=== PATIENT | male | born 1960 | race Hispanic/Latino ===

== ENCOUNTER 2016-08-09 05:51 | Inpatient (IN) | payer MEDICARE, OTHER ==
[2016-08-09 05:54] VITALS: BMI 38.5
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
[2016-08-09] MEDS ORDERED: Nitroglycerin 2% Ointment Foilpak UD TOP STA (06:36)
[2016-08-09 06:47] LABS: ALKALINE PHOSPHATASE 102 U/L (38-133); ALT/SGPT 30 U/L (7-56); AST/SGOT 20 U/L (15-59); BILIRUBIN,TOTAL 1.2 mg/dL (0.2-1.3); BLOOD UREA NITROGEN 35 mg/dL (7-21); CALCIUM 8.6 mg/dL (8.4-10.5); CARBON DIOXIDE 32 mmol/L (21-33); CHLORIDE 98 mmol/L (98-107); GFR AFRICAN-AMERICAN > 60; GLUCOSE,RANDOM 193 mg/dL (70-110); POTASSIUM 3.4 mmol/L (3.6-5.0); SODIUM 138 mmol/L (132-148); TOTAL PROTEIN 6.3 g/dL (5.8-8.3)
[2016-08-09] MEDS ORDERED: Potassium Chloride 20 mEq ER Tab PO STA (06:55)
[2016-08-09 06:58] LABS: TROPONIN I 0.05 ng/mL
[2016-08-09 07:14] LABS: INR 1.13 (0.93-1.08); PARTIAL THROMBOPLASTIN TIME 27.8 Seconds (23.7-30.8)
[2016-08-09 07:17] LABS: HEMATOCRIT 38.4 % (42.0-52.0); MEAN CELL VOLUME 79.5 fL (80.0-105.0); MEAN CORPUSCULAR HEMOGLOBIN 25.1 pg (25.0-35.0); MEAN CORPUSCULAR HGB CONC 31.5 g/dl (31.0-37.0); MEAN PLATELET VOLUME 9.7 fl (7.0-11.0); RED CELL DISTRIBUTION WIDTH 19.1 % (11.5-14.5); WHITE BLOOD COUNT 5.2 10^3/ul (4.5-11.0)
--- NOTE | 2016-08-09 08:00 | ED PDOC ---
Physical Exam Vital Signs Temp Pulse Resp BP Pulse Ox 08/09/16 10:31 79 18 148/86 98 08/09/16 09:23 83 18 146/83 98 08/09/16 07:34 89 20 160/109 H 97 08/09/16 07:26 85 18 155/114 H 98 08/09/16 07:21 155/114 H 08/09/16 06:33 92 H 20 165/109 H 98 08/09/16 06:28 20 100 08/09/16 06:15 98.0 F 96 H 20 174/124 H 100 Medical Decision Making ED Course and Treatment: 08/09/16 07:40 EXAM: CT Abdomen and Pelvis Without Intravenous Contrast IMPRESSION: 1. Bilateral moderate pleural effusions and dense basilar atelectasis. In combination with ascites, and diffuse subcutaneous edema, this may reflect anasarca. 2. Hepatic cirrhosis and hepatic cirrhosis manifest as large volume abdominal ascites and varices. Dictated and Authenticated by: Alexandru Reyes MD 08/09/2016 7:09 AM Eastern Time ([place] & [place]) US Lower extremity vein bilat: Creator : Alexandru Castro MD FINDINGS: The visualized deep venous systems of both lower extremities are sonographically normal and compressible. Normal wave forms and augmentation are seen. There is no sonographic evidence for deep venous thrombosis in the visualized segments of both lower extremities. IMPRESSION: No sonographic evidence for deep venous thrombosis in the visualized segments of both lower extremities. 08/09 7am: Patient signed out to me. CT and US pending. Readings documented above. I spoke to the admitting physician about all finding and admitted the patient in stable condition. - Lab Interpretations Lab Results: 08/09/16 06:00 08/09/16 06:00 Lab Results 08/09/16 06:00: WBC 5.2, RBC 4.83, Hgb 12.1 L, Hct 38.4 L, MCV 79.5 L, MCH 25.1 , MCHC 31.5, RDW 19.1 H, Plt Count 229, MPV 9.7 08/09/16 06:00: Sodium 138, Potassium 3.4 L, Chloride 98, Carbon Dioxide 32, Anion Gap 11, BUN 35 H, Creatinine 1.2, Est GFR ( Amer) > 60, Est GFR ( Non-Af Amer) > 60, Random Glucose 193 H, Calcium 8.6, Total Bilirubin 1.2, AST 20, ALT 30, Alkaline Phosphatase 102, Lactate Dehydrogenase 364, Total Creatine Kinase 69, Troponin I 0.05, NT-Pro-B Natriuret Pep 06676 H, Total Protein 6.3, Albumin 3.1, Globulin 3.2, Albumin/Globulin Ratio 1.0 L 08/09/16 06:00: PT 12.2 H, INR 1.13 H, APTT 27.8 - RAD Interpretation Radiology Orders: 08/09/16 06:16 CHEST PORTABLE [RAD] Stat DUPLEX LOWER EXTRM VEIN BILAT [US] Stat 08/09/16 06:39 ABD & PELVIS W/O PO OR IV CONT [CT] Stat - Medication Orders Current Medication Orders: Discontinued Medications Furosemide (Lasix) 40 mg IVP ONCE ONE Stop: 08/09/16 06:37 Last Admin: 08/09/16 07:21 Dose: 40 mg Nitroglycerin (Nitro-Bid 2% Oint) 1 ea TOP ONCE STA Stop: 08/09/16 06:37 Last Admin: 08/09/16 07:22 Dose: 1 ea Potassium Chloride (K-Dur 20 Meq Er Tab) 40 meq PO STAT STA Stop: 08/09/16 06:56 Last Admin: 08/09/16 07:44 Dose: 40 meq Disposition/Present on Arrival - Present on Arrival Any Indicators Present on Arrival: No History of DVT/PE: No History of Uncontrolled Diabetes: No Urinary Catheter: No History of Decub. Ulcer: No History Surgical Site Infection Following: None - Disposition Have Diagnosis and Disposition been Completed?: Yes Diagnosis: Dyspnea due to congestive heart failure Disposition: HOSPITALIZED Disposition Time: 09:30 Patient Problems: Current Active Problems Problem Status Onset Dyspnea due to congestive heart failure Acute Condition: STABLE
--- NOTE | 2016-08-09 08:07 | RAD ---
HISTORY: sob COMPARISON: No prior. FINDINGS: LUNGS: No significant interval change. Pulmonary vascular congestion is noted. PLEURA: No significant pleural effusion identified, no pneumothorax apparent. CARDIOVASCULAR: Is seen OSSEOUS STRUCTURES: No significant abnormalities. VISUALIZED UPPER ABDOMEN: Normal. OTHER FINDINGS: None. IMPRESSION: Cardiomegaly and pulmonary vascular congestion. No significant interval change.
--- NOTE | 2016-08-09 09:34 | CT ---
PROCEDURE: CT Abdomen and Pelvis without intravenous contrast HISTORY: distension COMPARISON: Comparison is made to the previous study dated 12/19/2014 TECHNIQUE: Axial and reformatted coronal and sagittal CT images of the abdomen and pelvis were obtained without IV or oral contrast administration.. Contrast Dose: 0. Radiation dose: Total exam DLP = 1233.74 mGy-cm. This CT exam was performed using one or more of the following dose reduction techniques: Automated exposure control, adjustment of the mA and/or kV according to patient size, and/or use of iterative reconstruction technique. FINDINGS: LOWER THORAX: There are bilateral pleural effusions seen. The heart is mildly enlarged. LIVER: Suspicious for cirrhotic changes. The liver demonstrate coarse heterogeneous attenuation. GALLBLADDER AND BILE DUCTS: No evidence of cholecystitis. PANCREAS: Unremarkable. No gross lesion or ductal dilatation. SPLEEN: Mild splenomegaly is again noted. ADRENALS: Unremarkable. No mass. KIDNEYS AND URETERS: Unremarkable. No hydronephrosis. No solid mass. VASCULATURE: Unremarkable. No aortic aneurysm. BOWEL: Unremarkable. No obstruction. No gross mural thickening. Mild diffuse bowel wall thickening likely due to soft tissue edema. APPENDIX: No evidence of appendicitis. PERITONEUM: Small amount of ascites seen in the abdomen and pelvis. LYMPH NODES: Unremarkable. No enlarged lymph nodes. BLADDER: Mild urinary bladder wall thickening. REPRODUCTIVE: Unremarkable. BONES: Internal fixation seen at the lower spine. With defined cortex defect seen at the right iliac bone OTHER FINDINGS: None. IMPRESSION: Interval appearance of bilateral pleural effusions since the previous exam. Interval appearance of small ascites and moderate diffuse soft tissue edema since the previous study. Cirrhosis and findings suggestive of portal hypertension. Preliminary report was submitted by [facility].
--- NOTE | 2016-08-09 09:38 | CARD ---
APPROVED REPORT EKG Measurement Heart [id number] <Conclusion> Sinus rhythm with 1st degree AVB and PVCs and APCs PRWP ASMI, possibly old IVCD Q in 3 STTW changes c/w ischemia PVCs are new.
--- NOTE | 2016-08-09 10:22 | US ---
HISTORY: Leg pain and swelling. Evaluate for DVT PHYSICIAN(S): Alexandru Richardson MD. TECHNIQUE: Duplex sonography and color-flow Doppler with graded compression were used to evaluate the deep venous systems of both lower extremities. The exam is somewhat limited by edema FINDINGS: The visualized deep venous systems of both lower extremities are sonographically normal and compressible. Normal wave forms and augmentation are seen. There is no sonographic evidence for deep venous thrombosis in the visualized segments of both lower extremities. IMPRESSION: No sonographic evidence for deep venous thrombosis in the visualized segments of both lower extremities.
[2016-08-09] MEDS: Arformoterol 15 mcg/2 ml Inh Sol IH SCH (20:04)
[2016-08-09] MEDS: Budesonide 0.5 mg/2 ml Inhal Susp UD IH SCH (20:04)
--- NOTE | 2016-08-09 20:31 | CON ---
DATE: 08/09/2016 REFERRING PHYSICIAN: Dr. Oliver. REASON FOR CONSULT: Cardiomyopathy, heart failure, history of sleep apnea syndrome. HISTORY OF PRESENT ILLNESS: This is a 56-year-old gentleman with a known history of obstructive slee p apnea syndrome diagnosed many years ago, noncompliant, never used the CPAP, history of hypertension and hyperlipidemia, who comes in to the Emergency Room with a cough, shortness of breath, leg swelli ng and ascites. Denies any hemoptysis, no hematemesis, no hematuria, no diarrhea reported. PAST MEDICAL HISTORY: Is significant for diabetes, hypertension, obesity, obstructive sleep apnea sy ndrome, hyperlipidemia. ALLERGIES: None known. SOCIAL HISTORY: Stopped smoking. Denied any alcohol use. FAMILY HISTORY: No significant cardiopulmonary disease reported. HOME MEDICATIONS: He has been on metformin, Cozaar and aspirin. In the ER, received Lasix and potas sium. REVIEW OF SYSTEMS: No headache, no rhinitis. Admits to have loud snoring, daytime sleepy and tired, cough and shortness of breath. No sputum production, no nausea, no vomiting, no diarrhea. Does hav e increased abdominal girth, has leg swelling, no dysuria. PHYSICAL EXAMINATION: GENERAL: Lying in the bed in [id number] distress. VITAL SIGNS: Temp is 98, heart rate is 93, respiratory rate is 20, blood pressure 153/103, pulse ox 96% on room air. HEENT: Moist mucous membranes. Crowded airway. Mallampati score is 4. NECK: Supple. No JVD. LUNGS: Has bilateral crackles with expiratory rhonchi and a few wheezing. HEART: S1 and S2. ABDOMEN: Soft, nontender. No organomegaly. Has ascites. EXTREMITIES: Has edema of both lower extremities. NEUROLOGIC: Awake, alert, follows simple commands. LABORATORY DATA: Shows hemoglobin 12.1, hematocrit 38.4, WBC 5.2, platelet is 229. INR 1.13, PTT is 28. Sodium 138, potassium 3.4, chloride 98, bicarbonate 32, BUN 35, creatinine 1.2, glucose 193, ca lcium 8.6, total bilirubin 1.2, AST 20, ALT 30, alkaline phosphatase is 102. Troponin 0.05. ProBNP 11,500. Albumin 3.1. Chest x-ray done in the ER shows cardiomegaly with pulmonary vascular congestion. Venous ultrasound of lower extremity shows no evidence of DVT. Had a CAT scan of the abdomen and pelvis done, which sh ows the interval appearance of bilateral pleural effusions since the previous examination, interval a ppearance of small ascites and moderate diffuse soft tissue edema since the previous study, cirrhosis cyanosis suggestive of portal hypertension. IMPRESSION AND PLAN: Cardiomyopathy, heart failure, morbid obesity, history of sleep apnea syndrome, noncompliant with CPAP and BiPAP, diabetes, hypertension, seems like cirrhotic liver with portal hyp ertension. I agree with the present management. 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 Will get an echocardiogram tomorrow. Sleep apnea precaution. Keep head elevated at 45 degre e. IV and inhaled bronchodilator, antibiotics. Gastric and deep venous thrombosis prophylaxis. Fol low up labs in the morning. Will suggest getting PFT and attended sleep study as an outpatient. I s poke about sleep apnea. The patient does not like nasal or full face mask, but is willing to try a n mickey pillow mask as an outpatient. Thank you and will follow with you. Farhan Chavira MD cc: [phone] TT: 08/09/2016 20:31:00 Confirmation # [id number] Dictation # [id number] dn
[2016-08-09] MEDS: MethylPREDNISolone 40 mg Vial IVP SCH (22:47)
[2016-08-10] MEDS: MethylPREDNISolone 40 mg Vial IVP SCH ×3 (06:16→21:41)
[2016-08-10 07:02] LABS: ALB/GLOB RATIO 1.1 (1.1-1.8); ALKALINE PHOSPHATASE 109 U/L (38-133); ALT/SGPT 33 U/L (7-56); AST/SGOT 20 U/L (15-59); BILIRUBIN,TOTAL 1.4 mg/dL (0.2-1.3); BLOOD UREA NITROGEN 30 mg/dL (7-21); CARBON DIOXIDE 30 mmol/L (21-33); CHLORIDE 99 mmol/L (98-107); GFR AFRICAN-AMERICAN > 60; GLUCOSE,RANDOM 149 mg/dL (70-110); POTASSIUM 3.8 mmol/L (3.6-5.0); SODIUM 138 mmol/L (132-148); TOTAL PROTEIN 6.7 g/dL (5.8-8.3)
[2016-08-10 07:10] LABS: HEMATOCRIT 40.4 % (42.0-52.0); MEAN CELL VOLUME 79.1 fL (80.0-105.0); MEAN CORPUSCULAR HEMOGLOBIN 25.2 pg (25.0-35.0); MEAN CORPUSCULAR HGB CONC 31.9 g/dl (31.0-37.0); MEAN PLATELET VOLUME 9.3 fl (7.0-11.0); RED CELL DISTRIBUTION WIDTH 18.4 % (11.5-14.5)
--- NOTE | 2016-08-10 07:38 | PQF CHF ---
This form is a permanent part of the medical record Dr. Chavira, Please document specificity of CHF type and severity when determined. Clarification of your documentation is requested to better reflect the severity of illness and intensity of treatment of your patient. Indicators present [x] Diagnosis of CHF and/or history of CHF x] BNP > 200 [x] Imaging Finding of Pulmonary Edema /Pleural Effusions [x] Fluid/Volume Overload [x] Pitting edema [] Ejection Fraction < 40% (Indicative of Systolic Heart Failure) [] Ejection Fraction > 40% (Indicative of Diastolic Heart Failure) [x] Dyspnea / Orthopenea / Paroxysmal Nocturnal Dyspnea [] Other: Location in the medical record that reflects the above clinical findings: [] Treatment Provided: [] PHYSICIAN'S RESPONSE Based on your medical judgment of the clinical indicators outlined above, are you treating this patient for a known or suspected: [] Acute CHF [] Systolic [] Diastolic [] Combined [] Chronic CHF [] Systolic [] Diastolic [] Combined [] Acute on Chronic CHF []Systolic [] Diastolic [] Combined [] CHF due hypertension [] Acute systolic []Chronic systolic [] Acute/ chronic systolic [] Other, please indicate: [] [] If Unable to Determine, please check the box, sign and date. Present On Admission (POA) Indicator: [] Present at the time of admission [] Not present at the time of admission [] Clinically Undetermined In responding to this query, please exercise your independent professional judgment. The fact that a question is asked does not imply that any particular answer is desired or expected. Thank you for your clarification on this documentation. If you have any questions please call:[ ] * Thank you, [ ]Michelle Arora [facility] #[id number] process mold technician DYLON
[2016-08-10] MEDS: Potassium Chloride 20 mEq ER Tab PO SCH (09:28)
[2016-08-10] MEDS: Budesonide 0.5 mg/2 ml Inhal Susp UD IH SCH ×2 (09:30→19:55)
[2016-08-10] MEDS: Enoxaparin 40 mg Syringe SC SCH (09:30)
[2016-08-10] MEDS: Arformoterol 15 mcg/2 ml Inh Sol IH SCH ×2 (09:30→19:55)
--- NOTE | 2016-08-10 11:01 | CON ---
DATE: 08/10/2016 HISTORY OF PRESENT ILLNESS: The patient is a 56-year-old male who presents with several days of peda l edema, increasing abdominal girth as well as dyspnea. PAST MEDICAL HISTORY: Includes hypertension, diabetes mellitus, hypercholesterolemia as well as COPD . The patient's past medical history also includes a documented dilated cardiomyopathy with an ejection fraction of 25%. There was noncritical CAD noted on a previous catheterization. SOCIAL HISTORY: The patient is an active smoker. His diet is noncompliant and filled with high salt intake. REVIEW OF SYSTEMS: A 14-point review of systems was reviewed. No angina noted. Other than his dysp ricardo and pedal edema and increase of abdominal girth, no other cardiac symptomatology is noted. PHYSICAL EXAMINATION: VITAL SIGNS: Blood pressure is 139/99, heart rate is in the 90s. NECK: Negative JVD. LUNGS: Decreased breath sounds bilaterally. HEART: Reveals S1, S2. EXTREMITIES: 2+ to 3+ edema. ABDOMEN: Increased abdominal girth. EKG shows normal sinus rhythm with frequent APCs and PVCs, poor R-wave progression noted, nonspecific ST-T changes. LABORATORY DATA: His proBNP is greater than 11,000. Troponin is 0.05. BUN and creatinine are unrem arkable. Hemoglobin is 12.9. IMPRESSION: 1. Acute systolic congestive heart failure. 2. Dilated cardiomyopathy with an ejection fraction of 25%. 3. Coronary artery disease. 4. Increasing severe chronic obstructive pulmonary disease. 5. Noncompliant with diet and cardiac risk reduction program. 6. Ascites. 7. Pedal edema. PLAN: Given these findings, we will increase his Lasix to 40 b.i.d. We will start him on IV dobutam ine at 5 mcg per kilogram per minute. Alexandru Carrillo MD cc: [id number] TT: 08/10/2016 11:00:23 Confirmation # [id number] Dictation # [id number] tn
[2016-08-10] MEDS: DOBUTamine 500mg/250ml D5W 500 MG/250 ML BAG IV PRN (12:46)
[2016-08-10] MEDS: Insulin Lispro (humaLOG) MEDIUM Coverage SC SCH ×2 (16:52→22:30)
--- NOTE | 2016-08-10 18:03 | CARD ---
APPROVED REPORT EXAM: Two-dimensional and M-mode echocardiogram with Doppler and color Doppler. INDICATION Congestive Heart Failure 2D DIMENSIONS Left Atrium (2D)5.8 (1.6-4.0cm)IVSd1.6 (0.7-1.1cm) LVDd6.1 (3.9-5.9cm)PWd1.5 (0.7-1.1cm) LVDs5.4 (2.5-4.0cm)FS (%) 12.1 % LVEF (%)25.7 (>50%) M-Mode DIMENSIONS Aortic Root3.70 (2.2-3.7cm)Aortic Cusp Exc.1.90 (1.5-2.0cm) Aortic Valve AoV Peak Lgwmdgbj392.0cm/sAoV VTI31.3cmAO Peak GR.10mmHg LVOT Peak Cvawtuso364.0cm/sLVOT VTI21.00cmAO Mean GR.7mmHg Mitral Valve MV NLH83dnL/A ratio0.0MVA (PHT)3.38cm2 TDI E/Lateral E'0.0E/Medial E'0.0 Pulmonary Valve PV Peak Toetyyaw17.5cm/sPV Peak Grad.3mmHg Tricuspid Valve TR Peak Krnfmsnm962px/sRAP [id number] Peak Gr.40mmHg [id number] LEFT VENTRICLE The Left Ventricle is mildly dilated. There is mild concentric left ventricular hypertrophy. The systolic function is severely impaired. There is global hypokinesis of the left ventricle. RIGHT VENTRICLE The right ventricle is mildly dilated. ATRIA The left atrium is moderately dilated. The right atrium is moderately dilated. The interatrial septum is intact with no evidence for an atrial septal defect. AORTIC VALVE The aortic valve is normal in structure. No aortic regurgitation is present. There is no aortic valvular stenosis. MITRAL VALVE The mitral valve is mildly thickened. Mitral regurgitation is moderate. TRICUSPID VALVE The tricuspid valve is normal in structure. There is moderate tricuspid regurgitation. PULMONIC VALVE The pulmonary valve is normal in structure. GREAT VESSELS The aortic root is normal in size. The IVC is dilated. PERICARDIAL EFFUSION There is moderate left pleural effusion. There is no pericardial effusion. <Conclusion> Four chamber enlargement. Severe LV systolic function with global hypokinesis. Moderate MR. Moderate TR. Left pleural effusion noted.
--- NOTE | 2016-08-11 02:24 | PN ---
DATE: 08/10/2016 REFERRING PHYSICIAN: Kiki Oliver MD SUBJECTIVE: He is lying in the bed, head at 45 degrees, feels better, decreased cough, decreased miller rtness of breath. No chest pain, no nausea, no vomiting, no diarrhea, still has leg swelling. OBJECTIVE: GENERAL: In no acute distress. VITAL SIGNS: Temp is 98, heart rate is 90, respiratory rate is 20, blood pressure 144/78, pulse ox 9 5% on room air. HEENT: Moist mucous membranes, crowded airway, Mallampati score is 4. NECK: Supple, no JVD. LUNGS: He has a few crackles, scattered rhonchi, has a prolonged expiratory phase. HEART: S1, S2. ABDOMEN: Soft, nontender. No organomegaly. EXTREMITIES: There is bilateral edema. NEUROLOGIC: Awake, alert, follows simple commands. MEDICATIONS: He is on Brovana 15 mcg inhaled twice a day, Cozaar 50 mg daily, dobutamine IV is added , doxycycline 100 mg twice a day, Ecotrin 81 mg daily, metformin 500 mg twice a day, insulin coverage , potassium 20 mEq daily, K-Dur 20 mEq daily, Lasix 40 mg twice a day, Lovenox 40 mg daily, Nicoderm patch daily, Pepcid 40 mg daily, Pulmicort inhaled twice a day, Solu-Medrol 20 mg q. 8 hours. LABORATORY DATA: Shows hemoglobin 12.9, hematocrit 40.4, WBC 6.0, platelet is 262. INR of 1.13. So dium 138, potassium 3.8, chloride 99, bicarbonate 30, BUN 30, creatinine 1.2, glucose 149, calcium 9. 0, total bilirubin 1.4, AST 20, ALT 33, alkaline phosphatase is 109, albumin is 3.5. He had an echoc ardiogram done today, which shows right ventricular systolic pressure is 50, shows 4-chamber enlargem ent, with severely-decreased LV function, moderate MR, moderate TR, and left pleural effusion noted. IMPRESSION AND PLAN: Severe cardiomyopathy, heart failure, morbid obesity, history of sleep apnea sy ndrome, hypertension, diabetes, cirrhotic liver, portal hypertension. The patient was started on utamine by Dr. Carrillo and I agree with this. 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 For chronic obstructive pulmonary disease, continue IV and inh aled bronchodilator with antibiotics. Outpatient, he needs attended sleep study, also needs PFT. Fo llow up electrolytes in the morning. We will follow with you. Farhan Chavira MD cc: [id number] TT: 08/11/2016 02:23:51 Confirmation # [id number] Dictation # [id number] vn
[2016-08-11] MEDS: DOBUTamine 500mg/250ml D5W 500 MG/250 ML BAG IV PRN (06:15)
[2016-08-11] MEDS: MethylPREDNISolone 40 mg Vial IVP SCH (06:16)
[2016-08-11 06:27] VITALS: O2SAT 92
[2016-08-11 07:22] LABS: BLOOD UREA NITROGEN 27 mg/dL (7-21); CALCIUM 8.8 mg/dL (8.4-10.5); CARBON DIOXIDE 31 mmol/L (21-33); CHLORIDE 98 mmol/L (98-107); CHOLESTEROL 120 mg/dL (130-200); GFR AFRICAN-AMERICAN > 60; GLUCOSE,RANDOM 156 mg/dL (70-110); POTASSIUM 3.6 mmol/L (3.6-5.0); SODIUM 138 mmol/L (132-148)
[2016-08-11 07:26] LABS: HEMATOCRIT 37.3 % (42.0-52.0); MEAN CELL VOLUME 79.2 fL (80.0-105.0); MEAN CORPUSCULAR HEMOGLOBIN 25.1 pg (25.0-35.0); MEAN CORPUSCULAR HGB CONC 31.6 g/dl (31.0-37.0); MEAN PLATELET VOLUME 9.3 fl (7.0-11.0); RED CELL DISTRIBUTION WIDTH 18.2 % (11.5-14.5); WHITE BLOOD COUNT 7.3 10^3/ul (4.5-11.0)
[2016-08-11 07:44] LABS: IRON 17 ug/dL (45-180)
--- NOTE | 2016-08-11 08:08 | HP ---
CHIEF COMPLAINT: Swelling of the leg. HISTORY OF PRESENT ILLNESS: The patient is a 56-year-old male with history of obstructive sleep apnea syndrome, congestive heart failure, sleep apnea syndrome , noncompliant, never uses CPAP, history of hypertension and hypercholesterolemia, came in the Emergency Room with shortness of breath, leg swelling and ascites. Denies hemoptysis. No hematuria or hematochezia. No headache, no dizziness, no fever, no chills. PAST MEDICAL HISTORY: Diabetes mellitus, hypertension, obesity, obstructive sleep apnea syndrome, hypercholesterolemia. ALLERGIES: The patient is not allergic to any medication. SOCIAL HISTORY: History of smoking, quit. No alcohol, no drugs. FAMILY HISTORY: No significant cardiomyopathy disease. No COPD, no asthma, not contributory. HOME MEDICATIONS: Metformin, Cozaar, aspirin. REVIEW OF SYSTEMS: The patient was seen and examined on the bedside, looks comfortable. No nausea, vomiting, or diarrhea. No headache. No fever, no chills. No hematuria or hematochezia. Has increased abdominal girth, swelling of the legs. Admitted to having loud snoring. Coughing and shortness of breath. PHYSICAL EXAMINATION: VITAL SIGNS: Temperature 98, heart rate 93, respiratory rate 20, blood pressure 150/103, pulse oximeter done on room air. HEENT: Head normocephalic, atraumatic. Eyes: PERRLA. Extraocular muscles intact. Conjunctivae are clear. Nose patent. Mucous membranes moist. NECK: Supple. No carotid bruit, JVD or thyromegaly. LUNGS: Clear to auscultation. HEART: S1, S2 positive. ABDOMEN: Soft, nontender. No organomegaly. Has ascites, fluid thrill is positive. EXTREMITIES: Lower extremity edema. NEUROLOGIC: Awake, alert, and follows simple commands. LABORATORY DATA: Hemoglobin 12.1, hematocrit 38.4, white blood cell 5.7, platelets 229. Sodium 138, potassium 3.4, BUN 35, creatinine 1.2, AST 20, ALT 30. ASSESSMENT AND PLAN: The patient with cardiomyopathy, congestive heart failure , morbid obesity, history of sleep apnea syndrome, noncompliant with CPAP and BiPAP, diabetes mellitus, hypertension, cirrhosis of the liver with portal hypertension, ascites. We will give diuretics, afterload reduction and beta blockers, antibiotics. Gastric and deep venous thrombosis prophylaxis. I reviewed Dr. Chavira's notes. I reviewed Dr. Alexandru Carrillo's notes also. Acute systolic congestive heart failure, dilated cardiomyopathy with ejection fraction 25%, coronary artery disease, pedal edema. Dr. Alexandru Carrillo increased the Lasix to b.i.d. and started him on IV dobutamine at per kilogram per minute. CAT scan of abdomen and pelvis done. Interval appearance of the bilateral pleural effusion with previous exam. Interval appearance of small ascites and moderate effusion findings suggestive of portal hypertension. We will continue Brovana, losartan for hypertension. Dr. Alexandru Carrillo started dobutamine and doxycycline, aspirin and Glucophage. The patient is getting insulin sliding scale. Potassium is replaced. Getting Lovenox for GI prophylaxis. History of smoking, gave nicotine patch. Pepcid for GI prophylaxis. Started on Solu-Medrol. Repeat labs. We will follow up. Kiki Oliver MD cc: [id number] TT: 08/10/2016 20:10:16 moi OSBORNE
[2016-08-11] MEDS ORDERED: Potassium Chloride 20 mEq/15 ml LIQ UD PO STA (08:13)
[2016-08-11] MEDS: Potassium Chloride 20 mEq ER Tab PO SCH (08:31)
[2016-08-11] MEDS: Budesonide 0.5 mg/2 ml Inhal Susp UD IH SCH ×2 (08:35→21:08)
[2016-08-11] MEDS: Arformoterol 15 mcg/2 ml Inh Sol IH SCH ×2 (08:35→21:08)
--- NOTE | 2016-08-11 08:53 | PN ---
DATE: 08/11/2016 CARDIOLOGY FOLLOWUP The patient's edema is much improved on diuretics and IV dobutamine. The patient is feeling better o n IV dobutamine. His edema is much improved. PHYSICAL EXAMINATION: VITAL SIGNS: Blood pressure is 135/72. The heart rate is in the 80s. NECK: Negative JVD. LUNGS: Without rales. HEART: S1, S2. EXTREMITIES: Decreasing edema. LABORATORIES: Hemoglobin is 11.8. Chemistries: The potassium is 3.6. Echocardiogram reveals an ejection fraction of 25%. IMPRESSION: 1. Acute systolic congestive heart failure improved on IV dobutamine. 2. End-stage dilated cardiomyopathy. 3. Diabetes mellitus. 4. Hypertension. 5. Pedal edema, which is improving. PLAN: Given these findings, we will check a magnesium level today. We will replace his potassium. We will continue therapy for another 24 hours. Alexandru Carrillo MD cc: [id number] TT: 08/11/2016 08:38:58 Confirmation # [id number] Dictation # [id number] jn
[2016-08-11] MEDS: Insulin Lispro (humaLOG) MEDIUM Coverage SC SCH ×4 (09:00→21:55)
[2016-08-11] MEDS: Enoxaparin 40 mg Syringe SC SCH (09:36)
[2016-08-11 13:14] LABS: FOLATE 7.3 ng/mL
--- NOTE | 2016-08-11 14:26 | PN ---
DATE: 08/11/2016 REFERRING PHYSICIAN: Dr. Oliver. SUBJECTIVE: He is sitting side of the bed, feels better on dobutamine. No headache, no rhinitis, no chest pain. Still has significant leg swelling. OBJECTIVE: GENERAL: No acute distress. VITAL SIGNS: Temperature is 98, heart rate is 80, respiratory rate is 20, blood pressure 151/97, pul se ox 92% on room air. HEENT: Moist mucous membranes. Crowded airway. NECK: Supple, no JVD. LUNGS: He has a few crackles at the bases. HEART: S1 and S2. ABDOMEN: Soft, nontender, nondistended. EXTREMITIES: Has edema of both lower extremities. NEUROLOGIC: Awake, alert, follows simple commands. MEDICATIONS: He is on Brovana 15 mcg inhaled twice a day, Cozaar 50 mg daily, IV dobutamine, doxycyc line 100 mg twice a day, Ecotrin 81 mg daily, metformin 500 mg twice a day, insulin coverage, potassi um 20 mEq daily, Lasix 40 mg twice a day, Lovenox 40 mg daily, NicoDerm patch daily, Pepcid 40 mg kyra ly, Pulmicort inhaled twice a day, Solu-Medrol 20 mg q. 12 hours. LABORATORY DATA: Shows hemoglobin 11.8, hematocrit is 37.3, WBC 7.3, platelet is 244. Sodium 138, p otassium 3.6, chloride , bicarbonate 31, BUN 27, creatinine 1.3, glucose is 156, hemoglobin A1c 6.6, magnesium 1.7. Iron is 17. AST 20, ALT 33, alkaline phosphatase is 109. Cholesterol is 120. T SH 1.20. IMPRESSION AND PLAN: Severe cardiomyopathy with heart failure, morbid obesity, sleep apnea syndrome, hypertension, diabetes, cirrhotic liver, portal hypertension, chronic obstructive lung disease. Cli nically, he is improved on dobutamine and diuretics. We will add KOFFI inhibitor and beta blockers. 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 Discontinue Solu-Medrol. Place on prednisone tapered dose, inhaled bronchodilator. Follow up labs in the morning. We will follow with you. Mohammad Cait MD cc: [id number] TT: 08/11/2016 14:25:48 Confirmation # [id number] Dictation # [id number] rn
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
[2016-08-12] MEDS: Insulin Lispro (humaLOG) MEDIUM Coverage SC SCH ×3 (07:30→18:02)
[2016-08-12] MEDS: Budesonide 0.5 mg/2 ml Inhal Susp UD IH SCH ×2 (08:20→21:13)
[2016-08-12] MEDS: Arformoterol 15 mcg/2 ml Inh Sol IH SCH ×2 (08:20→21:13)
[2016-08-12] MEDS: Potassium Chloride 20 mEq ER Tab PO SCH (09:25)
[2016-08-12] MEDS: Enoxaparin 40 mg Syringe SC SCH (09:26)
[2016-08-12] MEDS ORDERED: Alum-Mag Hydrox-Simethicone Susp (30 mL) PO ONE (11:40)
[2016-08-12] MEDS ORDERED: Magnesium Oxide 400 mg Tab UD PO SCH (11:45)
--- NOTE | 2016-08-12 11:59 | PN ---
DATE: 08/12/2016 The patient's response to dobutamine has been good. He denies shortness of breath. PHYSICAL EXAMINATION: VITAL SIGNS: Blood pressure is 130/80, the heart rate is in the 80s. NECK: Negative JVD. LUNGS: Decreased breath sounds. HEART: Revealed S1, S2. EXTREMITIES: Decreasing edema, but still persistent. The hemoglobin is 11.8. BUN and creatinine are unremarkable. Potassium is 3.6 with a magnesium of 1 .7. IMPRESSION: 1. Dilated cardiomyopathy. 2. Recurrent congestive heart failure. 3. Diabetes mellitus. 4. Chronic obstructive pulmonary disease. 5. Pedal edema. Given these findings, we will change his diuretic therapy to Lasix as well as spironolactone. We will discontinue his IV dobutamine. Will increase his Nicotine patch to 21 mg. Alexandru Carrillo MD cc: [id number] TT: 08/12/2016 11:58:44 Confirmation # [id number] Dictation # [id number]
[2016-08-12 12:19] LABS: BLOOD UREA NITROGEN 35 mg/dL (7-21); CARBON DIOXIDE 34 mmol/L (21-33); CHLORIDE 93 mmol/L (98-107); GFR AFRICAN-AMERICAN > 60; GLUCOSE,RANDOM 111 mg/dL (70-110); POTASSIUM 3.7 mmol/L (3.6-5.0); SODIUM 136 mmol/L (132-148)
[2016-08-12] MEDS: POLYETHYLENE GLYCOL 3350 17 GM/Dose PACKET PO SCH ×2 (12:36→18:00)
--- NOTE | 2016-08-12 17:58 | PN ---
DATE: 08/12/2016 REFERRING PHYSICIAN: Dr. Oliver. SUBJECTIVE: The patient is sitting side of the bed, friend at the bedside. Night was unremarkable. Off dobutamine. Discharge planning in progress. Breathing is better. No chest pain, no nausea, no vomiting, no diarrhea. Decreased leg swelling. OBJECTIVE: GENERAL: No acute distress. VITAL SIGNS: Temperature is 98, heart rate is 81, respiratory rate is 20, blood pressure 144/97, pul se ox 92% on room air. HEENT: Moist mucous membrane. Crowded airway. NECK: Supple. No JVD. LUNGS: Has a fair airflow with few rhonchi. HEART: S1, S2. ABDOMEN: Soft, nontender. No organomegaly. EXTREMITIES: Decreased edema. NEUROLOGIC: Awake, alert, follows simple commands. MEDICATIONS: He is on Aldactone 25 mg twice a day, hydralazine 25 mg q.i.d. Brovana 15 mcg q. 12 ren rs, Colace 100 mg twice a day, Cozaar 50 mg daily, doxycycline 100 mg twice a day, Ecotrin 81 mg brant y, metformin 500 mg twice a day, potassium 20 mEq daily, Lasix 40 mg daily, metoprolol tartrate 25 mg twice a day, Lovenox 40 mg daily, magnesium oxide 400 mg daily, MiraLax 17 grams daily, Nicoderm pat ch daily, Pepcid 40 mg daily, prednisone 20 mg daily, Pulmicort inhaler twice a day. LABORATORY DATA: Shows hemoglobin 11.8 that was yesterday. Chemistry shows sodium 136, potassium 3. 7, chloride 93, bicarbonate 34, BUN 35, creatinine 1.0, glucose 111, calcium is 9.0, magnesium 1.6. IMPRESSION AND PLAN: Severe cardiomyopathy with heart failure, morbid obesity, sleep apnea syndrome, hypertension, diabetes, liver cirrhosis, portal hypertension, chronic obstructive lung disease. I s poke to nurse practitioner. Discharge planning is in progress. 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 Outpatient needs atten ded sleep study to rule out sleep apnea causes of cardiomyopathy. The patient was asked to stop smok ing. Continue Nicoderm patch. Thank you and will follow with you. Farhan Chavira MD cc: [id number] TT: 08/12/2016 17:57:46 Confirmation # [id number] Dictation # [id number] jn
[2016-08-12 18:06] VITALS: BP 153/94; PULSE 96
[2016-08-12 18:20] VITALS: RESP 20; TEMP 98.3
--- NOTE | 2016-08-31 08:32 | DS ---
CHIEF COMPLAINT: Swelling of the legs. HISTORY OF PRESENT ILLNESS: The patient is a 56-year-old male with history of obstructive sleep apnea syndrome, congestive heart failure; sleep apnea syndrome , noncompliant, never used the CPAP; history of hypertension, hypercholesterolemia, came to the Emergency Room with shortness of breath, leg swelling and ascites. Denies hemoptysis. No nausea, vomiting, or diarrhea. We admitted the patient. Did CAT scan of abdomen and pelvis. Seen by Dr. Chavira and Dr. Alexandru Carrillo. Did ultrasound of the extremities, reviewed by me. Got better. Discharged home. PAST MEDICAL HISTORY: Diabetes mellitus, hypertension, obesity, obstructive sleep apnea syndrome. ALLERGIES: The patient is not allergic with any medications. SOCIAL HISTORY: History of smoking, quit. No drugs. FAMILY HISTORY: No significant cardiomyopathy, no COPD, no asthma; not contributory. HOME MEDICATIONS: Metformin, Cozaar, aspirin. REVIEW OF SYSTEMS: The patient was seen and examined on the bedside. Looks comfortable. No nausea, vomiting, or diarrhea. No hematuria or hematochezia. No swelling of the legs. No chest pain, no palpitation, no headache, no dizziness. PHYSICAL EXAMINATION: VITAL SIGNS: Temperature 98, heart rate 81, respiratory rate 20, blood pressure 140/96, pulse oximetry 92% on room air. HEENT: Head normocephalic, atraumatic. Eyes: PERRLA. Extraocular muscles intact. Conjunctivae are clear. Nose patent. Mucous membranes moist. NECK: Supple. No carotid bruit, JVD or thyromegaly. CHEST: Bilaterally symmetrical. HEART: S1, S2 positive. LUNGS: Clear to auscultation. ABDOMEN: Soft, nontender. No organomegaly. EXTREMITIES: Decreased edema. NEUROLOGIC: Awake, alert, follows simple commands. MEDICATIONS: Aldactone, hydralazine, Colace, Cozaar, doxycycline, Ecotrin, metformin, potassium, metoprolol, Lovenox, prednisone, magnesium oxide, Nicoderm patch, Pepcid, prednisone. LABORATORY DATA: Hemoglobin 11.8. Sodium 136, potassium 3.7, BUN 35, creatinine 1.0. Glucose 111. ASSESSMENT AND PLAN: This patient is a 56-year-old male with severe cardiomyopathy with heart failure, comorbid obesity, sleep apnea syndrome, hypertension, diabetes mellitus, liver cirrhosis, portal hypertension, chronic obstructive lung disease. Discharge to home. Continue nicotine patch. Urged to quit smoking. Morbid obesity. Had knee surgery. The patient improved on dobutamine drip and diuretics. Dr. Chavira added KOFFI inhibitor and beta blockers , also added hydralazine for afterload reduction and to get him off the dobutamine. Solu-Medrol was given. GI and DVT prophylaxis. Got tapering dose of prednisone. Will follow up. Kiki Oliver MD cc: [id number] TT: 08/30/2016 08:31:39 mn DYLON
== END 2016-08-12 18:30 | disposition home or self-care (01) | DRG 292 ==
LOC: ED 05:51 → ERH 09:29 → 2RNO 12:04
PROVIDERS: ADMIT Internal Medicine Pulmonary Disease; ATTEND Internal Medicine
DX: I11.0 Hypertensive heart disease with heart failure (principal); R18.8 Other ascites; Z68.41 Body mass index [BMI] 40.0-44.9, adult; I42.0 Dilated cardiomyopathy; K76.6 Portal hypertension; E66.01 Morbid (severe) obesity due to excess calories; J98.11 Atelectasis; I50.21 Acute systolic (congestive) heart failure; J44.9 Chronic obstructive pulmonary disease, unspecified; E78.00 Pure hypercholesterolemia, unspecified; Z91.14 Patient's other noncompliance with medication regimen; Z91.19 Patient's noncompliance with other medical treatment and regimen; Z79.82 Long term (current) use of aspirin; Z79.899 Other long term (current) drug therapy; K74.60 Unspecified cirrhosis of liver; J45.909 Unspecified asthma, uncomplicated; I25.10 Atherosclerotic heart disease of native coronary artery without angina pectoris; E11.9 Type 2 diabetes mellitus without complications; E78.5 Hyperlipidemia, unspecified; F17.200 Nicotine dependence, unspecified, uncomplicated; G47.33 Obstructive sleep apnea (adult) (pediatric); R40.2412 Glasgow coma scale score 13-15, at arrival to emergency department; Z91.11 Patient's noncompliance with dietary regimen

== ENCOUNTER 2017-01-25 04:43 | Inpatient (IN) | payer MEDICARE, OTHER ==
[2017-01-25] MEDS: Nitroglycerin 2% Ointment Foilpak UD TOP ONE ×2 (05:30→10:20)
[2017-01-25] MEDS: Potassium Chloride 20 mEq ER Tab PO STA ×2 (07:07→10:19)
[2017-01-25 07:10] LABS: ALB/GLOB RATIO 1.3 (1.1-1.8); ALKALINE PHOSPHATASE 114 U/L (38-126); ALT/SGPT 26 U/L (7-56); AST/SGOT 21 U/L (17-59); BILIRUBIN,TOTAL 1.5 mg/dL (0.2-1.3); BLOOD UREA NITROGEN 18 mg/dL (7-21); CALCIUM 8.9 mg/dL (8.4-10.5); CARBON DIOXIDE 29 mmol/L (21-33); CHLORIDE 99 mmol/L (98-107); GFR AFRICAN-AMERICAN > 60; GLUCOSE,RANDOM 123 mg/dL (70-110); POTASSIUM 3.5 mmol/L (3.6-5.0); SODIUM 138 mmol/L (132-148); TOTAL PROTEIN 6.3 g/dL (5.8-8.3); TROPONIN I 0.03 ng/mL
[2017-01-25 07:11] LABS: HEMATOCRIT 38.7 % (42.0-52.0); MEAN CELL VOLUME 77.7 fl (80.0-105.0); MEAN CORPUSCULAR HEMOGLOBIN 24.7 pg (25.0-35.0); MEAN CORPUSCULAR HGB CONC 31.8 g/dl (31.0-37.0); MEAN PLATELET VOLUME 9.1 fl (7.0-11.0); WHITE BLOOD COUNT 5.4 10^3/ul (4.5-11.0)
[2017-01-25 07:49] LABS: INR 1.22 (0.93-1.08); PARTIAL THROMBOPLASTIN TIME 28.7 Seconds (25.1-36.5)
--- NOTE | 2017-01-25 10:23 | CARD ---
APPROVED REPORT EKG Measurement Heart [id number] <Conclusion> Sinus rhythm with sinus arrhythmia with 1st degree AV block with frequent premature ventricular complexes, 1 APC Left axis deviation PRWP ASMI, old Q in 3 T wave abnormality, consider lateral ischemia Prolonged QT No change
[2017-01-25 11:23] VITALS: BMI 40.8
[2017-01-25 11:57] LABS: TROPONIN I 0.03 ng/mL
--- NOTE | 2017-01-25 12:19 | RAD ---
HISTORY: Evaluation COMPARISON: 08/09/2016 FINDINGS: LUNGS: No active pulmonary disease. PLEURA: No significant pleural effusion identified, no pneumothorax apparent. CARDIOVASCULAR: Moderate cardiomegaly. Mild vascular congestion OSSEOUS STRUCTURES: No significant abnormalities. VISUALIZED UPPER ABDOMEN: Normal. OTHER FINDINGS: None. IMPRESSION: Moderate cardiomegaly. Mild vascular congestion
[2017-01-25] MEDS: Potassium Chloride 20 mEq ER Tab PO SCH (12:21)
[2017-01-25] MEDS: Insulin Reg-LOW-Coverage SC SCH ×3 (13:19→21:49)
[2017-01-25] MEDS ORDERED: DOBUTamine 500mg/250ml D5W 500 MG/250 ML BAG IV PRN (22:12)
--- NOTE | 2017-01-26 07:31 | HP ---
CHIEF COMPLAINT: Shortness of breath and chest pain. HISTORY OF PRESENT ILLNESS: Mr. 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 Alexandru Carrillo, hypertension and hypercholesterolemia, came in with shortness of breath, swelling of the legs, chest pain, abdomen is big. No hemoptysis, no hematuria. No hematochezia. No fever, no chills. 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 Alexandru Carrillo. The patient is seen by Dr. Alexandru Carrillo, admitted in the telemetry, started on Lasix and spironolactone. PAST MEDICAL HISTORY: Diabetes mellitus, hypertension, obesity, obstructive sleep apnea syndrome. ALLERGIES: PATIENT IS NOT ALLERGIC WITH ANY MEDICATIONS. SOCIAL HISTORY: Patient is still smoking. No drug, no ethanol. FAMILY HISTORY: Not significant. HOME MEDICATIONS: Metformin, Cozaar, aspirin. REVIEW OF SYSTEMS: Patient is seen and examined on the bedside, looking comfortable in the telemetry . The patient's shortness of breath and chest pain is getting better, but still legs are swollen. Abdomen is big, feeling bloating. No fever, no chills. PHYSICAL EXAMINATION: VITAL SIGNS: Temperature 97.4, pulse 128, blood pressure 156/92, respiratory rate 19. HEENT: Head normocephalic and atraumatic. Eyes, PERRLA. Extraocular muscles intact. Conjunctivae clear. Nose patent. Mucous membranes moist. NECK: Supple. No carotid bruits or thyromegaly. CHEST: Bilaterally symmetrical. HEART: S1 and S2 positive. LUNGS: Clear to auscultation. ABDOMEN: Soft. Bowel sounds present. No organomegaly. EXTREMITIES: No edema. No cyanosis. NEUROLOGIC: The patient is awake and alert. Moving all four extremities. No focal deficits. LABORATORY DATA: White blood cells 5.4, hemoglobin 12.3, hematocrit 38.7, platelets 253. Sodium 138, potassium 3.5, BUN 18, creatinine 1.4, glucose 159. Hemoglobin A1c 6.7. ASSESSMENT AND PLAN: Mr. Paul Corrales is a 56 years old male with hypokalemia; uncontrolled diabetes mellitus; hemoglobin A1c 6.7; abnormal liver function test; BNP is very high, congestive heart failure; history of anemia; history of congestive heart failure; cardiomyopathy; history of heavy smoking; hypertension; obesity with sleep apnea syndrome; admitted with exacerbation of congestive heart failure; obesity; liver cirrhosis, portal hypertension; chronic fatigue. Nicotine patch offered. Cardiology and Pulmonary consults called. Home medication restarted, and Lasix and Aldactone given. GI and DVT prophylaxis. Repeat labs. We will follow. Kiki Oliver MD MTDD
[2017-01-26] MEDS: Insulin Reg-LOW-Coverage SC SCH ×4 (07:56→21:52)
[2017-01-26] MEDS: Potassium Chloride 20 mEq ER Tab PO SCH (08:02)
[2017-01-26] MEDS: Arformoterol 15 mcg/2 ml Inh Sol IH SCH ×2 (08:22→20:06)
[2017-01-26] MEDS: Budesonide 0.5 mg/2 ml Inhal Susp UD IH SCH ×2 (08:23→20:06)
[2017-01-26] MEDS: MethylPREDNISolone 40 mg Vial IVP SCH ×2 (09:36→22:04)
[2017-01-26 10:15] LABS: ALB/GLOB RATIO 1.2 (1.1-1.8); BILIRUBIN,TOTAL 1.2 mg/dL (0.2-1.3); CALCIUM 8.8 mg/dL (8.4-10.5); MAGNESIUM 1.9 mg/dL (1.7-2.2); POTASSIUM 3.5 mmol/L (3.6-5.0); TOTAL PROTEIN 6.6 g/dL (5.8-8.3)
[2017-01-26] MEDS ORDERED: Potassium Chloride 20 mEq ER Tab PO STA (10:48)
--- NOTE | 2017-01-26 12:29 | CON ---
DATE: 01/25/2017 HISTORY OF PRESENT ILLNESS: The patient is a 56-year-old male who presents with increasing shortness of breath, abdominal girth, as well as pedal edema. PAST MEDICAL HISTORY: Includes hypertension, diabetes mellitus, hypercholesterolemia, COPD, and obesity. He has a documented ejection fraction of 25% with mitral regurgitation and tricuspid regurgitation. There are no critical coronary lesions documented on previous catheterization. He denies smoking, but I suspect he continues and his diet is not of the ideal situation. REVIEW OF SYSTEMS: His dyspnea is now better as well as his chest pain which is better since his dyspnea is improved with diuretics. His edema is better. PHYSICAL EXAMINATION: VITAL SIGNS: Blood pressure 154/92, heart rate is in the 90s. NECK: Negative JVD. LUNGS: Decreased breath sounds bilaterally. HEART: Reveals S1 and S2. EXTREMITIES: 1+ edema. LABORATORY DATA: ProBNP is greater than 11,000. Troponin is 0.03, BUN and creatinine normal with a potassium of 3.5. Hemoglobin is 12.3. IMPRESSION: 1. Acute systolic congestive heart failure. 2. Dilated cardiomyopathy with an ejection fraction of 25%. 4. Mitral regurgitation. 5. Tricuspid regurgitation. 6. Diabetes mellitus. 7. Hypercholesterolemia. 8. Hypertension. 9. Obesity. 10. Chronic obstructive pulmonary disease. PLAN: Given these findings, we will continue his present regimen of IV Lasix. We will change to b.i.d. We will replace his potassium. I have discussed with him about the need to decrease his salt intake again. Alexandru Carrillo MD
--- NOTE | 2017-01-26 12:30 | CON ---
DATE: 01/25/2017 PULMONARY CONSULTATION REFERRING PHYSICIAN: Dr. Oliver. HISTORY OF PRESENT ILLNESS: This is a 56-year-old gentleman with past medical history of cardiomyopathy, chronic obstructive lung disease, obesity, may have hypoventilation syndrome, hypertension, hyperlipidemia, noncompliant with followup, supposed to have a sleep study as outpatient, never showed up to clinic and sleep center, comes in with cough, shortness of breath, and leg pain. Denies any chest pain. No nausea. No vomiting. No diarrhea. PAST MEDICAL HISTORY: Diabetes, hypertension, obesity, chronic obstructive lung disease, hyperlipidemia, and cardiomyopathy. ALLERGIES: NONE KNOWN. FAMILY HISTORY: No significant cardiopulmonary disease reported. SOCIAL HISTORY: Stopped smoking many years ago. Denies any alcohol use. MEDICATIONS: He is on Aldactone 25 mg twice a day, hydralazine 25 mg q.i.d., Colace 100 mg twice a day, Cozaar 50 mg daily, Ecotrin 81 mg daily, insulin coverage, potassium 20 mEq daily, Lasix 40 mg twice a day, and Pepcid 40 mg bedtime. REVIEW OF SYSTEMS: No headache. No rhinitis. Admits to have snoring, daytime sleeping, tired, cough and shortness of breath. No sputum production. No hemoptysis, no hematemesis, no hematuria. Does have leg swelling. PHYSICAL EXAMINATION: GENERAL: Lying on the bed, mild distress secondary to cough and shortness of breath. VITAL SIGNS: Temperature is 98, heart rate is 120, respiratory rate is 20, blood pressure 133/80, and pulse ox 96% on 2 L nasal cannula. HEENT: Moist mucous membrane. Crowded airway. Mallampati score is 4. NECK: Short thick neck. LUNGS: Few crackles at the bases, expiratory wheezing, and rhonchi. HEART: S1 and S2. ABDOMEN: Soft, nontender, and nondistended. EXTREMITIES: Does have edema. NEUROLOGIC: Awake and alert. Follows simple command. LABORATORY DATA: Shows hemoglobin 12.3, hematocrit 38.7, WBC 5.4, and platelet count is 253. INR 1.22, PTT is 29. Sodium 138, potassium 3.5, chloride 98, bicarbonate 29, BUN 18, creatinine 1.4, glucose 123. Hemoglobin A1c is 6.7, calcium 8.9, total bilirubin 1.5, AST 21, ALT 26, LDH 317, proBNP 11,500. Albumin is 3.6, cholesterol is 115. Chest x-ray shows cardiomegaly and congestion. An echocardiogram done in 08/2016, showed severe LV systolic dysfunction, also has a mild concentric left ventricular hypertrophy, right ventricular systolic pressure is 50. IMPRESSION AND PLAN: Severe cardiomyopathy, heart failure, chronic lung disease, morbid obesity, may have sleep apnea syndrome, hypertension, diabetes, cirrhotic liver, portal hypertension, chronic obstructive lung disease. The patient does not want to use BiPAP tonight, also claiming to not give him inhaled bronchodilator tonight, let him sleep. We will continue add small dose of dobutamine. Sleep apnea precaution,gastric prophylaxis, DVT prophylaxis. Followup labs in the morning. Thank you, and we will follow with you. Farhan Chavira MD
--- NOTE | 2017-01-26 16:06 | PN ---
DATE: 01/26/2017 CARDIOLOGY FOLLOWUP SUBJECTIVE: The patient's breathing is much improved. PHYSICAL EXAMINATION: VITAL SIGNS: Blood pressure 155/84 and heart rate is in the 80s. NECK: Negative JVD. LUNGS: Clear to auscultation. HEART: Reveal S1 and S2. EXTREMITIES: Decreased edema. LABORATORY DATA: Potassium is 3.5 and glucose is 121 with a hemoglobin of 12.3. IMPRESSION: 1. Dilated cardiomyopathy. 2. Acute systolic congestive heart failure. 3. Nonobstructive coronary artery disease. 4. Chronic obstructive pulmonary disease. PLAN: Given these findings, we will begin nicotine patch. We will discontinue IV dobutamine. Alexandru Carrillo MD
[2017-01-26] MEDS ORDERED: Magnesium Sulfate 1 gm in D5W 1 GM/100 ML BAG IVPB ONE (16:20)
--- NOTE | 2017-01-26 18:45 | PN ---
DATE: 01/26/2017 PULMONARY PROGRESS NOTE SUBJECTIVE: He is up in the chair, feels much better. Refused to use CPAP/BIPAP. No nausea. No vomiting. No diarrhea. Still have increased leg swelling. OBJECTIVE: GENERAL: In no acute distress. VITAL SIGNS: Temperature is 98, heart rate is 87, and respiratory rate is 20, blood pressure 155/84, pulse ox 97% on 2 L nasal cannula. HEENT: Moist mucous membrane. Crowded airway. Mallampati score is IV. NECK: Supple. No JVD. LUNGS: Prolonged respiratory wheeze. Scattered rhonchi. HEART: S1 and S2. ABDOMEN: Soft and nontender. No organomegaly. EXTREMITIES: Has trace edema. NEUROLOGIC: Awake and oriented. Follows simple command. MEDICATIONS: He is on Aldactone 25 mg twice a day, hydralazine 25 mg q.i.d., Brovana inhaled twice a day, Colace 100 mg twice a day, Cozaar 50 mg daily, doxycycline 100 mg twice a day, Ecotrin 81 mg daily, insulin coverage, potassium 20 mEq daily, Lasix 40 mg twice a day, Nicoderm patch daily, Pepcid 40 mg at bedtime, Pulmicort inhaled twice a day, mg q.12 hours. Medications reviewed and noted. LABORATORY DATA: Hemoglobin 12.3, hematocrit 38.7, WBC 5.4, platelet count is 253. Sodium 140, potassium 3.5, chloride is 100, bicarbonate 29, BUN 20, and creatinine 1.5. Glucose is 88, calcium 8.8, magnesium 1.9, AST 18, ALT 23, alkaline phosphatase is 111, albumin is 3.6, TSH is 4.2. IMPRESSION AND PLAN: Severe cardiomyopathy, heart failure, chronic lung disease, morbid obesity, may have sleep apnea syndrome, hypertension, diabetes, cirrhotic liver, portal hypertension, and chronic obstructive lung disease. Pulmonary point of view, doing okay. We will continue to encourage BiPAP use, keep head 45 degrees, sleep apnea precaution, avoid sedation, continue dobutamine, diuretics, IV inhaled bronchodilator, antibiotics, DVT prophylaxis. Followup labs in the morning. Thank you and we will follow with you. Farhan Chavira MD
--- NOTE | 2017-01-27 02:12 | CP.PCM.PN ---
Subjective - Date & Time of Evaluation Date of Evaluation: 01/27/17 Time of Evaluation: 02:12 - Subjective Subjective: Patient was seen at bed side. He complained of right hip pain. States that he had ORIF of right hip 10 years ago, gets pain in right hip on and off. Has no other complaints. Is able to ambulate. Medical record was reviewed. This 56 year old white male was admitted with sob,chest pain, hypokalemia, uncontrolled DM. Has PMH of BRIAN, obesity, DM II, HTN,CHF,HLD,CMP, anemia, cirrhosis, portal hypertension ,chronic fatigue, smoker. Objective - Vital Signs/Intake and Output Vital Signs (last 24 hours): Temp Pulse Resp BP Pulse Ox 97.5 F L 85 20 145/86 98 01/26/17 18:00 01/26/17 18:00 01/26/17 18:00 01/26/17 22:04 01/26/17 06:00 - Medications Medications: Current Medications Arformoterol Tartrate (Brovana) 15 mcg IH [id number] [facility] Last Admin: 01/26/17 20:06 Dose: 15 mcg Aspirin (Ecotrin) 81 mg PO DAILY [facility] Last Admin: 01/26/17 09:35 Dose: 81 mg Budesonide (Pulmicort Respules) 0.5 mg IH [id number] [facility] Last Admin: 01/26/17 20:06 Dose: 0.5 mg Docusate Sodium (Colace) 100 mg PO BID [facility] Last Admin: 01/26/17 17:08 Dose: 100 mg Doxycycline Hyclate (Doryx) 100 mg PO Q12 [facility] PRN Reason: Protocol Last Admin: 01/26/17 22:04 Dose: 100 mg Famotidine (Pepcid) 40 mg PO HS [facility] Last Admin: 01/26/17 22:04 Dose: 40 mg Furosemide (Lasix) 40 mg IVP BID [facility] Last Admin: 01/26/17 17:07 Dose: 40 mg Hydralazine HCl (Apresoline) 25 mg PO QID [facility] Last Admin: 01/26/17 22:04 Dose: 25 mg Insulin Human Regular (Humulin R Low) 0 units SC ACHS [facility] PRN Reason: Protocol Last Admin: 01/26/17 21:52 Dose: Not Given Losartan Potassium (Cozaar) 50 mg PO DAILY [facility] Last Admin: 01/26/17 09:35 Dose: 50 mg Methylprednisolone (Solu-Medrol) 20 mg IVP Q12 [facility] Last Admin: 01/26/17 22:04 Dose: 20 mg Nicotine (Nicoderm Cq) 1 patch TD DAILY [facility] Last Admin: 01/26/17 14:22 Dose: 1 patch Potassium Chloride (K-Dur 20 Meq Er Tab) 20 meq PO BRK [facility] Last Admin: 01/26/17 08:02 Dose: 20 meq Spironolactone (Aldactone) 25 mg PO BID [facility] Last Admin: 01/26/17 17:08 Dose: 25 mg - Labs Labs: 01/26/17 08:00 PT 13.4 SECONDS (9.4-12.5) H 01/25/17 05:20 INR 1.22 (0.93-1.08) H 01/25/17 05:20 APTT 28.7 Seconds (25.1-36.5) 01/25/17 05:20 Most Recent Lab Values WBC 5.4 10^3/ul (4.5-11.0) D 01/25/17 05:20 RBC 4.98 10^6/uL (3.5-6.1) 01/25/17 05:20 Hgb 12.3 g/dL (14.0-18.0) L 01/25/17 05:20 Hct 38.7 % (42.0-52.0) L 01/25/17 05:20 MCV 77.7 fl (80.0-105.0) L 01/25/17 05:20 MCH 24.7 pg (25.0-35.0) L 01/25/17 05:20 MCHC 31.8 g/dl (31.0-37.0) 01/25/17 05:20 RDW 18.0 % (11.5-14.5) H 01/25/17 05:20 Plt Count 253 10^3/uL (120.0-450.0) 01/25/17 05:20 MPV 9.1 fl (7.0-11.0) 01/25/17 05:20 PT 13.4 SECONDS (9.4-12.5) H 01/25/17 05:20 INR 1.22 (0.93-1.08) H 01/25/17 05:20 APTT 28.7 Seconds (25.1-36.5) 01/25/17 05:20 Sodium 140 mmol/L (132-148) 01/26/17 08:00 Potassium 3.5 mmol/L (3.6-5.0) L 01/26/17 08:00 Chloride 100 mmol/L (98-107) 01/26/17 08:00 Carbon Dioxide 29 mmol/L (21-33) 01/26/17 08:00 Anion Gap 15 (10-20) 01/26/17 08:00 BUN 20 mg/dL (7-21) 01/26/17 08:00 Creatinine 1.5 mg/dL (0.8-1.5) 01/26/17 08:00 Est GFR ( Amer) 58 01/26/17 08:00 Est GFR (Non-Af Amer) 48 01/26/17 08:00 POC Glucose (mg/dL) 156 mg/dL (65-110) H 01/26/17 21:43 Random Glucose 88 mg/dL (70-110) 01/26/17 08:00 Hemoglobin A1c 6.7 % (4.2-6.5) H 01/25/17 05:30 Calcium 8.8 mg/dL (8.4-10.5) 01/26/17 08:00 Magnesium 1.9 mg/dL (1.7-2.2) 01/26/17 08:00 Total Bilirubin 1.2 mg/dL (0.2-1.3) 01/26/17 08:00 AST 18 U/L (17-59) 01/26/17 08:00 ALT 23 U/L (7-56) 01/26/17 08:00 Alkaline Phosphatase 111 U/L (38-126) 01/26/17 08:00 Lactate Dehydrogenase 317 U/L (333-699) L 01/25/17 11:20 Total Creatine Kinase 82 U/L (35-230) 01/25/17 11:20 Troponin I 0.03 ng/mL 01/25/17 11:20 NT-Pro-B Natriuret Pep 83323 pg/mL (0-450) H 01/25/17 05:20 Total Protein 6.6 g/dL (5.8-8.3) 01/26/17 08:00 Albumin 3.6 g/dL (3.0-4.8) 01/26/17 08:00 Globulin 2.9 gm/dL 01/26/17 08:00 Albumin/Globulin Ratio 1.2 (1.1-1.8) 01/26/17 08:00 Triglycerides 48 mg/dL (35-160) 01/25/17 11:20 Cholesterol 115 mg/dL (130-200) L 01/25/17 11:20 LDL Cholesterol Direct 73 mg/dL (0-129) 01/25/17 11:20 HDL Cholesterol 34 mg/dL (29-60) 01/25/17 11:20 TSH 3rd Generation 4.21 mIU/mL (0.46-4.68) 01/26/17 06:00 - Constitutional Appears: Well, No Acute Distress - Head Exam Head Exam: ATRAUMATIC, NORMAL INSPECTION, NORMOCEPHALIC - Eye Exam Eye Exam: Normal appearance - ENT Exam ENT Exam: Normal External Ear Exam - Neck Exam Neck Exam: Normal Inspection - Respiratory Exam Respiratory Exam: NORMAL BREATHING PATTERN - Cardiovascular Exam Cardiovascular Exam: absent: JVD - GI/Abdominal Exam GI & Abdominal Exam: absent: Distended - Rectal Exam Rectal Exam: Deferred - Exam Additional comments: Deferred. - Extremities Exam Extremities Exam: Normal Inspection Additional comments: Is able to move right hip without pain. - Back Exam Back Exam: NORMAL INSPECTION - Neurological Exam Neurological Exam: Alert, Oriented x3 - Psychiatric Exam Psychiatric exam: Normal Affect, Normal Mood - Skin Skin Exam: Normal Color Assessment and Plan - Assessment and Plan (Free Text) Assessment: Right hip pain. S/P right hip ORIF. HTN. CHF. CMP. HLD. BRIAN. Obesity. Anemia. Cirrhosis. Portal HTN. Smoker. Plan: Tylenol 975 mg PO stat. Continue present management .
[2017-01-27 03:14] VITALS: RESP 19
[2017-01-27 06:48] VITALS: TEMP 97.9; O2SAT 97
[2017-01-27 07:03] LABS: ALB/GLOB RATIO 1.3 (1.1-1.8); ALKALINE PHOSPHATASE 109 U/L (38-126); ALT/SGPT 24 U/L (7-56); AST/SGOT 20 U/L (17-59); BILIRUBIN,TOTAL 1.1 mg/dL (0.2-1.3); BLOOD UREA NITROGEN 21 mg/dL (7-21); CALCIUM 8.8 mg/dL (8.4-10.5); CARBON DIOXIDE 33 mmol/L (21-33); CHLORIDE 100 mmol/L (98-107); GFR AFRICAN-AMERICAN > 60; GLUCOSE,RANDOM 149 mg/dL (70-110); SODIUM 139 mmol/L (132-148); TOTAL PROTEIN 6.1 g/dL (5.8-8.3)
[2017-01-27] MEDS: Arformoterol 15 mcg/2 ml Inh Sol IH SCH ×2 (07:47→19:31)
[2017-01-27] MEDS: Budesonide 0.5 mg/2 ml Inhal Susp UD IH SCH ×2 (07:47→19:31)
[2017-01-27] MEDS: Insulin Reg-LOW-Coverage SC SCH ×4 (08:23→17:23)
--- NOTE | 2017-01-27 08:58 | PN ---
DATE: 01/26/2017 SUBJECTIVE: The patient is 56-year-old male. The patient was sitting on the bedside on the chair, feeling much better and refusing BiPAP/CPAP, getting drip, asking about nicotine patch. According to him, he want 21 plus nicotine patch. I offered him 70, he said it will not work on him. Then I talked to the patient's nurse, Vanessa and I told her to call correctional treatment specialist to make decision. No nausea or vomiting. No headache or dizziness. No chest pain or palpitation. PHYSICAL EXAMINATION: VITAL SIGNS: Temperature 98, heart rate 87, respiratory rate 20, blood pressure 155/84, pulse oximetry 97% on 2 L nasal cannula. HEENT: Head, normocephalic and atraumatic. Eyes, PERRLA. Extraocular muscles are intact. Conjunctivae are clear. Nose is patent. Mucous membrane moist. NECK: Supple. No carotid bruits. No JVD or thyromegaly. CHEST: Bilaterally symmetrical. HEART: S1 and S2 positive. LUNGS: Prolonged expiratory phase. Scattered rhonchi. ABDOMEN: Soft, nontender. No organomegaly. EXTREMITIES: Trace edema. NEUROLOGIC: The patient is awake, alert, and oriented x3. Follows simple commands. Moving all 4 extremities. MEDICATIONS: Aldactone, hydralazine, Brovana, Colace, Cozaar, doxycycline, Ecotrin, insulin coverage, potassium, Lasix, Nicoderm patch, Pepcid, Pulmicort. LABORATORY DATA: Hemoglobin 12.3, hematocrit 38.7, white blood cells , platelets 253. Sodium 140, potassium 3.5, BUN 20, creatinine 1.5, glucose 88, AST 18, ALT 23, TSH 4.2. ASSESSMENT AND PLAN: Mr. Paul Schwab is a 56-year-old male, came with exacerbation of congestive heart failure, severe cardiomyopathy, chronic lung disease, morbid obesity, history of actively smoking, sleep apnea syndrome, hypertension, diabetes mellitus, cirrhotic liver disease, portal hypertension. We will continue encourage BiPAP as per Dr. Chavira. Started off on nicotine patch. Continue diuretics and bronchodilators. Deep venous thrombosis and gastrointestinal prophylaxis. Seen by Dr. Chavira dealer card room and Dr. Alexandru Carrillo, correctional treatment specialist. The patient with nonobstructive coronary artery disease as per Dr. Alexandru Carrillo. The patient started on dobutamine drip, but Dr. Alexandru Carrillo discontinued the dobutamine drip. Out of bed with physical therapy. We will follow up. Kiki Oliver MD [place]
[2017-01-27] MEDS: Potassium Chloride 20 mEq ER Tab PO SCH (09:29)
[2017-01-27] MEDS: MethylPREDNISolone 40 mg Vial IVP SCH (09:31)
--- NOTE | 2017-01-27 11:29 | PN ---
DATE: 01/27/2017 CARDIOLOGY FOLLOWUP NOTE SUBJECTIVE: The patient's breathing is much improved. PHYSICAL EXAMINATION: VITAL SIGNS: Blood pressure is 145/93 and the heart rates in the 80s. NECK: Negative JVD. LUNGS: Decreased breath sounds without rales. HEART: Reveals S1 and S2. EXTREMITIES: Decreasing edema. LABORATORY DATA: BUN and creatinine are within normal limits. Potassium is 4.0. The magnesium which was replaced yesterday is pending. IMPRESSION 1. Status post congestive heart failure. 2. Nonsustained ventricular arrhythmias. 3. Dilated cardiomyopathy. 4. Chronic obstructive pulmonary disease. 5. Nonobstructive coronary artery disease. PLAN: 1. Given these findings, the patient's dyspnea is markedly improved. We will change to p.o. Lasix. 2. We will check the magnesium today. We will DC telemetry. Alexandru Carrillo MD
--- NOTE | 2017-01-27 14:15 | CON ---
This note was created by mistake of transcribing service. i have not seen or examined this patient MTDD
[2017-01-27] MEDS ORDERED: Pneumococcal 23-Valent Vaccine IM ONE (17:21)
[2017-01-27] MEDS ORDERED: Influenza Vaccine 60 mcg/0.5 mL SYR (4YR UP) IM ONE (17:21)
[2017-01-27 18:01] VITALS: BP 152/99; PULSE 90
--- NOTE | 2017-01-28 02:46 | PN ---
PULMONARY PROGRESS NOTE DATE: 01/27/2017 REFERRING PHYSICIAN: Kiki Oliver MD SUBJECTIVE: He is out of bed to chair, cleared by Cardiology to go home. According to nursing staff, he wants to go home. Not very complain of CPAP and BiPAP. Breathing is better. No nausea, no vomiting. No diarrhea. Still has leg swelling. OBJECTIVE: GENERAL: No acute distress. VITAL SIGNS: Temperature is 98, heart rate is 90, respiratory rate is 20, blood pressure is 152/99 and pulse ox is 97% on room air. HEENT: Moist mucous membranes. Crowed airway. Mallampati score is 4. NECK: Supple. No JVD. LUNGS: Has a fair airflow with rhonchi. HEART: S1 and S2. ABDOMEN: Soft, nontender. No organomegaly. EXTREMITIES: Does have edema. NEUROLOGIC: Awake, alert. Follows simple commands. MEDICATIONS: Medications reviewed and noted. No new change in medications reports. LABORATORY DATA: Since yesterday, laboratory reviewed and noted. Sodium 139, potassium 4.0, chloride 100, bicarbonate 33, BUN 21, creatinine 1.4, glucose 149, calcium is 8.8 and magnesium is 2.0. AST is 20, ALT is 24, alkaline phosphatase is 109 and albumin is 3.4. IMPRESSION AND PLAN: Severe cardiomyopathy with heart failure, chronic lung disease, morbid obesity, may have sleep apnea syndrome, hypertension, diabetes, cirrhotic liver disease, portal hypertension. The patient wants to go home, feels okay. I had a long discussion with the patient about sleep apnea and its consequence and relation to cardiomyopathy. Finally willing to do sleep study as long as nasal pillow is used for the mask. If clear from Cardiology, will let him go home with afterload rn case mgr, beta-harshal and outpatient PFT and sleep study. Farhan Chavira MD
--- NOTE | 2017-01-28 09:25 | DS ---
CHIEF COMPLAINT: Shortness of breath, chest pain, swelling of the leg. HISTORY OF PRESENT ILLNESS: Mr. Paul Schwab is a 56-year-old male with multiple medical problems, who came to [facility] with shortness of breath, chest pain, history of obstructive sleep apnea syndrome, history of congestive heart failure, noncompliant, especially smoking heavy, not using CPAP, and his Cardiology Dr. Alexandru Carrillo. We admitted to the patient. Dr. Alexandru Carrillo saw the patient. Dr. Chavira saw the patient. The patient was given medications, improved, feeling better. No nausea, vomiting, diarrhea. No hematuria or hematochezia. Swelling of the leg is better. Shortness of breath and coughing is better. No fever. No chills. History of ORIF of right hip 10 years ago. PAST MEDICAL HISTORY: History of diabetes mellitus, hypertension, obesity, obstructive sleep apnea syndrome. ALLERGIES: PATIENT IS NOT ALLERGIC WITH ANY MEDICATIONS. SOCIAL HISTORY: The patient is still smoking. No drug. No ethanol. FAMILY HISTORY: Father and mother noncontributory. REVIEW OF SYSTEMS: The patient was seen and examined at the bedside, looking comfortable, swelling of the leg got better. Shortness of breath got better. No chest pain. No fever. No chills. PHYSICAL EXAMINATION: VITAL SIGNS: Temperature 98.6, pulse 90, blood pressure 150/99, respiratory rate 18. HEENT: Head; normocephalic and atraumatic. Eyes; PERRLA. Extraocular muscles intact. Conjunctivae clear. Nose patent. Mucous membrane moist. NECK: Supple. No carotid bruits. No JVD. No thyromegaly. CHEST: Bilateral symmetrical. HEART: S1 and S2 positive. LUNGS: Clear to auscultation. ABDOMEN: Soft. Bowel sounds positive. No organomegaly. EXTREMITIES: No edema. No cyanosis. NEUROLOGIC: The patient is awake and alert. Moving all 4 extremities. No focal deficits. LABORATORY DATA: White blood cell 5.4, hemoglobin 12.3, hematocrit 38.7, platelets of 253. Sodium 139, potassium 4.0, BUN 21, creatinine 1.2, glucose of 114 and 149. ASSESSMENT AND PLAN: Mr. Paul Schwab is a 56-year-old male with status post congestive heart failure, came this time with exacerbation of congestive heart failure, got better; nonsustained ventricular arrhythmias; dilated cardiomyopathy; chronic obstructive lung disease; nonobstructive coronary artery disease. The patient came with dyspnea, improved markedly. Dr. Alexandru Carrillo changed Lasix to p.o. and Dr. Alexandru Carrillo cleared the patient for discharge. Seen by Dr. Cantrell for hip pain. History of asthma, obesity, noncompliant with medications and still heavily smoking, chronic obstructive pulmonary disease, obstructive sleep apnea syndrome, hypertension, cirrhosis of the liver, portal hypertension. Should use bilevel positive airway pressure. Gastrointestinal and deep venous thrombosis prophylaxis. The patient got treatment, better, discharge to home today with follow up with the primary care physician cleared by the [employer]. Continue home medications. Kiki Oliver MD
== END 2017-01-27 19:31 | disposition home or self-care (01) | DRG 292 ==
LOC: ED 04:43 → ERH 06:45 → 2RSO 09:29
PROVIDERS: ADMIT Internal Medicine; ATTEND Internal Medicine
DX: I11.0 Hypertensive heart disease with heart failure (principal); I50.21 Acute systolic (congestive) heart failure; K76.6 Portal hypertension; K74.60 Unspecified cirrhosis of liver; I47.0 Re-entry ventricular arrhythmia; I42.0 Dilated cardiomyopathy; E11.65 Type 2 diabetes mellitus with hyperglycemia; E66.01 Morbid (severe) obesity due to excess calories; I08.1 Rheumatic disorders of both mitral and tricuspid valves; G47.33 Obstructive sleep apnea (adult) (pediatric); E87.6 Hypokalemia; F17.200 Nicotine dependence, unspecified, uncomplicated; J44.9 Chronic obstructive pulmonary disease, unspecified; E78.00 Pure hypercholesterolemia, unspecified; I25.10 Atherosclerotic heart disease of native coronary artery without angina pectoris; D64.9 Anemia, unspecified; R53.82 Chronic fatigue, unspecified; Z91.19 Patient's noncompliance with other medical treatment and regimen; Z68.39 Body mass index [BMI] 39.0-39.9, adult

== ENCOUNTER 2017-09-26 14:14 | Inpatient (IN) | payer MEDICARE, OTHER ==
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
--- NOTE | 2017-09-26 16:17 | RAD ---
HISTORY: Chest pain COMPARISON: 01/25/2017. FINDINGS: LUNGS: The lungs are well inflated. There is right lower lobe airspace disease. PLEURA: Suspect small pleural effusions, no pneumothorax apparent. CARDIOVASCULAR: There is severe cardiomegaly. OSSEOUS STRUCTURES: No significant abnormalities. VISUALIZED UPPER ABDOMEN: Normal. OTHER FINDINGS: None. IMPRESSION: Right lower lobe airspace disease may represent atelectasis or pneumonia. Severe cardiomegaly and suspect small pleural effusions.
[2017-09-26 16:38] LABS: BASO # 0.03 K/mm3 (0.0-2.0); BASO % 0.5 % (0.0-3.0); EOS # 0.1 (0.0-0.7); EOS % 1.4 % (1.5-5.0); GRAN # 4.31 (1.4-6.5); GRAN % 68.2 % (50.0-68.0); HEMOGLOBIN 10.4 g/dL (14.0-18.0); MEAN CELL VOLUME 65.8 fl (80.0-105.0); MEAN CORPUSCULAR HEMOGLOBIN 19.8 pg (25.0-35.0); MEAN CORPUSCULAR HGB CONC 30.1 g/dl (31.0-37.0); MEAN PLATELET VOLUME 9.2 fl (7.0-11.0); MONO # 0.9 (0.1-0.6); MONO % 13.9 % (1.0-6.0); RBC 5.26 10^6/uL (3.5-6.1); RED CELL DISTRIBUTION WIDTH 20.7 % (11.5-14.5); WHITE BLOOD COUNT 6.3 10^3/ul (4.5-11.0)
[2017-09-26 16:42] LABS: ALB/GLOB RATIO 1.1 (1.1-1.8); ALBUMIN 3.4 g/dL (3.0-4.8); CALCIUM 8.9 mg/dL (8.4-10.5)
[2017-09-26 16:53] LABS: TROPONIN I 0.04 ng/mL
[2017-09-26] MEDS ORDERED: diltiaZEM IVPB 100mg in NS 100 ML IV PRN (18:14)
[2017-09-26] MEDS ORDERED: Heparin25000 units/250ml 1/2NS 25,000 UNITS/250 ML BAG IV PRN (21:12)
--- NOTE | 2017-09-26 22:34 | CARD ---
APPROVED REPORT EKG Measurement Heart [id number] <Conclusion> Atrial fibrillation with rapid ventricular response Left axis deviation Low voltage QRS Cannot rule out Anteroseptal infarct, age undetermined Abnormal ECG
[2017-09-27] MEDS ORDERED: Levalbuterol 1.25 MG/3 ML Inhal Soln UD IH PRN (00:30)
[2017-09-27 03:27] VITALS: BMI 38.9
[2017-09-27 03:35] LABS: HEMOGLOBIN 10.5 g/dL (14.0-18.0); MEAN CELL VOLUME 66.3 fl (80.0-105.0); MEAN CORPUSCULAR HEMOGLOBIN 19.7 pg (25.0-35.0); MEAN CORPUSCULAR HGB CONC 29.7 g/dl (31.0-37.0); MEAN PLATELET VOLUME 8.7 fl (7.0-11.0); RBC 5.34 10^6/uL (3.5-6.1); RED CELL DISTRIBUTION WIDTH 20.7 % (11.5-14.5)
[2017-09-27 03:43] LABS: CALCIUM 8.8 mg/dL (8.4-10.5)
[2017-09-27] MEDS ORDERED: Heparin25000 units/250ml 1/2NS 25,000 UNITS/250 ML BAG IV PRN ×2 (06:17→19:45)
[2017-09-27] MEDS: Potassium Chloride 20 mEq ER Tab PO SCH (09:37)
[2017-09-27] MEDS: POLYETHYLENE GLYCOL 3350 17 GM/Dose PACKET PO SCH ×2 (09:37→17:35)
[2017-09-27] MEDS: Magnesium Oxide 400 mg Tab UD PO SCH (09:39)
[2017-09-27 10:43] LABS: IRON 16 ug/dL (45-180)
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
[2017-09-27 10:52] LABS: % IRON SATURATION 4 % (20-55); TOTAL IRON BINDING CAPACITY 392 ug/dL (261-462)
[2017-09-27] MEDS: metOLazone 5 MG TAB PO SCH ×2 (11:00→17:36)
[2017-09-27] MEDS: Insulin Reg-LOW-Coverage SC SCH ×3 (13:04→21:44)
[2017-09-27] MEDS: guaiFENesin DM 100 mg-10 mg/5 ml UD PO PRN ×2 (14:05→22:19)
[2017-09-27] MEDS: Lidocaine 5% Patch TD SCH (14:05)
[2017-09-27 17:24] LABS: FERRITIN 14.7 ng/mL
--- NOTE | 2017-09-27 17:43 | US ---
PROCEDURE: Ultrasound of the Kidneys HISTORY: LYDIA COMPARISON: None available. TECHNIQUE: Sonogram of the kidneys. FINDINGS: RIGHT KIDNEY: Measures: 5.8 x 6.1 x 12 cm. Normal in size, contour and echogenicity. No stone, solid mass lesion or hydronephrosis visualized. LEFT KIDNEY: Measures: 5.5 x 6.8 x 12.9 cm. Normal in size, contour and echogenicity. No stone, solid mass lesion or hydronephrosis visualized. OTHER FINDINGS: Large volume intra-abdominal ascites IMPRESSION: Unremarkable renal sonogram. Large volume intra-abdominal ascites.
--- NOTE | 2017-09-27 17:44 | US ---
PROCEDURE: Bladder ultrasound HISTORY: LYDIA. please check for PVR as well COMPARISON: September 27, 2017. Renal ultrasound TECHNIQUE: Standard protocol for this study/examination. FINDINGS: Urinary bladder assessment: Prevoid volume: 155.5 ml Postvoid residual: The patient did not have an urge to void. Intrinsic, mural, perivesical abnormalities: None Ureteral jets: Not visualized Large volume pelvic ascites. IMPRESSION: Small capacitance urinary bladder. No focal findings.
[2017-09-27 17:55] LABS: FOLATE 8.4 ng/mL
[2017-09-27] MEDS: Morphine 4 mg/ml ISec IVP PRN (18:10)
[2017-09-27 18:54] LABS: URINE BILIRUBIN NEGATIVE (NEGATIVE); URINE BLOOD NEGATIVE (NEGATIVE); URINE GLUCOSE (UA) NEGATIVE (NEGATIVE); URINE LEUKOCYTE ESTERASE NEGATIVE Leu/uL (NEGATIVE); URINE PROTEIN NEGATIVE mg/dL (<30 mg/dL); URINE UROBILINOGEN 0.2 E.U./dL (<1 E.U./dL)
[2017-09-27 18:59] LABS: URINE APPEARANCE CLEAR (CLEAR); URINE COLOR YELLOW (YELLOW)
[2017-09-27 19:10] LABS: CREATININE,RANDOM URINE 21 mg/dL
[2017-09-27] MEDS: Heparin25000 units/250ml 1/2NS 25,000 UNITS/250 ML BAG IV PRN ×2 (20:14→22:20)
[2017-09-28] MEDS: Levothyroxine 25 MCG TAB PO SCH (05:26)
[2017-09-28 06:54] LABS: BASO # 0.06 K/mm3 (0.0-2.0); BASO % 1.1 % (0.0-3.0); EOS # 0.1 (0.0-0.7); EOS % 2.6 % (1.5-5.0); GRAN # 3.56 (1.4-6.5); HEMOGLOBIN 9.7 g/dL (14.0-18.0); LYMPH # 1.1 (1.2-3.4); LYMPH % 19.7 % (22.0-35.0); MEAN CELL VOLUME 66.5 fl (80.0-105.0); MEAN CORPUSCULAR HEMOGLOBIN 19.2 pg (25.0-35.0); MEAN CORPUSCULAR HGB CONC 28.9 g/dl (31.0-37.0); MEAN PLATELET VOLUME 8.9 fl (7.0-11.0); MONO # 0.6 (0.1-0.6); MONO % 10.6 % (1.0-6.0); RBC 5.05 10^6/uL (3.5-6.1); RED CELL DISTRIBUTION WIDTH 20.7 % (11.5-14.5); WHITE BLOOD COUNT 5.4 10^3/ul (4.5-11.0)
[2017-09-28 07:13] LABS: INR 1.33 (0.93-1.08); PROTHROMBIN TIME 15.4 SECONDS (9.4-12.5)
[2017-09-28 07:18] LABS: ALBUMIN 3.3 g/dL (3.0-4.8); BLOOD UREA NITROGEN 43 mg/dL (7-21); CALCIUM 8.7 mg/dL (8.4-10.5); GFR AFRICAN-AMERICAN 47; GFR NON-AFRICAN AMERICAN 39
[2017-09-28 07:19] LABS: ALB/GLOB RATIO 1.1 (1.1-1.8); ALT/SGPT 28 U/L (7-56); AST/SGOT 25 U/L (17-59)
[2017-09-28] MEDS: Insulin Reg-LOW-Coverage SC SCH ×4 (07:38→22:37)
[2017-09-28] MEDS: Potassium Chloride 20 mEq ER Tab PO SCH (09:03)
[2017-09-28] MEDS: DOBUTamine 500mg/250ml D5W 500 MG/250 ML BAG IV PRN ×2 (09:03→21:07)
[2017-09-28] MEDS: Morphine 4 mg/ml ISec IVP PRN (09:46)
[2017-09-28] MEDS: Magnesium Oxide 400 mg Tab UD PO SCH (09:47)
[2017-09-28] MEDS: metOLazone 5 MG TAB PO SCH ×2 (09:48→17:43)
[2017-09-28] MEDS: POLYETHYLENE GLYCOL 3350 17 GM/Dose PACKET PO SCH ×2 (09:49→17:42)
[2017-09-28] MEDS: Lidocaine 5% Patch TD SCH (09:50)
--- NOTE | 2017-09-28 09:54 | CP.PCM.PN ---
Subjective - Date & Time of Evaluation Date of Evaluation: 09/28/17 Time of Evaluation: 09:46 - Subjective Subjective: Nephrology Consultation Note: Assessment: stable CHF exacerbation with cirrhosis and fluid overload back pain Anemia Acute Kidney Injury (N17.9) versus progression of CKD, likely cardiorenal syndrome ? Abdomen compartment syndrome Chronic Kidney Disease Stage 3 (N18.3) with ? proteinuria with baseline cr 1.2- 1.5 mg/dL type 2 diabetes Mellitus ( x 1 year), HTN, morbid obesity, BRIAN on CPAP, chronic severe systolic CHF LVEF 25%, cirrhosis/splenomegaly with portal HTN changes on CT scan, active smoker Hypothyroidism ascites Plan No acute need for renal replacement therapy at this time. Cr mildly improved today so far tolerating diuretic - on lasix/tito/metolazone. d/c cozaar if any inc in cr renal us reviewed has lots of ascites - would suggest consult to IR for large volume paracentesis - recc limit to 4 L paracentesis and give 50 mg of IV albumin abdirahman procedure to help reduce risk of hepatorenal development. consider cardiology consult will start oral iron f/u Vit D, PTH and phos levels,b12/folate level/SPEP/ADRIAN and serum FLC assay S: seen and examiend feels like swelling has improved Physical Examination: General Appearance: Comfortable, in no acute respiratory distress, co- operative. obese Vitals reviewed and noted as below Head; Atraumatic, normocephalic ENT: no ulcers no thrush. Tongue is midline. Oropharynx: no rash or ulcers. EYES: Pupils are equal, round and reactive to light accommodation. Eye muscles and extraocular movement intact. Sclera is anicteric. Neck; supple no lymphadenopathy, no thyromegaly or bruit Lungs: Normal respiratory rate/effort. Breath sounds decreased at bases with crackles Heart: Normal rate. s1s2 normal. No rub or gallop. Extremities: 3+ edema. No varicose veins Neurological: Patient is alert, awake and oriented x 3 no focal deficit Skin: dry and warm. Normal turgor. No rash. Palpitation: Normal elasticity for age Abdomen: Abdomen is grossly distended with abdomen wall edema and venous distension. Psych: normal insight. normal affect/mood MSK: no specific joint tenderness or swelling. Digits and nails normal, no deformity : kidney or bladder not palpable. Objective - Vital Signs/Intake and Output Vital Signs (last 24 hours): Temp Pulse Resp BP Pulse Ox 98.1 F 78 20 119/80 94 L 09/28/17 06:00 09/28/17 09:03 09/28/17 06:00 09/28/17 09:03 09/28/17 06:00 Intake and Output: 09/28/17 09/28/17 06:59 18:59 Intake Total 605 Output Total 1400 Balance -795 - Medications Medications: Current Medications Acetaminophen (Tylenol 325mg Tab) 650 mg PO Q4H PRN PRN Reason: Headache Last Admin: 09/27/17 17:37 Dose: 650 mg Aspirin (Ecotrin) 81 mg PO DAILY [facility] Last Admin: 09/27/17 09:40 Dose: 81 mg Cyclobenzaprine HCl (Flexeril) 5 mg PO TID PRN PRN Reason: Pain, moderate (4-7) Diltiazem HCl (Cardizem) 60 mg PO TID [facility] Last Admin: 09/27/17 17:36 Dose: 60 mg Docusate Sodium (Colace) 100 mg PO BID [facility] Last Admin: 09/27/17 17:36 Dose: 100 mg Famotidine (Pepcid) 20 mg PO HS [facility] Last Admin: 09/27/17 21:44 Dose: Not Given Furosemide (Lasix) 40 mg IVP BID [facility] Last Admin: 09/27/17 17:35 Dose: 40 mg Guaifenesin/Dextromethorphan (Robitussin Dm) 5 ml PO Q4H PRN PRN Reason: Cough Last Admin: 09/27/17 22:19 Dose: 5 ml Heparin Sodium/Sodium Chloride (Heparin 01683 Units/250ml 1/2 Normal Saline) 25 ,000 units in 250 mls @ 20.355 mls/hr IV .[id number] PRN; Protocol; 13 UNITS/KG/HR PRN Reason: ADJUST RATE PER PROTOCOL Last Titration: 09/28/17 02:51 Dose: 10 units/kg/hr, 15.658 mls/hr Dobutamine HCl/Dextrose (Dobutamine/Dextrose 5% 500mg/250ml) 500 mg in 250 mls @ 23.487 mls/hr IV .[id number] PRN; 5 MCG/KG/MIN PRN Reason: Cough and congestion Last Admin: 09/28/17 09:03 Dose: 23.487 mls/hr Insulin Human Regular (Humulin R Low) 0 units SC ACHS MORGAN PRN Reason: Protocol Last Admin: 09/28/17 07:38 Dose: Not Given Levalbuterol HCl (Xopenex) 1.25 mg IH [id number] PRN PRN Reason: Shortness of Breath Levothyroxine Sodium (Synthroid) 25 mcg PO 0600 [facility] Last Admin: 09/28/17 05:26 Dose: 25 mcg Lidocaine (Lidoderm) 1 ea TD DAILY [facility] Last Admin: 09/27/17 14:05 Dose: 1 ea Losartan Potassium (Cozaar) 50 mg PO DAILY [facility] Last Admin: 09/27/17 09:39 Dose: 50 mg Magnesium Oxide (Mag-Ox) 400 mg PO DAILY [facility] Last Admin: 09/27/17 09:39 Dose: 400 mg Metolazone (Zaroxolyn) 5 mg PO BID [facility] Stop: 10/01/17 10:46 Last Admin: 09/27/17 17:36 Dose: 5 mg Morphine Sulfate (Morphine) 4 mg IVP Q4H PRN PRN Reason: pain 8-10 Last Admin: 09/27/17 18:10 Dose: 4 mg Nicotine (Nicoderm Cq) 1 patch TD DAILY [facility] Last Admin: 09/27/17 09:37 Dose: 1 patch Polyethylene Glycol (Miralax) 17 gm PO BID [facility] Last Admin: 09/27/17 17:35 Dose: 17 gm Potassium Chloride (K-Dur 20 Meq Er Tab) 20 meq PO BRK [facility] Last Admin: 09/28/17 09:03 Dose: 20 meq Spironolactone (Aldactone) 25 mg PO BID [facility] Last Admin: 09/27/17 17:36 Dose: 25 mg Warfarin Sodium (Coumadin) 5 mg PO 1800 MORGAN PRN Reason: Protocol Last Admin: 09/27/17 17:36 Dose: 5 mg - Labs Labs: 09/28/17 06:30 09/28/17 06:30 PT 15.4 SECONDS (9.4-12.5) H 09/28/17 06:30 INR 1.33 (0.93-1.08) H 09/28/17 06:30 APTT 107.3 Seconds (25.1-36.5) H* 09/28/17 01:10
[2017-09-28 12:35] LABS: ALBUMIN (PEP) 3.2 g/dL (3.8-4.8); ALPHA-1-GLOBULIN (PEP) 0.4 g/dL (0.2-0.3)
[2017-09-28 13:34] LABS: HEPATITIS B CORE AB NEGATIVE (NEGATIVE)
[2017-09-28 13:47] LABS: HEPATITIS C ANTIBODY NEGATIVE (NEGATIVE)
--- NOTE | 2017-09-28 13:47 | CP.PCM.CON ---
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 Albumin/Globulin Ratio Qqtvq-9-Fkrdtryxy Xvycn-7-Bczxiwrnb Aark-1-Zwpxtxpl Dpeq-4-Sptzkybl Gamma Globulins Abnorm Protein Band 1 Abnorm Protein Band 2 Abnorm Protein Band 3 25-OH Vitamin D Total PTH Intact Whole Molec Ur Random Creatinine U Random Total Protein Urine Total Volume Microalb/Creat Ratio Stool Occult Blood ADRIAN & SPEP Interp Serum Immunofixation Hep Bs Antigen Hep Bs Antibody Hep B Core IgM Ab Hepatitis C Antibody HIV 1&2 Antibody Screen 09/28/17 09/28/17 09/28/17 11:24 16:11 18:40 WBC RBC Hgb Hct MCV MCH MCHC RDW Plt Count MPV Gran % Lymph % (Auto) Camp % (Auto) Eos % (Auto) Baso % (Auto) Gran # Lymph # (Auto) Camp # (Auto) Eos # (Auto) Baso # (Auto) PT INR APTT 68.4 H Sodium Potassium Chloride Carbon Dioxide Anion Gap BUN Creatinine Est GFR ( Amer) Est GFR (Non-Af Amer) POC Glucose (mg/dL) 137 H 198 H Random Glucose Calcium Total Bilirubin AST ALT Alkaline Phosphatase Total Protein Total Protein (PEP) Albumin Albumin (PEP) Globulin Albumin/Globulin Ratio Tjkmt-4-Oojchjrum Zftkh-7-Yqwnyzwix Jpgo-5-Teeogkmg Rfze-4-Jkzncqoz Gamma Globulins Abnorm Protein Band 1 Abnorm Protein Band 2 Abnorm Protein Band 3 25-OH Vitamin D Total PTH Intact Whole Molec Ur Random Creatinine U Random Total Protein Urine Total Volume Microalb/Creat Ratio Stool Occult Blood ADRIAN & SPEP Interp Serum Immunofixation Hep Bs Antigen Hep Bs Antibody Hep B Core IgM Ab Hepatitis C Antibody HIV 1&2 Antibody Screen 09/28/17 21:18 WBC RBC Hgb Hct MCV MCH MCHC RDW Plt Count MPV Gran % Lymph % (Auto) Camp % (Auto) Eos % (Auto) Baso % (Auto) Gran # Lymph # (Auto) Camp # (Auto) Eos # (Auto) Baso # (Auto) PT INR APTT Sodium Potassium Chloride Carbon Dioxide Anion Gap BUN Creatinine Est GFR ( Amer) Est GFR (Non-Af Amer) POC Glucose (mg/dL) 130 H Random Glucose Calcium Total Bilirubin AST ALT Alkaline Phosphatase Total Protein Total Protein (PEP) Albumin Albumin (PEP) Globulin Albumin/Globulin Ratio Xywcu-1-Jwvkksjtl Sxsss-9-Qmtfwckpz Onkw-0-Kdokaylq Fdwk-0-Vzjdelmm Gamma Globulins Abnorm Protein Band 1 Abnorm Protein Band 2 Abnorm Protein Band 3 25-OH Vitamin D Total PTH Intact Whole Molec Ur Random Creatinine U Random Total Protein Urine Total Volume Microalb/Creat Ratio Stool Occult Blood ADRIAN & SPEP Interp Serum Immunofixation Hep Bs Antigen Hep Bs Antibody Hep B Core IgM Ab Hepatitis C Antibody HIV 1&2 Antibody Screen Attending/Attestation - Attestation I have personally seen and examined this patient.: Yes I have fully participated in the care of the patient.: Yes I have reviewed all pertinent clinical information: Yes Notes (Text): This is an addendum to GI consult report dictated by the Burrer Marker Axle.The patient was seen and examined earlier. Medical records, lab studies, imagings were reviewed. Last 24 hours events reviewed. Agreed with the above treatment plan as outlined in Burrer Marker Axle 's notes the with the addition of the following 09/28/17 23:03
[2017-09-28] MEDS: guaiFENesin DM 100 mg-10 mg/5 ml UD PO PRN (14:28)
[2017-09-28] MEDS: Heparin25000 units/250ml 1/2NS 25,000 UNITS/250 ML BAG IV PRN (15:25)
--- NOTE | 2017-09-28 17:20 | PN ---
DATE: 09/27/2017 SUBJECTIVE: The patient going for ultrasound of the abdomen. He seems lying in the bed comfortably. No distress. He seems better. More cooperative. More talking. He has no chest pain. He just complained of pain in his back and his hips. Otherwise, no new complaints. PHYSICAL EXAMINATION: VITAL SIGNS: On 09/27/2017, his vital signs are as follow; temperature 98, heart rate 92, blood pressure 150/99, respirations 20. HEAD AND NECK: Normal. No JVD. No thyromegaly. CHEST: A few rales, crackles. ABDOMEN: Morbid obese. Bowel sounds intact. EXTREMITIES: Bilateral leg edema. NEUROLOGICAL: Normal. MUSCULOSKELETAL: The patient has tenderness in his back and his right hip area. LABORATORY DATA: Shows sodium 139, potassium 4.3, chloride 98, bicarb 30, BUN 48, creatinine 2, blood sugar 104, calcium 8.8. His TSH came back 7.06, consistent with hypothyroidism. CBC came in; white count 7, hemoglobin 10.5, hematocrit 35.4, platelets 294. The patient also had urinalysis when he came in which was negative, noted for random urine protein 170 and also microalbumin 32. IMPRESSION AND PLAN: 1. Acute congestive heart failure, acute systolic on top of chronic systolic. Continue IV diuretics, oxygen, bronchodilators. The patient is currently on Aldactone, Lasix, Cozaar, and aspirin 81 mg. 2. Chronic atrial fibrillation, possibly paroxysmal. The patient will need anticoagulants for prevention for cardioembolic phenomena. Continue current treatment, Coumadin, IV heparin. We will monitor PT/INR on a daily basis. 3. Chronic back pain, hip arthritis. The patient refused first any narcotics; however, the patient has no other option except Tylenol, which did not help and we will give him morphine p.r.n. He does have kidney disease, probably chronic kidney disease, chronic. He cannot get any nonsteroidal antiinflammatory. It will be harmful for him, so we will continue current treatment with morphine p.r.n. 4. Chronic heavy smoker, tobacco and nicotine addictions. Continue NicoDerm CQ and we will monitor his conditions. Probably, the patient will need to follow up for detox of nicotine as outpatient including medications like Chantix, Wellbutrin, NicoDerm patch combination. 5. Chronic constipation. Continue MiraLax. The patient also has anemia, probably iron-deficiency anemia. The patient will need a colonoscopy and upper endoscopy. Discussed with the patient in detail. All labs has been discussed with him. 6. Hypothyroidism, on Synthroid. Continue that at 75 mcg daily and the patient will need to be followed as outpatient. Review of his medications as outpatient, he does not take any thyroid medications, so this need to be followed with ultrasound of his thyroid when TSH has normalized range and follow up accordingly. 7. Morbid obesity, chronic obstructive pulmonary disease, obstructive sleep apnea. Definitely, the patient needs to lose weight and BiPAP machine is essential for prevention of pulmonary hypertension, systemic hypertension, and improving comorbid illnesses. Continue current therapy. Follow up with other consultants; Nephrology, Cardiology, Pulmonology. Continue IV doxycycline and monitor his condition clinically. Continue inhaled bronchodilators. Sav Hernandez MD
--- NOTE | 2017-09-28 18:16 | CON ---
DATE: 09/28/2017 CARDIOLOGY CONSULTATION HISTORY OF PRESENT ILLNESS: The patient is a 57-year-old male with documented dilated cardiomyopathy with an EF of 20% to 25%. He presents with dyspnea and pedal edema. PAST MEDICAL HISTORY: The patient's past medical history also includes chronic atrial fibrillation treated with an anticoagulant. The patient has been off all his medications over the past several days because of noncompliance. He suffers from history of COPD and he is an active smoker. In addition, he is on afterload reducers as well as beta blockers. SOCIAL HISTORY: He admits he is on a nicotine patch at home. REVIEW OF SYSTEMS: A 14-point review of systems was reviewed in detail. Progressive dyspnea, pedal edema. Lower back pain. No angina. PHYSICAL EXAMINATION VITAL SIGNS: Blood pressure is 124/71, the heart rate is atrial fibrillation in the 80s. NECK: Negative JVD. LUNGS: Decreased breath sounds bilaterally. HEART: Revealed S1 and S2. EXTREMITIES: A 1 to 2+ edema. EKG is atrial fibrillation with nonspecific ST-T changes. BUN and creatinine is 43 and 1.8, glucose is 122, hemoglobin is 9.7. IMPRESSION: 1. Acute systolic congestive heart failure. 2. Severe dilated cardiomyopathy. 3. Chronic atrial fibrillation. 4. Obesity. 5. Diabetes mellitus. 6. Dyspnea. Given these findings, much of the patient's symptoms now are due to the patient's noncompliance with medications. He states he ran out of medications for the past several days. PLAN: We will re-institute IV Lasix, IV heparin to protect from thromboembolic phenomenon with atrial fibrillation. We will give him 24 hours of IV dobutamine. Alexandru Carrillo MD
--- NOTE | 2017-09-29 00:18 | HP ---
DATE OF EXAM: 09/26/2017 REASON FOR ADMISSION: Acute short of breath or dyspnea. HISTORY OF PRESENT ILLNESS: This 57-year-old male obese, COPD, hypertension, history of congestive heart failure, cardiomyopathy, morbid obesity, came into the hospital with acute worsening of his breathing problem. The patient also noted his leg is swollen, getting more weight, getting more dyspnea with exertions to the extend that he has dyspnea with minimal exertion. Denied any fever, any chills, any nausea, any vomiting, no diarrhea. No chest pain. PAST MEDICAL HISTORY: As I mentioned, he does have a history of cardiomyopathy, noted also on admission atrial fibrillation, unclear timing, chronic or versus just being diagnosed, hypertension, morbid obesity, anemia, diabetes, chronic osteoarthritis, orthopedic surgery, unclear which one, hypothyroidism, COPD, obstructive sleep apnea, and chronic congestive heart failure. ALLERGIES: NO KNOWN ALLERGIES. SOCIAL HISTORY: He lives alone, he is morbid obese, he smokes some day on and off, but he has been smoking one pack of cigarette for 48 years. Alcohol, does not drink. Drugs, he is not using. He did have pneumococcal vaccine and he did have Tdap vaccine. Pneumococcal vaccine in 2017 in January. Tdap vaccine in 12/2014. REVIEW OF SYSTEMS: As in the present illness, he does have dyspnea with exertion, edema lower extremities, morbid obesity with chronic back pain, knee arthritis and he has abdominal obesity. PHYSICAL EXAMINATION: VITAL SIGNS: On 09/26/2017, the patient has temperature 98.3, heart rate 115, blood pressure 161/88, respirations 20, saturation 95% on room air. HEAD AND NECK: Normal. No JVD. CHEST: Bilateral crackles and mild wheeze. CARDIAC: First sound and second sound normal, irregular. ABDOMEN: Morbid obese with tattoos on the belly. EXTREMITIES: Bilateral leg edema up to the knee. NEUROLOGICAL: Exam is normal. The patient refuse CPAP machine while he is in the emergency room. The patient is in room in bed 21, lying down. He did have one time episode of coughing with some phlegm. LABORATORY STUDIES:: White count 6.3, hemoglobin 10.4, hematocrit 34.6, platelets 316. Chemistry, shows sodium 137, potassium 4.5, chloride 101, bicarb 26, BUN 49, creatinine is 2, blood sugar 118, calcium 8.9. Liver function test is normal. ProBNP 11,200. He also had liver function test was normal range. of congestive heart failure. EKG shows atrial fibrillation with rapid ventricular response. IMPRESSION AND PLAN: 1. Acute congestive heart failure, on top of chronic probably systolic heart failure. Previous echo shows decreased left ventricular functions. So the plan is to continue current treatment with IV Lasix, oxygen, inhaled bronchodilators and Cardiology consult with Dr. Alexandru Carrillo who saw him in the past. 2. Chronic atrial fibrillation, heart rate is coming down now. We will give the patient anticoagulants, IV heparin. We will monitor his PTT according to the heparin protocol. The patient probably will need to be on some sort of anticoagulant probably Coumadin due to his kidney function problems. 3. Morbid obesity, chronic obstructive pulmonary disease, obstructive sleep apnea, diabetes, hypertension, hypercholesterolemia, probably ascites, obstructive sleep apnea. The patient will need a Pulmonary consult. We will give the patient IV antibiotics if necessary. We will discuss with the pneumatic jacketer and we will repeat labs in the morning including TSH and will followup clinically. The patient will be admitted to telemetry. We will discuss with the Pulmonology, Cardiology and also Renal consult . . Continue current therapy. Please be advised this is a note for 09/26/2017. Sav Hernandez MD
--- NOTE | 2017-09-29 01:08 | CON ---
DATE: 09/28/2017 PULMONARY CONSULTATION REFERRING PHYSICIAN: Sav Hernandez MD REASON FOR CONSULTATION: Chronic lung disease, may have sleep apnea syndrome, short of breath, history of . HISTORY OF PRESENT ILLNESS: This is a 57-year-old gentleman known to me from previous admission, noncompliant with the followup, who is an active smoker, has hypertension and, diabetes, comes into ER with shortness of breath, leg swelling, noncompliant with medication. Apparently, he did not take his diuretics for a week or so. In the past, refused attended sleep study, refused CPAP use. No hemoptysis or hematemesis. No hematuria. No diarrhea reported. PAST MEDICAL HISTORY: Hypertension, diabetes, chronic obstructive lung disease, obesity, suspected sleep apnea syndrome, history of pneumonia, diabetes, anemia, history of perforated viscera after accident in the remote past. FAMILY HISTORY: No significant cardiopulmonary disease reported. SOCIAL HISTORY: Active smoker. Denies any alcohol use. ALLERGIES: NONE KNOWN. MEDICATIONS: He is on Aldactone 25 mg twice a day, Cardizem 60 mg three times a day, Colace 100 mg twice a day, Coumadin 5 mg, Cozaar 50 mg daily, started on dobutamine, doxycycline 100 mg twice a day, Ecotrin 81 mg daily, ferrous sulfate 324 mg twice a day, Flexeril 5 mg three times a day p.r.n. Also getting IV heparin, potassium supplement, Lasix 40 mg twice a day, Lidoderm patch daily, mag oxide 400 mg daily, MiraLax 17 g daily, morphine 4 mg every 4 hour p.r.n., Nicoderm patch daily, Pepcid 20 mg at nighttime, Robitussin 5 mL every 4 hour p.r.n., Synthroid 25 mcg daily, Tylenol p.r.n., Xopenex inhaled every 6 hour p.r.n., Zaroxolyn 5 mg twice a day. REVIEW OF SYSTEMS: No headache, no rhinitis. Admit to have snoring, daytime sleepy and tired, cough, shortness of breath. No chest pain. Has increased abdominal girth. No dysuria. Has leg swelling. PHYSICAL EXAMINATION: GENERAL: Lying in the bed. VITAL SIGNS: Temperature is 98, heart rate 83, respiratory is 20, blood pressure 145/86, pulse ox 94% on room air. HEENT: Moist mucous membrane. Crowded airway. Mallampati score is 4. NECK: Supple. No JVD, prolonged expiratory phase with few crackles. HEART: S1 and S2. ABDOMEN: Soft, distended. EXTREMITIES: Has edema of the both lower extremities. NEUROLOGIC: Awake, alert, and follows simple commands. LABORATORY DATA: Shows hemoglobin 9.7, hematocrit 33.6, WBC 5.4, platelet count is 270. PTT is 47. INR 1.3. Sodium 137, potassium 4.7, chloride 96, bicarbonate 30, BUN 43, creatinine is 1.8, glucose 137, calcium 8.7. Total bili 1.3, AST 25, ALT 28, alk phos is 98, total protein 6.5. Albumin 3.3. Vitamin D is 18. LABORATORY DATA: Has chest x-ray done in the ER, shows right lower lobe infiltrate, atelectasis versus pneumonia, severe cardiomegaly, and suspected small pleural effusion. IMPRESSION AND PLAN: Severe cardiomyopathy with heart failure, chronic lung disease, morbid obesity, suspected sleep apnea syndrome, hypertension, diabetes, cirrhotic liver, portal hypertension. Patient is known to be noncompliant with the medication as well as followup and also noncompliant with active smoking. Presently, refusing to use CPAP. We will keep head elevated at 45 degrees. Avoid sedation. Continue inhaled bronchodilator, Nicoderm patch. 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 Follow up labs in the morning. Thank you and we will follow with you. Farhan Chavira MD
[2017-09-29] MEDS: Levothyroxine 25 MCG TAB PO SCH (05:07)
[2017-09-29] MEDS: Heparin25000 units/250ml 1/2NS 25,000 UNITS/250 ML BAG IV PRN ×2 (05:08→20:39)
[2017-09-29 06:33] LABS: HEMOGLOBIN 9.8 g/dL (14.0-18.0); MEAN CELL VOLUME 65.3 fl (80.0-105.0); MEAN CORPUSCULAR HEMOGLOBIN 19.3 pg (25.0-35.0); MEAN CORPUSCULAR HGB CONC 29.6 g/dl (31.0-37.0); MEAN PLATELET VOLUME 9.1 fl (7.0-11.0); RBC 5.07 10^6/uL (3.5-6.1); RED CELL DISTRIBUTION WIDTH 20.4 % (11.5-14.5); WHITE BLOOD COUNT 4.5 10^3/ul (4.5-11.0)
[2017-09-29 06:58] LABS: INR 1.26 (0.93-1.08); PROTHROMBIN TIME 14.6 SECONDS (9.4-12.5)
[2017-09-29 06:59] LABS: PARTIAL THROMBOPLASTIN TIME 62.2 Seconds (25.1-36.5)
[2017-09-29] MEDS ORDERED: Barium Sulfate Susp 2.1% w/v, 2.0% w/w 450 mL Bottle PO ONE (07:02)
[2017-09-29 07:09] LABS: ALB/GLOB RATIO 1.1 (1.1-1.8); ALBUMIN 3.6 g/dL (3.0-4.8); CALCIUM 9.2 mg/dL (8.4-10.5)
[2017-09-29] MEDS: DOBUTamine 500mg/250ml D5W 500 MG/250 ML BAG IV PRN (07:30)
[2017-09-29] MEDS: Insulin Reg-LOW-Coverage SC SCH ×4 (07:48→21:58)
[2017-09-29] MEDS: Morphine 4 mg/ml ISec IVP PRN (09:25)
[2017-09-29] MEDS ORDERED: Pantoprazole 40 mg EC Tab PO SCH (10:30)
[2017-09-29] MEDS: Lidocaine 5% Patch TD SCH (10:47)
[2017-09-29] MEDS: POLYETHYLENE GLYCOL 3350 17 GM/Dose PACKET PO SCH ×2 (10:48→17:20)
[2017-09-29] MEDS: Potassium Chloride 20 mEq ER Tab PO SCH (10:48)
[2017-09-29] MEDS: Magnesium Oxide 400 mg Tab UD PO SCH (10:49)
[2017-09-29] MEDS: metOLazone 5 MG TAB PO SCH ×2 (10:49→17:21)
[2017-09-29] MEDS: guaiFENesin DM 100 mg-10 mg/5 ml UD PO PRN (11:01)
--- NOTE | 2017-09-29 11:29 | CT ---
PROCEDURE: CT Abdomen and Pelvis without intravenous contrast HISTORY: ascites, r/o mass COMPARISON: 08/09/2016 TECHNIQUE: Technique. Contrast dose: Radiation dose: Total exam DLP = mGy-cm. This CT exam was performed using one or more of the following dose reduction techniques: Automated exposure control, adjustment of the mA and/or kV according to patient size, and/or use of iterative reconstruction technique. FINDINGS: LOWER THORAX: Moderate-size right pleural effusion with compressive atelectasis at the right base. LIVER: Cirrhotic liver without evidence of mass. GALLBLADDER AND BILE DUCTS: Unremarkable. PANCREAS: Unremarkable. No gross lesion or ductal dilatation. SPLEEN: Unremarkable. ADRENALS: Unremarkable. No mass. KIDNEYS AND URETERS: Unremarkable. No hydronephrosis. No solid mass. VASCULATURE: Unremarkable. No aortic aneurysm. BOWEL: Unremarkable. No obstruction. No gross mural thickening. APPENDIX: Unremarkable. Normal appendix. PERITONEUM: Extensive abdominal ascites as well as anasarca. LYMPH NODES: Unremarkable. No enlarged lymph nodes. BLADDER: Unremarkable. REPRODUCTIVE: Unremarkable. BONES: No acute fracture. OTHER FINDINGS: None. IMPRESSION: Evidence of cirrhosis with extensive ascites and anasarca. No evidence of mass. Right pleural effusion.
--- NOTE | 2017-09-29 11:50 | CP.PCM.PN ---
<Delaney Aleman - Last Filed: 09/29/17 11:48> Subjective - Date & Time of Evaluation Date of Evaluation: 09/29/17 Time of Evaluation: 10:02 - Subjective Subjective: S&E at bedside chart reviewed, waiting to for ct scan abdomen and pelvis, no c/ o N/V or abdominal pain. Remains on Heparin per protocol, no reports of acute overnight events or overt GI bleeding. Objective - Vital Signs/Intake and Output Vital Signs (last 24 hours): Temp Pulse Resp BP Pulse Ox 97.8 F 96 H 18 134/75 96 09/29/17 06:00 09/29/17 07:30 09/29/17 06:00 09/29/17 07:30 09/29/17 06:00 Intake and Output: 09/29/17 09/29/17 06:59 18:59 Intake Total 1412 Output Total 6200 Balance -4788 - Medications Medications: Current Medications Acetaminophen (Tylenol 325mg Tab) 650 mg PO Q4H PRN PRN Reason: Headache Last Admin: 09/27/17 17:37 Dose: 650 mg Aspirin (Ecotrin) 81 mg PO DAILY [facility] Last Admin: 09/28/17 10:09 Dose: 81 mg Cyclobenzaprine HCl (Flexeril) 5 mg PO TID PRN PRN Reason: Pain, moderate (4-7) Diltiazem HCl (Cardizem) 60 mg PO TID [facility] Last Admin: 09/28/17 17:43 Dose: 60 mg Docusate Sodium (Colace) 100 mg PO BID [facility] Last Admin: 09/28/17 17:43 Dose: 100 mg Famotidine (Pepcid) 20 mg PO HS [facility] Last Admin: 09/28/17 21:03 Dose: 20 mg Ferrous Sulfate (Feosol) 324 mg PO BID [facility] Last Admin: 09/28/17 17:43 Dose: 324 mg Furosemide (Lasix) 40 mg IVP BID [facility] Last Admin: 09/28/17 17:43 Dose: 40 mg Guaifenesin/Dextromethorphan (Robitussin Dm) 5 ml PO Q4H PRN PRN Reason: Cough Last Admin: 09/28/17 14:28 Dose: 5 ml Heparin Sodium/Sodium Chloride (Heparin 26547 Units/250ml 1/2 Normal Saline) 25 ,000 units in 250 mls @ 20.355 mls/hr IV .[id number] PRN; Protocol; 13 UNITS/KG/HR PRN Reason: ADJUST RATE PER PROTOCOL Last Admin: 09/29/17 05:08 Dose: 12 units/kg/hr, 18.79 mls/hr Dobutamine HCl/Dextrose (Dobutamine/Dextrose 5% 500mg/250ml) 500 mg in 250 mls @ 23.487 mls/hr IV .[id number] PRN; 5 MCG/KG/MIN PRN Reason: Cough and congestion Last Admin: 09/29/17 07:30 Dose: 23.487 mls/hr Doxycycline Hyclate 100 mg/ (Sodium Chloride) 100 mls @ 100 mls/hr IVPB Q12 [facility] PRN Reason: Protocol Last Admin: 09/28/17 21:03 Dose: 100 mls/hr Insulin Human Regular (Humulin R Low) 0 units SC ACHS [facility] PRN Reason: Protocol Last Admin: 09/29/17 07:48 Dose: Not Given Levalbuterol HCl (Xopenex) 1.25 mg IH [id number] PRN PRN Reason: Shortness of Breath Levothyroxine Sodium (Synthroid) 25 mcg PO 0600 [facility] Last Admin: 09/29/17 05:07 Dose: 25 mcg Lidocaine (Lidoderm) 1 ea TD DAILY [facility] Last Admin: 09/28/17 09:50 Dose: 1 ea Losartan Potassium (Cozaar) 50 mg PO DAILY [facility] Last Admin: 09/28/17 09:48 Dose: 50 mg Magnesium Oxide (Mag-Ox) 400 mg PO DAILY [facility] Last Admin: 09/28/17 09:47 Dose: 400 mg Metolazone (Zaroxolyn) 5 mg PO BID [facility] Stop: 10/01/17 10:46 Last Admin: 09/28/17 17:43 Dose: 5 mg Morphine Sulfate (Morphine) 4 mg IVP Q4H PRN PRN Reason: pain 8-10 Last Admin: 09/29/17 09:25 Dose: 4 mg Nicotine (Nicoderm Cq) 1 patch TD DAILY [facility] Last Admin: 09/28/17 09:48 Dose: 1 patch Polyethylene Glycol (Miralax) 17 gm PO BID [facility] Last Admin: 09/28/17 17:42 Dose: 17 gm Potassium Chloride (K-Dur 20 Meq Er Tab) 20 meq PO BRK [facility] Last Admin: 09/28/17 09:03 Dose: 20 meq Spironolactone (Aldactone) 25 mg PO BID [facility] Last Admin: 09/28/17 17:43 Dose: 25 mg Warfarin Sodium (Coumadin) 5 mg PO 1800 [facility] PRN Reason: Protocol Last Admin: 09/28/17 17:42 Dose: 5 mg - Labs Labs: 09/29/17 05:30 09/29/17 05:30 PT 14.6 SECONDS (9.4-12.5) H 09/29/17 05:30 INR 1.26 (0.93-1.08) H 09/29/17 05:30 APTT 62.2 Seconds (25.1-36.5) H 09/29/17 05:30 - Constitutional Appears: No Acute Distress - Head Exam Head Exam: NORMOCEPHALIC - Eye Exam Eye Exam: Normal appearance. absent: Scleral icterus - ENT Exam ENT Exam: Mucous Membranes Moist - Neck Exam Neck Exam: Normal Inspection - Respiratory Exam Respiratory Exam: NORMAL BREATHING PATTERN. absent: Respiratory Distress - Cardiovascular Exam Cardiovascular Exam: +S1, +S2 - GI/Abdominal Exam GI & Abdominal Exam: Distended, Soft, Normal Bowel Sounds. absent: Guarding, Tenderness, Rebound - Extremities Exam Extremities Exam: Pedal Edema. absent: Calf Tenderness - Neurological Exam Neurological Exam: Alert, Awake, Oriented x3 - Skin Skin Exam: Dry, Warm Assessment and Plan - Assessment and Plan (Free Text) Assessment: Assessment: Exacerbation CHF Severe dilated cardiomyopathy - Patient was non-compliant with lasix LYDIA on CKD Ascites with possible cirrhosis, can be secondary to CHF v. CKD v. fatty liver , etiology unclear ? KISER A.fib, non-compliant w/anticoagulation NIDDM BRIAN COPD Morbid obesity HTN Plan: FU CT A/P with PO contrast only. Hep panel negative On heparin drip with bridge to Coumadin as well as Dobutamine as per Cardiology and nephrology Consider paracentesis after evaluation from CT. scan FU AFP Continue Miralax for constipation Recommend elective EGD r/o varices and at one point a colonoscopy, Seen and discussed with Dr. Razo. <Dominic Razo V - Last Filed: 09/29/17 23:00> Objective - Vital Signs/Intake and Output Vital Signs (last 24 hours): Temp Pulse Resp BP Pulse Ox 97.6 F 83 18 115/76 99 09/29/17 16:49 09/29/17 22:00 09/29/17 16:49 09/29/17 17:21 09/29/17 16:49 Intake and Output: 09/29/17 09/30/17 18:59 06:59 Intake Total 795 Output Total 3000 Balance -2205 - Medications Medications: Current Medications Acetaminophen (Tylenol 325mg Tab) 650 mg PO Q4H PRN PRN Reason: Headache Last Admin: 09/27/17 17:37 Dose: 650 mg Aspirin (Ecotrin) 81 mg PO DAILY [facility] Last Admin: 09/29/17 10:49 Dose: 81 mg Cyclobenzaprine HCl (Flexeril) 5 mg PO TID PRN PRN Reason: Pain, moderate (4-7) Diltiazem HCl (Cardizem Cd) 180 mg PO DAILY [facility] Last Admin: 09/29/17 12:01 Dose: 180 mg Docusate Sodium (Colace) 100 mg PO BID [facility] Last Admin: 09/29/17 17:20 Dose: 100 mg Doxycycline Hyclate (Doryx) 100 mg PO Q12 [facility] Last Admin: 09/29/17 21:58 Dose: 100 mg Famotidine (Pepcid) 20 mg PO HS [facility] Last Admin: 09/29/17 21:58 Dose: 20 mg Furosemide (Lasix) 40 mg PO BID [facility] Last Admin: 09/29/17 17:21 Dose: 40 mg Guaifenesin/Dextromethorphan (Robitussin Dm) 5 ml PO Q4H PRN PRN Reason: Cough Last Admin: 09/29/17 11:01 Dose: 5 ml Heparin Sodium/Sodium Chloride (Heparin 27837 Units/250ml 1/2 Normal Saline) 25 ,000 units in 250 mls @ 20.355 mls/hr IV .[id number] PRN; Protocol; 13 UNITS/KG/HR PRN Reason: ADJUST RATE PER PROTOCOL Last Admin: 09/29/17 20:39 Dose: 12 units/kg/hr, 18.79 mls/hr Insulin Human Regular (Humulin R Low) 0 units SC ACHS [facility] PRN Reason: Protocol Last Admin: 09/29/17 21:58 Dose: Not Given Levalbuterol HCl (Xopenex) 1.25 mg IH [id number] PRN PRN Reason: Shortness of Breath Levothyroxine Sodium (Synthroid) 25 mcg PO 0600 [facility] Last Admin: 09/29/17 05:07 Dose: 25 mcg Lidocaine (Lidoderm) 1 ea TD DAILY [facility] Last Admin: 09/29/17 10:47 Dose: 1 ea Losartan Potassium (Cozaar) 50 mg PO DAILY [facility] Last Admin: 09/29/17 10:49 Dose: 50 mg Magnesium Oxide (Mag-Ox) 400 mg PO DAILY [facility] Last Admin: 09/29/17 10:49 Dose: 400 mg Metolazone (Zaroxolyn) 5 mg PO BID [facility] Stop: 10/01/17 10:46 Last Admin: 09/29/17 17:21 Dose: 5 mg Morphine Sulfate (Morphine) 4 mg IVP Q4H PRN PRN Reason: pain 8-10 Last Admin: 09/29/17 09:25 Dose: 4 mg Nicotine (Nicoderm Cq) 1 patch TD DAILY [facility] Last Admin: 09/29/17 10:47 Dose: 1 patch Pantoprazole Sodium (Protonix Ec Tab) 20 mg PO ACB [facility] Polyethylene Glycol (Miralax) 17 gm PO BID [facility] Last Admin: 09/29/17 17:20 Dose: 17 gm Potassium Chloride (K-Dur 20 Meq Er Tab) 20 meq PO BRK [facility] Last Admin: 09/29/17 10:48 Dose: 20 meq Spironolactone (Aldactone) 25 mg PO BID [facility] Last Admin: 09/29/17 17:20 Dose: 25 mg Warfarin Sodium (Coumadin) 5 mg PO 1800 [facility] PRN Reason: Protocol Last Admin: 09/28/17 17:42 Dose: 5 mg - Labs Labs: 09/29/17 05:30 09/29/17 05:30 PT 14.6 SECONDS (9.4-12.5) H 09/29/17 05:30 INR 1.26 (0.93-1.08) H 09/29/17 05:30 APTT 62.2 Seconds (25.1-36.5) H 09/29/17 05:30 Attending/Attestation - Attestation I have personally seen and examined this patient.: Yes I have fully participated in the care of the patient.: Yes I have reviewed all pertinent clinical information, including history, physical exam and plan: Yes
[2017-09-29] MEDS: diltiaZEM 180 mg/24 Hours CD Cap PO SCH (12:01)
--- NOTE | 2017-09-29 12:26 | PN ---
DATE: 09/29/2017 CARDIOLOGY FOLLOWUP SUBJECTIVE: The patient's breathing is markedly improved. OBJECTIVE: VITAL SIGNS: Blood pressure is 152/80, heart rate is in the 70s. NECK: Negative JVD. LUNGS: Without rales. HEART: Reveals S1, S2. EXTREMITIES: Without edema. LABORATORY DATA: Potassium is 3.9, BUN and creatinine is 36 and 1.7. IMPRESSION: 1. Improvement of his congestive heart failure. 2. Dilated cardiomyopathy. 3. Atrial fibrillation. 4. Obesity. 5. Pedal edema. Given these findings, we will discontinue his IV dobutamine. We will change his IV Lasix to 40 p.o. We will change his Cardizem to long-acting Cardizem. The patient needs to be continued to be anticoagulated to protect him from thromboembolic phenomenon. Alexandru Carrillo MD
[2017-09-29] MEDS ORDERED: Pantoprazole 20 mg EC Tab PO SCH (13:09)
--- NOTE | 2017-09-29 13:15 | PN ---
DATE: 09/28/2017 SUBJECTIVE: The patient seems comfortable, less distress. Breathing robles, he is more comfortable. Diuresed well, seems doing well. He still has significant edema, significant ascites, and he still complains of back pain. PHYSICAL EXAMINATION: VITAL SIGNS: Temperature 97.6, heart rate 69, blood pressure 119/65, respirations 20, saturation 95% on room air. HEAD AND NECK: Normal. No JVD. No thyromegaly. CHEST: Clear bilaterally. CARDIAC: First sound and second sound normal. ABDOMEN: Morbid obese, nontender. EXTREMITIES: Bilateral leg edema up to the knee. NEUROLOGIC: Nonfocal. LABORATORY STUDY: White count 5.4, hemoglobin 9.7, hematocrit 33.6, and platelets 270. Chemistry: Sodium 137, potassium 4.7, chloride 96, bicarb 30. BUN 43, creatinine 1.8. Liver function test is normal. IMPRESSION: 1. Acute systolic heart failure on top of chronic, continue diuresis. The patient feeling better. The patient may need more diuresis. 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 2. Atrial fibrillation. The patient is on anticoagulant, heparin, and sometimes he is getting Coumadin. We will monitor his PT/INR. Continue Cardizem. 3. Ascites. Gastrointestinal consult, Dr. Razo. We will get a CT abdomen and pelvis. 4. Tobacco addiction. Continue NicoDerm CQ. 5. Hypothyroidism, mild. Continue Synthroid for now. We will monitor that clinically. The patient will be monitored as outpatient. Chronic back pain. PLAN: Continue pain medicine morphine p.r.n. for pain and follow up. For his underlying cardiomyopathy, we will continue dobutamine, continue diuresis, Cozaar, Aldactone, and Lasix. Continue GI and DVT prophylaxis. He is getting heparin and he is getting Protonix. Sav Hernandez MD
--- NOTE | 2017-09-29 13:45 | CP.PCM.PN ---
Subjective - Date & Time of Evaluation Date of Evaluation: 09/29/17 Time of Evaluation: 13:43 - Subjective Subjective: Nephrology Consultation Note: Assessment: stable CHF exacerbation with cirrhosis and fluid overload back pain Anemia Acute Kidney Injury (N17.9) versus progression of CKD, likely cardiorenal syndrome Chronic Kidney Disease Stage 3 (N18.3) with ? proteinuria with baseline cr 1.2- 1.5 mg/dL type 2 diabetes Mellitus ( x 1 year), HTN, morbid obesity, BRIAN on CPAP, chronic severe systolic CHF LVEF 25%, cirrhosis/splenomegaly with portal HTN changes on CT scan, active smoker Hypothyroidism ascites Plan No acute need for renal replacement therapy at this time. He is well known to us from prior admission 6 months ago at [facility] with similar presentation. has difficulty getting medication opt/? non compliance Cr slowly improving continue diuretics and dobutamine supprt consider paracentesis for ascites management and albumin pre procedure low iron stores: iv venofer 200 X5 S: seen and examiend Physical Examination: General Appearance: Comfortable, in no acute respiratory distress, co- operative. obese Vitals reviewed and noted as below Head; Atraumatic, normocephalic ENT: no ulcers no thrush. Tongue is midline. Oropharynx: no rash or ulcers. EYES: Eye muscles and extraocular movement intact. Sclera is anicteric. Neck; supple no lymphadenopathy, no thyromegaly or bruit Lungs: Normal respiratory rate/effort. Breath sounds decreased at bases with crackles Heart: Normal rate. s1s2 normal. No rub or gallop. Extremities: 3+ edema. No varicose veins Neurological: Patient is alert, awake and oriented x 3 no focal deficit Skin: dry and warm. Normal turgor. Abdomen: Abdomen is grossly distended with abdomen wall edema and venous distension. Psych: normal insight. normal affect/mood MSK: no specific joint tenderness or swelling. Objective - Vital Signs/Intake and Output Vital Signs (last 24 hours): Temp Pulse Resp BP Pulse Ox 97.4 F L 74 18 152/80 H 96 09/29/17 11:29 09/29/17 12:01 09/29/17 11:29 09/29/17 12:01 09/29/17 06:00 Intake and Output: 09/29/17 09/29/17 06:59 18:59 Intake Total 1412 Output Total 6200 Balance -4788 - Medications Medications: Current Medications Acetaminophen (Tylenol 325mg Tab) 650 mg PO Q4H PRN PRN Reason: Headache Last Admin: 09/27/17 17:37 Dose: 650 mg Aspirin (Ecotrin) 81 mg PO DAILY [facility] Last Admin: 09/29/17 10:49 Dose: 81 mg Cyclobenzaprine HCl (Flexeril) 5 mg PO TID PRN PRN Reason: Pain, moderate (4-7) Diltiazem HCl (Cardizem Cd) 180 mg PO DAILY [facility] Last Admin: 09/29/17 12:01 Dose: 180 mg Docusate Sodium (Colace) 100 mg PO BID [facility] Last Admin: 09/29/17 10:49 Dose: 100 mg Doxycycline Hyclate (Doryx) 100 mg PO Q12 [facility] Famotidine (Pepcid) 20 mg PO HS [facility] Last Admin: 09/28/17 21:03 Dose: 20 mg Ferrous Sulfate (Feosol) 324 mg PO BID [facility] Last Admin: 09/29/17 10:49 Dose: 324 mg Furosemide (Lasix) 40 mg PO BID [facility] Last Admin: 09/29/17 11:50 Dose: Not Given Guaifenesin/Dextromethorphan (Robitussin Dm) 5 ml PO Q4H PRN PRN Reason: Cough Last Admin: 09/29/17 11:01 Dose: 5 ml Heparin Sodium/Sodium Chloride (Heparin 62511 Units/250ml 1/2 Normal Saline) 25 ,000 units in 250 mls @ 20.355 mls/hr IV .[id number] PRN; Protocol; 13 UNITS/KG/HR PRN Reason: ADJUST RATE PER PROTOCOL Last Admin: 09/29/17 05:08 Dose: 12 units/kg/hr, 18.79 mls/hr Insulin Human Regular (Humulin R Low) 0 units SC ACHS [facility] PRN Reason: Protocol Last Admin: 09/29/17 11:34 Dose: Not Given Levalbuterol HCl (Xopenex) 1.25 mg IH [id number] PRN PRN Reason: Shortness of Breath Levothyroxine Sodium (Synthroid) 25 mcg PO 0600 [facility] Last Admin: 09/29/17 05:07 Dose: 25 mcg Lidocaine (Lidoderm) 1 ea TD DAILY [facility] Last Admin: 09/29/17 10:47 Dose: 1 ea Losartan Potassium (Cozaar) 50 mg PO DAILY [facility] Last Admin: 09/29/17 10:49 Dose: 50 mg Magnesium Oxide (Mag-Ox) 400 mg PO DAILY [facility] Last Admin: 09/29/17 10:49 Dose: 400 mg Metolazone (Zaroxolyn) 5 mg PO BID [facility] Stop: 10/01/17 10:46 Last Admin: 09/29/17 10:49 Dose: 5 mg Morphine Sulfate (Morphine) 4 mg IVP Q4H PRN PRN Reason: pain 8-10 Last Admin: 09/29/17 09:25 Dose: 4 mg Nicotine (Nicoderm Cq) 1 patch TD DAILY [facility] Last Admin: 09/29/17 10:47 Dose: 1 patch Pantoprazole Sodium (Protonix Ec Tab) 20 mg PO ACB [facility] Polyethylene Glycol (Miralax) 17 gm PO BID [facility] Last Admin: 09/29/17 10:48 Dose: 17 gm Potassium Chloride (K-Dur 20 Meq Er Tab) 20 meq PO BRK [facility] Last Admin: 09/29/17 10:48 Dose: 20 meq Spironolactone (Aldactone) 25 mg PO BID [facility] Last Admin: 09/29/17 10:49 Dose: 25 mg Warfarin Sodium (Coumadin) 5 mg PO 1800 [facility] PRN Reason: Protocol Last Admin: 09/28/17 17:42 Dose: 5 mg - Labs Labs: 09/29/17 05:30 09/29/17 05:30 PT 14.6 SECONDS (9.4-12.5) H 09/29/17 05:30 INR 1.26 (0.93-1.08) H 09/29/17 05:30 APTT 62.2 Seconds (25.1-36.5) H 09/29/17 05:30
--- NOTE | 2017-09-29 16:30 | RAD ---
PROCEDURE: Left Hip X-ray Radiographs. HISTORY: hip pain COMPARISON: None. FINDINGS: BONES: Examination limited due to patient body habitus. No evidence of fracture. No lytic or blastic osseous lesion. JOINTS: Normal. SOFT TISSUES: Normal. OTHER FINDINGS: None. IMPRESSION: Normal left hip radiographs.
--- NOTE | 2017-09-29 16:32 | RAD ---
PROCEDURE: Radiographs of the Lumbar Spine. HISTORY: lower back pain COMPARISON: No prior. FINDINGS: BONES: Examination limited due to patient body habitus. Status post posterior fixation L4 through S1. Pedicle screws and posterior rods noted. Orthopedic hardware appears intact. Normal vertebral alignment maintained. DISC SPACES: Unremarkable. OTHER FINDINGS: Spinal stimulator noted IMPRESSION: No acute fracture. Posterior fixation L4 through S1
--- NOTE | 2017-09-29 20:37 | PN ---
DATE: 09/29/2017 I reviewed Mr. Schwab's CT scan. He is a 57-year-old noncompliant patient with cardiomyopathy, COPD, and shortness of breath. At this time, I would recommend diuresis. His clinical response can be assessed and a paracentesis performed if necessary. Alexandru Richardson MD
--- NOTE | 2017-09-29 23:01 | PN ---
DATE: 09/29/2017 PULMONARY PROGRESS NOTE REFERRING PHYSICIAN: Sav Hernandez MD SUBJECTIVE: He is out of bed to chair. Night was unremarkable. Feels better. Decreased cough. Decreased shortness of breath. No chest pain. Has an increased abdominal girth. He does have a leg swelling which improved since yesterday. OBJECTIVE: GENERAL: In no acute distress. VITAL SIGNS: Temperature is 98, heart rate 85, respiratory rate is 20, blood pressure 115/76. HEENT: Moist mucous membrane. Crowded airway. NECK: Supple. No JVD. LUNGS: Fair airflow with rhonchi. Few crackles at bases. HEART: S1 and S2, irregular. ABDOMEN: Soft, nontender, nondistended. EXTREMITIES: He has a significant edema up to the hips. NEUROLOGIC: Awake, alert, and follows simple command. MEDICATIONS: He is on Aldactone 25 mg twice a day, Cardizem CD 180 mg daily, Colace 100 mg twice a day, Coumadin 5 mg will be given today, Cozaar 50 mg daily, doxycycline 100 mg twice a day, Ecotrin 81 mg daily, Flexeril 5 mg three times a day p.r.n., IV heparin, insulin coverage, potassium 20 mEq daily, Lasix 40 mg twice a day, lidocaine patch to affected area, mag oxide 400 mg daily, MiraLax 17 g twice a day, morphine 4 mg IV every 4 hours p.r.n., Nicoderm patch daily, Pepcid 20 mg at bedtime, Protonix 20 mg a.c.b., Robitussin DM every 4 hours p.r.n., Synthroid 25 mcg daily, Tylenol p.r.n., Xopenex inhaled every 6 hours p.r.n., Zaroxolyn 5 mg twice a day. LABORATORY DATA: Shows hemoglobin 9.8, hematocrit 33.1, WBC 4.5, platelets 254. PTT 62. Sodium 137, potassium 3.9, chloride 91, bicarbonate 32. BUN 36, creatinine 1.7. Glucose 115. Calcium 9.2, magnesium 1.6. AST 25, ALT 23, alk phos is 103. Albumin is 3.6, alpha protein 1.5. HIV 1 and 2 negative. Hepatitis C antibody is negative. He has a CT scan of the abdomen and pelvis done, which shows evidence of cirrhotic liver with extensive ascites and anasarca. No evidence of mass . There is also a right pleural effusion. IMPRESSION AND PLAN: Severe cardiomyopathy with heart failure, chronic obstructive lung disease, morbid obesity, suspected sleep apnea syndrome, hypertension, diabetes, cirrhotic liver, portal hypertension. Pulmonary point of view, doing okay. The patient needs CPAP, but refusing to use CPAP. Keep head at 45 degrees. Avoid sedation. The patient understands risk of sleep apnea. 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 On anticoagulation. On pressors. Thank you and we will follow with you. Farhan Chavira MD
[2017-09-30] MEDS: Levothyroxine 25 MCG TAB PO SCH (05:09)
[2017-09-30 05:58] VITALS: RESP 18; O2SAT 100
[2017-09-30] MEDS: Insulin Reg-LOW-Coverage SC SCH ×2 (07:53→13:18)
--- NOTE | 2017-09-30 08:25 | PN ---
DATE: 09/30/2017 CARDIOLOGY FOLLOWUP SUBJECTIVE: The patient's breathing is much improved. No shortness of breath noted. OBJECTIVE: VITAL SIGNS: On physical exam, blood pressure 106/78, heart rate is in the 70s. NECK: Negative JVD. LUNGS: Without rales. HEART: Reveal S1, S2. EXTREMITIES: Chronic edema. LABORATORY DATA: Glucose is 96 today. IMPRESSION: 1. Dilated cardiomyopathy. 2. Noncompliance with medications. 3. Acute congestive heart failure. 4. Chronic atrial fibrillation. 5. Obesity. 6. Pedal edema. Given these findings, we will continue his diuresis. The patient is much improved. I have discussed with the patient about the need to be compliant with his medications. The patient will need to be fully anticoagulated. We will discontinue Telemetry today. Alexandru Carrillo MD
--- NOTE | 2017-09-30 08:43 | CP.PCM.PN ---
<Delaney Aleman - Last Filed: 09/30/17 09:23> Subjective - Date & Time of Evaluation Date of Evaluation: 09/30/17 Time of Evaluation: 08:10 - Subjective Subjective: S&E at bedside, chart reviewed, ct scan report reviewed, reveal liver cirrhosis with extensive ascites and anasarca. No N/V or abdominal pain. HAd BM that is dark, pt syasy from Iron . He was on IV iron. No c/o SOB or chest pain. On Heparin drip. Objective - Vital Signs/Intake and Output Vital Signs (last 24 hours): Temp Pulse Resp BP Pulse Ox 97.4 F L 74 18 106/78 100 09/30/17 05:57 09/30/17 05:57 09/30/17 05:57 09/30/17 05:57 09/30/17 05:57 Intake and Output: 09/30/17 09/30/17 06:59 18:59 Intake Total 1848 Output Total 2000 Balance -152 - Medications Medications: Current Medications Acetaminophen (Tylenol 325mg Tab) 650 mg PO Q4H PRN PRN Reason: Headache Last Admin: 09/27/17 17:37 Dose: 650 mg Aspirin (Ecotrin) 81 mg PO DAILY [facility] Last Admin: 09/29/17 10:49 Dose: 81 mg Cyclobenzaprine HCl (Flexeril) 5 mg PO TID PRN PRN Reason: Pain, moderate (4-7) Diltiazem HCl (Cardizem Cd) 180 mg PO DAILY [facility] Last Admin: 09/29/17 12:01 Dose: 180 mg Docusate Sodium (Colace) 100 mg PO BID [facility] Last Admin: 09/29/17 17:20 Dose: 100 mg Doxycycline Hyclate (Doryx) 100 mg PO Q12 [facility] Last Admin: 09/29/17 21:58 Dose: 100 mg Famotidine (Pepcid) 20 mg PO HS [facility] Last Admin: 09/29/17 21:58 Dose: 20 mg Furosemide (Lasix) 40 mg PO BID [facility] Last Admin: 09/29/17 17:21 Dose: 40 mg Guaifenesin/Dextromethorphan (Robitussin Dm) 5 ml PO Q4H PRN PRN Reason: Cough Last Admin: 09/29/17 11:01 Dose: 5 ml Heparin Sodium/Sodium Chloride (Heparin 25613 Units/250ml 1/2 Normal Saline) 25 ,000 units in 250 mls @ 20.355 mls/hr IV .[id number] PRN; Protocol; 13 UNITS/KG/HR PRN Reason: ADJUST RATE PER PROTOCOL Last Admin: 09/29/17 20:39 Dose: 12 units/kg/hr, 18.79 mls/hr Insulin Human Regular (Humulin R Low) 0 units SC ACHS [facility] PRN Reason: Protocol Last Admin: 09/30/17 07:53 Dose: Not Given Levalbuterol HCl (Xopenex) 1.25 mg IH [id number] PRN PRN Reason: Shortness of Breath Levothyroxine Sodium (Synthroid) 25 mcg PO 0600 [facility] Last Admin: 09/30/17 05:09 Dose: 25 mcg Lidocaine (Lidoderm) 1 ea TD DAILY [facility] Last Admin: 09/29/17 10:47 Dose: 1 ea Losartan Potassium (Cozaar) 50 mg PO DAILY [facility] Last Admin: 09/29/17 10:49 Dose: 50 mg Magnesium Oxide (Mag-Ox) 400 mg PO DAILY [facility] Last Admin: 09/29/17 10:49 Dose: 400 mg Metolazone (Zaroxolyn) 5 mg PO BID [facility] Stop: 10/01/17 10:46 Last Admin: 09/29/17 17:21 Dose: 5 mg Morphine Sulfate (Morphine) 4 mg IVP Q4H PRN PRN Reason: pain 8-10 Last Admin: 09/29/17 09:25 Dose: 4 mg Nicotine (Nicoderm Cq) 1 patch TD DAILY [facility] Last Admin: 09/29/17 10:47 Dose: 1 patch Pantoprazole Sodium (Protonix Ec Tab) 20 mg PO ACB [facility] Polyethylene Glycol (Miralax) 17 gm PO BID [facility] Last Admin: 09/29/17 17:20 Dose: 17 gm Potassium Chloride (K-Dur 20 Meq Er Tab) 20 meq PO BRK [facility] Last Admin: 09/29/17 10:48 Dose: 20 meq Spironolactone (Aldactone) 25 mg PO BID [facility] Last Admin: 09/29/17 17:20 Dose: 25 mg Warfarin Sodium (Coumadin) 5 mg PO 1800 [facility] PRN Reason: Protocol Last Admin: 09/28/17 17:42 Dose: 5 mg - Labs Labs: 09/29/17 05:30 09/29/17 05:30 PT 14.6 SECONDS (9.4-12.5) H 09/29/17 05:30 INR 1.26 (0.93-1.08) H 09/29/17 05:30 APTT 93.0 Seconds (25.1-36.5) H 09/30/17 07:30 - Constitutional Appears: No Acute Distress - Eye Exam Eye Exam: Normal appearance. absent: Scleral icterus - ENT Exam ENT Exam: Mucous Membranes Moist - Neck Exam Neck Exam: Normal Inspection - Respiratory Exam Respiratory Exam: NORMAL BREATHING PATTERN. absent: Respiratory Distress - Cardiovascular Exam Cardiovascular Exam: +S1, +S2 - GI/Abdominal Exam GI & Abdominal Exam: Distended, Soft, Normal Bowel Sounds. absent: Guarding, Tenderness, Rebound - Extremities Exam Extremities Exam: Pedal Edema (bilateral LE edema, notice some improvment). absent: Calf Tenderness - Neurological Exam Neurological Exam: Alert, Awake, Oriented x3 - Skin Skin Exam: Dry, Warm Assessment and Plan - Assessment and Plan (Free Text) Assessment: Assessment: Exacerbation CHF Severe dilated cardiomyopathy - Patient was non-compliant with lasix LYDIA on CKD Ascites , ct scan reveal Cirrhosis, etiology unclear, can be secondary to CHF v. CKD v. fatty liver , ? KISER A.fib, non-compliant w/anticoagulation NIDDM BRIAN COPD Morbid obesity HTN Plan: Hep panel negative On heparin drip AFP 1.5 Continue Miralax and Colace continue Pepcid Recommend elective EGD r/o varices and at one point a colonoscopy as per cardiology, nephrology Patient evaluated by Dr. Richardson recommend duiresis and reassess response. Appreciate IR recommendations. Coumadin was held for possible paracentesis, spoke to nursing regarding resuming. Seen and discussed with Dr. Razo. <Dominic Razo V - Last Filed: 09/30/17 23:56> Objective - Vital Signs/Intake and Output Vital Signs (last 24 hours): Temp Pulse Resp BP Pulse Ox 98.6 F 77 18 113/58 L 100 09/30/17 12:00 09/30/17 14:50 09/30/17 14:50 09/30/17 14:50 09/30/17 05:57 Intake and Output: 06/29/18 06/30/18 18:59 06:59 Intake Total 697 Output Total 1400 Balance -703 - Labs Labs: 09/30/17 11:35 09/30/17 11:35 PT 14.5 SECONDS (9.4-12.5) H 09/30/17 11:35 INR 1.26 (0.93-1.08) H 09/30/17 11:35 APTT 93.0 Seconds (25.1-36.5) H 09/30/17 07:30 Attending/Attestation - Attestation I have personally seen and examined this patient.: Yes I have fully participated in the care of the patient.: Yes I have reviewed all pertinent clinical information, including history, physical exam and plan: Yes Notes (Text): This is an addendum to GI progress report dictated by Delaney Aleman APN.The patient was seen and examined earlier. Medical records, lab studies, imagings were reviewed. Last 24 hours events reviewed. Agreed with the above treatment plan as outlined in Delaney Aleman APN's notes with the addition of the following 09/30/17 23:55
[2017-09-30] MEDS: POLYETHYLENE GLYCOL 3350 17 GM/Dose PACKET PO SCH (09:43)
[2017-09-30] MEDS: diltiaZEM 180 mg/24 Hours CD Cap PO SCH (09:43)
--- NOTE | 2017-09-30 09:43 | CP.PCM.PN ---
Subjective - Date & Time of Evaluation Date of Evaluation: 09/30/17 Time of Evaluation: 09:41 - Subjective Subjective: Nephrology Consultation Note: Assessment: stable CHF exacerbation with cirrhosis and fluid overload back pain Anemia Acute Kidney Injury (N17.9) versus progression of CKD, likely cardiorenal syndrome Chronic Kidney Disease Stage 3 (N18.3) with ? proteinuria with baseline cr 1.2- 1.5 mg/dL type 2 diabetes Mellitus ( x 1 year), HTN, morbid obesity, BRIAN on CPAP, chronic severe systolic CHF LVEF 25%, cirrhosis/splenomegaly with portal HTN changes on CT scan, active smoker Hypothyroidism ascites Plan No acute need for renal replacement therapy at this time. Cr is improving w/ diuretic continue diuretics having good response thus far consider paracentesis for ascites management and albumin pre procedure - reviewed ct imaging, f/u w/ GI re: this iv iron for anemia on k replacement S: seen and examined Physical Examination: General Appearance: Comfortable, in no acute respiratory distress, co- operative. obese Vitals reviewed and noted as below Head; Atraumatic, normocephalic ENT: no ulcers no thrush. Tongue is midline. Oropharynx: no rash or ulcers. EYES: Eye muscles and extraocular movement intact. Sclera is anicteric. Neck; supple no lymphadenopathy, no thyromegaly or bruit Lungs: Normal respiratory rate/effort. Breath sounds decreased at bases with crackles Heart: Normal rate. s1s2 normal. No rub or gallop. Extremities: 3+ edema. No varicose veins Neurological: Patient is alert, awake and oriented x 3 no focal deficit Skin: dry and warm. Normal turgor. Abdomen: Abdomen is grossly distended with abdomen wall edema and venous distension. Psych: normal insight. normal affect/mood MSK: no specific joint tenderness or swelling. Objective - Vital Signs/Intake and Output Vital Signs (last 24 hours): Temp Pulse Resp BP Pulse Ox 97.4 F L 74 18 106/78 100 09/30/17 05:57 09/30/17 05:57 09/30/17 05:57 09/30/17 05:57 09/30/17 05:57 Intake and Output: 09/30/17 09/30/17 06:59 18:59 Intake Total 1848 Output Total 1999 Balance -152 - Medications Medications: Current Medications Acetaminophen (Tylenol 325mg Tab) 650 mg PO Q4H PRN PRN Reason: Headache Last Admin: 09/27/17 17:37 Dose: 650 mg Aspirin (Ecotrin) 81 mg PO DAILY [facility] Last Admin: 09/29/17 10:49 Dose: 81 mg Cyclobenzaprine HCl (Flexeril) 5 mg PO TID PRN PRN Reason: Pain, moderate (4-7) Diltiazem HCl (Cardizem Cd) 180 mg PO DAILY [facility] Last Admin: 09/29/17 12:01 Dose: 180 mg Docusate Sodium (Colace) 100 mg PO BID [facility] Last Admin: 09/29/17 17:20 Dose: 100 mg Doxycycline Hyclate (Doryx) 100 mg PO Q12 [facility] Last Admin: 09/29/17 21:58 Dose: 100 mg Famotidine (Pepcid) 20 mg PO HS [facility] Last Admin: 09/29/17 21:58 Dose: 20 mg Furosemide (Lasix) 40 mg PO BID [facility] Last Admin: 09/29/17 17:21 Dose: 40 mg Guaifenesin/Dextromethorphan (Robitussin Dm) 5 ml PO Q4H PRN PRN Reason: Cough Last Admin: 09/29/17 11:01 Dose: 5 ml Heparin Sodium/Sodium Chloride (Heparin 52484 Units/250ml 1/2 Normal Saline) 25 ,000 units in 250 mls @ 20.355 mls/hr IV .[id number] PRN; Protocol; 13 UNITS/KG/HR PRN Reason: ADJUST RATE PER PROTOCOL Last Admin: 09/29/17 20:39 Dose: 12 units/kg/hr, 18.79 mls/hr Insulin Human Regular (Humulin R Low) 0 units SC ACHS [facility] PRN Reason: Protocol Last Admin: 09/30/17 07:53 Dose: Not Given Levalbuterol HCl (Xopenex) 1.25 mg IH [id number] PRN PRN Reason: Shortness of Breath Levothyroxine Sodium (Synthroid) 25 mcg PO 0600 [facility] Last Admin: 09/30/17 05:09 Dose: 25 mcg Lidocaine (Lidoderm) 1 ea TD DAILY [facility] Last Admin: 09/29/17 10:47 Dose: 1 ea Losartan Potassium (Cozaar) 50 mg PO DAILY [facility] Last Admin: 09/29/17 10:49 Dose: 50 mg Magnesium Oxide (Mag-Ox) 400 mg PO DAILY [facility] Last Admin: 09/29/17 10:49 Dose: 400 mg Metolazone (Zaroxolyn) 5 mg PO BID [facility] Stop: 10/01/17 10:46 Last Admin: 09/29/17 17:21 Dose: 5 mg Morphine Sulfate (Morphine) 4 mg IVP Q4H PRN PRN Reason: pain 8-10 Last Admin: 09/29/17 09:25 Dose: 4 mg Nicotine (Nicoderm Cq) 1 patch TD DAILY [facility] Last Admin: 09/29/17 10:47 Dose: 1 patch Pantoprazole Sodium (Protonix Ec Tab) 20 mg PO ACB [facility] Polyethylene Glycol (Miralax) 17 gm PO BID [facility] Last Admin: 09/29/17 17:20 Dose: 17 gm Potassium Chloride (K-Dur 20 Meq Er Tab) 20 meq PO BRK [facility] Last Admin: 09/29/17 10:48 Dose: 20 meq Spironolactone (Aldactone) 25 mg PO BID [facility] Last Admin: 09/29/17 17:20 Dose: 25 mg Warfarin Sodium (Coumadin) 5 mg PO 1800 [facility] PRN Reason: Protocol Last Admin: 09/28/17 17:42 Dose: 5 mg - Labs Labs: 09/29/17 05:30 09/29/17 05:30 PT 14.6 SECONDS (9.4-12.5) H 09/29/17 05:30 INR 1.26 (0.93-1.08) H 09/29/17 05:30 APTT 93.0 Seconds (25.1-36.5) H 09/30/17 07:30
[2017-09-30] MEDS: Potassium Chloride 20 mEq ER Tab PO SCH (09:44)
[2017-09-30] MEDS: Lidocaine 5% Patch TD SCH (09:44)
[2017-09-30] MEDS: Magnesium Oxide 400 mg Tab UD PO SCH (09:44)
[2017-09-30] MEDS: metOLazone 5 MG TAB PO SCH (09:44)
[2017-09-30] MEDS ORDERED: Iron Sucrose 100 mg/5 ml Inj IVP SCH (10:00)
[2017-09-30] MEDS: Morphine 4 mg/ml ISec IVP PRN (10:51)
[2017-09-30] MEDS: guaiFENesin DM 100 mg-10 mg/5 ml UD PO PRN (10:53)
[2017-09-30 11:41] LABS: HEMOGLOBIN 10.4 g/dL (14.0-18.0); MEAN CELL VOLUME 65.6 fl (80.0-105.0); MEAN CORPUSCULAR HEMOGLOBIN 19.8 pg (25.0-35.0); MEAN CORPUSCULAR HGB CONC 30.1 g/dl (31.0-37.0); MEAN PLATELET VOLUME 8.6 fl (7.0-11.0); RBC 5.26 10^6/uL (3.5-6.1); RED CELL DISTRIBUTION WIDTH 20.5 % (11.5-14.5); WHITE BLOOD COUNT 4.5 10^3/ul (4.5-11.0)
[2017-09-30 11:49] LABS: INR 1.26 (0.93-1.08); PROTHROMBIN TIME 14.5 SECONDS (9.4-12.5)
[2017-09-30 11:52] LABS: CALCIUM 9.9 mg/dL (8.4-10.5)
[2017-09-30 12:14] VITALS: TEMP 98.6
--- NOTE | 2017-09-30 13:34 | IP.NPCORE ---
Heart Failure Core Measure - Heart Failure Ejection Fraction: Less Than 40 % KOFFI Inhibitor Prescribed: No Contraindication/Reason for not providing: arf Beta-Casimiro Prescribed: Metoprolol Succinate Angiotensin II Receptor Casimiro Prescribed: Yes AnticoagulationTherapy for Atrial Fibrillation/Atrialflutter: Yes Aldosterone Antagonist Prescribed: Yes Hydralazine Nitrate Prescribed: Yes Implantable Cardioverter Defibrillator Therapy: No Contraindication/Reason for not providing: to flu outpatient Cardiac Resynchronization Therapy Prescribed: No Contraindication/Reason for not providing: treated with meds - Follow up [facility] be [facility] Follow Up Date (must be within 7 days from discharge): 10/07/17 Follow Up Time: 09:00
--- NOTE | 2017-09-30 13:56 | PN ---
DATE: 09/29/2017 SUBJECTIVE: The patient, Zaheer doing well. His breathing is better. His leg edema slightly better. His short of breath significantly improved. Still feels weak, unsteady, otherwise stable. PHYSICAL EXAMINATION: VITAL SIGNS: Temperature is 97.6, heart rate 85, blood pressure 115/76, respirations 20, saturations 99%. HEAD AND NECK: Normal. No JVD. No thyromegaly. CHEST: Clear. Good air entry. CARDIAC: First sound and second sound normal. ABDOMEN: Obese, nontender. EXTREMITIES: Bilateral leg edema. LABORATORY DATA: Laboratory study shows white count 4.5, hemoglobin 9.8, hematocrit 33.1 and platelets are 254. Chemistry noted for sodium 137, potassium 3.9, chloride 91, bicarb 32, BUN 36, creatinine 1.7. Liver function test is normal. Magnesium 1.6. IMPRESSION: 1. Acute congestive heart failure, systolic. Acute systolic heart failure on top of chronic systolic heart failure. Continue Lasix IV and follow up with Cardiology. Current cardiac medications, he is getting Lasix 40 IV. We will switch it to p.o. tomorrow, we will switch to p.o. b.i.d. Continue magnesium 400 b.i.d. Also, continue aspirin. 2. The patient had chronic atrial fibrillations. Continue Coumadin, Cardizem and follow up clinically. Sav Hernandez MD
[2017-09-30] MEDS: Heparin25000 units/250ml 1/2NS 25,000 UNITS/250 ML BAG IV PRN (14:09)
[2017-09-30 14:53] VITALS: BP 113/58; PULSE 77
--- NOTE | 2017-09-30 19:14 | PN ---
DATE: 09/30/2017 PULMONARY PROGRESS NOTE REFERRING PHYSICIAN: Sav Hernandez MD. SUBJECTIVE: He is sitting at the side of the bed. Night was unremarkable. Feels better. No headache, no rhinitis. Decreased shortness of breath. No nausea, no vomiting. Still has an increased abdominal girth. Leg edema is better. OBJECTIVE: GENERAL: In no acute distress. VITAL SIGNS: Temperature is 98, heart rate is 75, respiratory rate is 18, blood pressure 154/89, pulse ox 100% on room air. HEENT: Moist mucous membrane. Crowded airway. NECK: Supple. No JVD. LUNGS: Have a few scattered rhonchi. HEART: S1 and S2. ABDOMEN: Distended and ascites. EXTREMITIES: Decreased edema. NEUROLOGIC: Awake, alert, follows simple command. MEDICATIONS: He is on Aldactone 25 mg twice a day; Cardizem CD 180 mg daily; Colace 100 mg twice a day; Coumadin 5 mg which is on hold, will be given tonight; Cozaar 50 mg daily; doxycycline 100 mg twice a day; Ecotrin 81 mg daily; Flexeril 5 mg three times a day p.r.n.; heparin IV; insulin coverage; potassium 20 mEq daily; Lasix 40 mg twice a day; lidocaine patch at affected area; metoprolol tartrate is 25 mg twice a day; magnesium oxide 400 mg daily; MiraLax 17 g twice a day; morphine 4 mg every 4 hour p.r.n.; Nicoderm patch daily; Pepcid is 20 mg daily; Protonix 20 mg daily; Synthroid 25 mcg daily; Tylenol p.r.n.; Xopenex p.r.n.; Zaroxolyn 5 mg twice a day. LABORATORY DATA: Shows hemoglobin 10.4, hematocrit 34.5, WBC 4.5, platelet count is 260. INR 1.26. PTT is 93. Sodium 138, potassium 4.8, chloride 91, bicarbonate 35, BUN 29, creatinine 1.6, glucose 106, calcium is 9.9. CT of the abdomen and pelvis is done yesterday which shows cirrhotic liver with extensive ascites and anasarca. Has some right pleural effusion. IMPRESSION AND PLAN: Severe cardiomyopathy with heart failure, chronic obstructive lung disease, morbid obesity, suspected sleep apnea syndrome, hypertension, diabetes, cirrhotic liver with portal hypertension. Pulmonary point of view, doing okay. Continue bronchodilator. Keep head at 45 degrees. 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 Follow up labs in the morning. Thank you and we will follow with you. Farhan Chavira MD
--- NOTE | 2017-10-03 12:58 | DS ---
HOSPITAL COURSE: The patient is admitted with congestive heart failure due to systolic heart failure, which is chronic. He does also have chronic cardiac cirrhosis or ascites, edema of lower extremity and recent gaining of weight like maybe 30 pounds. The patient was seen by oral health therapist, Dr. Alexandru Carrillo. He was seen by GI consult, Dr. Razo. He was seen by Dr. Chavira, Pulmonary and was being discharged to and seen by Dr. Alexandru Richardson for possible tapping his ascites; however, recommendation not to. Seen by Renal consult, . At this time, the patient is stable, doing well, breathing is much better, sitting up, walking with some assistance. He does complain of chronic back pain due to arthritis, old injury in his back. At this time, we will discharge the patient to rehab unit TCU, continuation of care. While he is in the hospital, he has been diuresed very well, TSH was elevated. He was started on Synthroid and he has lumbosacral hardware. CT abdomen shows cirrhosis with ascites, anasarca and also seen by multiple specialists. PHYSICAL EXAMINATION: GENERAL: The patient on discharge was stable hemodynamically, no distress. VITAL SIGNS: His temperature is 98.6, heart rate 75, blood pressure 154/89, respirations 18. HEAD AND NECK: Normal. No JVD, no thyromegaly. CHEST: Clear bilaterally. CARDIAC: First sound and second sound normal. ABDOMEN: Soft, nontender, but obese and positive for ascites. EXTREMITIES: Lower extremities, edema both legs. NEUROLOGIC: Moves all extremities. Alert, awake, oriented x3. LABORATORY DATA: White count 4.5, hemoglobin 10.4, hematocrit 34.5, platelets 260. Chemistry: His sodium 138, potassium 4.8, chloride 91, bicarb 35, BUN 29, creatinine 1.6, blood sugar 106, calcium 9.9. Kidney function improved from 2.2, it went down to 1.6. DISCHARGE DIAGNOSES: 1. Acute systolic heart failure on top of chronic systolic heart failure, etiology noncoronary. 2. Chronic renal insufficiency with acute worsening, acute renal injury, seems to be doing better with diuresis, probably prerenal etiology due to cardiac failure. Continue diuresis and monitor kidney functions. 3. Anemia, chronic. The patient needs workup on that. 4. Chronic back pain. He had neck and lumbosacral hardware and multiple surgeries. We will continue current pain medications. 5. Hypothyroidism. 6. The patient had atrial fibrillation, started on control rate medications Cardizem CD 180 and was started on Coumadin. We will monitor his PT/INR. CURRENT MEDICATIONS ON DISCHARGE: Aldactone 25 mg b.i.d., Cardizem 180, Colace, Coumadin 5 mg daily, Cozaar 50 p.o. daily, Ecotrin 81 mg daily, Protonix 40, levothyroxine 25 mcg, Tylenol p.r.n., Zaroxolyn 5 mg b.i.d., Xopenex 4 times a day, Robitussin DM, Nicoderm CQ, morphine p.r.n., MiraLax b.i.d., magnesium oxide b.i.d., Lidoderm patch, Lasix 40 p.o. b.i.d. PLAN: The patient also seems to be diabetic. We will give him insulin coverage, cyclobenzaprine, Flexeril 5 mg t.i.d. and we will follow up clinically. The patient will be discharged to [facility]. Sav Hernandez MD
== END 2017-09-30 15:26 | DRG 291 ==
LOC: ED 14:14 → ERH 18:29 → 2RSO 21:52
PROVIDERS: ADMIT Internal Medicine; ATTEND Internal Medicine
DX: I13.0 Hypertensive heart and chronic kidney disease with heart failure and stage 1 through stage 4 chronic kidney disease, or unspecified chronic kidney disease (principal); I50.23 Acute on chronic systolic (congestive) heart failure; K76.6 Portal hypertension; N17.9 Acute kidney failure, unspecified; R18.8 Other ascites; N18.3 Chronic kidney disease, stage 3 (moderate); K74.60 Unspecified cirrhosis of liver; I48.2 Chronic atrial fibrillation; J44.9 Chronic obstructive pulmonary disease, unspecified; G47.33 Obstructive sleep apnea (adult) (pediatric); E78.00 Pure hypercholesterolemia, unspecified; E66.01 Morbid (severe) obesity due to excess calories; F17.210 Nicotine dependence, cigarettes, uncomplicated; R16.1 Splenomegaly, not elsewhere classified; E03.9 Hypothyroidism, unspecified; I42.0 Dilated cardiomyopathy; E11.22 Type 2 diabetes mellitus with diabetic chronic kidney disease; K59.09 Other constipation; G89.29 Other chronic pain; M16.10 Unilateral primary osteoarthritis, unspecified hip; Z68.38 Body mass index [BMI] 38.0-38.9, adult; Z91.14 Patient's other noncompliance with medication regimen; Z91.19 Patient's noncompliance with other medical treatment and regimen; Z79.01 Long term (current) use of anticoagulants; Z79.82 Long term (current) use of aspirin; Z79.84 Long term (current) use of oral hypoglycemic drugs

== ENCOUNTER 2017-09-30 12:20 | Inpatient (IN) | payer OTHER ==
[2017-09-30] MEDS ORDERED: Levalbuterol 1.25 MG/3 ML Inhal Soln UD IH PRN (15:52)
[2017-09-30] MEDS: Insulin Reg-LOW-Coverage SC SCH ×2 (17:57→21:45)
[2017-09-30] MEDS: POLYETHYLENE GLYCOL 3350 17 GM/Dose PACKET PO SCH (17:58)
[2017-09-30] MEDS: metOLazone 5 MG TAB PO SCH (17:58)
[2017-09-30 18:08] VITALS: BMI 35.3
[2017-09-30] MEDS ORDERED: Pneumococcal 23-Valent Vaccine IM ONE (18:08)
[2017-10-01] MEDS: Pantoprazole 20 mg EC Tab PO SCH (05:29)
[2017-10-01] MEDS: guaiFENesin DM 100 mg-10 mg/5 ml UD PO PRN (05:29)
[2017-10-01] MEDS: Levothyroxine 25 MCG TAB PO SCH (05:29)
[2017-10-01] MEDS: Heparin25000 units/250ml 1/2NS 25,000 UNITS/250 ML BAG IV PRN (05:56)
[2017-10-01] MEDS: Potassium Chloride 20 mEq ER Tab PO SCH (08:05)
[2017-10-01] MEDS: Insulin Reg-LOW-Coverage SC SCH ×4 (08:05→21:40)
[2017-10-01] MEDS: diltiaZEM 180 mg/24 Hours CD Cap PO SCH (09:20)
[2017-10-01] MEDS: Lidocaine 5% Patch TD SCH (09:22)
[2017-10-01] MEDS: Magnesium Oxide 400 mg Tab UD PO SCH (09:22)
[2017-10-01] MEDS: POLYETHYLENE GLYCOL 3350 17 GM/Dose PACKET PO SCH ×2 (09:22→17:39)
[2017-10-01 09:55] LABS: INR 1.24 (0.93-1.08); PARTIAL THROMBOPLASTIN TIME 63.5 Seconds (25.1-36.5); PROTHROMBIN TIME 14.3 SECONDS (9.4-12.5)
[2017-10-01] MEDS: metOLazone 5 MG TAB PO SCH ×2 (10:00→17:40)
[2017-10-01] MEDS: Morphine 4 mg/ml ISec IVP PRN (21:40)
[2017-10-02] MEDS: Heparin25000 units/250ml 1/2NS 25,000 UNITS/250 ML BAG IV PRN ×2 (00:45→22:53)
--- NOTE | 2017-10-02 01:47 | CON ---
DATE: 10/01/2017 PULMONARY CONSULT REFERRING PHYSICIAN: Sav Hernandez MD REASON FOR CONSULTATION: Cardiomyopathy, heart failure, sleep apnea syndrome, chronic lung disease. HISTORY OF PRESENT ILLNESS: This is a 57 years old gentleman known to me from previous admission, noncompliant with medication and followup, active smoker, history of hypertension, diabetes, cardiomyopathy, morbid obesity. Apparently, claims he cannot afford medication, comes in with cough, shortness of breath, increased abdominal girth, leg swelling. He was in heart failure, treated with diuretics and afterload reducers, felt better. Presently admitted to TICU for continued care. Suspected sleep apnea syndrome, but refused sleep study and CPAP trial. PAST MEDICAL HISTORY: Hypertension, diabetes, chronic lung disease, obesity, suspected sleep apnea syndrome, history of pneumonia, diabetes, anemia, history of perforated viscera in the past. FAMILY HISTORY: No significant cardiopulmonary disease reported. SOCIAL HISTORY: Active smoker. Denies any alcohol use. ALLERGIES: NONE KNOW. MEDICATIONS: He is on Aldactone 25 mg twice a day, Cardizem CD 180 mg daily, Colace 100 mg twice a day, Coumadin 5 mg will be given today, Cozaar 50 mg daily, doxycycline 100 mg twice a day, Ecotrin 81 mg daily, Flexeril 5 mg three times a day p.r.n., heparin IV drip, also on insulin coverage, potassium 20 mEq daily, Lasix 40 mg twice a day, lidocaine patch at affected area, mag oxide 400 mg daily, MiraLax 17 g twice a day, morphine 4 mg IV every 4 hours p.r.n., Nicoderm patch daily, Pepcid 20 mg at bedtime, Protonix 20 mg daily, Synthroid 25 mcg daily, Tylenol p.r.n., Xopenex inhaled every 6 hours p.r.n., Zaroxolyn 5 mg twice a day. REVIEW OF SYSTEMS: No headache, no rhinitis. Gets short of breath on exertion. No chest pain. Has increased abdominal girth. Leg swelling is improved. PHYSICAL EXAMINATION: GENERAL: Sitting side of the bed, feels better. VITAL SIGNS: Temperature is 98, heart rate is 78, respiratory rate is 16, blood pressure 139/76. HEENT: Moist mucous membrane. Crowded a Mallampati score is 4. NECK: Supple. No JVD. LUNGS: Few crackles. Prolonged expiratory phase. HEART: S1 and S2. ABDOMEN: Soft, nontender, no organomegaly. EXTREMITIES: Decreased edema. NEUROLOGIC: Awake, alert, and follows simple commands. LABORATORY DATA: Shows hemoglobin 10.4, hematocrit 34.5, WBC 4.5, and platelet count is 260. PTT was 60. INR 1.24. Blood sugar 188. IMPRESSION AND PLAN: Severe cardiomyopathy with heart failure, chronic obstructive lung disease, morbid obesity, suspected sleep apnea syndrome, hypertension, diabetes, cirrhotic liver, portal hypertension. Pulmonary point of view, doing okay. Keep head at 45 degrees. 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 On anticoagulation. INR in the morning. Electrolytes in morning. Thank you and we will follow with you. Farhan Chavira MD
[2017-10-02] MEDS: Pantoprazole 20 mg EC Tab PO SCH (05:49)
[2017-10-02] MEDS: Levothyroxine 25 MCG TAB PO SCH (05:49)
[2017-10-02] MEDS: Insulin Reg-LOW-Coverage SC SCH ×4 (06:38→21:40)
[2017-10-02 07:08] LABS: INR 1.24 (0.93-1.08); PARTIAL THROMBOPLASTIN TIME 64.2 Seconds (25.1-36.5); PROTHROMBIN TIME 14.3 SECONDS (9.4-12.5)
[2017-10-02 07:11] LABS: ALB/GLOB RATIO 1.1 (1.1-1.8); ALBUMIN 4.3 g/dL (3.0-4.8); CALCIUM 10.4 mg/dL (8.4-10.5)
[2017-10-02] MEDS: Potassium Chloride 20 mEq ER Tab PO SCH (08:12)
[2017-10-02] MEDS: guaiFENesin DM 100 mg-10 mg/5 ml UD PO PRN (08:24)
[2017-10-02] MEDS: diltiaZEM 180 mg/24 Hours CD Cap PO SCH (09:53)
[2017-10-02] MEDS: Lidocaine 5% Patch TD SCH (09:54)
[2017-10-02] MEDS: POLYETHYLENE GLYCOL 3350 17 GM/Dose PACKET PO SCH ×2 (09:54→17:49)
[2017-10-02] MEDS: Magnesium Oxide 400 mg Tab UD PO SCH (09:54)
[2017-10-02] MEDS: metOLazone 5 MG TAB PO SCH ×2 (09:55→17:49)
[2017-10-02] MEDS ORDERED: Sod Polystyrene Sulf 15 gm/60 ml Susp PO ONE (10:28)
[2017-10-02] MEDS: Morphine 4 mg/ml ISec IVP PRN (19:35)
--- NOTE | 2017-10-03 03:34 | HP ---
The patient admitted to Transitional Care Unit. REASON FOR ADMISSION: Rehabilitation, gait strengthening and continuation of medical therapy. He is on IV heparin plus Coumadin. HISTORY OF PRESENT ILLNESS: He was admitted with congestive heart failure, on diuretics, he lost weight. He has cardiac cirrhosis in addition to his chronic systolic heart failure, being managed by multiple specialists, seems doing well. He has no chest pain, not short of breath. No nausea. No vomiting. No other complaints. PAST MEDICAL HISTORY: 1. As I mentioned, chronic back surgery. He has lumbosacral and cervical spine hardware placed due to injury, may be 15 years ago . 2. Atrial fibrillation, chronic. 3. Systolic heart failure. 4. Obesity. 5. Diabetes. ALLERGIES: NO KNOWN ALLERGY. SOCIAL HISTORY: No smoking, but he smoked. MEDICATIONS: Currently taking Aldactone 25 b.i.d., Cardizem CD 180, Colace 100 b.i.d., Coumadin 5 mg daily, Cozaar 50 once a day, aspirin 81 mg once a day, Flexeril 5 mg t.i.d., heparin IV, Humulin coverage, Lasix 40 b.i.d., Lidoderm patch, mag oxide 400 b.i.d., MiraLax b.i.d. p.r.n., morphine 4 mg every 4 hours p.r.n., NicoDerm CQ once a day, Protonix 20 p.o. daily, Robitussin DM, Synthroid 25 mcg, Tylenol p.r.n., Xopenex four times a day and Zaroxolyn 5 mg b.i.d. Continue current therapy. Follow up clinically. IMPRESSION AND PLAN: 1. Acute systolic heart failure. Continue diuretic. Oxygen p.r.n. 2. Chronic obstructive pulmonary disease. Nicotine addiction. Tobacco addiction. Continue NicoDerm CQ plus nebulizers p.r.n. 3. Liver cirrhosis, anasarca. Continue diuretics. 4. Chronic back pain. Continue morphine p.r.n. 5. Morbid obesity, possibly obstructive sleep apnea with CPAP. 6. Hypothyroidism. 7. Atrial fibrillation. Continue Coumadin. Monitor PT/INR on a regular basis. We will follow up clinically. Sav Hernandez MD [facility] # [id number]
[2017-10-03] MEDS: Pantoprazole 20 mg EC Tab PO SCH (06:02)
[2017-10-03] MEDS: Levothyroxine 25 MCG TAB PO SCH (06:03)
[2017-10-03] MEDS: Morphine 4 mg/ml ISec IVP PRN ×2 (06:07→13:14)
[2017-10-03] MEDS: Insulin Reg-LOW-Coverage SC SCH ×4 (07:15→22:48)
[2017-10-03 07:25] LABS: CALCIUM 10.5 mg/dL (8.4-10.5)
[2017-10-03 07:38] LABS: INR 1.22 (0.93-1.08); PROTHROMBIN TIME 14.1 SECONDS (9.4-12.5)
[2017-10-03] MEDS: guaiFENesin DM 100 mg-10 mg/5 ml UD PO PRN (08:11)
--- NOTE | 2017-10-03 09:08 | PN ---
DATE: 10/01/2017 SUBJECTIVE: This patient was seen and evaluated earlier. Patient has been diuresing. Now feeling like the abdominal distention is less. PHYSICAL EXAMINATION: VITAL SIGNS: Afebrile, blood pressure 136/69, respirations 20, O2 saturation 100%. HEENT: Atraumatic, anicteric. NECK: Supple. HEART: S1 and S2 heard. LUNGS: Bilateral air entry present. ABDOMEN: Softly distended. EXTREMITIES: Mild edema present. LABORATORY DATA: No labs done today. IMPRESSION AND PLAN: This is a 57-year-old patient with decompensated cirrhosis, ascites, congestive heart failure, chronic obstructive pulmonary disease, has obstructive sleep apnea. He has been on Coumadin. Patient is on diuretics, clinically improving. I did discuss with Dr. Hernandez earlier. The patient has iron deficiency anemia. Stool for occult blood done in the past was negative; but in view of the cirrhosis, it is reasonable to do an elective upper GI endoscopy and also colonoscopy. Patient was clearly told about the need for followup with the primary physician and also cardiology technician. Importance was explained to the patient. Patient fully understood. Meanwhile, patient will continue the present regimen of Aldactone and Lasix. We will titrate the dose based on the clinical progress. Dominic Razo MD
[2017-10-03] MEDS: diltiaZEM 180 mg/24 Hours CD Cap PO SCH (09:43)
[2017-10-03] MEDS: Lidocaine 5% Patch TD SCH (09:46)
[2017-10-03] MEDS: Magnesium Oxide 400 mg Tab UD PO SCH (09:47)
[2017-10-03] MEDS: metOLazone 5 MG TAB PO SCH ×2 (09:47→18:10)
[2017-10-03] MEDS: POLYETHYLENE GLYCOL 3350 17 GM/Dose PACKET PO SCH ×2 (09:47→18:10)
[2017-10-03 11:28] LABS: PARTIAL THROMBOPLASTIN TIME 52.5 Seconds (25.1-36.5)
[2017-10-03] MEDS ORDERED: Bisacodyl 5mg EC Tab PO PRN (11:59)
--- NOTE | 2017-10-03 12:34 | CP.PCM.PN ---
<David Son - Last Filed: 10/03/17 19:58> Subjective - Date & Time of Evaluation Date of Evaluation: 10/03/17 Time of Evaluation: 11:00 - Subjective Subjective: PGY-4 GI Fellow Note Pt sitting up at bedside eating meal. State his back pain continues to bother him. Reports improvement in abdominal distention. Denies emesis, melena, hematochezia, saddle anesthesia, incontinence. 12 point ROS negative other than stated above Objective - Vital Signs/Intake and Output Vital Signs (last 24 hours): Temp Pulse Resp BP Pulse Ox 97.3 F L 82 18 120/82 100 10/02/17 16:00 10/03/17 09:46 10/02/17 16:00 10/03/17 09:46 10/02/17 06:00 Intake and Output: 10/03/17 10/03/17 06:59 18:59 Intake Total 250 Balance 250 - Medications Medications: Current Medications Acetaminophen (Tylenol 325mg Tab) 650 mg PO Q6 PRN PRN Reason: Headache Last Admin: 10/02/17 15:33 Dose: 650 mg Aspirin (Ecotrin) 81 mg PO 0800 [facility] Last Admin: 10/03/17 08:05 Dose: 81 mg Bisacodyl (Dulcolax) 5 mg PO BID PRN PRN Reason: Constipation Cyclobenzaprine HCl (Flexeril) 5 mg PO TID PRN PRN Reason: Pain, moderate (4-7) Diltiazem HCl (Cardizem Cd) 180 mg PO DAILY [facility] Last Admin: 10/03/17 09:43 Dose: 180 mg Docusate Sodium (Colace) 100 mg PO BID [facility] Last Admin: 10/03/17 09:44 Dose: 100 mg Famotidine (Pepcid) 20 mg PO HS [facility] Last Admin: 10/02/17 21:41 Dose: 20 mg Furosemide (Lasix) 40 mg PO BID [facility] Last Admin: 10/03/17 09:45 Dose: 40 mg Guaifenesin/Dextromethorphan (Robitussin Dm) 5 ml PO Q4H PRN PRN Reason: Cough Last Admin: 10/03/17 08:11 Dose: 5 ml Heparin Sodium/Sodium Chloride (Heparin 06702 Units/250ml 1/2 Normal Saline) 25 ,000 units in 250 mls @ 14.288 mls/hr IV .[id number] PRN; Protocol; 10 UNITS/KG/HR PRN Reason: ADJUST RATE PER PROTOCOL Last Admin: 10/02/17 22:53 Dose: 9.58 units/kg/hr, 13.688 mls/hr Insulin Human Regular (Humulin R Low) 0 units SC ACHS [facility] PRN Reason: Protocol Last Admin: 10/03/17 07:15 Dose: Not Given Levalbuterol HCl (Xopenex) 1.25 mg IH [id number] PRN PRN Reason: Shortness of Breath Levothyroxine Sodium (Synthroid) 25 mcg PO 0600 [facility] Last Admin: 10/03/17 06:03 Dose: 25 mcg Lidocaine (Lidoderm) 1 ea TD DAILY [facility] Last Admin: 10/03/17 09:46 Dose: 1 ea Losartan Potassium (Cozaar) 50 mg PO DAILY [facility] Last Admin: 10/03/17 09:46 Dose: 50 mg Magnesium Oxide (Mag-Ox) 400 mg PO DAILY [facility] Last Admin: 10/03/17 09:47 Dose: 400 mg Metolazone (Zaroxolyn) 5 mg PO BID [facility] Last Admin: 10/03/17 09:47 Dose: 5 mg Morphine Sulfate (Morphine) 4 mg IVP Q4H PRN PRN Reason: pain 8-10 Last Admin: 10/03/17 06:07 Dose: 4 mg Nicotine (Nicoderm Cq) 1 patch TD DAILY [facility] Last Admin: 10/03/17 09:47 Dose: 1 patch Pantoprazole Sodium (Protonix Ec Tab) 20 mg PO 0630 [facility] Last Admin: 10/03/17 06:02 Dose: 20 mg Polyethylene Glycol (Miralax) 17 gm PO BID [facility] Last Admin: 10/03/17 09:47 Dose: 17 gm Pregabalin (Lyrica) 50 mg PO BID [facility] Spironolactone (Aldactone) 25 mg PO BID [facility] Last Admin: 10/03/17 09:43 Dose: 25 mg Warfarin Sodium (Coumadin) 5 mg PO 1800 [facility] PRN Reason: Protocol Last Admin: 10/02/17 17:48 Dose: 5 mg - Labs Labs: 10/03/17 06:25 PT 14.1 SECONDS (9.4-12.5) H 07/02/18 06:25 INR 1.22 (0.93-1.08) H 10/03/17 06:25 APTT 52.5 Seconds (25.1-36.5) H 10/03/17 06:25 - Constitutional Appears: Well, Non-toxic - Head Exam Head Exam: ATRAUMATIC, NORMAL INSPECTION - Eye Exam Eye Exam: EOMI. absent: Scleral icterus - Respiratory Exam Respiratory Exam: Clear to Ausculation Bilateral. absent: Accessory Muscle Use - Cardiovascular Exam Cardiovascular Exam: RRR. absent: Murmur - GI/Abdominal Exam GI & Abdominal Exam: Distended, Soft. absent: Guarding, Tenderness, Diminished Bowel Sounds, Pulsatile Mass - Rectal Exam Rectal Exam: Deferred - Extremities Exam Extremities Exam: Pedal Edema (+1 pitting edema in bilateral LE up to knees) Assessment and Plan - Assessment and Plan (Free Text) Assessment: Assessment: Decompensated Cirrhosis: MELD-Na 18. c/b Ascites. Due to CHF vs. CKD vs KISER. Hep panel negative. -Ascites: On furosemide 40 mg BID, spironolactone 25 mg BID, consider holding latter should HyperK recur; also on metolazone. Low Na diet. R pleural effusion (CHF vs Hepatic Hydrothorax vs other) -HCC Screen: AFP 1.5, Abd/Pelvis CT w/PO contract without obvious lesion, though not triple phase CT -Varices: Needs OP EGD -HE: None apparent at this time BRIAN on CPAP Chronic severe systolic CHF LVEF 25% Severe dilated cardiomyopathy: H/o non-compliance with furosemide LYDIA on CKD 3: Cr holding steady with diuresis. A.fib, non-compliant w/anticoagulation NIDDM BRIAN COPD Morbid obesity HTN Plan: Plan: Cont diuresis as responding well, monitor I&O, daily weight Needs outpatient EGD to r/o varices as well as colonoscopy Vaccine for Hep A and B as outpatient Outpatient paracentesis for new onset ascites Patient evaluated by Dr. Richardson recommend diuresis and reassess response. Appreciate IR recommendations. Bridging back to coumadin, on hep gtt Continue Miralax and Colace Pt seen and examined with Dr. Razo <Dominic Razo V - Last Filed: 10/04/17 00:45> Objective - Vital Signs/Intake and Output Vital Signs (last 24 hours): Temp Pulse Resp BP Pulse Ox 97.5 F L 53 L 20 99/60 L 94 L 10/03/17 16:00 10/03/17 10:00 10/03/17 16:00 10/03/17 18:03 10/03/17 16:00 Intake and Output: 10/03/17 10/04/17 18:59 06:59 Intake Total 250 360 Balance 250 360 - Medications Medications: Current Medications Acetaminophen (Tylenol 325mg Tab) 650 mg PO Q6 PRN PRN Reason: Headache Last Admin: 10/02/17 15:33 Dose: 650 mg Aspirin (Ecotrin) 81 mg PO 0800 [facility] Last Admin: 10/03/17 08:05 Dose: 81 mg Baclofen (Lioresal) 30 mg PO HS [facility] Last Admin: 10/03/17 21:57 Dose: 30 mg Bisacodyl (Dulcolax) 5 mg PO BID PRN PRN Reason: Constipation Cyclobenzaprine HCl (Flexeril) 5 mg PO TID PRN PRN Reason: Pain, moderate (4-7) Diltiazem HCl (Cardizem Cd) 180 mg PO DAILY [facility] Last Admin: 10/03/17 09:43 Dose: 180 mg Docusate Sodium (Colace) 100 mg PO BID [facility] Last Admin: 10/03/17 18:03 Dose: 100 mg Famotidine (Pepcid) 20 mg PO HS [facility] Last Admin: 10/03/17 21:57 Dose: 20 mg Ferrous Gluconate (Fergon) 324 mg PO TID [facility] Last Admin: 10/03/17 18:03 Dose: 324 mg Furosemide (Lasix) 40 mg PO BID [facility] Last Admin: 10/03/17 18:03 Dose: Not Given Guaifenesin/Dextromethorphan (Robitussin Dm) 5 ml PO Q4H PRN PRN Reason: Cough Last Admin: 10/03/17 08:11 Dose: 5 ml Heparin Sodium/Sodium Chloride (Heparin 34559 Units/250ml 1/2 Normal Saline) 25 ,000 units in 250 mls @ 14.288 mls/hr IV .[id number] PRN; Protocol; 10 UNITS/KG/HR PRN Reason: ADJUST RATE PER PROTOCOL Last Admin: 10/03/17 18:29 Dose: 9.58 units/kg/hr, 13.688 mls/hr Insulin Human Regular (Humulin R Low) 0 units SC ACHS [facility] PRN Reason: Protocol Last Admin: 10/03/17 22:48 Dose: Not Given Levalbuterol HCl (Xopenex) 1.25 mg IH [id number] PRN PRN Reason: Shortness of Breath Levothyroxine Sodium (Synthroid) 25 mcg PO 0600 [facility] Last Admin: 10/03/17 06:03 Dose: 25 mcg Lidocaine (Lidoderm) 1 ea TD DAILY [facility] Last Admin: 10/03/17 09:46 Dose: 1 ea Losartan Potassium (Cozaar) 50 mg PO DAILY [facility] Last Admin: 10/03/17 09:46 Dose: 50 mg Magnesium Oxide (Mag-Ox) 400 mg PO DAILY [facility] Last Admin: 10/03/17 09:47 Dose: 400 mg Metolazone (Zaroxolyn) 5 mg PO BID [facility] Last Admin: 10/03/17 18:10 Dose: 5 mg Morphine Sulfate (Morphine) 4 mg IVP Q4H PRN PRN Reason: pain 8-10 Last Admin: 10/03/17 13:14 Dose: 4 mg Nicotine (Nicoderm Cq) 1 patch TD DAILY [facility] Last Admin: 10/03/17 09:47 Dose: 1 patch Pantoprazole Sodium (Protonix Ec Tab) 20 mg PO 0630 [facility] Last Admin: 10/03/17 06:02 Dose: 20 mg Polyethylene Glycol (Miralax) 17 gm PO BID [facility] Last Admin: 10/03/17 18:10 Dose: 17 gm Pregabalin (Lyrica) 50 mg PO BID [facility] Last Admin: 10/03/17 18:10 Dose: 50 mg Spironolactone (Aldactone) 25 mg PO BID [facility] Last Admin: 10/03/17 18:03 Dose: 25 mg Vitamin B Complex/Vit C/Folic Acid (Nephro-Benjamin) 1 tab PO 0800 [facility] Warfarin Sodium (Coumadin) 5 mg PO 1800 [facility] PRN Reason: Protocol Last Admin: 10/03/17 18:03 Dose: 5 mg - Labs Labs: 10/03/17 06:25 PT 14.1 SECONDS (9.4-12.5) H 10/03/17 06:25 INR 1.22 (0.93-1.08) H 10/03/17 06:25 APTT 52.5 Seconds (25.1-36.5) H 10/03/17 06:25 Attending/Attestation - Attestation I have personally seen and examined this patient.: Yes I have fully participated in the care of the patient.: Yes I have reviewed all pertinent clinical information, including history, physical exam and plan: Yes Notes (Text): This is an addendum to GI progress report dictated by the Stitch [employer]ing Machine Tender.The patient was seen and examined earlier. Medical records, lab studies, imagings were reviewed. Last 24 hours events reviewed. Agreed with the above treatment plan as outlined in St[employer]ing Machine Tender 's notes the with the addition of the following complains of back pain Constipation did have a laxative Ascites improving A. fib on anticoagulation Elective EGD colonoscopy for iron deficiency workup and GD to rule out varices 10/04/17 00:41
[2017-10-03] MEDS ORDERED: Magnesium Citrate Oral SOL (300 ml) PO ONE (13:09)
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
--- NOTE | 2017-10-03 14:27 | PN ---
DATE: 10/02/2017 PULMONARY PROGRESS NOTE REFERRING PHYSICIAN: Sav Hernandez MD. SUBJECTIVE: The patient is sitting up in side of the bed. Night was unremarkable. No headache. No rhinitis. Breathing is better. No chest pain. There is increased abdominal girth,decreased leg swelling. OBJECTIVE: GENERAL: In no acute distress. VITAL SIGNS: Temperature is 98, heart rate is 81, respiratory rate is 20, blood pressure 136/64, pulse ox 100% on room air. HEENT: Moist mucous membrane. Crowded airway. Mallampati score is IV. NECK: Supple. No JVD. LUNGS: Have a fair airflow with rhonchi. HEART: S1 and S2. ABDOMEN: Soft, nontender. No organomegaly. EXTREMITIES: Decreased edema. NEUROLOGIC: Awake, alert. Follows simple commands. MEDICATIONS: He is on Cardizem CD 180 mg daily; Colace 100 mg twice a day; Aldactone 25 mg twice a day, which is placed on hold; Coumadin 5 mg will be given, Cozaar 50 mg daily, Ecotrin 81 mg daily, Flexeril 5 mg three times a day p.r.n., IV heparin, also getting insulin, Lasix 40 mg twice a day, lidocaine patch at affected area daily, magnesium oxide 400 mg daily, MiraLax 17 g twice a day, morphine 4 mg every 4 hours p.r.n., Nicoderm patch daily, Pepcid 20 mg at bedtime, Protonix 20 mg daily, Robitussin DM 5 mL every 4 hours p.r.n., Synthroid 25 mcg daily, Tylenol p.r.n., Xopenex inhaled every 6 hours and Zaroxolyn 5 mg twice a day. LABORATORY DATA: Shows INR 1.24, PTT is 64. Sodium 138, potassium 5.7, chloride 91, bicarbonate 35, BUN 34, creatinine 1.9, glucose 110, calcium 10.4. AST is 31, ALT 29. Alkaline phosphatase is 107. Albumin is 4.3. IMPRESSION AND PLAN: Severe cardiomyopathy and heart failure, chronic obstructive lung disease, morbid obesity, suspected sleep apnea syndrome, hypertension, diabetes, cirrhotic liver, portal hypertension, noncompliant with medication as well as with CPAP. Pulmonary point of view, doing alright. Kayexalate given. Note spironolactone was placed on hold. Follow up electrolyte in the morning. Continue anticoagulation, INR in the morning. Continue therapy. Thank you and we will follow with you. Farhan Chavira MD
--- NOTE | 2017-10-03 15:28 | CP.PCM.CON ---
History of Present Illness - History of Present Illness History of Present Illness: Nephrology Consultation Note: Assessment: stable CHF with cirrhosis and ascites back pain Anemia Likely progression of CKD, likely cardiorenal syndrome Chronic Kidney Disease Stage 3 (N18.3) with 170 mg proteinuria and 32 mg albuminuria with baseline cr 1.2-1.5 mg/dL type 2 diabetes Mellitus ( x 1 year), HTN, morbid obesity, BRIAN on CPAP, chronic severe systolic CHF LVEF 25%, cirrhosis/splenomegaly/ascites with portal HTN changes on CT scan, active smoker Hypothyroidism Vit D def, hypercalcemia likely result of hemoconcentration due to diuretics Plan No acute need for renal replacement therapy at this time. Hypertension control with meds as ordered. Patient on RAAS harshal as aldactone and losartan , hold aldactone if K stays high continue diuresis with lasix 40 mg bid and metolazone 5 mg bid as tolerated by BP. Monitor I/O, daily weights and renal function. oral fluid restriction to 1000 mL /day iron supplements (Pt refused IV iron) and MVI. consider SCAR if Hb <10 will supplement Vit D once hypercalcemia better GI, pulmonary following, seen by cardiology Dose meds/antibiotics for reduced GFR. Avoid fleets enema/magnesium based laxatives. Avoid nephrotoxins/NSAIDs/ iodinated contrast (unless needed emergently) Glycemic control, smoking cessation, weight loss, lifestyle modifications Further work up for as per primary team. Thanks for allowing me to participate in care of your patient. Will follow with you. Please call if any Qs. had d/w team Dr Chuck Joy Office: [phone] Chief Complaint; back pain reason for consult: LYDIA on CKD HPI: Pt is a 57 y/o M with hx of type 2 diabetes Mellitus ( x 1 years), HTN, CKD stage 3 with baseline serum cr 1.2-1.5 in 2017, morbid obesity, BRIAN on CPAP , chronic severe systolic CHF LVEF 25%, cirrhosis/splenomegaly with portal HTN changes in CT scan, active smoker came with back pain and worsening SOB, diuresed well and transferred to TCU. renal consult for CKD management. Denies chest pain, palpitation, shortness of breath. c/o back pain Denies OTC/herbal meds/NSAIDs No recent iodinated contrast exposure. no episode of low BP smoker 1/2 PPD. quit alcohol 20 years ago ROS: denies CP/nausea/vomiting/pain abdomen. c/o back pain. rest other negative except as mentioned in HPI Physical Examination: General Appearance: Comfortable, in no acute respiratory distress, co- operative. obese Vitals reviewed and noted as below Head; Atraumatic, normocephalic ENT: no ulcers no thrush. Tongue is midline. Oropharynx: no rash or ulcers. EYES: Pupils are equal, round and reactive to light accommodation. Eye muscles and extraocular movement intact. Sclera is anicteric. Neck; supple no lymphadenopathy, no thyromegaly or bruit Lungs: Normal respiratory rate/effort. Breath sounds clear b/l anteriorly Heart: Normal rate. s1s2 normal. No rub or gallop. Extremities: 1+ edema. No varicose veins Neurological: Patient is alert, awake and oriented x 3 no focal deficit Skin: dry and warm. Normal turgor. No rash. Palpitation: Normal elasticity for age Abdomen: Abdomen is distended with ascites and venous distension. soft non tender no apparent organomegaly but exam limited Psych: normal insight. normal affect/mood MSK: no specific joint tenderness or swelling. Digits and nails normal, no deformity : kidney or bladder not palpable. Labs/imaging/EKG reviewed. Past medical history, past surgical history, social history, allergy reviewed and noted as below Family hx; no hx of CKD. non contributory work up CT: cirrhosis, ascites. normal for adrenals and kidneys echo LVEF 25% urine alb/cr 32 pr/cr 170 Vit D 18 PTH 63 TSAT 4% Ferritin 140 SPEP/ADRIAN neg, [place]/lambda WNL Past Patient History - Infectious Disease Hx of Infectious Diseases: None - Tetanus Immunizations Tetanus Immunization: Unknown - Past Social History Smoking Status: Current Some Days Smoker - CARDIAC Hx Cardiac Disorders: Yes Hx Congestive Heart Failure: Yes Hx Hypercholesterolemia: Yes - PULMONARY Hx Respiratory Disorders: Yes Hx Pneumonia: Yes - NEUROLOGICAL Hx Neurological Disorder: No - HEENT Hx HEENT Problems: Yes Hx Cataracts: Yes - RENAL Hx Chronic Kidney Disease: No - ENDOCRINE/METABOLIC Hx Diabetes Mellitus Type 2: Yes - HEMATOLOGICAL/ONCOLOGICAL Hx Blood Disorders: Yes Hx Anemia: Yes - INTEGUMENTARY Hx Dermatological Problems: No - MUSCULOSKELETAL/RHEUMATOLOGICAL Hx Falls: No - GASTROINTESTINAL Hx Gastrointestinal Disorders: Yes (edema to abd) - GENITOURINARY/GYNECOLOGICAL Hx Genitourinary Disorders: (enlarged scrotum swelling decreased) Hx Reproductive Disorders: No - PSYCHIATRIC Hx Psychophysiologic Disorder: No - SURGICAL HISTORY Hx Orthopedic Surgery: Yes Other/Comment: spinal surgery - ANESTHESIA Hx Anesthesia Reactions: Yes ("OVER DOPED"FOR CARD CATH) Hx Malignant Hyperthermia: No Meds Allergies/Adverse Reactions: Allergies Allergy/AdvReac Type Severity Reaction Status Date / Time No Known Allergies Allergy Verified 09/26/17 14:41 - Medications Medications: Current Medications Acetaminophen (Tylenol 325mg Tab) 650 mg PO Q6 PRN PRN Reason: Headache Last Admin: 10/02/17 15:33 Dose: 650 mg Aspirin (Ecotrin) 81 mg PO 0800 [facility] Last Admin: 10/03/17 08:05 Dose: 81 mg Baclofen (Lioresal) 30 mg PO HS [facility] Bisacodyl (Dulcolax) 5 mg PO BID PRN PRN Reason: Constipation Cyclobenzaprine HCl (Flexeril) 5 mg PO TID PRN PRN Reason: Pain, moderate (4-7) Diltiazem HCl (Cardizem Cd) 180 mg PO DAILY [facility] Last Admin: 10/03/17 09:43 Dose: 180 mg Docusate Sodium (Colace) 100 mg PO BID [facility] Last Admin: 10/03/17 09:44 Dose: 100 mg Famotidine (Pepcid) 20 mg PO HS [facility] Last Admin: 10/02/17 21:41 Dose: 20 mg Furosemide (Lasix) 40 mg PO BID [facility] Last Admin: 10/03/17 09:45 Dose: 40 mg Guaifenesin/Dextromethorphan (Robitussin Dm) 5 ml PO Q4H PRN PRN Reason: Cough Last Admin: 10/03/17 08:11 Dose: 5 ml Heparin Sodium/Sodium Chloride (Heparin 91914 Units/250ml 1/2 Normal Saline) 25 ,000 units in 250 mls @ 14.288 mls/hr IV .[id number] PRN; Protocol; 10 UNITS/KG/HR PRN Reason: ADJUST RATE PER PROTOCOL Last Admin: 10/02/17 22:53 Dose: 9.58 units/kg/hr, 13.688 mls/hr Insulin Human Regular (Humulin R Low) 0 units SC [facility] PRN Reason: Protocol Last Admin: 10/03/17 07:15 Dose: Not Given Levalbuterol HCl (Xopenex) 1.25 mg IH [id number] PRN PRN Reason: Shortness of Breath Levothyroxine Sodium (Synthroid) 25 mcg PO 0600 [facility] Last Admin: 10/03/17 06:03 Dose: 25 mcg Lidocaine (Lidoderm) 1 ea TD DAILY [facility] Last Admin: 10/03/17 09:46 Dose: 1 ea Losartan Potassium (Cozaar) 50 mg PO DAILY [facility] Last Admin: 10/03/17 09:46 Dose: 50 mg Magnesium Oxide (Mag-Ox) 400 mg PO DAILY [facility] Last Admin: 10/03/17 09:47 Dose: 400 mg Metolazone (Zaroxolyn) 5 mg PO BID [facility] Last Admin: 10/03/17 09:47 Dose: 5 mg Morphine Sulfate (Morphine) 4 mg IVP Q4H PRN PRN Reason: pain 8-10 Last Admin: 10/03/17 13:14 Dose: 4 mg Nicotine (Nicoderm Cq) 1 patch TD DAILY [facility] Last Admin: 10/03/17 09:47 Dose: 1 patch Pantoprazole Sodium (Protonix Ec Tab) 20 mg PO 0630 [facility] Last Admin: 10/03/17 06:02 Dose: 20 mg Polyethylene Glycol (Miralax) 17 gm PO BID [facility] Last Admin: 10/03/17 09:47 Dose: 17 gm Pregabalin (Lyrica) 50 mg PO BID [facility] Spironolactone (Aldactone) 25 mg PO BID [facility] Last Admin: 10/03/17 09:43 Dose: 25 mg Warfarin Sodium (Coumadin) 5 mg PO 1800 [facility] PRN Reason: Protocol Last Admin: 10/02/17 17:48 Dose: 5 mg Results - Vital Signs Recent Vital Signs: Last Vital Signs Temp 97.3 F L 10/02/17 16:00 Pulse 82 10/03/17 09:46 Resp 18 10/02/17 16:00 BP 120/82 10/03/17 09:46 Pulse Ox 100 10/02/17 06:00 - Labs Result Diagrams: 10/03/17 06:25 Labs: Laboratory Results - last 24 hr 10/03/17 10/03/17 10/03/17 06:06 06:25 06:25 PT 14.1 H INR 1.22 H APTT 52.5 H Sodium 138 Potassium 5.0 Chloride 92 L Carbon Dioxide 32 Anion Gap 19 BUN 42 H Creatinine 2.0 H Est GFR ( Amer) 42 Est GFR (Non-Af Amer) 34 POC Glucose (mg/dL) 120 H Random Glucose 117 H Calcium 10.5 10/03/17 11:12 PT INR APTT Sodium Potassium Chloride Carbon Dioxide Anion Gap BUN Creatinine Est GFR ( Amer) Est GFR (Non-Af Amer) POC Glucose (mg/dL) 139 H Random Glucose Calcium
--- NOTE | 2017-10-03 18:20 | PN ---
DATE: 10/03/2017 SUBJECTIVE: The patient is in the TCU. He denies shortness of breath. Denies chest pain. PHYSICAL EXAMINATION: VITAL SIGNS: Stable. NECK: Negative JVD. LUNGS: Without rales. HEART: S1 and S2. EXTREMITIES: Without edema. LABORATORY DATA: Reviewed and unchanged. IMPRESSION: 1. Resolution of congestive heart failure. 2. Noncompliance with medication. 3. Cardiomyopathy. 4. Obesity. 5. Lower back pain. PLAN: Given these findings, the patient's cardiac status is stable. Being placed back on medications. We will continue physical therapy for his lower back. Alexandru Carrillo MD
[2017-10-03] MEDS: Heparin25000 units/250ml 1/2NS 25,000 UNITS/250 ML BAG IV PRN (18:29)
--- NOTE | 2017-10-04 04:39 | PN ---
DATE: 10/03/2017 PULMONARY PROGRESS NOTE REFERRING PHYSICIAN: Sav Hernandez MD. SUBJECTIVE: He is sitting at side of the bed. Night was unremarkable. Breathing is better. No headache, no rhinitis. No nausea, no vomiting, no diarrhea. Decreased leg swelling. Has a low back pain. OBJECTIVE: GENERAL: In no acute distress. VITAL SIGNS: Temperature is 98, heart rate is 53, respiratory rate is 20, blood pressure 109/68, pulse ox 99% on room air. HEENT: Moist mucous membrane. Crowded airway. NECK: Supple. No JVD. LUNGS: Have few crackles at bases. HEART: S1 and S2. ABDOMEN: Soft and nontender. No organomegaly. EXTREMITIES: Decreased edema. NEUROLOGIC: Awake, alert, follows simple command. MEDICATIONS: He is on Aldactone 25 mg twice a day, Cardizem CD 180 mg daily, Colace 100 mg twice a day, Coumadin 5 mg given, Cozaar 50 mg daily, Dulcolax p.r.n. basis, Ecotrin 81 mg daily, ferrous gluconate 325 mg three times a day, Flexeril 5 mg three times a day p.r.n., IV heparin, Lasix 40 mg twice a day, Lidoderm patch on affected area, baclofen 30 mg at bedtime, Lyrica 50 mg twice a day, magnesium oxide 400 mg daily, MiraLax 17 g twice a day, morphine 4 mg every 4 hours p.r.n., Nephro vitamins daily, Nicoderm patch daily, Pepcid 20 mg daily, Protonix 20 mg daily, Robitussin DM every 4 hours p.r.n., Synthroid 25 mcg daily, Tylenol p.r.n., Xopenex p.r.n., Zaroxolyn 5 mg twice daily. LABORATORY DATA: Shows INR of 1.22. PTT is 53. Sodium 138, potassium 5.0, chloride 92, bicarbonate 32, BUN 42, creatinine 2.0, glucose 117, calcium is 10.5. IMPRESSION AND PLAN: Severe cardiomyopathy with heart failure, chronic obstructive lung disease, morbid obesity, suspected sleep apnea syndrome, hypertension, diabetes, cirrhotic liver, portal hypertension, noncompliant with medication and CPAP. Spoke to nursing staff. Did have a bowel movement last night. Continue bronchodilator, diuretics. Gastric prophylaxis. Sequential compression device to lower extremity. Fall precaution, pain management. INR in the morning. Thank you and we will follow with you. Farhan Chavira MD
[2017-10-04] MEDS: Levothyroxine 25 MCG TAB PO SCH (05:49)
[2017-10-04] MEDS: Pantoprazole 20 mg EC Tab PO SCH (05:49)
[2017-10-04] MEDS: guaiFENesin DM 100 mg-10 mg/5 ml UD PO PRN ×2 (06:05→15:40)
[2017-10-04] MEDS: Insulin Reg-LOW-Coverage SC SCH ×4 (06:31→22:22)
[2017-10-04 07:52] LABS: CALCIUM 10.4 mg/dL (8.4-10.5)
[2017-10-04] MEDS: Multivitamin Vitamin B Complex (Nephro-Vite) Tab PO SCH (08:07)
[2017-10-04 08:26] LABS: INR 1.27 (0.93-1.08); PROTHROMBIN TIME 14.7 SECONDS (9.4-12.5)
--- NOTE | 2017-10-04 11:11 | PN ---
DATE: 10/03/2017 SUBJECTIVE: The patient is a 57-year-old man complaining of significant back pain. The patient has difficulty going to the bathroom due to his back pain. According to the patient, he has this back since admission. He is getting morphine, but he does not know what triggered his back pain, he had this for a week before that and he was on the sink, tried to get up from the sink, and while he was getting up, he felt severe pain. Since then, he has been complaining of pain. Morphine helped, but he does want to know what is the reason for the pain, has no falls, no history of any narcotic use or abuse in the past according to him. Also, the patient has a history of fixation of the lumbar spine, he has neck surgery and lumbosacral surgery with screws put in. He also had been complaining of constipation, tried some medication, did not work. PHYSICAL EXAMINATION: VITAL SIGNS: Temperature 98.2, heart rate 53, blood pressure 120/82, respirations 20, saturation 99. HEAD AND NECK: Normal. No JVD, no thyromegaly. CHEST: Clear bilaterally. CARDIAC: First sound and second sound normal. ABDOMEN: Getting better. It is softer. NEUROLOGICAL: The patient moves all extremities, he does have some decreased range of motion and tenderness more on the right side of the lumbosacral area with spasms and tense muscles on the right side. LABORATORY DATA: PT 14.1, INR 1.22, he is getting Coumadin 5 mg, PTT is 52.5. Chemistry on 10/03/2017, his sodium 138, potassium 5, chloride 92, bicarb 32, BUN 42, creatinine is 2, blood glucose 117, calcium 10.5. IMPRESSION: 1. Severe back pain, we will get Dr. Sav Zepeda's pain management consult. We will also have a neuro consultation of Dr. Harman Mejias. We will give the patient muscle relaxant, Flexeril 5 mg, he is already on and we will add Lyrica 50 mg twice a day to help his pain. Also, we will continue morphine p.r.n., local heat to his lumbosacral area and physical therapy. Also, we will see how other reimbursement consultant add to the treatment and we will follow up clinically. 2. Constipation, probably narcotic induced. We will give him medications for narcotic-induced constipation, Relistor 6 mg daily according to the dose adjustment with kidney functions and his body weight. We will see how he does and we will follow up on this. 3. Congestive heart failure with cardiomyopathy, nonischemic. The patient may benefit from IV milrinone, we will speak with Dr. Carrillo about it. 4. Chronic atrial fibrillation, getting Coumadin and heparin, try to increase Coumadin, we will see how he does. 5. Chronic renal insufficiency, seems to get worse, may be prerenal, dehydration versus worsening his renal functions. 6. Morbid obesity, the patient has cardiac cirrhosis with abdominal ascites. Continue current therapy. 7. Renal insufficiency, chronic with acute worsening. Appreciate Dr. Joy, we will follow up with him about the kidney function and general medical condition. 8. Hypothyroidism, continue levothyroxine 25 mcg daily. 9. Iron-deficiency anemia. The patient will need colonoscopy. Advised to follow up with Gastroenterology to get a colonoscopy. He understood that. PLAN: Continue current therapy, follow up clinically, monitor labs, PT/INR, and follow up with other consultants. Sav Hernandez MD
[2017-10-04] MEDS: diltiaZEM 180 mg/24 Hours CD Cap PO SCH (11:33)
[2017-10-04] MEDS: Lidocaine 5% Patch TD SCH (11:34)
[2017-10-04] MEDS: POLYETHYLENE GLYCOL 3350 17 GM/Dose PACKET PO SCH ×2 (11:34→18:38)
[2017-10-04] MEDS: Magnesium Oxide 400 mg Tab UD PO SCH (11:34)
[2017-10-04] MEDS: metOLazone 5 MG TAB PO SCH (11:35)
[2017-10-04] MEDS: Heparin25000 units/250ml 1/2NS 25,000 UNITS/250 ML BAG IV PRN (13:06)
--- NOTE | 2017-10-04 17:12 | CP.PCM.PN ---
Subjective - Date & Time of Evaluation Date of Evaluation: 10/04/17 Time of Evaluation: 17:11 - Subjective Subjective: Nephrology Consultation Note: Assessment: stable CHF with cirrhosis and ascites back pain Anemia Likely progression of CKD, likely cardiorenal syndrome Chronic Kidney Disease Stage 3 (N18.3) with 170 mg proteinuria and 32 mg albuminuria with baseline cr 1.2-1.5 mg/dL type 2 diabetes Mellitus ( x 1 year), HTN, morbid obesity, BRIAN on CPAP, chronic severe systolic CHF LVEF 25%, cirrhosis/splenomegaly/ascites with portal HTN changes on CT scan, active smoker Hypothyroidism Vit D def, hypercalcemia likely result of hemoconcentration due to diuretics Plan No acute need for renal replacement therapy at this time. Hypertension control with meds as ordered. Patient on RAAS harshal as aldactone and losartan , will hold both due to rise in cr continue diuresis with lasix 40 mg bid and stop metolazone Monitor I/O, daily weights and renal function. oral fluid restriction to 1000 mL /day iron supplements (Pt refused IV iron) and MVI. consider SCAR if Hb <10 will supplement Vit D once hypercalcemia better GI, pulmonary following, seen by cardiology Dose meds/antibiotics for reduced GFR. Avoid fleets enema/magnesium based laxatives. Avoid nephrotoxins/NSAIDs/ iodinated contrast (unless needed emergently) Glycemic control, smoking cessation, weight loss, lifestyle modifications Further work up for as per primary team. Thanks for allowing me to participate in care of your patient. Will follow with you. Please call if any Qs. had d/w team Dr Chuck Joy Office: [phone] Chief Complaint; back pain reason for consult: LYDIA on CKD HPI: Pt is a 57 y/o M with hx of type 2 diabetes Mellitus ( x 1 years), HTN, CKD stage 3 with baseline serum cr 1.2-1.5 in 2017, morbid obesity, BRIAN on CPAP , chronic severe systolic CHF LVEF 25%, cirrhosis/splenomegaly with portal HTN changes in CT scan, active smoker came with back pain and worsening SOB, diuresed well and transferred to TCU. renal consult for CKD management. Denies chest pain, palpitation, shortness of breath. c/o back pain but better Denies OTC/herbal meds/NSAIDs No recent iodinated contrast exposure. no episode of low BP smoker 1/2 PPD. quit alcohol 20 years ago ROS: denies CP/nausea/vomiting/pain abdomen. improved back pain. rest other negative except as mentioned in HPI Physical Examination: General Appearance: Comfortable, in no acute respiratory distress, co- operative. obese Vitals reviewed and noted as below Head; Atraumatic, normocephalic ENT: no ulcers no thrush. Tongue is midline. Oropharynx: no rash or ulcers. EYES: Pupils are equal, round and reactive to light accommodation. Eye muscles and extraocular movement intact. Sclera is anicteric. Neck; supple no lymphadenopathy, no thyromegaly or bruit Lungs: Normal respiratory rate/effort. Breath sounds clear b/l anteriorly Heart: Normal rate. s1s2 normal. No rub or gallop. Extremities: trace edema. No varicose veins Neurological: Patient is alert, awake and oriented x 3 no focal deficit Skin: dry and warm. Normal turgor. No rash. Palpitation: Normal elasticity for age Abdomen: Abdomen is distended with ascites and venous distension. soft non tender no apparent organomegaly but exam limited Psych: normal insight. normal affect/mood MSK: no specific joint tenderness or swelling. Digits and nails normal, no deformity : kidney or bladder not palpable. Labs/imaging/EKG reviewed. Past medical history, past surgical history, social history, allergy reviewed and noted as below Family hx; no hx of CKD. non contributory work up CT: cirrhosis, ascites. normal for adrenals and kidneys echo LVEF 25% urine alb/cr 32 pr/cr 170 Vit D 18 PTH 63 TSAT 4% Ferritin 140 SPEP/ADRIAN neg, [place]/lambda WNL Objective - Vital Signs/Intake and Output Vital Signs (last 24 hours): Temp Pulse Resp BP Pulse Ox 97.5 F L 53 L 20 108/56 L 94 L 10/03/17 16:00 10/03/17 10:00 10/03/17 16:00 10/04/17 11:34 10/03/17 16:00 Intake and Output: 10/04/17 10/04/17 06:59 18:59 Intake Total 360 220 Balance 360 220 - Medications Medications: Current Medications Acetaminophen (Tylenol 325mg Tab) 650 mg PO Q6 PRN PRN Reason: Headache Last Admin: 10/02/17 15:33 Dose: 650 mg Aspirin (Ecotrin) 81 mg PO 0800 [facility] Last Admin: 10/04/17 08:07 Dose: 81 mg Baclofen (Lioresal) 30 mg PO HS [facility] Last Admin: 10/03/17 21:57 Dose: 30 mg Bisacodyl (Dulcolax) 5 mg PO BID PRN PRN Reason: Constipation Cyclobenzaprine HCl (Flexeril) 5 mg PO TID PRN PRN Reason: Pain, moderate (4-7) Diltiazem HCl (Cardizem Cd) 180 mg PO DAILY [facility] Last Admin: 10/04/17 11:33 Dose: 180 mg Docusate Sodium (Colace) 100 mg PO BID [facility] Last Admin: 10/04/17 11:34 Dose: 100 mg Famotidine (Pepcid) 20 mg PO HS [facility] Last Admin: 10/03/17 21:57 Dose: 20 mg Ferrous Gluconate (Fergon) 324 mg PO TID [facility] Last Admin: 10/04/17 13:21 Dose: 324 mg Furosemide (Lasix) 40 mg PO BID [facility] Last Admin: 10/04/17 11:34 Dose: 40 mg Guaifenesin/Dextromethorphan (Robitussin Dm) 5 ml PO Q4H PRN PRN Reason: Cough Last Admin: 10/04/17 15:40 Dose: 5 ml Heparin Sodium/Sodium Chloride (Heparin 84409 Units/250ml 1/2 Normal Saline) 25 ,000 units in 250 mls @ 14.288 mls/hr IV .[id number] PRN; Protocol; 10 UNITS/KG/HR PRN Reason: ADJUST RATE PER PROTOCOL Last Admin: 10/04/17 13:06 Dose: 9.58 units/kg/hr, 13.688 mls/hr Insulin Human Regular (Humulin R Low) 0 units SC [facility] PRN Reason: Protocol Last Admin: 10/04/17 11:49 Dose: Not Given Levalbuterol HCl (Xopenex) 1.25 mg IH [id number] PRN PRN Reason: Shortness of Breath Levothyroxine Sodium (Synthroid) 25 mcg PO 0600 [facility] Last Admin: 10/04/17 05:49 Dose: 25 mcg Lidocaine (Lidoderm) 1 ea TD DAILY [facility] Last Admin: 10/04/17 11:34 Dose: 1 ea Magnesium Oxide (Mag-Ox) 400 mg PO DAILY [facility] Last Admin: 10/04/17 11:34 Dose: 400 mg Morphine Sulfate (Morphine) 4 mg IVP Q4H PRN PRN Reason: pain 8-10 Last Admin: 10/03/17 13:14 Dose: 4 mg Nicotine (Nicoderm Cq) 1 patch TD DAILY [facility] Last Admin: 10/04/17 11:35 Dose: 1 patch Pantoprazole Sodium (Protonix Ec Tab) 20 mg PO 0630 [facility] Last Admin: 10/04/17 05:49 Dose: 20 mg Polyethylene Glycol (Miralax) 17 gm PO BID [facility] Last Admin: 10/04/17 11:34 Dose: 17 gm Pregabalin (Lyrica) 50 mg PO BID [facility] Last Admin: 10/04/17 11:34 Dose: 50 mg Vitamin B Complex/Vit C/Folic Acid (Nephro-Benjamin) 1 tab PO 0800 [facility] Last Admin: 10/04/17 08:07 Dose: 1 tab Warfarin Sodium (Coumadin) 5 mg PO 1800 [facility] PRN Reason: Protocol Last Admin: 10/03/17 18:03 Dose: 5 mg - Labs Labs: 10/04/17 07:30 PT 14.7 SECONDS (9.4-12.5) H 10/04/17 07:10 INR 1.27 (0.93-1.08) H 10/04/17 07:10 APTT 52.5 Seconds (25.1-36.5) H 10/03/17 06:25
--- NOTE | 2017-10-05 00:25 | PN ---
DATE: 10/04/2017 REFERRING PHYSICIAN: Dr. Sav Hernandez. SUBJECTIVE: The patient is lying in the bed, sleepy, arousable. Night was unremarkable. Doing well in therapy. No headache, no rhinitis. Breathing is okay. No nausea, no vomiting, no diarrhea. Decreased leg swelling. OBJECTIVE: GENERAL: In no acute distress. VITAL SIGNS: Temperature is 98, heart rate is 80, respiratory rate is 20, blood pressure 109/68, pulse ox 99% on room air. HEENT: Moist mucous membrane. Crowded airway. NECK: Supple. No JVD. LUNGS: Has a fair airflow with rhonchi. HEART: S1, S2. ABDOMEN: Soft, nontender, no organomegaly. EXTREMITIES: Decreased edema. NEUROLOGIC: Awake, alert, follows simple commands. MEDICATIONS: He is on Cardizem CD 180 mg daily, Colace 100 mg twice a day, Coumadin 5 mg will be given today, Dulcolax 5 mg twice a day p.r.n., Ecotrin 81 mg daily, ferrous gluconate 324 mg 3 times a day, Flexeril 5 mg 3 times a day p.r.n., heparin IV, Lasix 40 mg twice a day, which was on hold, lidocaine patch to affected area, Lyrica 50 mg twice a day, mag oxide 400 mg daily, MiraLax 17 g twice a day, morphine 4 mg every 4 hours p.r.n., Nephro vitamins daily, Nicoderm patch daily, Pepcid 20 mg at bedtime, Protonix 20 mg daily, Robitussin DM 5 mL every 4 hours p.r.n., Synthroid 25 mcg daily, Tylenol p.r.n., Xopenex inhaled every 6 hours p.r.n. LABORATORY DATA: Shows INR is 1.27. Sodium 138, potassium 5.2, chloride 94, bicarbonate is 29, BUN 52, creatinine 2.4, glucose is 140, calcium is 10.4. IMPRESSION AND PLAN: Severe cardiomyopathy with heart failure, chronic obstructive lung disease, morbid obesity, suspected sleep apnea syndrome, hypertension, diabetes, cirrhotic liver, portal hypertension, noncompliant with medication and CPAP. Pulmonary point of view, doing okay. Continue bronchodilator. Keep head at 45 degrees. Gastric prophylaxis, anticoagulation, afterload peer specialist, diuretics, fall precaution. Follow up labs in the morning. Thank you and we will follow with you. Farhan Chavira MD [facility] # [id number]
[2017-10-05] MEDS: Levothyroxine 25 MCG TAB PO SCH (05:48)
[2017-10-05] MEDS: Pantoprazole 20 mg EC Tab PO SCH (05:48)
[2017-10-05] MEDS: guaiFENesin DM 100 mg-10 mg/5 ml UD PO PRN ×2 (05:51→18:06)
[2017-10-05] MEDS: Insulin Reg-LOW-Coverage SC SCH ×4 (06:30→21:19)
[2017-10-05 07:14] LABS: INR 1.26 (0.93-1.08); PROTHROMBIN TIME 14.5 SECONDS (9.4-12.5)
[2017-10-05] MEDS: Heparin25000 units/250ml 1/2NS 25,000 UNITS/250 ML BAG IV PRN (09:24)
[2017-10-05] MEDS: diltiaZEM 180 mg/24 Hours CD Cap PO SCH (11:29)
[2017-10-05] MEDS: Lidocaine 5% Patch TD SCH (11:32)
[2017-10-05] MEDS: Magnesium Oxide 400 mg Tab UD PO SCH (11:33)
[2017-10-05] MEDS: POLYETHYLENE GLYCOL 3350 17 GM/Dose PACKET PO SCH ×3 (11:33→21:20)
[2017-10-05] MEDS: Multivitamin Vitamin B Complex (Nephro-Vite) Tab PO SCH (11:33)
--- NOTE | 2017-10-05 12:01 | CP.PCM.PN ---
Subjective - Date & Time of Evaluation Date of Evaluation: 10/05/17 Time of Evaluation: 12:00 - Subjective Subjective: Nephrology Consultation Note: Assessment: stable CHF with cirrhosis and ascites back pain Anemia Likely progression of CKD, likely cardiorenal syndrome Chronic Kidney Disease Stage 3 (N18.3) with 170 mg proteinuria and 32 mg albuminuria with baseline cr 1.2-1.5 mg/dL type 2 diabetes Mellitus ( x 1 year), HTN, morbid obesity, BRIAN on CPAP, chronic severe systolic CHF LVEF 25%, cirrhosis/splenomegaly/ascites with portal HTN changes on CT scan, active smoker Hypothyroidism Vit D def, hypercalcemia likely result of hemoconcentration due to diuretics Plan No acute need for renal replacement therapy at this time. Hypertension control with meds as ordered. Patient was on RAAS harshal as aldactone and losartan , will hold both due to rise in cr continue diuresis with lasix 40 mg bid Monitor I/O, daily weights and renal function. oral fluid restriction to 1000 mL /day iron supplements (Pt refused IV iron) and MVI. consider SCAR if Hb <10 will supplement Vit D once hypercalcemia better GI, pulmonary following, seen by cardiology Dose meds/antibiotics for reduced GFR. Avoid fleets enema/magnesium based laxatives. Avoid nephrotoxins/NSAIDs/ iodinated contrast (unless needed emergently) Glycemic control, smoking cessation, weight loss, lifestyle modifications Further work up for as per primary team. Thanks for allowing me to participate in care of your patient. Will follow with you. Please call if any Qs. had d/w team Dr Chuck Joy Office: [phone] Chief Complaint; back pain reason for consult: LYDIA on CKD HPI: Pt is a 57 y/o M with hx of type 2 diabetes Mellitus ( x 1 years), HTN, CKD stage 3 with baseline serum cr 1.2-1.5 in 2017, morbid obesity, BRIAN on CPAP , chronic severe systolic CHF LVEF 25%, cirrhosis/splenomegaly with portal HTN changes in CT scan, active smoker came with back pain and worsening SOB, diuresed well and transferred to TCU. renal consult for CKD management. Denies chest pain, palpitation, shortness of breath. c/o back pain but better Denies OTC/herbal meds/NSAIDs No recent iodinated contrast exposure. no episode of low BP smoker 1/2 PPD. quit alcohol 20 years ago ROS: denies CP/nausea/vomiting/pain abdomen. improved back pain but feels sleepy with new meds. rest other negative except as mentioned in HPI Physical Examination: General Appearance: Comfortable, in no acute respiratory distress, co- operative. obese Vitals reviewed and noted as below Head; Atraumatic, normocephalic ENT: no ulcers no thrush. Tongue is midline. Oropharynx: no rash or ulcers. EYES: Pupils are equal, round and reactive to light accommodation. Eye muscles and extraocular movement intact. Sclera is anicteric. Neck; supple no lymphadenopathy, no thyromegaly or bruit Lungs: Normal respiratory rate/effort. Breath sounds clear b/l anteriorly Heart: Normal rate. s1s2 normal. No rub or gallop. Extremities: trace edema. No varicose veins Neurological: Patient is alert, awake and oriented x 3 no focal deficit Skin: dry and warm. Normal turgor. No rash. Palpitation: Normal elasticity for age Abdomen: Abdomen is distended with ascites and venous distension. soft non tender no apparent organomegaly but exam limited Psych: normal insight. normal affect/mood MSK: no specific joint tenderness or swelling. Digits and nails normal, no deformity : kidney or bladder not palpable. Labs/imaging/EKG reviewed. Past medical history, past surgical history, social history, allergy reviewed and noted as below Family hx; no hx of CKD. non contributory work up CT: cirrhosis, ascites. normal for adrenals and kidneys echo LVEF 25% urine alb/cr 32 pr/cr 170 Vit D 18 PTH 63 TSAT 4% Ferritin 140 SPEP/ADRIAN neg, [place]/lambda WNL Objective - Vital Signs/Intake and Output Vital Signs (last 24 hours): Temp Pulse Resp BP Pulse Ox 98.4 F 61 18 115/72 96 10/05/17 06:00 10/05/17 11:29 10/05/17 06:00 10/05/17 11:31 10/05/17 06:00 Intake and Output: 10/05/17 10/05/17 06:59 18:59 Intake Total 360 250 Balance 360 250 - Medications Medications: Current Medications Acetaminophen (Tylenol 325mg Tab) 650 mg PO Q6 PRN PRN Reason: Headache Last Admin: 10/02/17 15:33 Dose: 650 mg Aspirin (Ecotrin) 81 mg PO 0800 [facility] Last Admin: 10/05/17 08:26 Dose: 81 mg Baclofen (Lioresal) 30 mg PO HS [facility] Last Admin: 10/04/17 21:00 Dose: 30 mg Bisacodyl (Dulcolax) 5 mg PO BID PRN PRN Reason: Constipation Cyclobenzaprine HCl (Flexeril) 5 mg PO TID PRN PRN Reason: Pain, moderate (4-7) Diltiazem HCl (Cardizem Cd) 180 mg PO DAILY [facility] Last Admin: 10/05/17 11:29 Dose: 180 mg Docusate Sodium (Colace) 100 mg PO BID [facility] Last Admin: 10/05/17 11:30 Dose: 100 mg Famotidine (Pepcid) 20 mg PO HS [facility] Last Admin: 10/04/17 21:00 Dose: 20 mg Ferrous Gluconate (Fergon) 324 mg PO TID [facility] Last Admin: 10/05/17 11:31 Dose: 324 mg Furosemide (Lasix) 40 mg PO BID [facility] Last Admin: 10/05/17 11:31 Dose: 40 mg Guaifenesin/Dextromethorphan (Robitussin Dm) 5 ml PO Q4H PRN PRN Reason: Cough Last Admin: 10/05/17 05:51 Dose: 5 ml Heparin Sodium/Sodium Chloride (Heparin 30225 Units/250ml 1/2 Normal Saline) 25 ,000 units in 250 mls @ 14.288 mls/hr IV .[id number] PRN; Protocol; 10 UNITS/KG/HR PRN Reason: ADJUST RATE PER PROTOCOL Last Admin: 10/05/17 09:24 Dose: 9.58 units/kg/hr, 13.688 mls/hr Insulin Human Regular (Humulin R Low) 0 units SC ACHS [facility] PRN Reason: Protocol Last Admin: 10/05/17 11:31 Dose: Not Given Levalbuterol HCl (Xopenex) 1.25 mg IH [id number] PRN PRN Reason: Shortness of Breath Levothyroxine Sodium (Synthroid) 25 mcg PO 0600 [facility] Last Admin: 10/05/17 05:48 Dose: 25 mcg Lidocaine (Lidoderm) 1 ea TD DAILY [facility] Last Admin: 10/05/17 11:32 Dose: Not Given Magnesium Oxide (Mag-Ox) 400 mg PO DAILY [facility] Last Admin: 10/05/17 11:33 Dose: 400 mg Morphine Sulfate (Morphine) 4 mg IVP Q4H PRN PRN Reason: pain 8-10 Last Admin: 10/03/17 13:14 Dose: 4 mg Nicotine (Nicoderm Cq) 1 patch TD DAILY [facility] Last Admin: 10/05/17 05:52 Dose: 1 patch Pantoprazole Sodium (Protonix Ec Tab) 20 mg PO 0630 [facility] Last Admin: 10/05/17 05:48 Dose: 20 mg Polyethylene Glycol (Miralax) 17 gm PO BID [facility] Last Admin: 10/05/17 11:33 Dose: Not Given Pregabalin (Lyrica) 50 mg PO BID [facility] Last Admin: 10/04/17 18:38 Dose: 50 mg Vitamin B Complex/Vit C/Folic Acid (Nephro-Benjamin) 1 tab PO 0800 [facility] Last Admin: 10/05/17 11:33 Dose: 1 tab Warfarin Sodium (Coumadin) 5 mg PO 1800 [facility] PRN Reason: Protocol Last Admin: 10/04/17 18:38 Dose: 5 mg - Labs Labs: 10/04/17 07:30 PT 14.5 SECONDS (9.4-12.5) H 10/05/17 07:00 INR 1.26 (0.93-1.08) H 10/05/17 07:00 APTT 52.5 Seconds (25.1-36.5) H 10/03/17 06:25
--- NOTE | 2017-10-05 20:40 | PN ---
DATE: 10/05/2017 PULMONARY PROGRESS NOTE REFERRING PHYSICIAN: Sav Hernandez MD. SUBJECTIVE: The patient is sitting on side of the bed, having lunch. Night was unremarkable. Breathing is better. No more cough, short of breath with exertion. No chest pain. No abdominal pain. Decreased leg swelling. Still has some low back pain. OBJECTIVE: GENERAL: In no acute distress. VITAL SIGNS: Temperature is 98, heart rate 61, respiratory rate is 20, blood pressure 115/72, pulse ox 98% on room air. HEENT: Moist mucous membrane. Crowded airway. NECK: Supple. No JVD. LUNGS: Have a fair airflow with rhonchi. HEART: S1 and S2. ABDOMEN: Soft, nontender. No organomegaly. EXTREMITIES: Decreased edema. NEUROLOGICAL: Awake and alert. Follows simple command. MEDICATIONS: He is on Cardizem CD 180 mg daily, Colace 100 mg twice a day, Coumadin 7.5 mg will be given tonight, Dulcolax p.r.n. basis, Ecotrin 81 mg daily, Fergon 324 mg three times a day, Flexeril 5 mg three times a day p.r.n., heparin weight-based protocol, also on Lasix 40 mg twice a day, lidocaine patch to affected area, baclofen 30 mg at bedtime, Lyrica 50 mg twice a day, mag oxide 400 mg daily, MiraLax 17 g twice a day, morphine is 4 mg IV every 4 hours p.r.n., Nephro vitamins daily, Nicoderm patch daily, Pepcid 20 mg daily, Protonix 20 mg daily, Robitussin DM 5 mL every 4 hours p.r.n., Tylenol p.r.n., Xopenex inhaled every 6 hours p.r.n. LABORATORY DATA: Shows INR 1.26, glucose 144. IMPRESSION AND PLAN: Severe cardiomyopathy with heart failure, chronic obstructive lung disease, morbid obesity, suspected sleep apnea syndrome, hypertension, diabetes, cirrhotic liver, portal hypertension, noncompliant with the medication and continuous positive airway pressure. Pulmonary point of view, doing okay. Continue bronchodilator. Keep head at 45 degrees. Sleep apnea precaution, diuretics, afterload minister, gastric prophylaxis, anticoagulation. Thank you and we will follow with you. Farhan Chavira MD [facility] # [id number]
[2017-10-06] MEDS: Levothyroxine 25 MCG TAB PO SCH (05:46)
[2017-10-06] MEDS: Pantoprazole 20 mg EC Tab PO SCH (05:46)
[2017-10-06] MEDS: Insulin Reg-LOW-Coverage SC SCH ×4 (06:41→22:27)
[2017-10-06] MEDS: Heparin25000 units/250ml 1/2NS 25,000 UNITS/250 ML BAG IV PRN (06:56)
[2017-10-06 07:06] LABS: BASO # 0.02 K/mm3 (0.0-2.0); BASO % 0.4 % (0.0-3.0); EOS # 0.2 (0.0-0.7); GRAN # 3.13 (1.4-6.5); GRAN % 62.6 % (50.0-68.0); HEMOGLOBIN 11.2 g/dL (14.0-18.0); LYMPH # 1.3 (1.2-3.4); LYMPH % 25.4 % (22.0-35.0); MEAN CELL VOLUME 65.2 fl (80.0-105.0); MEAN CORPUSCULAR HEMOGLOBIN 19.6 pg (25.0-35.0); MONO # 0.4 (0.1-0.6); MONO % 8.6 % (1.0-6.0); RBC 5.72 10^6/uL (3.5-6.1)
[2017-10-06 07:34] LABS: INR 1.23 (0.93-1.08); PROTHROMBIN TIME 14.2 SECONDS (9.4-12.5)
[2017-10-06] MEDS: Multivitamin Vitamin B Complex (Nephro-Vite) Tab PO SCH (08:19)
--- NOTE | 2017-10-06 08:43 | PN ---
DATE: 10/04/2017 SUBJECTIVE: The patient feels better than before. No complaint. Edema is much better. He feels better today on 10/04/2017. There is no other complaint. PHYSICAL EXAMINATION: VITAL SIGNS: Noted for temperature is 97, blood pressure is 100/53, 20 respirations, saturating 96% on room air. HEAD AND NECK: Normal. No JVD. No thyromegaly. CHEST: Clear bilaterally. CARDIAC: First sound and second sound normal. ABDOMEN: Soft. Better than before. Less ascites. Nontender. EXTREMITIES: No edema. NEUROLOGICAL: Normal. LABORATORY DATA: Sodium 138, potassium 5.2, chloride 94, bicarb 29, BUN 52, creatinine 2.4, blood sugar 140, calcium 10.4. AST, ALT and alk phos are normal. The patient has a PT 1.27. IMPRESSION AND PLAN: 1. Congestive heart failure, acute systolic on top of chronic. The patient is better. Clear lungs. Still creatinine is up, probably prerenal cardiac related or may be diuresis. We will talk with a Renal consult. He will follow up on that at this time. The patient noted also potassium a little bit high. We will discontinue Aldactone and discuss with . He will discontinue Cozaar because of associated low blood pressure. We will follow up with his recommendation. 2. Ascites secondary to cardiac cirrhosis. Continue diuretics. 3. The patient has nonischemic cardiomyopathy, need to follow up as outpatient. 4. Chronic renal insufficiency. Follow up with the commercial driver's license driver. 5. Smoker, hypothyroidism, chronic back pain, arthritis. Continue current regimen of back pain. He is getting Lidoderm patch, getting Lyrica and muscle relaxant seems helping. Continue current therapy. We will follow up clinically. Sav Hernandez MD
--- NOTE | 2017-10-06 08:58 | PN ---
DATE: 10/05/2017 SUBJECTIVE: Complained of some red discharge coming from his ears, probably nail scratching and there is also history of bilateral wax and decreased hearing. Also complained of being sleepy. The patient is currently on Flexeril 3 times a day. PHYSICAL EXAMINATION: VITAL SIGNS: As follows; heart rate 61, temperature of 98.3, blood pressure 115/72, respirations 20, saturating 100%. HEAD AND NECK: Normal. No JVD. No thyromegaly. CHEST: Clear bilateral. CARDIAC: First sound and second sound normal. ABDOMEN: Soft, nontender, better, less ascites. EXTREMITIES: No edema. NEUROLOGICAL: Normal. LABORATORY DATA: Blood sugar 144. IMPRESSION AND PLAN: 1. Acute systolic heart failure on top of chronic. Continue current therapy. Continue diuretics. The patient better. He is not on heart failure. Milrinone will not help with the kidney according to Dr. Alexandru Carrillo. We will continue current therapy. 2. Chronic atrial fibrillations. He is on Cardizem CD 180, Coumadin 7.5 mg was given. We will still monitor his PT/INR. We will repeat PT/INR in the morning. Also, the patient currently on aspirin 81 mg daily. 3. Chronic renal insufficiency. Follow up with Nephrology. 4. Chronic back pain, is better, but he is sleepy. We will decrease Flexeril to twice a day. 5. Hypothyroidism. Chronic back pain, ascites, cardiac cirrhosis, diabetes type 2. We will continue current therapy. We will follow up clinically. CURRENT MEDICATIONS: The patient is getting his Coumadin, 7.5 mg will be given tonight; Cardizem CD 180; Colace 100 b.i.d.; aspirin 81; iron pills; Flexeril 3 times a day, will be decreased to twice a day; insulin coverage; Lasix; Lidoderm; baclofen 30 mg also at bedtime in addition to Flexeril, we may need to stop one of them completely. We will see how the patient do. Lyrica 50 b.i.d.; mag oxide; MiraLax; morphine p.r.n.; complex of vitamin B; NicoDerm CQ; Pepcid; Protonix; Synthroid 25; Tylenol p.r.n. one every 6 hours 650, which seems a little bit more, we will decrease it p.r.n.; Xopenex four times a day. The patient seems stable. Continue current therapy. Sav Hernandez MD
[2017-10-06] MEDS: diltiaZEM 180 mg/24 Hours CD Cap PO SCH (09:27)
[2017-10-06] MEDS: Lidocaine 5% Patch TD SCH (09:28)
[2017-10-06] MEDS: POLYETHYLENE GLYCOL 3350 17 GM/Dose PACKET PO SCH ×2 (09:31→17:56)
[2017-10-06] MEDS: Magnesium Oxide 400 mg Tab UD PO SCH (09:32)
[2017-10-06] MEDS: guaiFENesin DM 100 mg-10 mg/5 ml UD PO PRN (09:32)
--- NOTE | 2017-10-06 12:06 | PN ---
DATE: 10/06/2017 CARDIOLOGY FOLLOWUP SUBJECTIVE: The patient is ambulating up and down the TCU without shortness of breath. No chest pain noted. PHYSICAL EXAMINATION: VITAL SIGNS: Stable. NECK: Negative JVD. LUNGS: Without rales. HEART: Reveals S1, S2. EXTREMITIES: Without edema. LABORATORY DATA: Hemoglobin is 11.2. BUN and creatinine are 66 and 2.3. INR is 1.23. IMPRESSION: 1. Resolution of congestive heart failure. 2. Renal insufficiency. 3. Resolution of dyspnea. 4. Chronic atrial fibrillation. PLAN: Given these findings, the patient will need long-term anticoagulation on Coumadin to prevent thromboembolism. Alexandru Carrillo MD
--- NOTE | 2017-10-06 13:23 | CP.PCM.PN ---
Subjective - Date & Time of Evaluation Date of Evaluation: 10/06/17 Time of Evaluation: 13:21 - Subjective Subjective: Nephrology Consultation Note: Assessment: stable CHF with cirrhosis and ascites back pain Anemia LYDIA, likely hemodynamic, cardiorenal syndrome Chronic Kidney Disease Stage 3 (N18.3) with 170 mg proteinuria and 32 mg albuminuria with baseline cr 1.2-1.5 mg/dL type 2 diabetes Mellitus ( x 1 year), HTN, morbid obesity, BRIAN on CPAP, chronic severe systolic CHF LVEF 25%, cirrhosis/splenomegaly/ascites with portal HTN changes on CT scan, active smoker Hypothyroidism Vit D def, hypercalcemia likely result of hemoconcentration due to diuretics Plan No acute need for renal replacement therapy at this time. Hypertension control with meds as ordered. Patient was on RAAS harshal as aldactone and losartan , will hold both due to rise in cr. can resume losartan at d/c continue diuresis with lasix 40 mg bid Monitor I/O, daily weights and renal function. oral fluid restriction to 1000 mL /day iron supplements (Pt refused IV iron) and MVI. consider SCAR if Hb <10 will supplement Vit D once hypercalcemia better GI, pulmonary following, seen by cardiology Dose meds/antibiotics for reduced GFR. Avoid fleets enema/magnesium based laxatives. Avoid nephrotoxins/NSAIDs/ iodinated contrast (unless needed emergently) Glycemic control, smoking cessation, weight loss, lifestyle modifications Further work up for as per primary team. pt stable from renal perspective Thanks for allowing me to participate in care of your patient. Will follow with you. Please call if any Qs. had d/w team Dr Chuck Joy Office: [phone] Chief Complaint; back pain reason for consult: LYDIA on CKD HPI: Pt is a 57 y/o M with hx of type 2 diabetes Mellitus ( x 1 years), HTN, CKD stage 3 with baseline serum cr 1.2-1.5 in 2017, morbid obesity, BRIAN on CPAP , chronic severe systolic CHF LVEF 25%, cirrhosis/splenomegaly with portal HTN changes in CT scan, active smoker came with back pain and worsening SOB, diuresed well and transferred to TCU. renal consult for CKD management. Denies chest pain, palpitation, shortness of breath. c/o back pain but better Denies OTC/herbal meds/NSAIDs No recent iodinated contrast exposure. no episode of low BP smoker 1/2 PPD. quit alcohol 20 years ago ROS: denies CP/nausea/vomiting/pain abdomen. improved back pain but feels sleepy with new meds. rest other negative except as mentioned in HPI Physical Examination: General Appearance: Comfortable, in no acute respiratory distress, co- operative. obese Vitals reviewed and noted as below Head; Atraumatic, normocephalic ENT: no ulcers no thrush. Tongue is midline. Oropharynx: no rash or ulcers. EYES: Pupils are equal, round and reactive to light accommodation. Eye muscles and extraocular movement intact. Sclera is anicteric. Neck; supple no lymphadenopathy, no thyromegaly or bruit Lungs: Normal respiratory rate/effort. Breath sounds clear b/l anteriorly Heart: Normal rate. s1s2 normal. No rub or gallop. Extremities: no edema. No varicose veins Neurological: Patient is alert, awake and oriented x 3 no focal deficit Skin: dry and warm. Normal turgor. No rash. Palpitation: Normal elasticity for age Abdomen: Abdomen is distended with ascites which is better. soft non tender no apparent organomegaly but exam limited Psych: normal insight. normal affect/mood MSK: no specific joint tenderness or swelling. Digits and nails normal, no deformity : kidney or bladder not palpable. Labs/imaging/EKG reviewed. Past medical history, past surgical history, social history, allergy reviewed and noted as below Family hx; no hx of CKD. non contributory work up CT: cirrhosis, ascites. normal for adrenals and kidneys echo LVEF 25% urine alb/cr 32 pr/cr 170 Vit D 18 PTH 63 TSAT 4% Ferritin 140 SPEP/ADRIAN neg, [place]/lambda WNL Objective - Vital Signs/Intake and Output Vital Signs (last 24 hours): Temp Pulse Resp BP Pulse Ox 98.3 F 61 20 143/75 100 10/05/17 10:00 10/05/17 11:29 10/05/17 10:00 10/06/17 09:28 10/05/17 10:00 Intake and Output: 10/06/17 10/06/17 06:59 18:59 Intake Total 730 Balance 730 - Medications Medications: Current Medications Acetaminophen (Tylenol 325mg Tab) 650 mg PO Q6 PRN PRN Reason: Headache Last Admin: 10/02/17 15:33 Dose: 650 mg Aspirin (Ecotrin) 81 mg PO 0800 [facility] Last Admin: 10/06/17 08:19 Dose: 81 mg Baclofen (Lioresal) 30 mg PO HS [facility] Last Admin: 10/05/17 21:13 Dose: Not Given Bisacodyl (Dulcolax) 5 mg PO BID PRN PRN Reason: Constipation Last Admin: 10/06/17 09:27 Dose: 5 mg Cyclobenzaprine HCl (Flexeril) 5 mg PO BID [facility] Last Admin: 10/06/17 13:19 Dose: 5 mg Diltiazem HCl (Cardizem Cd) 180 mg PO DAILY [facility] Last Admin: 10/06/17 09:27 Dose: 180 mg Docusate Sodium (Colace) 100 mg PO BID [facility] Last Admin: 10/06/17 09:27 Dose: 100 mg Famotidine (Pepcid) 20 mg PO HS [facility] Last Admin: 10/05/17 21:13 Dose: 20 mg Ferrous Gluconate (Fergon) 324 mg PO TID [facility] Last Admin: 10/06/17 13:20 Dose: 324 mg Furosemide (Lasix) 40 mg PO BID [facility] Last Admin: 10/06/17 09:28 Dose: 40 mg Guaifenesin/Dextromethorphan (Robitussin Dm) 5 ml PO Q4H PRN PRN Reason: Cough Last Admin: 10/06/17 09:32 Dose: 5 ml Heparin Sodium/Sodium Chloride (Heparin 92115 Units/250ml 1/2 Normal Saline) 25 ,000 units in 250 mls @ 14.288 mls/hr IV .[id number] PRN; Protocol; 10 UNITS/KG/HR PRN Reason: ADJUST RATE PER PROTOCOL Last Admin: 10/06/17 06:56 Dose: 9.58 units/kg/hr, 13.688 mls/hr Insulin Human Regular (Humulin R Low) 0 units SC ACHS [facility] PRN Reason: Protocol Last Admin: 10/06/17 12:32 Dose: Not Given Levalbuterol HCl (Xopenex) 1.25 mg IH [id number] PRN PRN Reason: Shortness of Breath Levothyroxine Sodium (Synthroid) 25 mcg PO 0600 [facility] Last Admin: 10/06/17 05:46 Dose: 25 mcg Lidocaine (Lidoderm) 1 ea TD DAILY [facility] Last Admin: 10/06/17 09:28 Dose: 1 ea Magnesium Oxide (Mag-Ox) 400 mg PO DAILY [facility] Last Admin: 10/06/17 09:32 Dose: 400 mg Morphine Sulfate (Morphine) 4 mg IVP Q4H PRN PRN Reason: pain 8-10 Last Admin: 10/03/17 13:14 Dose: 4 mg Nicotine (Nicoderm Cq) 1 patch TD DAILY [facility] Last Admin: 10/06/17 09:28 Dose: 1 patch Pantoprazole Sodium (Protonix Ec Tab) 20 mg PO 0630 [facility] Last Admin: 10/06/17 05:46 Dose: 20 mg Polyethylene Glycol (Miralax) 17 gm PO BID [facility] Last Admin: 10/06/17 09:31 Dose: 17 gm Pregabalin (Lyrica) 50 mg PO BID [facility] Last Admin: 10/06/17 09:36 Dose: Not Given Vitamin B Complex/Vit C/Folic Acid (Nephro-Benjamin) 1 tab PO 0800 [facility] Last Admin: 10/06/17 08:19 Dose: 1 tab Warfarin Sodium (Coumadin) 10 mg PO 1800 [facility] PRN Reason: Protocol - Labs Labs: 10/06/17 06:40 10/06/17 06:40 PT 14.2 SECONDS (9.4-12.5) H 10/06/17 06:40 INR 1.23 (0.93-1.08) H 10/06/17 06:40 APTT 52.5 Seconds (25.1-36.5) H 10/03/17 06:25
--- NOTE | 2017-10-06 22:54 | PN ---
DATE: 10/06/2017 PULMONARY PROGRESS NOTE REFERRING PHYSICIAN: Sav Hernandez MD. SUBJECTIVE: Patient is sitting at the side of the bed, having lunch. Night was unremarkable. Slept well. No nausea, no vomiting, no diarrhea. Has low back pain. Leg swelling is better. OBJECTIVE: GENERAL: In no acute distress. VITAL SIGNS: Temperature is 98, heart rate 56, respiratory rate is 20, blood pressure 143/75, pulse ox 98% on room air. HEENT: Moist mucous membrane. Crowded airway. NECK: Supple. No JVD. LUNGS: Have a fair airflow with rhonchi. HEART: S1 and S2. ABDOMEN: Soft, nontender, no organomegaly. EXTREMITIES: Does have trace edema. NEUROLOGIC: Awake, alert, and follows simple command. MEDICATIONS: He is on Cardizem CD 180 mg daily, Colace 100 mg twice a day, Coumadin 10 mg will be given, Dulcolax 5 mg twice a day p.r.n., Ecotrin 81 mg daily, ferrous gluconate 325 mg three times a day, Flexeril 5 mg twice a day, heparin IV insulin coverage, Lasix 40 mg twice a day, lidocaine patch affected area daily, baclofen 30 mg at nighttime, Lyrica 50 mg twice a day, magnesium oxide 400 mg daily, MiraLax 17 g twice a day, morphine 4 mg IV every 4 hour p.r.n., Nephro vitamins daily, Nicoderm patch daily, Pepcid 20 mg at nighttime, Protonix 20 mg daily, Robitussin DM 5 mL every 4 hour p.r.n., Synthroid 25 mcg daily, Tylenol p.r.n. LABORATORY DATA: Shows hemoglobin 11.2, hematocrit 37.3, WBC 5, platelet is 216. INR 1.23. Sodium 136, potassium 4.9, chloride 95, bicarbonate 26, BUN 66, creatinine 2.3, glucose 174, calcium is 10. IMPRESSION AND PLAN: Severe cardiomyopathy with heart failure, chronic obstructive lung disease, morbid obesity, suspected sleep apnea syndrome, hypertension, diabetes, cirrhotic liver, portal hypertension, noncompliant with the medication, and CPAP. I have long discussion with the patient about sleep apnea is linked to cardiomyopathy. He expressed understanding and we will try to have a separate study upon discharge as outpatient. 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 Thank you and we will follow with you. Farhan Chavira MD [facility] # [id number]
[2017-10-07] MEDS: Heparin25000 units/250ml 1/2NS 25,000 UNITS/250 ML BAG IV PRN ×2 (05:17→22:20)
[2017-10-07] MEDS: Levothyroxine 25 MCG TAB PO SCH (06:53)
[2017-10-07] MEDS: Pantoprazole 20 mg EC Tab PO SCH (06:53)
[2017-10-07] MEDS: guaiFENesin DM 100 mg-10 mg/5 ml UD PO PRN (06:54)
[2017-10-07] MEDS: Insulin Reg-LOW-Coverage SC SCH ×4 (07:37→21:44)
[2017-10-07 07:41] LABS: INR 1.38 (0.93-1.08)
[2017-10-07] MEDS: Multivitamin Vitamin B Complex (Nephro-Vite) Tab PO SCH (08:07)
[2017-10-07] MEDS: diltiaZEM 180 mg/24 Hours CD Cap PO SCH (09:55)
[2017-10-07] MEDS: Lidocaine 5% Patch TD SCH (09:57)
[2017-10-07] MEDS: Magnesium Oxide 400 mg Tab UD PO SCH (09:57)
[2017-10-07] MEDS: POLYETHYLENE GLYCOL 3350 17 GM/Dose PACKET PO SCH ×2 (09:57→18:18)
--- NOTE | 2017-10-07 10:14 | CP.PCM.PN ---
Subjective - Date & Time of Evaluation Date of Evaluation: 10/07/17 Time of Evaluation: 09:00 - Subjective Subjective: S&E at bedside, chart reviewed, no acute overnight event as per nursing. Patient asleep in bed but easly arousable. Had a BM yesterday, reports it appears dark, pt contributes that to being on Iron. Remain on Heparin drip- Coumadin bridge. No compliants. Patient reported to have a very good appetite, even requesting extra portions. Objective - Vital Signs/Intake and Output Vital Signs (last 24 hours): Temp Pulse Resp BP Pulse Ox 96.0 F L 81 20 131/91 H 96 10/07/17 05:43 10/07/17 05:43 10/07/17 05:43 10/07/17 05:43 10/07/17 05:43 Intake and Output: 10/07/17 10/07/17 06:59 18:59 Intake Total 730 840 Balance 730 840 - Medications Medications: Current Medications Acetaminophen (Tylenol 325mg Tab) 650 mg PO Q6 PRN PRN Reason: Headache Last Admin: 10/02/17 15:33 Dose: 650 mg Aspirin (Ecotrin) 81 mg PO 0800 [facility] Last Admin: 10/07/17 08:06 Dose: 81 mg Baclofen (Lioresal) 30 mg PO HS [facility] Last Admin: 10/06/17 21:05 Dose: Not Given Bisacodyl (Dulcolax) 5 mg PO BID PRN PRN Reason: Constipation Last Admin: 10/06/17 09:27 Dose: 5 mg Cyclobenzaprine HCl (Flexeril) 5 mg PO BID [facility] Last Admin: 10/06/17 17:56 Dose: 5 mg Diltiazem HCl (Cardizem Cd) 180 mg PO DAILY [facility] Last Admin: 10/06/17 09:27 Dose: 180 mg Docusate Sodium (Colace) 100 mg PO BID [facility] Last Admin: 10/06/17 17:55 Dose: 100 mg Famotidine (Pepcid) 20 mg PO HS [facility] Last Admin: 10/06/17 21:03 Dose: 20 mg Ferrous Gluconate (Fergon) 324 mg PO TID [facility] Last Admin: 10/06/17 17:56 Dose: 324 mg Furosemide (Lasix) 40 mg PO BID [facility] Last Admin: 10/06/17 17:56 Dose: 40 mg Guaifenesin/Dextromethorphan (Robitussin Dm) 5 ml PO Q4H PRN PRN Reason: Cough Last Admin: 10/07/17 06:54 Dose: 5 ml Heparin Sodium/Sodium Chloride (Heparin 16982 Units/250ml 1/2 Normal Saline) 25 ,000 units in 250 mls @ 14.288 mls/hr IV .[id number] PRN; Protocol; 10 UNITS/KG/HR PRN Reason: ADJUST RATE PER PROTOCOL Last Admin: 10/07/17 05:17 Dose: 9.58 units/kg/hr, 13.688 mls/hr Insulin Human Regular (Humulin R Low) 0 units SC ACHS [facility] PRN Reason: Protocol Last Admin: 10/07/17 07:37 Dose: Not Given Levalbuterol HCl (Xopenex) 1.25 mg IH [id number] PRN PRN Reason: Shortness of Breath Levothyroxine Sodium (Synthroid) 25 mcg PO 0600 [facility] Last Admin: 10/07/17 06:53 Dose: 25 mcg Lidocaine (Lidoderm) 1 ea TD DAILY [facility] Last Admin: 10/06/17 09:28 Dose: 1 ea Magnesium Oxide (Mag-Ox) 400 mg PO DAILY [facility] Last Admin: 10/06/17 09:32 Dose: 400 mg Morphine Sulfate (Morphine) 4 mg IVP Q4H PRN PRN Reason: pain 8-10 Last Admin: 10/03/17 13:14 Dose: 4 mg Nicotine (Nicoderm Cq) 1 patch TD DAILY [facility] Last Admin: 10/06/17 09:28 Dose: 1 patch Pantoprazole Sodium (Protonix Ec Tab) 20 mg PO 0630 [facility] Last Admin: 10/07/17 06:53 Dose: 20 mg Polyethylene Glycol (Miralax) 17 gm PO BID [facility] Last Admin: 10/06/17 17:56 Dose: 17 gm Pregabalin (Lyrica) 50 mg PO BID [facility] Last Admin: 10/06/17 17:34 Dose: Not Given Vitamin B Complex/Vit C/Folic Acid (Nephro-Benjamin) 1 tab PO 0800 [facility] Last Admin: 10/07/17 08:07 Dose: 1 tab Warfarin Sodium (Coumadin) 10 mg PO 1800 [facility] PRN Reason: Protocol Last Admin: 10/06/17 17:55 Dose: 10 mg - Labs Labs: 10/06/17 06:40 10/06/17 06:40 PT 16.0 SECONDS (9.4-12.5) H 10/07/17 07:00 INR 1.38 (0.93-1.08) H 10/07/17 07:00 APTT 52.5 Seconds (25.1-36.5) H 10/03/17 06:25 - Constitutional Appears: No Acute Distress - Head Exam Head Exam: NORMOCEPHALIC - Eye Exam Eye Exam: Normal appearance. absent: Scleral icterus - ENT Exam ENT Exam: Mucous Membranes Moist - Neck Exam Neck Exam: Normal Inspection - Respiratory Exam Respiratory Exam: NORMAL BREATHING PATTERN. absent: Respiratory Distress - Cardiovascular Exam Cardiovascular Exam: +S1, +S2 - GI/Abdominal Exam GI & Abdominal Exam: Soft, Normal Bowel Sounds. absent: Guarding, Tenderness, Rebound - Extremities Exam Extremities Exam: absent: Calf Tenderness - Neurological Exam Neurological Exam: Alert, Awake, Oriented x3 - Skin Skin Exam: Dry, Warm Assessment and Plan - Assessment and Plan (Free Text) Assessment: Assessment: Decompensated Cirrhosis likely secondary to CHF, CKD, KISER, Hepatitis panel negative Severe dilated cardiomyopathy, noncompliant with Lasix Chronic severe systolic CHF LVEF 25 % Atrial Fibrillation, non compliants with anticoagulation Ascites NIDDM BRIAN on CPAP COPD Morbid obesity HTN Plan: monitor H/H and for overt GI bleeding on heparin drip with Coumadin Bridge continue bowel regimen, on Miralax and colace, dulcolax PRN Cont diuresis as responding well, monitor I&O, daily weight Needs outpatient EGD to r/o varices as well as colonoscopy, patient is aware of recommendations. Vaccine for Hep A and B as outpatient Outpatient paracentesis for new onset ascites Patient evaluated by Dr. Richardson recommend diuresis and reassess response. Appreciate IR recommendations. Seen and discussed with Dr. Razo
--- NOTE | 2017-10-07 11:42 | PN ---
DATE: 10/06/2017 SUBJECTIVE: The patient seems doing better. He is moving better, his pain is improved, but still there, but much better today at 80%. The patient is less sleepy today. He did not take any muscle relaxant last night and he was doing well. The patient will be going home on Tuesday and the patient has been informed. The patient had a bowel movement, his belly is better, his leg edema is gone. PHYSICAL EXAMINATION: VITAL SIGNS: Temperature 97.6, heart rate 56, blood pressure 143/75, respirations 20, sat 98% on room air. HEAD AND NECK: Normal. NECK: No JVD, no thyromegaly. CHEST: Clear bilaterally. CARDIAC: First sound and second sound normal. ABDOMEN: Soft, obese, nontender. EXTREMITIES: No edema. NEUROLOGICAL: Normal. CURRENT MEDICATIONS: Cardizem 180, Colace 100 b.i.d., Coumadin 10 mg tonight, Dulcolax 5 mg b.i.d. p.r.n., aspirin 81 mg once a day, ferrous gluconate 325 mg t.i.d., Flexeril 5 mg b.i.d. and decreased, heparin IV continue. Repeat INR 1.8. Lasix 40 b.i,d.; lidocaine cream; Lidoderm; baclofen, he did not take it last night; Lyrica 50 b.i.d.; magnesium 400 p.o. daily, MiraLax, morphine 4 mg p.r.n., vitamin B complex, nicotine patch, Pepcid 20 mg, Protonix 40 once a day, levothyroxine for hypothyroidism 25 mcg, Tylenol p.r.n. Continue Xopenex 4 times a day. IMPRESSION AND PLAN: 1. Acute systolic heart failure, etiology could be nonischemic cardiomyopathy, valvular heart disease. Continue Lasix. 2. Renal insufficiency, chronic with acute worsening. 3. Diabetes type 2. Continue current management. The patient should get diabetic education, glucometer and also understand the compliance with the diet and the low-carbohydrate diet. 4. Atrial fibrillation. Continue PT/INR, he will get 10 mg of Coumadin today and repeat PT/INR in the morning. Risk of the stroke has been explained to the patient and necessity of compliance is explained to the patient. 5. Hypertension, stable. 6. Morbid obesity, possible obstructive sleep apnea, needs further evaluation for sleep apnea. 7. Chronic neck pain, chronic back pain, anemia. Continue current management. Continue current therapy. The patient has problem getting his prescription filled, his sister will be helping him and he should follow up in the office within a week. The patient will be going home on Tuesday. Continue current therapy. Sav Hernandez MD
--- NOTE | 2017-10-07 14:49 | CP.PCM.PN ---
Subjective - Date & Time of Evaluation Date of Evaluation: 10/07/17 Time of Evaluation: 14:49 - Subjective Subjective: Nephrology Consultation Note: Assessment: stable CHF with cirrhosis and ascites back pain Anemia LYDIA, likely hemodynamic, cardiorenal syndrome Chronic Kidney Disease Stage 3 (N18.3) with 170 mg proteinuria and 32 mg albuminuria with baseline cr 1.2-1.5 mg/dL type 2 diabetes Mellitus ( x 1 year), HTN, morbid obesity, BRIAN on CPAP, chronic severe systolic CHF LVEF 25%, cirrhosis/splenomegaly/ascites with portal HTN changes on CT scan, active smoker Hypothyroidism Vit D def, hypercalcemia likely result of hemoconcentration due to diuretics Plan No acute need for renal replacement therapy at this time. Hypertension control with meds as ordered. Patient was on RAAS harshal as aldactone and losartan , will hold both due to rise in cr. resume losartan at d/ c continue diuresis with lasix 40 mg bid Monitor I/O, daily weights and renal function. oral fluid restriction to 1000 mL /day iron supplements (Pt refused IV iron) and MVI. consider SCAR if Hb <10 will supplement Vit D once hypercalcemia better GI, pulmonary following, seen by cardiology Dose meds/antibiotics for reduced GFR. Avoid fleets enema/magnesium based laxatives. Avoid nephrotoxins/NSAIDs/ iodinated contrast (unless needed emergently) Glycemic control, smoking cessation, weight loss, lifestyle modifications Further work up for as per primary team. pt stable from renal perspective for d/c when planned. pt was advised to f/up renal office 1-2 weeks Thanks for allowing me to participate in care of your patient. Please call if any Qs. had d/w team Dr Chuck Joy Office: [phone] Chief Complaint; back pain reason for consult: LYDIA on CKD HPI: Pt is a 57 y/o M with hx of type 2 diabetes Mellitus ( x 1 years), HTN, CKD stage 3 with baseline serum cr 1.2-1.5 in 2017, morbid obesity, BRIAN on CPAP , chronic severe systolic CHF LVEF 25%, cirrhosis/splenomegaly with portal HTN changes in CT scan, active smoker came with back pain and worsening SOB, diuresed well and transferred to TCU. renal consult for CKD management. Denies chest pain, palpitation, shortness of breath. c/o back pain but better Denies OTC/herbal meds/NSAIDs No recent iodinated contrast exposure. no episode of low BP smoker 1/2 PPD. quit alcohol 20 years ago ROS: denies CP/nausea/vomiting/pain abdomen. improved back pain rest other negative except as mentioned in HPI Physical Examination: General Appearance: Comfortable, in no acute respiratory distress, co- operative. obese Vitals reviewed and noted as below Head; Atraumatic, normocephalic ENT: no ulcers no thrush. Tongue is midline. Oropharynx: no rash or ulcers. EYES: Pupils are equal, round and reactive to light accommodation. Eye muscles and extraocular movement intact. Sclera is anicteric. Neck; supple no lymphadenopathy, no thyromegaly or bruit Lungs: Normal respiratory rate/effort. Breath sounds clear b/l anteriorly Heart: Normal rate. s1s2 normal. No rub or gallop. Extremities: no edema. No varicose veins Neurological: Patient is alert, awake and oriented x 3 no focal deficit Skin: dry and warm. Normal turgor. No rash. Palpitation: Normal elasticity for age Abdomen: Abdomen is distended with ascites which is better. soft non tender no apparent organomegaly but exam limited Psych: normal insight. normal affect/mood MSK: no specific joint tenderness or swelling. Digits and nails normal, no deformity : kidney or bladder not palpable. Labs/imaging/EKG reviewed. Past medical history, past surgical history, social history, allergy reviewed and noted as below Family hx; no hx of CKD. non contributory work up CT: cirrhosis, ascites. normal for adrenals and kidneys echo LVEF 25% urine alb/cr 32 pr/cr 170 Vit D 18 PTH 63 TSAT 4% Ferritin 140 SPEP/ADRIAN neg, [place]/lambda WNL Objective - Vital Signs/Intake and Output Vital Signs (last 24 hours): Temp Pulse Resp BP Pulse Ox 96.0 F L 81 20 131/91 H 96 10/07/17 05:43 10/07/17 05:43 10/07/17 05:43 10/07/17 09:57 10/07/17 05:43 Intake and Output: 10/07/17 10/07/17 06:59 18:59 Intake Total 730 840 Balance 730 840 - Medications Medications: Current Medications Acetaminophen (Tylenol 325mg Tab) 650 mg PO Q6 PRN PRN Reason: Headache Last Admin: 10/02/17 15:33 Dose: 650 mg Aspirin (Ecotrin) 81 mg PO 0800 [facility] Last Admin: 10/07/17 08:06 Dose: 81 mg Baclofen (Lioresal) 30 mg PO HS [facility] Last Admin: 10/06/17 21:05 Dose: Not Given Bisacodyl (Dulcolax) 5 mg PO BID PRN PRN Reason: Constipation Last Admin: 10/06/17 09:27 Dose: 5 mg Cyclobenzaprine HCl (Flexeril) 5 mg PO BID [facility] Last Admin: 10/07/17 09:56 Dose: 5 mg Diltiazem HCl (Cardizem Cd) 180 mg PO DAILY [facility] Last Admin: 10/07/17 09:55 Dose: 180 mg Docusate Sodium (Colace) 100 mg PO BID [facility] Last Admin: 10/07/17 09:56 Dose: 100 mg Famotidine (Pepcid) 20 mg PO HS [facility] Last Admin: 10/06/17 21:03 Dose: 20 mg Ferrous Gluconate (Fergon) 324 mg PO TID [facility] Last Admin: 10/07/17 13:28 Dose: 324 mg Furosemide (Lasix) 40 mg PO BID [facility] Last Admin: 10/07/17 09:57 Dose: 40 mg Guaifenesin/Dextromethorphan (Robitussin Dm) 5 ml PO Q4H PRN PRN Reason: Cough Last Admin: 10/07/17 06:54 Dose: 5 ml Heparin Sodium/Sodium Chloride (Heparin 06819 Units/250ml 1/2 Normal Saline) 25 ,000 units in 250 mls @ 14.288 mls/hr IV .[id number] PRN; Protocol; 10 UNITS/KG/HR PRN Reason: ADJUST RATE PER PROTOCOL Last Admin: 10/07/17 05:17 Dose: 9.58 units/kg/hr, 13.688 mls/hr Insulin Human Regular (Humulin R Low) 0 units SC ACHS [facility] PRN Reason: Protocol Last Admin: 10/07/17 11:40 Dose: Not Given Levalbuterol HCl (Xopenex) 1.25 mg IH [id number] PRN PRN Reason: Shortness of Breath Levothyroxine Sodium (Synthroid) 25 mcg PO 0600 [facility] Last Admin: 10/07/17 06:53 Dose: 25 mcg Lidocaine (Lidoderm) 1 ea TD DAILY [facility] Last Admin: 10/07/17 09:57 Dose: 1 ea Losartan Potassium (Cozaar) 50 mg PO DAILY [facility] Magnesium Oxide (Mag-Ox) 400 mg PO DAILY [facility] Last Admin: 10/07/17 09:57 Dose: 400 mg Morphine Sulfate (Morphine) 4 mg IVP Q4H PRN PRN Reason: pain 8-10 Last Admin: 10/03/17 13:14 Dose: 4 mg Nicotine (Nicoderm Cq) 1 patch TD DAILY [facility] Last Admin: 10/07/17 09:57 Dose: 1 patch Pantoprazole Sodium (Protonix Ec Tab) 20 mg PO 0630 [facility] Last Admin: 10/07/17 06:53 Dose: 20 mg Polyethylene Glycol (Miralax) 17 gm PO BID [facility] Last Admin: 10/07/17 09:57 Dose: 17 gm Pregabalin (Lyrica) 50 mg PO BID [facility] Last Admin: 10/07/17 10:05 Dose: Not Given Vitamin B Complex/Vit C/Folic Acid (Nephro-Benjamin) 1 tab PO 0800 [facility] Last Admin: 10/07/17 08:07 Dose: 1 tab Warfarin Sodium (Coumadin) 10 mg PO 1800 [facility] PRN Reason: Protocol Last Admin: 10/06/17 17:55 Dose: 10 mg - Labs Labs: 10/06/17 06:40 10/06/17 06:40 PT 16.0 SECONDS (9.4-12.5) H 10/07/17 07:00 INR 1.38 (0.93-1.08) H 10/07/17 07:00 APTT 52.5 Seconds (25.1-36.5) H 10/03/17 06:25
[2017-10-07 17:03] VITALS: BP 112/83; PULSE 59; RESP 18; TEMP 97.6; O2SAT 98
--- NOTE | 2017-10-07 18:26 | PN ---
DATE: 10/07/2017 PULMONARY PROGRESS NOTE REFERRING PHYSICIAN: Sav Hernandez MD SUBJECTIVE: He is sitting side of the bed. Night was unremarkable, feels better, doing well in therapy. No headache, no rhinitis. No nausea, no vomiting, no diarrhea. No more leg swelling. OBJECTIVE: GENERAL: In no acute distress. VITAL SIGNS: Temperature is 98, heart rate is 81, respiratory rate is 20, blood pressure 131/91, pulse ox 96% on room air. HEENT: Moist mucous membrane. No ulcer or thrush noted. NECK: Supple. No JVD. LUNGS: Fair airflow with rhonchi. HEART: S1 and S2. ABDOMEN: Soft, nontender. No organomegaly. EXTREMITIES: There is no edema. NEUROLOGIC: Awake, alert, and follows simple command. MEDICATIONS: He is on Cardizem CD 180 mg daily, Colace 100 mg twice a day, Coumadin 10 mg will be given today, Cozaar 50 mg daily, Dulcolax 5 mg every 12 hours p.r.n., Ecotrin 81 mg daily, ferrous gluconate 325 mg 3 times a day, Flexeril 5 mg twice a day, heparin weight-based protocol, insulin coverage, Lasix 40 mg twice a day, lidocaine patch daily, baclofen 30 mg at bedtime, Lyrica 50 mg twice a day, mag oxide 400 mg daily, MiraLax 17 g twice a day, morphine 4 mg every 4 hours p.r.n., Nephro vitamins daily, Nicoderm patch daily, Pepcid 20 mg at bedtime, Protonix 20 mg daily, Robitussin DM 5 mL every 6 hours p.r.n., Synthroid 5 mcg p.o. daily, Tylenol p.r.n., Xopenex 1.25 mg every 6 hours p.r.n. LABORATORY DATA: Shows INR 1.34. Blood sugar is 131. IMPRESSION AND PLAN: Severe cardiomyopathy with heart failure, chronic obstructive lung disease, morbid obesity, suspected sleep apnea syndrome, hypertension, diabetes, cirrhotic liver, portal hypertension, noncompliant with the medication and continuous positive airway pressure. Chronic pain syndrome with lumbar radiculopathy. Pulmonary point of view, doing okay. Continue bronchodilator. Sleep apnea precaution, avoid sedation. Recommended sleep study upon discharge as outpatient. Pain management. Follow up INR. Thank you and we will follow with you. Farhan Chaviar MD [facility] # [id number]
[2017-10-08] MEDS: Pantoprazole 20 mg EC Tab PO SCH (05:55)
[2017-10-08] MEDS: Levothyroxine 25 MCG TAB PO SCH (05:56)
[2017-10-08] MEDS: guaiFENesin DM 100 mg-10 mg/5 ml UD PO PRN (05:58)
[2017-10-08] MEDS: Insulin Reg-LOW-Coverage SC SCH (06:33)
[2017-10-08] MEDS: Multivitamin Vitamin B Complex (Nephro-Vite) Tab PO SCH (07:48)
[2017-10-08 08:56] LABS: INR 1.64 (0.93-1.08); PROTHROMBIN TIME 19.1 SECONDS (9.4-12.5)
--- NOTE | 2017-10-10 02:44 | PN ---
DATE: 10/07/2017 SUBJECTIVE: The patient has been seen, he has no distress. He wants to go home. Patient still doing PT/INR and his Coumadin will be given 10 mg today. PHYSICAL EXAMINATION: VITAL SIGNS: As follows, on 10/07/2017, temperature 97.6, heart rate 59, respirations 18, saturation 98%, blood pressure 112/83. HEAD AND NECK: Normal. No JVD, no thyromegaly. CHEST: Clear bilaterally. CARDIAC: First sound and second sound normal. No murmur, rub or gallop. ABDOMEN: Soft, nontender, obese. EXTREMITIES: No edema bilaterally. NEUROLOGICAL: Normal. LABORATORY DATA: The patient had PT/INR, which shows PT was 16, INR 1.38, which is slightly elevated. We will give 10 mg Coumadin. Repeat PT/INR in the morning. IMPRESSION AND PLAN: 1. Acute congestive heart failure on top of chronic. We will continue current medication. Continue diuresis and patient getting Lasix 40 mg b.i.d. and continue Cozaar 50 mg p.o. daily. 2. Chronic atrial fibrillations. Continue Cardizem, Coumadin. Follow up clinically. 3. Chronic back pain. We will continue Lyrica, Flexeril and we will follow up on that. 4. Hypertension, seems stable on Cozaar. Continue aspirin 81 mg and follow up clinically. 5. Chronic constipation. Continue magnesium oxide, MiraLax and seems moving his bowel good, there is no problem there. 6. Diabetes. His sugar seems very good, 130, 120s. We will manage that as outpatient. Dietary consult. Diet control. We will follow up. Patient may consider Onglyza as outpatient. We will see how he will do. 7. Ascites, cardiac cirrhosis. Continue diuretics, seems better. 8. Pulmonary hypertension, stable. 9. 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 Plan to continue current medications. 10. Hypothyroidism. Continue Synthroid 25 mcg once a day. 11. Anemia, unstable. No active bleeding, seems doing well. Plan to continue current medication. Repeat PT/INR in the morning and we will consider to discharge the patient if PT/INR is in therapeutic range. CURRENT MEDICATIONS: Cardizem CD 180 once a day, Colace 100 b.i.d., Coumadin 5 mg was given every night except for tonight 10 mg, if needed tomorrow also, Cozaar 50 mg, Dulcolax 5 mg b.i.d. p.r.n., aspirin 81 mg once a day, iron pills 325 b.i.d., Flexeril 5 mg b.i.d., his heparin IV Infusions, insulin coverage, blood sugar , Lasix 40 b.i.d., Lidoderm patch once topically, baclofen he held foff because it was making him dizzy, sleepy, Lyrica 50 b.i.d., magnesium oxide 400 mg p.o. daily, morphine 4 mg IV p.r.n., multivitamins, Nicoderm CQ once a day, Pepcid 20, Protonix 20, Robitussin DM, Synthroid 25 mcg, Tylenol p.r.n., Xopenex four times daily. Continue current therapy. Follow up clinically. Sav Hernandez MD
--- NOTE | 2017-10-10 19:34 | DS ---
HISTORY OF PRESENT ILLNESS: Patient was admitted for initially acute congestive heart failure, cardiac cirrhosis. Patient was given IV Lasix. He lost almost close to 20 pounds of water with improvement in his breathing and improvement in his ascites and improvement in his leg edema. Patient also was having nausea and vomiting. He improved in that and patient was found to have atrial fibrillation, who was on IV heparin and Coumadin and monitoring his PT/INR. During hospitalization in TCU, he mainly complained of back pain, which has been addressed by the multiple medications. He did have a history of surgery with screws and plates. However, patient improved with medications. A side effect of baclofen make him sleepy, we stopped it and seems responding well and able to walk around. Patient wants to go home. He has to pay the rent on time and he will be discharged. However, his PT/INR is still subtherapeutic is better, but still he need 10 mg Coumadin on the day of discharge and 5 mg every night at 5:06 p.m. daily, Tuesday morning we will need to get a PT/INR. Patient has no other complaints. PHYSICAL EXAMINATION: GENERAL: No changes from previous one. HEAD AND NECK: Normal. VITAL SIGNS: Stable. Temperature 97.6, heart rate 59, blood pressure 112/83, respirations 18, saturation 98%. LUNGS: Clear. ABDOMEN: Soft, nontender, obese. EXTREMITIES: No edema. NEUROLOGIC: Normal. LABORATORY DATA: His PT/INR 19.1, INR 1.64. DISCHARGE DIAGNOSES: 1. Atrial fibrillations, chronic probably secondary to cardiomyopathy. Continue Coumadin, he will receive 10 mg today and 5 mg after repeat PT/INR on Tuesday. I advised the patient to stay. He wants to go home to pay the rent. He needs to get salter and because of the circumstances, patient will need to sign against medical advice to do what he wants. 2. Acute systolic heart failure on top of chronic non-ischemic cardiomyopathy. 3. Patient had pulmonary hypertension. 4. Morbid obesity. 5. Cardiac cirrhosis with ascites. 6. Anemia. 7. Chronic back pain with hardware implants. 8. He also had hypothyroidism. Continue Synthroid. 9. Tobacco addictions. 10. Constipation. 11. Diabetes type 2, on diet. PLAN: Discharge the patient home. Follow up clinically as outpatient. MEDICATIONS ON DISCHARGE: All prescriptions were given to the [facility] in the first floor. Cardizem CD 180 mg daily; Colace b.i.d.; Coumadin 5 mg starting on Tuesday and the patient received 10 mg Coumadin on the day of discharge; Cozaar 50 mg daily; Dulcolax 5 mg b.i.d.; aspirin 81 mg once a day, he will buy it, not prescriptions; iron pills 324 mg b.i.d.; Flexeril 5 mg b.i.d.; Lasix 40 b.i.d.; Lidoderm patch, expensive, but was given an option to get it; Lyrica 50 b.i.d.; mag oxide once a day; MiraLax b.i.d.; oxycodone 5/325 every 6 hour p.r.n.; vitamin B complex once a day; NicoDerm CQ once a day; Pepcid 20 once a day; Protonix 20 once a day; Synthroid 25 mcg once a day; Tylenol 325 two tabs b.i.d. p.r.n. Follow up in the office on Tuesday. Repeat PT/INR on Tuesday morning. Sav Hernandez MD
== END 2017-10-08 10:22 | disposition left against medical advice (07) | DRG 291 ==
LOC: TRCU 15:29
PROVIDERS: ADMIT Internal Medicine; ATTEND Internal Medicine
PROC: F07Z9ZZ Gait Training/Functional Ambulation Treatment (ICD-10-PCS; principal; 2017-10-02)
PROC: F08Z1ZZ Dressing Techniques Treatment (ICD-10-PCS; 2017-10-04)
PROC: F08Z2ZZ Grooming/Personal Hygiene Treatment (ICD-10-PCS; 2017-10-04)
PROC: F07L6ZZ Therapeutic Exercise Treatment of Musculoskeletal System - Lower Back / Lower Extremity (ICD-10-PCS; 2017-10-05)
DX: I13.0 Hypertensive heart and chronic kidney disease with heart failure and stage 1 through stage 4 chronic kidney disease, or unspecified chronic kidney disease (principal); I50.23 Acute on chronic systolic (congestive) heart failure; R18.8 Other ascites; K76.6 Portal hypertension; N17.9 Acute kidney failure, unspecified; I42.0 Dilated cardiomyopathy; I27.20 Pulmonary hypertension, unspecified; E11.22 Type 2 diabetes mellitus with diabetic chronic kidney disease; N18.3 Chronic kidney disease, stage 3 (moderate); K76.1 Chronic passive congestion of liver; I48.2 Chronic atrial fibrillation; J44.9 Chronic obstructive pulmonary disease, unspecified; D50.9 Iron deficiency anemia, unspecified; E55.9 Vitamin D deficiency, unspecified; E03.9 Hypothyroidism, unspecified; E78.00 Pure hypercholesterolemia, unspecified; F17.200 Nicotine dependence, unspecified, uncomplicated; G47.33 Obstructive sleep apnea (adult) (pediatric); E83.52 Hypercalcemia; T50.2X5A Adverse effect of carbonic-anhydrase inhibitors, benzothiadiazides and other diuretics, initial encounter; K74.60 Unspecified cirrhosis of liver; R16.1 Splenomegaly, not elsewhere classified; K59.03 Drug induced constipation; T40.605A Adverse effect of unspecified narcotics, initial encounter; M54.16 Radiculopathy, lumbar region; M19.90 Unspecified osteoarthritis, unspecified site; G89.4 Chronic pain syndrome; E66.01 Morbid (severe) obesity due to excess calories; Z68.35 Body mass index [BMI] 35.0-35.9, adult; Z79.4 Long term (current) use of insulin; Z91.14 Patient's other noncompliance with medication regimen; Z79.01 Long term (current) use of anticoagulants

== ENCOUNTER 2018-01-09 11:11 | Observation (INO) | payer MEDICARE, OTHER ==
[2018-01-09 11:12] VITALS: BMI 31.4
--- NOTE | 2018-01-09 12:00 | ED PDOC ---
Arrival/HPI - General Historian: Patient - History of Present Illness Narrative History of Present Illness (Text): 01/09/18 11:56 Patient is a 57 year old male with a past medical history including CHF, hypertension, diabetes and COPD is presenting to the emergency room with a co mplaint of headache, lightheadedness and dyspnea on exertion x 1 week. Patient was recently admitted for CHF on 12/18 and discharged on 12/26. He states that he saw Dr. Oliver a week ago and was started on multiple new medications. Soon after taking his medications he started to experience a headache. The headache is described as a feeling of a rubber band wrapping around his head. The headache is made worse with walking because he gets lightheaded and dizzy. He has not passed out. He also states that he is becoming short of breath more frequently. He is only able to walk two blocks before becoming SOB when he used to be able to walk much further. He abdomen is much more distended than usual. Denies fevers, chills, nausea, vomiting, photophobia, chest pain, abdominal pain, focal weakness, numbness or tingling. Time/Duration: > week Symptom Onset: Gradual Symptom Course: Unchanged Quality: Tightness Context: Walking <Luis Salazar - Last Filed: 01/09/18 13:18> <Paul Jimenez - Last Filed: 01/09/18 15:33> - General Chief Complaint: Headache Time Seen by Provider: 01/09/18 11:25 Past Medical History - Provider Review Nursing Documentation Reviewed: Yes - Infectious Disease Hx of Infectious Diseases: None - Tetanus Immunization Tetanus Immunization: Unknown - Cardiac Hx Cardiac Disorders: Yes Hx Congestive Heart Failure: Yes Hx Hypertension: Yes - Pulmonary Hx Respiratory Disorders: Yes Hx Chronic Obstructive Pulmonary Disease (COPD): Yes - Neurological Hx Neurological Disorder: No - HEENT Hx HEENT Disorder: Yes Hx Cataracts: Yes - Renal Hx Renal Disorder: No - Endocrine/Metabolic Hx Endocrine Disorders: Yes Hx Diabetes Mellitus Type 2: Yes - Hematological/Oncological Hx Blood Disorders: Yes Hx Anemia: Yes - Integumentary Hx Dermatological Disorder: No - Musculoskeletal/Rheumatological Hx Falls: No - Gastrointestinal Hx Gastrointestinal Disorders: Yes (hemorrhoids) - Genitourinary/Gynecological Hx Genitourinary Disorders: No - Psychiatric Hx Psychophysiologic Disorder: No Hx Substance Use: No - Surgical History Hx Orthopedic Surgery: Yes Other/Comment: spinal surgery - Anesthesia Hx Anesthesia Reactions: Yes Hx Malignant Hyperthermia: No - Suicidal Assessment Feels Threatened In Home Enviroment: No <Luis Salazar - Last Filed: 01/09/18 13:18> Family/Social History - Physician Review Nursing Documentation Reviewed: Yes Family/Social History: Unknown Family HX Smoking Status: Heavy Smoker > 10 Cigarettes Daily Hx Alcohol Use: No Hx Substance Use: No <Luis Salazar - Last Filed: 01/09/18 13:18> Allergies/Home Meds <Luis Salazar - Last Filed: 01/09/18 13:18> <Paul Jimenez - Last Filed: 01/09/18 15:33> Allergies/Adverse Reactions: Allergies No Known Allergies Allergy (Verified 09/26/17 14:41) Home Medications: Home Meds Medication Instructions Recorded Confirmed Aspirin [Adult Low Dose Aspirin EC] 81 mg PO DAILY 08/18/15 12/23/17 Losartan [Cozaar] 50 mg PO DAILY 08/18/15 12/23/17 Polyethylene Glycol 3350 [Miralax] 17 gm PO PRN PRN 12/18/17 12/23/17 metFORMIN [glucOPHAGE] 0 mg PO DAILY 12/18/17 12/23/17 Review of Systems - Physician Review All systems were reviewed & negative as marked: Yes - Review of Systems Constitutional: Normal. absent: Fatigue, Fevers Eyes: Normal. absent: Vision Changes ENT: Normal. absent: Sore Throat Respiratory: SOB (on exertion). absent: Cough Cardiovascular: ROSE, Orthopnea. absent: Chest Pain, Palpitations, Edema, Calf Pain, Syncope Gastrointestinal: Normal. absent: Abdominal Pain, Constipation, Diarrhea, Nausea, Vomiting Musculoskeletal: Normal Skin: Normal Neurological: Headache. absent: Focal Weakness Endocrine: Normal. absent: Diaphoresis Hemo/Lymphatic: Normal Psychiatric: Normal. absent: Anxiety <Luis Salazar - Last Filed: 01/09/18 13:18> Physical Exam Vital Signs Reviewed: Yes Vital Signs Temp Pulse Resp BP Pulse Ox 01/09/18 11:26 98.7 F 87 16 103/57 L 99 Temperature: Afebrile Blood Pressure: Hypotensive Pulse: Regular Respiratory Rate: Normal Appearance: Positive for: Non-Toxic, Comfortable Pain Distress: None Mental Status: Positive for: Alert and Oriented X 3 - Systems Exam Head: Present: Atraumatic, Normocephalic Pupils: Present: PERRL Extroacular Muscles: Present: EOMI Conjunctiva: Present: Normal Mouth: Present: Moist Mucous Membranes. No: Normal Teeth (missing many teeth) Nose (External): Present: Atraumatic Neck: Present: Normal Range of Motion, JVD Respiratory/Chest: Present: Clear to Auscultation, Good Air Exchange, Decreased Breath Sounds (bases b/l). No: Respiratory Distress, Accessory Muscle Use, Wheezes, Rales, Retracting, Rhonchi Cardiovascular: Present: Regular Rate and Rhythm, Normal S1, S2, Peripheal Pulses Present. No: Murmurs Abdomen: Present: Distention (+fluid wave). No: Tenderness, Peritoneal Signs, Rebound, Guarding Back: Present: Normal Inspection Upper Extremity: Present: Normal Inspection, NORMAL PULSES. No: Cyanosis, Edema Lower Extremity: Present: Normal Inspection, Edema (1+ pitting b/l), NORMAL PULSES. No: CALF TENDERNESS Neurological: Present: GCS=15, CN II-XII Intact, Speech Normal Skin: Present: Warm, Dry, Normal Color. No: Rashes Psychiatric: Present: Alert, Oriented x 3, Normal Insight, Normal Concentration <Luis Salazar - Last Filed: 01/09/18 13:18> Vital Signs Temp Pulse Resp BP Pulse Ox 01/09/18 12:45 79 16 113/61 01/09/18 11:26 98.7 F 87 16 103/57 L 99 <Paul Jimenez - Last Filed: 01/09/18 15:33> Medical Decision Making ED Course and Treatment: 01/09/18 12:37 Patient was recently admitted for a CHF exacerbation and discharged with multiple new medications, presenting with headache, lightheadedness and ROSE. Patient is very talkative and in good spirits, speaking in full sentences. Patient is hypotensive, which is believed to possibly be the cause of his lightheadedness/headache as a result of his new medications. Labs, CXR will continue to monitor 01/09/18 13:32 Reviewed labs. BNP elevated, but improved from recent BNP. Patient's headache improving without intervention. Discussed case with Dr. Oliver who has accepted patient onto her service for remote tele observation. Re-evaluation Time: 13:32 - Lab Interpretations I have reviewed the lab results: Yes - RAD Interpretation Narrative RAD Interpretations (Text): 01/09/18 13:32 CXR: No active disease. Radiology Orders: 01/09/18 11:52 CHEST PORTABLE [RAD] Stat Rn Research: Radiologist <Luis Salazar - Last Filed: 01/09/18 13:18> ED Course and Treatment: 01/09/18 15:32 Mild CHF, no SOB. CORDOVA is not worst of life, not sudden in onset. Normal neuro exam w/ out meningeal signs. Admitted to OBS under Dr. Mccoy service for further management of mild CHF and sub-therapeutic INR. ?compliance w/ meds. - Lab Interpretations Lab Results: 01/09/18 12:38 01/09/18 12:38 Lab Results 01/09/18 12:38: PT 16.7 H, INR 1.44, APTT 27.8 01/09/18 12:38: Sodium 138, Potassium 3.7, Chloride 98, Carbon Dioxide 28, Anion Gap 15, BUN 35 H, Creatinine 1.9 H, Est GFR ( Amer) 44, Est GFR (Non-Af Amer) 37, Random Glucose 121 H, Calcium 8.3 L, Magnesium 1.5 L, Total Bilirubin 1.0, AST 20, ALT 20, Alkaline Phosphatase 122, Troponin I 0.05 D, NT-Pro-B Natriuret Pep 5140 H, Total Protein 7.2, Albumin 3.8, Globulin 3.3, Albumin/Globulin Ratio 1.1 01/09/18 12:38: WBC 6.2 D, RBC 4.49, Hgb 10.3 L, Hct 33.7 L, MCV 75.1 L, MCH 22.9 L, MCHC 30.6 L, RDW 20.0 H, Plt Count 248, MPV 9.3, Gran % 73.3 H, Lymph % (Auto) 16.5 L, Bollinger % (Auto) 7.6 H, Eos % (Auto) 2.1, Baso % (Auto) 0.5, Gran # 4.52, Lymph # (Auto) 1.0 L, Bollinger # (Auto) 0.5, Eos # (Auto) 0.1, Baso # (Auto) 0.03 - RAD Interpretation Radiology Orders: 01/09/18 11:52 CHEST PORTABLE [RAD] Stat <Paul Jimenze - Last Filed: 01/09/18 15:33> Disposition/Present on Arrival - Present on Arrival Any Indicators Present on Arrival: No History of DVT/PE: No History of Uncontrolled Diabetes: No Urinary Catheter: No History of Decub. Ulcer: No History Surgical Site Infection Following: None - Disposition Have Diagnosis and Disposition been Completed?: Yes Disposition Time: 13:30 Patient Plan: Observation, Telemetry (remote) <Luis Salazar - Last Filed: 01/09/18 13:18> - Disposition Have Diagnosis and Disposition been Completed?: Yes <Paul Jimenez - Last Filed: 01/09/18 15:33> - Disposition Diagnosis: CHF (congestive heart failure) Disposition: HOSPITALIZED Condition: GUARDED
--- NOTE | 2018-01-09 12:45 | RAD ---
Date of service: 01/09/2018 HISTORY: ROSE COMPARISON: 12/18/2017 FINDINGS: LUNGS: No active pulmonary disease. PLEURA: No significant pleural effusion identified, no pneumothorax apparent. CARDIOVASCULAR: Mild cardiomegaly OSSEOUS STRUCTURES: No significant abnormalities. VISUALIZED UPPER ABDOMEN: Normal. OTHER FINDINGS: None. IMPRESSION: No active disease.
[2018-01-09 12:56] LABS: BASO # 0.03 K/mm3 (0.0-2.0); BASO % 0.5 % (0.0-3.0); EOS # 0.1 (0.0-0.7); EOS % 2.1 % (1.5-5.0); GRAN # 4.52 (1.4-6.5); GRAN % 73.3 % (50.0-68.0); HEMOGLOBIN 10.3 g/dL (14.0-18.0); LYMPH % 16.5 % (22.0-35.0); MEAN CELL VOLUME 75.1 fl (80.0-105.0); MEAN CORPUSCULAR HEMOGLOBIN 22.9 pg (25.0-35.0); MEAN CORPUSCULAR HGB CONC 30.6 g/dl (31.0-37.0); MEAN PLATELET VOLUME 9.3 fl (7.0-11.0); MONO # 0.5 (0.1-0.6); MONO % 7.6 % (1.0-6.0); RBC 4.49 10^6/uL (3.5-6.1); WHITE BLOOD COUNT 6.2 10^3/ul (4.5-11.0)
[2018-01-09 13:01] LABS: ALB/GLOB RATIO 1.1 (1.1-1.8); ALBUMIN 3.8 g/dL (3.0-4.8); CALCIUM 8.3 mg/dL (8.4-10.5)
[2018-01-09 13:11] LABS: TROPONIN I 0.05 ng/mL
[2018-01-09 13:14] LABS: INR 1.44; PARTIAL THROMBOPLASTIN TIME 27.8 Seconds (25.1-36.5); PROTHROMBIN TIME 16.7 SECONDS (9.4-12.5)
--- NOTE | 2018-01-09 18:31 | CARD ---
APPROVED REPORT Date of service: 01/09/2018 EKG Measurement Heart [id number] <Conclusion> Atrial fibrillation Left axis deviation Possible Inferior infarct, age undetermined Abnormal ECG
[2018-01-09] MEDS: Insulin Reg-LOW-Coverage SC SCH (22:00)
--- NOTE | 2018-01-10 01:12 | CON ---
DATE: 01/09/2018 PULMONARY CONSULT REFERRING PHYSICIAN: Kiki Oliver MD. REASON FOR CONSULTATION: Cardiomyopathy, heart failure, leg swelling, sleep apnea syndrome. HISTORY OF PRESENT ILLNESS: This is a 57-year-old gentleman known to me from previous admissions, noncompliant with medication and followup. According to the patient, he had been using medications, spends money, but still end up with heart failure, being short of breath, some cough. No nausea, no vomiting, no diarrhea. Does have leg swelling. PAST MEDICAL HISTORY: Cardiomyopathy, pulmonary hypertension, renal insufficiency, lumbar radiculopathy, obesity, suspected sleep apnea syndrome. ALLERGIES: NONE KNOWN. SOCIAL HISTORY: Selectively smokes. Denying any alcohol use. FAMILY HISTORY: No significant cardiopulmonary disease reported. MEDICATIONS: He is on Aldactone 25 mg twice a day, Cardizem CD 180 mg daily, Colace 100 mg twice a day, Coumadin 5 mg will be given, Cozaar 50 mg daily, Ecotrin 81 mg daily, metformin 500 mg daily, getting potassium 20 mEq daily, Lasix 40 mg IV daily, metoprolol tartrate is 25 mg twice a day, mag oxide 400 mg daily, Synthroid 25 mcg daily, Tylenol p.r.n. basis. REVIEW OF SYSTEMS: No headache, no rhinitis. Does have some cough, shortness of breath. No chest pain. No nausea, no vomiting, no diarrhea. Increased abdominal girth, increased leg swelling. PHYSICAL EXAMINATION: GENERAL: Lying in the bed, head at 45 degrees. VITAL SIGNS: Temperature is 98, heart rate is 70, respiratory rate is 18, blood pressure 143/81, pulse ox 96% on nasal cannula. HEENT: Moist mucous membrane. Crowded airway. Mallampati score is 4. NECK: Supple. No JVD. LUNGS: Has a few crackles. HEART: S1 and S2, irregular. ABDOMEN: Obese, soft. Has ascites. EXTREMITIES: Has edema. NEUROLOGIC: Awake and alert. Follows simple commands. LABORATORY DATA: Shows hemoglobin 10.3, hematocrit 33.7, WBC 6.2, platelet is 248. INR 1.44. PTT is 28. Sodium 138, potassium 2.7, chloride 98, bicarbonate 28, BUN 35, creatinine 1.9, glucose is 121, calcium is 8.3, magnesium is 1.5. AST is 20, ALT 20, alk phos is 122. ProBNP 5140. Albumin is 3.8. Chest x-ray done in ER shows no active disease. IMPRESSION AND PLAN: Cardiomyopathy, renal failure, degenerative joint disease, cirrhotic liver, diabetes, portal hypertension, lumbar radiculopathy, insomnia, suspected sleep apnea syndrome, but noncompliant with the CPAP/BiPAP, noncompliant with followup, also noncompliant with the medication, subtherapeutic INR. I had long discussion with the patient. Encourage him to use his medication. Urged him to stop smoking. Avoid nocturnal sedation. We will increase diuretics, beta-harshal. Follow up electrolytes in the morning. INR in the morning. Avoid sedation. Thank you and we will follow with you. Farhan Chavira MD
--- NOTE | 2018-01-10 01:40 | PCM.FALL ---
<Franki Melvin - Last Filed: 01/10/18 01:36> Post Fall Progress Note - Post Fall Fall Date: 01/10/18 Fall Time: 00:36 Description of Fall: Patient reports he was asleep and found himself on floor. Nursing reports that he had been sitting up in bed earlier in the evening. Patient reportedly wet himself with urine, and once floor become wet and slippery, patient feet slipped and patient fell. Patient is unable to recall the series of events that led to him being found on floor. - Post Fall Exam Vital Sign: Temp Pulse Resp BP Pulse Ox 97.6 F 73 20 138/91 H 94 L 01/10/18 00:47 01/10/18 00:47 01/10/18 00:47 01/10/18 00:47 01/10/18 00:47 Skull Exam: Negative for: Scalp wound, Scalp hematoma, Scalp depression Eye Exam: Positive for: Pupils equal, Pupils reactive Ear Exam: Negative for: Discharge, Bleeding Nose Exam: Negative for: Discharge, Bleeding Mouth Exam: Negative for: Tongue bitten Neck Exam: Negative for: Tenderness, Tingling, Weakness Spinal Exam: Negative for: Tenderness, Tingling, Weakness Chest Exam: Negative for: Difficulty breathing, Tenderness in ribs Abdomen Exam: Negative for: Tenderness Pelvic Exam: Negative for: Tenderness Arm Exam: Negative for: Deformity, Alteration in range of movement Leg Exam: Negative for: Deformity, Alteration in range of movement Impression/Plan: Patient is awake alert and oriented x3. No focal deficits. Cranial nerves intact. No bruises, hematomas or tenderness elicited by palpating the head, hips, ribs, knees and foot. Ordered Head CT without contrast as patient is unsure if he hit his head. Bilateral Knee x-ray 3 views w patella due to patient complaint of knee pain Fall precautions and communication to avoid sedatives. Additionally, Physical therapy evaluation was ordered for deconditioning. <Lemuel Cantrell - Last Filed: 01/10/18 02:19> Post Fall Progress Note - Post Fall Exam Vital Sign: Temp Pulse Resp BP Pulse Ox 97.6 F 80 20 138/91 H 94 L 01/10/18 00:47 01/10/18 02:00 01/10/18 00:47 01/10/18 00:47 01/10/18 00:47 Attending/Attestation - Attestation I have personally seen and examined this patient.: Yes I have fully participated in the care of the patient.: Yes I have reviewed all pertinent clinical information, including history, physical exam and plan: Yes
[2018-01-10] MEDS: Albuterol-Ipratrop 3 mg / 0.5 (3 ml) UD IH SCH ×3 (02:18→13:32)
[2018-01-10] MEDS ORDERED: Levothyroxine 25 MCG TAB PO SCH (06:00)
[2018-01-10 07:07] LABS: HEMOGLOBIN 10.4 g/dL (14.0-18.0); MEAN CELL VOLUME 75.3 fl (80.0-105.0); MEAN CORPUSCULAR HEMOGLOBIN 22.8 pg (25.0-35.0); MEAN CORPUSCULAR HGB CONC 30.2 g/dl (31.0-37.0); MEAN PLATELET VOLUME 9.1 fl (7.0-11.0); RBC 4.57 10^6/uL (3.5-6.1); RED CELL DISTRIBUTION WIDTH 19.9 % (11.5-14.5); WHITE BLOOD COUNT 5.3 10^3/ul (4.5-11.0)
[2018-01-10 07:13] LABS: INR 1.5; PARTIAL THROMBOPLASTIN TIME 29.3 Seconds (25.1-36.5); PROTHROMBIN TIME 17.4 SECONDS (9.4-12.5)
[2018-01-10 07:32] LABS: ALB/GLOB RATIO 1.1 (1.1-1.8); ALBUMIN 3.7 g/dL (3.0-4.8); CALCIUM 8.5 mg/dL (8.4-10.5)
[2018-01-10] MEDS: Insulin Reg-LOW-Coverage SC SCH ×3 (07:54→17:20)
[2018-01-10] MEDS ORDERED: Potassium Chloride 20 mEq ER Tab PO SCH (08:00)
--- NOTE | 2018-01-10 08:07 | CT ---
Date of service: 01/10/2018 PROCEDURE: CT HEAD WITHOUT CONTRAST. HISTORY: s/p fall-unsure if hit head; on asa and coumadin COMPARISON: None available. TECHNIQUE: Axial computed tomography images were obtained through the head/brain without intravenous contrast. Radiation dose: Total exam DLP = 874 mGy-cm. This CT exam was performed using one or more of the following dose reduction techniques: Automated exposure control, adjustment of the mA and/or kV according to patient size, and/or use of iterative reconstruction technique. FINDINGS: HEMORRHAGE: No intracranial hemorrhage. BRAIN: No mass effect or edema. Mild chronic microvascular changes. VENTRICLES: Unremarkable. No hydrocephalus. CALVARIUM: Unremarkable. PARANASAL SINUSES: Unremarkable as visualized. No significant inflammatory changes. MASTOID AIR CELLS: Unremarkable as visualized. No inflammatory changes. OTHER FINDINGS: The report concurs with the preliminary [facility] report IMPRESSION: No acute intracranial findings
--- NOTE | 2018-01-10 08:49 | RAD ---
Date of service: 01/10/2018 PROCEDURE: Bilateral Knee Radiographs. HISTORY: s/p fall- hit his knee? COMPARISON: None. FINDINGS: BONES: Right Knee: Normal. No fracture. Left Knee: Normal. No fracture. JOINTS: Right Knee: Minimal degenerative changes in the medial joint space and patellofemoral joint Left knee: Normal. No osteoarthritis. SOFT TISSUES: Right Knee: Normal. Left Knee: Normal. JOINT EFFUSION: Right Knee: None. Left Knee: None. OTHER FINDINGS: None. IMPRESSION: Right Knee: Minimal degenerative changes in the medial joint space and patellofemoral joint Left knee: Normal. No osteoarthritis.
[2018-01-10] MEDS ORDERED: Magnesium Oxide 400 mg Tab UD PO SCH (10:00)
[2018-01-10] MEDS ORDERED: diltiaZEM 180 mg/24 Hours CD Cap PO SCH (10:00)
[2018-01-10] MEDS ORDERED: Calcium-Vit D 250 mg-125 Units Tab UD PO SCH (10:00)
[2018-01-10] MEDS ORDERED: CELEBREX 200 MG PO SCH (10:00)
[2018-01-10] MEDS ORDERED: diltiaZEM 120 mg/24 Hours CD Cap PO SCH (10:00)
--- NOTE | 2018-01-10 11:33 | HP ---
The patient was seen and examined on the bedside on 01/09/2018. CHIEF COMPLAINT: Headache. HISTORY OF PRESENT ILLNESS: Mr. Paul Schwab is a 57-year-old male with past medical history of congestive heart failure, hypertension, diabetes mellitus, COPD, came to the Emergency Department with complaining of headache, lightheadedness, and dyspnea on exertion for one week. The patient was recently admitted for congestive heart failure in [facility]. Then, transferred from acute site to rehab. From rehab, he signed against medical advice and even went home without medications. Then, upon our request, he came back in my office and I gave her prescriptions of all medications. According to the patient, he restarted medications, experiencing headache. The headache is described as feeling of rubber band wrapped around his head. The headache is made worse with walking because he gets lightheadedness and dizziness. He has not passed out. He also says that he is becoming short of breath more often. He is unable to walk two blocks before becoming shortness of breath and he used to be able to walk much further. The patient is much more distended than usual. Denies fever, chills, nausea or vomiting. No photophobia. No chest pain or abdominal pain. No focal weakness. No numbness or tingling. We admitted the patient, started Lasix. Discussion done with ER physicians. PAST MEDICAL HISTORY: As above. The patient is very noncompliant. Congestive heart failure, hypertension, COPD, history of cataract, diabetes mellitus type 2, anemia, hemorrhoids, history of spinal surgery. FAMILY HISTORY: Father and mother, noncontributory. HABITS: Heavy smoking, more than 10 cigarettes per day. Alcohol, no. Substance abuse, no. ALLERGIES: THE PATIENT IS NOT ALLERGIC WITH ANY MEDICATIONS. HOME MEDICATIONS: Aspirin, losartan, MiraLax, Glucophage. REVIEW OF SYSTEMS: The patient was seen and examined on the bedside in his room, complaining about still headache, feeling fatigue and tired. No vision changes, no sore throat. Shortness of breath on exertion. Absent cough. No chest pain, palpitation, edema, calf pain or syncope. No abdominal pain, constipation, diarrhea, or vomiting. Complaining of headache, but no focal weakness. No diaphoresis. PHYSICAL EXAMINATION VITAL SIGNS: Temperature 98.7, pulse 87, respiratory rate 16, blood pressure 103/57, pulse oximetry 99. HEENT: Head: Normocephalic and atraumatic. Eyes: PERRLA. Extraocular muscles are intact. Conjunctivae are clear. Nose is patent. Mucous membranes are moist. NECK: Supple. No carotid bruits, JVD or thyromegaly. CHEST: Bilaterally symmetrical. HEART: S1 and S2 positive. LUNGS: Clear to auscultation. ABDOMEN: Soft. Bowel sounds present. No organomegaly. EXTREMITIES: No edema. No cyanosis. NEUROLOGIC: The patient is awake and alert. Moving all four extremities. No focal deficits. LABORATORY DATA: White blood cell is 6.2, hemoglobin 10.3, hematocrit 33.7, platelet 248. Sodium 138, potassium 3.7, BUN 35, creatinine 1.9, glucose 121. ASSESSMENT AND PLAN: Mr. Paul Schwab is a 57-year-old male with anemia, renal insufficiency, hyperglycemia, admitted with exacerbation of congestive heart failure, retaining water as per the patient even he is taking Lasix. According to the patient, he cannot sleep at night. As per request, Collinien was given one dose, but starting tomorrow, Dr. Chavira will take care of the patient's sleep, history of hypertension, diabetes mellitus, chronic obstructive pulmonary disease, atrial fibrillation, noncompliant. Gastrointestinal and deep venous thrombosis prophylaxes given. Repeat labs. Chest x-ray reviewed by me. No active disease. We will follow up. Kiki Oliver MD
[2018-01-10 17:20] VITALS: BP 141/92; PULSE 84
[2018-01-10 18:42] VITALS: RESP 19; TEMP 98.4; O2SAT 97
--- NOTE | 2018-01-10 18:53 | CON ---
DATE: 01/10/2018 CARDIOLOGY CONSULTATION. HISTORY: The patient is a 57-year-old male who was recently discharged from the hospital for CHF. The patient's past medical history is notable for a chronic ischemic dilated cardiomyopathy. Echocardiogram in 08/2017 showed severe LV hypokinesis with an EF of 25%. In addition, the patient has had documented coronary artery disease. In addition, the patient suffers from hypertension, diabetes mellitus. He continues to smoke and has been noncompliant since he goes home. He comes back with complaints of headache. He also states he has occasional shortness of breath since he has been home. SOCIAL HISTORY: The patient is a smoker. REVIEW OF SYSTEMS: 14-point review of systems is reviewed in detail. In addition to dyspnea, headache and back pain, he complains of edema in the lower extremities. PHYSICAL EXAMINATION: Blood pressure is 116/83, heart rate the in the 80s. NECK: Negative JVD. LUNGS: Clear to auscultation. HEART: Reveals S1, S2. EXTREMITIES: No edema noted. EKG is normal sinus rhythm with left anterior hemiblock. LABORATORY DATA: Troponins are at baseline of 0.04 and 0.05. ProBNP is 5140, potassium is 4 with a BUN and creatinine OF 36 and 1.6. IMPRESSION: 1. Diffuse body aches including back pain and headache. 2. Dilated cardiomyopathy. 3. No active congestive heart failure. 4. Coronary artery disease. 5. Anemia. 6. Renal insufficiency. 7. Chronic obstructive pulmonary disease. 8. Diabetes mellitus. 9. Hypertension. 10. Obesity. 11. History of recurrent noncompliance to medical advice in the past. PLAN: Given these findings, we will continue his present medications. No change in his medication is necessary at this time. We will continue his Lasix. Alexandru Carrillo MD
--- NOTE | 2018-01-10 22:54 | PN ---
DATE: 01/10/2018 SUBJECTIVE: The patient was sitting by the side of the bed. Night was unremarkable. Feels better. Decreased cough. Decreased shortness of breath. No chest pain. No nausea, no vomiting, no diarrhea. Decreased leg swelling. OBJECTIVE: GENERAL: In no acute distress. Temperature is 98, heart rate 54, respiratory rate is 18, blood pressure 141/92, pulse ox 97% on room air. HEENT: Moist mucous membrane. Crowded airway. Mallampati score is 4. NECK: Supple. No JVD. LUNGS: Have fair airflow with rhonchi. HEART: S1, S2. ABDOMEN: Soft, nontender. No organomegaly. EXTREMITIES: Does have edema, but decreased. NEUROLOGIC: Awake and follows simple command. MEDICATIONS: Reviewed. Noted no new change in medication reported since yesterday. LABORATORY DATA: Shows hemoglobin 10.4, hematocrit 34.4, WBC 5.3, platelet is 251. INR 1.50. PTT 29. Sodium 138, potassium 4, chloride 100, bicarbonate 30, BUN 36, creatinine 1.8, glucose 103, calcium with 8.5, total bili 1, AST 19, ALT 19, alk phos is 131. ProBNP 5140. Albumin is 3.7. IMPRESSION AND PLAN: Cardiomyopathy, renal failure, degenerative joint disease, cirrhotic liver, diabetes, portal hypertension, lumbar radiculopathy, insomnia, suspected sleep apnea syndrome, noncompliant with CPAP/BiPap. Pulmonary point of view, doing much better. After diuresis, breathing is better. Leg swelling is down. 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 Outpatient sleep study. Urged the patient to stop smoking. Thank you and we will follow with you. Farhan Chavira MD
== END 2018-01-10 18:55 | disposition home or self-care (01) ==
LOC: ED 11:11 → ERH 13:25 → 3RSO 18:35
PROVIDERS: ADMIT Internal Medicine; ATTEND Internal Medicine
DX: I11.0 Hypertensive heart disease with heart failure (principal); I50.9 Heart failure, unspecified; J44.9 Chronic obstructive pulmonary disease, unspecified; I25.10 Atherosclerotic heart disease of native coronary artery without angina pectoris; I25.5 Ischemic cardiomyopathy; I42.0 Dilated cardiomyopathy; I27.20 Pulmonary hypertension, unspecified; I48.91 Unspecified atrial fibrillation; K74.60 Unspecified cirrhosis of liver; K76.6 Portal hypertension; G47.30 Sleep apnea, unspecified; D64.9 Anemia, unspecified; E11.65 Type 2 diabetes mellitus with hyperglycemia; E66.9 Obesity, unspecified; F17.210 Nicotine dependence, cigarettes, uncomplicated; G47.00 Insomnia, unspecified; M19.90 Unspecified osteoarthritis, unspecified site; M54.16 Radiculopathy, lumbar region; N19 Unspecified kidney failure; Z79.82 Long term (current) use of aspirin; Z91.14 Patient's other noncompliance with medication regimen; Z91.19 Patient's noncompliance with other medical treatment and regimen; R40.2412 Glasgow coma scale score 13-15, at arrival to emergency department; Z68.31 Body mass index [BMI] 31.0-31.9, adult
CPT/HCPCS: 36415; 70450; 71045; 73562; 80053; 82948; 83735; 83880; 84484; 85025; 85027; 85610; 85730; 93005; 94640; 94760; 97116; 97161; 99285; G0378; G8978; G8979; G8980; J1940

== ENCOUNTER 2018-03-14 11:00 | Inpatient (IN) | payer MEDICARE, OTHER ==
[2018-03-14 11:00] VITALS: BMI 31.4
--- NOTE | 2018-03-14 11:55 | ED PDOC ---
Arrival/HPI - General Chief Complaint: Shortness Of Breath Time Seen by Provider: 03/14/18 11:28 Historian: Patient - History of Present Illness Narrative History of Present Illness (Text): 03/14/18 11:52 57 year old male, with past medical history of CHF, hypertension, diabetes and COPD, presents to the Emergency department complaining of abdominal distention since yesterday. Patient states possible distention of abdomen secondary to fluid retention and reports similar symptoms in the past with multiple hospital visits. Patient denies any associated abdominal pain but reports shortness of breath. Patient informs taking diuretic medication with no improvement to symptoms. Patient denies any other associated somatic complaints. Patient denies any fevers, chills, headache, dizziness, chest pain, cough, abdominal pain, na usea, vomiting, diarrhea, back pain, neck pain, or any other complaints. PMD: Dr. Oliver Lumber Press Operator: Dr. Beckman Time/Duration: 24 hours Symptom Onset: Gradual Symptom Course: Unchanged Activities at Onset: Light Context: Home Past Medical History - Provider Review Nursing Documentation Reviewed: Yes - Infectious Disease Hx of Infectious Diseases: None - Tetanus Immunization Tetanus Immunization: Unknown - Cardiac Hx Cardiac Disorders: Yes Hx Congestive Heart Failure: Yes Hx Hypertension: Yes - Pulmonary Hx Chronic Obstructive Pulmonary Disease (COPD): Yes - Neurological Hx Neurological Disorder: No - HEENT Hx HEENT Disorder: Yes Hx Cataracts: Yes - Renal Hx Renal Disorder: No - Endocrine/Metabolic Hx Diabetes Mellitus Type 2: Yes - Hematological/Oncological Hx Blood Disorders: Yes Hx Anemia: Yes - Integumentary Hx Dermatological Disorder: No - Musculoskeletal/Rheumatological Hx Falls: No - Gastrointestinal Hx Gastrointestinal Disorders: Yes (hemorrhoids) - Genitourinary/Gynecological Hx Genitourinary Disorders: No - Psychiatric Hx Psychophysiologic Disorder: No Hx Substance Use: No - Surgical History Hx Orthopedic Surgery: Yes Other/Comment: spinal surgery - Anesthesia Hx Anesthesia: Yes Hx Anesthesia Reactions: Yes Hx Malignant Hyperthermia: No - Suicidal Assessment Feels Threatened In Home Enviroment: No Family/Social History - Physician Review Nursing Documentation Reviewed: Yes Family/Social History: Unknown Family HX Smoking Status: Heavy Smoker > 10 Cigarettes Daily Hx Alcohol Use: No Hx Substance Use: No Allergies/Home Meds Allergies/Adverse Reactions: Allergies No Known Allergies Allergy (Verified 03/14/18 19:00) Review of Systems - Physician Review All systems were reviewed & negative as marked: Yes - Review of Systems Constitutional: absent: Fevers Respiratory: SOB. absent: Cough Cardiovascular: absent: Chest Pain, ROSE Gastrointestinal: Other (Abdominal distention). absent: Abdominal Pain, Diarrhea, Nausea, Vomiting Genitourinary Male: absent: Dysuria, Urinary Output Changes Musculoskeletal: absent: Back Pain, Neck Pain Skin: absent: Rash Neurological: absent: Headache, Dizziness Physical Exam - Physical Exam Narrative Physical Exam (Text): 03/14/18 11:56 Gen: VS reviewed, alert, well developed, well nourished, nontoxic, mild distress. ENT: normal pharynx. Eye: EOMI, PERRL. Neck: no JVD, supple, no adenopathy. CV: Irregularly irregular rhythm, rapid rate, no rubs, no murmur, no gallops, S1, S2, pulses equal and strong. Pulm: no distress, clear to auscultation, no wheeze, no rhonchi, breath sounds equal, no rales. Abd: Diffuse edema consistent with anasarca Ext: Diffuse lower extremity edema extending up to his abdomen consistent with anasarca Skin: good color, no rash, no cyanosis. Psych: responds appropriately to questions, normal affect. Neuro: oriented x 3, CN2-12 intact grossly, motor intact, sensation intact. Appearance: Positive for: Well-Appearing, Non-Toxic, Comfortable Pain Distress: Mild Mental Status: Positive for: Alert and Oriented X 3 Medical Decision Making ED Course and Treatment: 03/14/18 11:50 Impression: 57 year old male presents to the Emergency department complaining of generalized abdominal distention and shortness of breath. Plan: -- EKG -- Labs -- Chest X-ray -- Reassess and disposition Prior Visits: Notes and results from previous visits were reviewed. Progress Notes: 03/14/18 14:03 Chest X-ray reviewed, shows: Impression: No active disease. No significant interval change compared to the prior examination(s) admit accepted by dr. oliver, patient to be admitted for fluid overload/anasarca. patient found to have elevated troponin but chest pain free at this time. will initiate diruresis and admit to tele. consult to dr. beckman for cardiology. - RAD Interpretation Narrative RAD Interpretations (Text): 03/14/18 13:33 Chest X-ray reviewed by radiologist, shows: FINDINGS: LUNGS: No active pulmonary disease. PLEURA: No significant pleural effusion identified, no pneumothorax apparent. CARDIOVASCULAR: No atherosclerotic calcification present Cardiomegaly. No evidence of acute, significant cardiovascular disease. OSSEOUS STRUCTURES: No significant abnormalities. VISUALIZED UPPER ABDOMEN: Normal. OTHER FINDINGS: None. IMPRESSION: No active disease. No significant interval change compared to the prior examination(s). Radiology Orders: 03/14/18 11:50 CHEST PORTABLE [RAD] Stat Network Control Supervisor: Radiologist - EKG Interpretation EKG Interpretation (Text): 03/14/18 12:06 1119: atrial fibrillation at 112 bpm, nml qrs, nml axis, low voltage, anterior infarct, nonspecific t wave abn; atrial fibrillation is new when compared to old ekg on 03/14/18 12:07 Interpreted by ED Physician: Yes - Scribe Statement The provider has reviewed the documentation as recorded by the Scribe Jose Calderon. All medical record entries made by the Scribe were at my direction and personally dictated by me. I have reviewed the chart and agree that the record accurately reflects my personal performance of the history, physical exam, medical decision making, and the department course for this patient. I have also personally directed, reviewed, and agree with the discharge instructions and disposition. Disposition/Present on Arrival - Present on Arrival Any Indicators Present on Arrival: No History of DVT/PE: No History of Uncontrolled Diabetes: No Urinary Catheter: No History of Decub. Ulcer: No History Surgical Site Infection Following: None - Disposition Have Diagnosis and Disposition been Completed?: Yes Diagnosis: Anasarca Disposition: HOSPITALIZED Disposition Time: 20:23 Patient Plan: Admission Condition: STABLE
[2018-03-14 12:51] LABS: BASO # 0.04 K/mm3 (0.0-2.0); BASO % 0.6 % (0.0-3.0); EOS # 0.2 (0.0-0.7); EOS % 2.2 % (1.5-5.0); GRAN # 5.22 (1.4-6.5); GRAN % 75.4 % (50.0-68.0); HEMOGLOBIN 10.5 g/dL (14.0-18.0); LYMPH # 0.7 (1.2-3.4); LYMPH % 10.5 % (22.0-35.0); MEAN CELL VOLUME 75.3 fl (80.0-105.0); MEAN CORPUSCULAR HEMOGLOBIN 22.2 pg (25.0-35.0); MEAN CORPUSCULAR HGB CONC 29.5 g/dl (31.0-37.0); MEAN PLATELET VOLUME 9.1 fl (7.0-11.0); MONO # 0.8 (0.1-0.6); MONO % 11.3 % (1.0-6.0); RBC 4.73 10^6/uL (3.5-6.1); WHITE BLOOD COUNT 6.9 10^3/uL (4.5-11.0)
--- NOTE | 2018-03-14 13:16 | RAD ---
Date of service: 03/14/2018 HISTORY: CHF. COMPARISON: 01/09/2018. FINDINGS: LUNGS: No active pulmonary disease. PLEURA: No significant pleural effusion identified, no pneumothorax apparent. CARDIOVASCULAR: No atherosclerotic calcification present Cardiomegaly. No evidence of acute, significant cardiovascular disease. OSSEOUS STRUCTURES: No significant abnormalities. VISUALIZED UPPER ABDOMEN: Normal. OTHER FINDINGS: None. IMPRESSION: No active disease. No significant interval change compared to the prior examination(s).
[2018-03-14 13:23] LABS: INR 1.34; PARTIAL THROMBOPLASTIN TIME 28.4 Seconds (25.1-36.5); PROTHROMBIN TIME 15.5 SECONDS (9.4-12.5)
[2018-03-14 13:25] LABS: ALB/GLOB RATIO 1.1 (1.1-1.8); ALBUMIN 3.6 g/dL (3.0-4.8); ALT/SGPT 21 U/L (7-56); AST/SGOT 18 U/L (17-59); BLOOD UREA NITROGEN 27 mg/dL (7-21); CALCIUM 9.1 mg/dL (8.4-10.5); GFR NON-AFRICAN AMERICAN 52
[2018-03-14 13:58] LABS: B-TYPE NATRIURETIC PEPTIDE 12400 pg/mL (0-450); TROPONIN I 0.39 ng/mL
--- NOTE | 2018-03-14 18:56 | CARD ---
APPROVED REPORT Date of service: 03/14/2018 EKG Measurement Heart [id number] <Conclusion> Atrial fibrillation with rapid ventricular response Left axis deviation Septal infarct, age undetermined Inferior infarct, age undetermined Abnormal ECG
[2018-03-14] MEDS ORDERED: Potassium Chloride 20 mEq ER Tab PO STA (23:17)
--- NOTE | 2018-03-15 01:03 | HP ---
DATE OF EXAM: 03/14/2018 CHIEF COMPLAINT: Shortness of breath and gaining weight. HISTORY OF PRESENT ILLNESS: Mr. Paul Schwab is a 57-year-old male with past medical history of congestive heart failure, hypertension, diabetes mellitus, COPD, noncompliance, who came to the emergency department complaining of abdominal distention since yesterday. Patient states the possibility of distention of abdominal secondary to fluid retention had a poor similar symptoms in the past with multiple hospitalizations. Patient denies any associated abdominal pain, but reports shortness of breath. Patient had po diuretic medications with no improvement to symptoms. Patient denies any other associated somatic complaints. Patient denies any fever, chills. No nausea, vomiting or diarrhea. No hematuria or hematochezia. No headache or dizziness. PAST MEDICAL HISTORY: As above. Congestive heart failure, hypertension, diabetes mellitus, COPD, abdominal ascites, cataract, anemia, hemorrhoids and spinal surgery. FAMILY HISTORY: Father and mother, noncontributory. HABITS: Heavy smoker, more than a cigarette per day. No alcohol. No substance abuse. ALLERGIES: THE PATIENT IS NOT ALLERGIC WITH ANY MEDICATION. HOME MEDICATION: Aspirin, losartan, metformin, Celebrex. REVIEW OF SYSTEMS: The patient was seen and examined at the bedside in the ER, having a dinner. No fever. No chills, but having shortness of breath. No chest pain. Has abdominal distention, but no abdominal pain, no nausea, vomiting or diarrhea. No dysuria, no urinary output changes and no back pain. No neck pain. No rashes. No headache. No dizziness. PHYSICAL EXAMINATION: VITAL SIGNS: Temperature 98, pulse 107, blood pressure 135/97, respiratory rate 18. HEENT: Head is normocephalic, atraumatic. Eyes: PERRLA. Extraocular muscles are intact. Conjunctivae clear. Nose patent. Mucous membranes moist. NECK: Supple. No carotid bruit. No JVD or thyromegaly. CHEST: Bilaterally symmetrical. HEART: S1 and S2 positive. LUNGS: Clear to auscultation. ABDOMEN: Soft. Bowel sounds present. No organomegaly. EXTREMITIES: No edema. No cyanosis. NEUROLOGICAL: The patient is awake and alert. Moving all four extremities. No focal deficit. LABORATORY DATA: White blood cell 6.9, hemoglobin 10.5, hematocrit 35.6, platelets 260. Sodium 138, potassium 3.3, replaced. BUN 27, creatinine 1.4. Glucose of 52. Troponin 0.39. BNP 12,400. TSH 5.10. ASSESSMENT AND PLAN: Mr. Paul Schwab is a 57-year-old male with anemia, hypokalemia replaced. Increased BUN. Troponin positive, we will do 2 more sets, congestive heart failure, hypothyroidism. The chest x-ray and electrocardiography reviewed by me. History of hypertension, diabetes mellitus, chronic obstructive pulmonary disease, congestive heart failure, history of ascites, cataract and hemorrhoids. We will get the patient to call Pulmonary and Cardiology consult and he started home medication, IV Lasix. We will follow up on that. Kiki Oliver MD MTDD
[2018-03-15] MEDS: Albuterol-Ipratrop 3 mg / 0.5 (3 ml) UD IH SCH ×2 (01:12→07:40)
[2018-03-15] MEDS ORDERED: Influenza Vaccine 60 mcg/0.5 mL SYR (4YR UP) IM ONE (05:37)
[2018-03-15] MEDS: Levothyroxine 25 MCG TAB PO SCH (06:54)
[2018-03-15 07:02] LABS: BLOOD UREA NITROGEN 26 mg/dL (7-21); GFR NON-AFRICAN AMERICAN 52; HDL CHOLESTEROL 26 mg/dL (29-60)
[2018-03-15 07:11] LABS: B-TYPE NATRIURETIC PEPTIDE 9010 pg/mL (0-450)
[2018-03-15 07:13] LABS: LDL CHOLESTEROL 73 mg/dL (0-129)
[2018-03-15 07:34] LABS: HEMOGLOBIN 10.1 g/dL (14.0-18.0); MEAN CELL VOLUME 74.1 fl (80.0-105.0); MEAN CORPUSCULAR HEMOGLOBIN 22.3 pg (25.0-35.0); MEAN CORPUSCULAR HGB CONC 30.1 g/dl (31.0-37.0); MEAN PLATELET VOLUME 8.8 fl (7.0-11.0); RBC 4.52 10^6/uL (3.5-6.1); RED CELL DISTRIBUTION WIDTH 19.9 % (11.5-14.5); WHITE BLOOD COUNT 5.8 10^3/uL (4.5-11.0)
[2018-03-15 07:39] LABS: IRON 23 ug/dL (45-180)
[2018-03-15 07:49] LABS: % IRON SATURATION 5 % (20-55); TOTAL IRON BINDING CAPACITY 462 ug/dL (261-462)
[2018-03-15] MEDS: Potassium Chloride 20 mEq ER Tab PO SCH (10:29)
[2018-03-15] MEDS: Insulin Reg-LOW-Coverage SC SCH ×3 (10:30→23:36)
[2018-03-15] MEDS: DOBUTamine 500mg/250ml D5W 500 MG/250 ML BAG IV PRN ×2 (12:54→23:33)
[2018-03-15] MEDS: Magnesium Hydroxide Susp 30 ml UD PO PRN (12:55)
[2018-03-15] MEDS: DILTIAZEM 90 MG PO SCH (12:56)
[2018-03-15] MEDS: CELECOXIB PO SCH (12:56)
[2018-03-15 13:10] LABS: FOLATE 8.7 ng/mL
--- NOTE | 2018-03-15 13:29 | CON ---
DATE: 03/15/2018 PULMONARY CONSULT NOTE REFERRING PHYSICIAN: Dr. Oliver. REASON FOR CONSULT: Sleep apnea syndrome, cardiomyopathy, heart failure, shortness of breath. HISTORY OF PRESENT ILLNESS: This is a 57-year-old male with past medical history significant for congestive heart failure, hypertension, diabetes mellitus, COPD, has a history of noncompliance with medication and followup as outpatient. Patient reports he came to the emergency room due to increasing weight gain and abdominal distention. Patient does have suspected sleep apnea syndrome, but has refused CPAP use in the past. Does report coughing and shortness of breath along with leg swelling. PAST MEDICAL HISTORY: Congestive heart failure, hypertension, diabetes mellitus, COPD, cardiomyopathy, pulmonary hypertension, renal insufficiency, lumbar radiculopathy, obesity, suspected sleep apnea syndrome, ascites. ALLERGIES: NO KNOWN DRUG ALLERGIES. SOCIAL HISTORY: Patient is at present heavy smoker. No ETOH abuse. No substance abuse. FAMILY HISTORY: No significant cardiopulmonary disease reported. MEDICATIONS: Reviewed. DuoNeb 3 mL every 6 hours, aspirin 81 mg daily, Colace 100 mg twice a day, Pepcid 40 mg at bedtime, Lasix 40 mg IV push every 12 hours, Humulin R sliding scale, Synthroid 25 mcg daily, Cozaar 50 mg daily, metformin 500 mg daily, metoprolol 25 mg twice a day, Celebrex 1 cap daily, potassium chloride 20 mEq at breakfast, Aldactone 25 mg twice a day, Coumadin 5 mg daily. REVIEW OF SYSTEMS: No headache, rhinitis. Does complain of cough, shortness of breath. No chest pain. No abdominal pain, nausea, vomiting or diarrhea. Reports increased abdominal girth, increased leg swelling. PHYSICAL EXAMINATION: GENERAL: No acute distress. VITAL SIGNS: Blood pressure 161/92, pulse 108, temperature 97.8, oxygen saturation 96 percent on room air. HEENT: Moist mucous membranes. Crowded airway. Mallampati score is 4. NECK: Supple. No JVD. LUNGS: Few rhonchi bilaterally. CARDIOVASCULAR: S1 and S2 audible, regular rhythm. ABDOMEN: Obese, distended. Positive bowel sounds. EXTREMITIES: Positive bilateral lower extremity edema. NEUROLOGIC: Awake, alert, verbal, follows simple commands. LABORATORY DATA: Reviewed. WBC 5.8, RBC 4.52, hemoglobin 10.1, hematocrit 33.5, platelets 272. PT 15.5, INR 1.34, APTT 28.4. Sodium 137, potassium 3.6, chloride 101, carbon dioxide 28, anion gap 12, BUN 26, creatinine 1.4, GFR 52, random glucose 117. Hemoglobin A1c is 6.3. Calcium 9.0. Iron 23, TIBC 462, percent saturation 5. ProBNP 9010. Troponin 0.39. Triglycerides 40, LDL 73, cholesterol 99, HDL 26. TSH 3.96. LABORATORY DATA: Chest x-ray: No active disease. Echocardiogram: Atrial fibrillation with rapid ventricular response; left axis deviation; septal infarct, age undetermined; inferior infarct, age undetermined, IMPRESSION AND PLAN: Cardiomyopathy, history of renal failure, degenerative joint disease, cirrhotic liver, diabetes, portal hypertension, lumbar radiculopathy, suspected sleep apnea, chronic obstructive pulmonary disease, congestive heart failure, history of ascites. Pulmonary point of view, we will increase Lasix to 40 mg every 8 hours. We will add antibiotic therapy, labs in the morning. Continue inhaled bronchodilators, gastric prophylaxis. Patient currently on anticoagulation therapy. Patient has suspected sleep apnea syndrome, but presently continues to refuse continuous positive airway pressure use despite encouragement and education. Patient is actively a heavy smoker. We will start Nicoderm patch while inpatient. We will change DuoNeb to as needed and then add Brovana. This patient was seen and examined with Dr. Chavira, discussed assessment and plan as described above. Thank you for this consult and we will follow with you. Harry Pickett APN Farhan Chavira MD DYLON
--- NOTE | 2018-03-15 14:52 | CON ---
DATE: 03/15/2018 CARDIOLOGY CONSULTATION HISTORY: The patient is a 57-year-old male with one of multiple admissions for recurrent CHF and marked ascites. PAST MEDICAL HISTORY: The patient's past medical history is notable for documented ischemic dilated cardiomyopathy with an EF of 20-25%. The patient does have coronary artery disease noted. His other cardiac risk factors include diabetes mellitus, obesity, hypercholesterolemia, and noncompliance. The patient is on Coumadin for atrial fibrillation. The patient returns because of increasing abdominal girth and dyspnea. He does admit to edema in the lower extremities. SOCIAL HISTORY: He is a former smoker. REVIEW OF SYSTEMS: Fourteen-point review of systems is reviewed. Other than the symptoms above, there are no other associated issues. PHYSICAL EXAMINATION: VITAL SIGNS: Blood pressure is 165/96, the heart rate is in the 70s. NECK: Negative JVD. LUNGS: Decreased breath sounds bilaterally. HEART: Revealed S1, S2. ABDOMEN: Marked abdominal girth. EXTREMITIES: 1+ edema. LABORATORY DATA: EKG with atrial fibrillation with nonspecific ST-T changes. Hemoglobin is 10.1. Chemistries, BUN and creatinine are 26 and 1.4 with a glucose of 117. The ProBNP is 9010. Troponin is 0.39. His INR is 1.34 with a hemoglobin of 10.1. IMPRESSION: 1. Marked ascites. 2. Acute systolic congestive heart failure. 3. End-stage dilated cardiomyopathy with an ejection fraction of 20-25%. 4. Anemia. 5. Diabetes mellitus. 6. Marked obesity. 7. Coronary artery disease. PLAN: Given these findings, we will restart the patient on IV dobutamine. The patient will need to continue the IV Lasix as well as the spirolactone. Alexandru Carrillo MD
--- NOTE | 2018-03-15 16:50 | CP.PCM.APN ---
Subjective - Date & Time of Evaluation Date of Evaluation: 03/15/18 Time of Evaluation: 10:35 - Subjective Subjective: 57 year old male, with past medical history of CHF,dilated cardiomyopathy,atrial fibrillation, hypertension, diabetes and COPD, presents to the Emergency department complaining of abdominal distention since yesterday. Patient states possible distention of abdomen secondary to fluid retention and reports similar symptoms in the past with multiple hospital visits. Patient denies any associated abdominal pain but reports shortness of breath. Patient informs taking diuretic medication with no improvement to symptoms. Patient complains of dyspnea at rest and productive cough with yellow-tinged sputum. Patient denies any fevers, chills, headache, dizziness, chest pain, cough, abdominal pain, nausea, vomiting, diarrhea, back pain, neck pain, or any other complaints. Review of Systems - Review of Systems Systems not reviewed;Unavailable: Respiratory Distress - Constitutional Constitutional: Weight Gain - Cardiovascular Cardiovascular: Dyspnea on Exertion, Edema, Irregular Heart Rhythm, Leg Edema - Respiratory Respiratory: Cough, Dyspnea on Exertion, Chest Congestion, Change in Mucous Color - Gastrointestinal Gastrointestinal: Other Additional comments: Abdomen grossly distended. Objective - Vital Signs/Intake and Output Vital Signs (last 24 hours): Temp Pulse Resp BP Pulse Ox 98.7 F 99 H 20 145/68 96 03/15/18 12:00 03/15/18 14:00 03/15/18 12:00 03/15/18 13:28 03/15/18 06:00 Intake and Output: 03/15/18 03/15/18 06:59 18:59 Intake Total 420 Output Total 2550 1400 Balance -2130 -1400 - Medications Medications: Current Medications Acetaminophen (Tylenol 325mg Tab) 650 mg PO Q6H PRN PRN Reason: Pain, moderate (4-7) Last Admin: 03/15/18 12:55 Dose: 650 mg Albuterol/Ipratropium (Duoneb 3 Mg/0.5 Mg (3 Ml) Ud) 3 ml IH [id number] PRN PRN Reason: Shortness of Breath Arformoterol Tartrate (Brovana) 15 mcg IH [id number] MORGAN Aspirin (Ecotrin) 81 mg PO DAILY [facility] Last Admin: 03/15/18 10:29 Dose: 81 mg Budesonide (Pulmicort Respules) 0.5 mg IH [id number] MORGAN Docusate Sodium (Colace) 100 mg PO BID [facility] Last Admin: 03/15/18 10:30 Dose: 100 mg Doxycycline Hyclate (Doryx) 100 mg PO Q12 [facility]; Protocol Famotidine (Pepcid) 40 mg PO HS [facility] Furosemide (Lasix) 40 mg IVP Q8 [facility] Last Admin: 03/15/18 13:28 Dose: 40 mg Home Med (Home Med) 1 unit PO DAILY [facility] Last Admin: 03/15/18 12:56 Dose: Not Given Dobutamine HCl/Dextrose (Dobutamine/Dextrose 5% 500mg/250ml) 500 mg in 250 mls @ 20.412 mls/hr IV .[id number] PRN PRN Reason: Swelling Last Admin: 03/15/18 12:54 Dose: 20.412 mls/hr Insulin Human Regular (Humulin R Low) 0 units SC ACHS [facility]; Protocol Last Admin: 03/15/18 12:57 Dose: Not Given Levothyroxine Sodium (Synthroid) 25 mcg PO 0600 [facility] Last Admin: 03/15/18 06:54 Dose: 25 mcg Losartan Potassium (Cozaar) 50 mg PO DAILY [facility] Last Admin: 03/15/18 10:29 Dose: 50 mg Magnesium Hydroxide (Milk Of Magnesia) 30 ml PO DAILY PRN PRN Reason: Constipation Last Admin: 03/15/18 12:55 Dose: 30 ml Metformin HCl (Glucophage) 500 mg PO DAILY [facility] Last Admin: 03/15/18 10:29 Dose: 500 mg Metoprolol Tartrate (Lopressor) 25 mg PO BID [facility] Last Admin: 03/15/18 10:30 Dose: 25 mg Non-Formulary Medication (Celecoxib [Celebrex]) 1 cap PO DAILY [facility] Last Admin: 03/15/18 12:56 Dose: Not Given Potassium Chloride (K-Dur 20 Meq Er Tab) 20 meq PO BRK [facility] Last Admin: 03/15/18 10:29 Dose: 20 meq Spironolactone (Aldactone) 25 mg PO BID [facility] Last Admin: 03/15/18 10:29 Dose: 25 mg Warfarin Sodium (Coumadin) 5 mg PO 1800 [facility]; Protocol - Labs Labs: 03/15/18 06:30 03/15/18 06:30 PT 15.5 SECONDS (9.4-12.5) H 03/14/18 13:07 INR 1.34 03/14/18 13:07 APTT 28.4 Seconds (25.1-36.5) 03/14/18 13:07 - Constitutional Appears: No Acute Distress - Head Exam Head Exam: NORMAL INSPECTION - Eye Exam Eye Exam: Normal appearance - ENT Exam ENT Exam: Mucous Membranes Moist - Neck Exam Neck Exam: Normal Inspection - Respiratory Exam Respiratory Exam: Clear to Ausculation Bilateral - Cardiovascular Exam Cardiovascular Exam: Irregular Rhythm, +S1, +S2 - GI/Abdominal Exam GI & Abdominal Exam: Distended - Rectal Exam Rectal Exam: Deferred - Extremities Exam Extremities Exam: Full ROM, Pedal Edema - Back Exam Back Exam: Full ROM - Neurological Exam Neurological Exam: Oriented x3 - Skin Skin Exam: Dry, Intact Assessment and Plan - Assessment and Plan (Free Text) Assessment: 1. Marked Ascites secondary to CHF- Continue IV Diuresis as per actuarial intern. 2. Recurrent CHF, acute on chronic, maybe secondary to non-compliance with medications- continue IV Lasix, IV Dobutamine as per actuarial intern Will continue to monitor I's and O's, daily weights. 3. End-Stage Dilated Cardiomyopathy- Recs as per Quality Assurance Tech 4. LYDIA, most likely secondary to IV Lasix- continue to monitor kidney function, will trend BUN/Creatinine. 5. Rapid atrial fibrillation- continue Coumadin, and RX for rate control. Will continue to monitor closely and follow clinically.
[2018-03-15 19:48] LABS: INR 1.4; PROTHROMBIN TIME 16.1 SECONDS (9.4-12.5)
[2018-03-15] MEDS: Arformoterol 15 mcg/2 ml Inh Sol IH SCH (21:06)
[2018-03-15] MEDS: Budesonide 0.5 mg/2 ml Inhal Susp UD IH SCH (21:06)
--- NOTE | 2018-03-16 04:07 | PN ---
DATE: 03/15/2018 SUBJECTIVE: The patient was seen and examined at the bedside on 03/15/2018. No fever, no chills. No hematuria. No hematochezia. No headache. No dizziness. No rhinitis. No shortness of breath. Sometimes, complaining of coughing. No abdominal pain. Complaining about abdominal bloating, increased swelling of the leg. PHYSICAL EXAMINATION VITAL SIGNS: Blood pressure 160/90, pulse 100, temperature 97.6, oxygen saturation 93% on room air. HEENT: Head: Normocephalic, atraumatic. Eyes: PERRLA. Extraocular movements are intact. Conjunctivae clear. Nose patent. Mucous membranes are moist. NECK: Supple. No carotid bruits. No JVD or thyromegaly. CHEST: Bilaterally symmetrical. HEART: S1, S2 positive. LUNGS: Rhonchi bilaterally. ABDOMEN: Distended, obese. Positive bowel sounds. EXTREMITIES: Positive edema bilaterally. NEUROLOGIC: The patient is sleepy, arousable. Moving all 4 extremities. LABORATORY DATA: White blood cells 5.8, hemoglobin 10.1, hematocrit 33.5, platelets 272. Sodium 137, potassium 3.6. BUN 26, creatinine 1.4. Hemoglobin A1c 6.3. Troponin 0.39. Triglycerides 40. TSH 3.96. MEDICATIONS: DuoNeb, aspirin, Colace, Pepcid, Lasix, insulin, Synthroid, Cozaar, metformin, metoprolol, Celebrex, potassium, Aldactone, Coumadin. ASSESSMENT AND PLAN: Mr. Paul Schwab is a 57-year-old male with diabetes mellitus, hypothyroidism, has cardiomyopathy, history of renal failure, degenerative joint disease, cirrhosis of the liver, portal hypertension, lumbar radiculopathy, sleep apnea, chronic obstructive pulmonary disease, congestive heart failure, history of ascites, came with ascites again. Very noncompliant for medications. Sometimes as per patient, he cannot afford medication as outpatient, and he will be missing medication. Logistics Operations Manager increased Lasix from 40 once a day to 40 twice a day. Add antibiotic therapy. Continue inhaled bronchodilators. The patient is on Coumadin. INR was not within therapeutic range on admission. It means, the patient was not taking Coumadin at home. The patient is still refusing positive airway pressure, and even he complained to me that he do not want positive airway pressure. Still a heavy smoker. Dr. Chavira started him nicotine patch, and added Brovana. The patient is to get Dr. Chavira and his nurse practitioner's input, and Dr. Alexandru Carrillo's input. According to Dr. Alexandru Carrillo, the patient had end-stage dilated cardiomyopathy with ejection fraction of 20% to 25%. He started the patient on intravenous dobutamine. Meanwhile, continue Lasix and spironolactone. We will follow up. Kiki Oliver MD
[2018-03-16] MEDS: Levothyroxine 25 MCG TAB PO SCH (05:28)
[2018-03-16 06:54] LABS: INR 1.38
[2018-03-16 07:02] LABS: HEMOGLOBIN 9.8 g/dL (14.0-18.0); MEAN CELL VOLUME 74.4 fl (80.0-105.0); MEAN CORPUSCULAR HGB CONC 29.5 g/dl (31.0-37.0); MEAN PLATELET VOLUME 8.8 fl (7.0-11.0); RBC 4.46 10^6/uL (3.5-6.1); RED CELL DISTRIBUTION WIDTH 19.7 % (11.5-14.5); WHITE BLOOD COUNT 4.6 10^3/uL (4.5-11.0)
[2018-03-16 07:10] LABS: ALB/GLOB RATIO 1.1 (1.1-1.8); ALBUMIN 3.7 g/dL (3.0-4.8); ALT/SGPT 17 U/L (7-56); AST/SGOT 20 U/L (17-59); BLOOD UREA NITROGEN 27 mg/dL (7-21); CALCIUM 8.9 mg/dL (8.4-10.5); GFR NON-AFRICAN AMERICAN 52
[2018-03-16] MEDS: Arformoterol 15 mcg/2 ml Inh Sol IH SCH ×2 (07:45→19:56)
[2018-03-16] MEDS: Budesonide 0.5 mg/2 ml Inhal Susp UD IH SCH ×2 (07:45→19:56)
[2018-03-16] MEDS: Insulin Reg-LOW-Coverage SC SCH ×3 (09:20→18:19)
[2018-03-16] MEDS: Potassium Chloride 20 mEq ER Tab PO SCH (09:35)
[2018-03-16] MEDS: CELECOXIB PO SCH (09:38)
[2018-03-16] MEDS: DILTIAZEM 90 MG PO SCH (09:38)
--- NOTE | 2018-03-16 12:13 | PN ---
PULMONARY PROGRESS NOTE DATE: 03/16/2018 REFERRING PHYSICIAN: Kiki Oliver MD SUBJECTIVE: The patient is lying in bed. No acute distress. No overnight events reported. The patient reports feeling well today. No headache, rhinitis, cough, shortness of breath, chest pain, abdominal pain, nausea, vomiting, diarrhea or leg pain reported. The patient does report swelling continued to lower extremities. OBJECTIVE: GENERAL: No acute distress. VITAL SIGNS: Blood pressure 122/77, pulse 84 and temperature 97.1. HEENT: Moist mucus membranes. NECK: Supple. No JVD. CARDIOVASCULAR: S1 and S2, positive. LUNGS: Fair airflow bilaterally. Few rhonchi. ABDOMEN: Obese and distended. Positive bowel sounds. EXTREMITIES: Bilateral lower extremity edema. NEUROLOGIC: Awake, alert and verbal. Follows simple commands. MEDICATION: Reviewed. Tylenol 650 mg every 4 hours as needed, DuoNeb 3 mL inhalation every 6 hours, Brovana 15 mcg inhalation every 12 hours, aspirin 81 mg p.o. daily, Pulmicort 0.5 mg inhalation every 12 hours, Dobutamine 500 mg p.r.n., Colace 100 mg twice a day, doxycycline 100 mg every 12 hours, Pepcid 40 mg at bedtime, Lasix 40 mg IV push every 8 hours, Humulin R sliding scale, Synthroid 25 mcg daily, Cozaar 50 mg daily, milk of magnesia 30 mL p.o. daily p.r.n., metformin 500 mg p.o. daily, metoprolol tartrate 25 mg twice a day, nicotine patch daily, Celebrex 1 cap p.o. daily, potassium chloride 20 mEq at breakfast, Aldactone 20 mg twice a day and Coumadin 5 mg daily. LABORATORY DATA: Reviewed. WBC 4.6, RBC 4.46, hemoglobin 9.8, hematocrit 32.3 and platelets 244. PT 16 and INR 1.38. Sodium 139, potassium 4.0, chloride 97, carbon dioxide 33, anion gap 13, BUN 27, creatinine 1.4, GFR 52, POC glucose 92, random glucose 98, calcium 8.9, total bilirubin 1.5, AST 20, ALT 17, alkaline phosphatase 111, total protein 7.1, albumin 3.7, globulin 3.4 and albumin-globulin ratio 1.1. IMPRESSION AND PLAN: Diabetes mellitus, hyperthyroidism, cardiomyopathy, history of renal failure, degenerative joint disease, cirrhosis of the liver, portal hypertension, lumbar radiculopathy, sleep apnea syndrome, chronic obstructive pulmonary disease, congestive heart failure, history of ascites and presently presents with ascites, end-stage dilated cardiomyopathy with ejection fraction 20% to 25%, Dr. Carrillo's note appreciated. The patient continues to refuse continuous positive airway pressure machine for treatment of sleep apnea. Continue inhaled bronchodilators. Continue diuretics, afterload reducers. Need to follow electrolytes closely. We will order labs for the morning. Gastric prophylaxis. Continue anticoagulation therapy. Head of bed elevated at 45 degrees. Sleep apnea precaution. This patient was seen and examined with Dr. Chavira. Discussed assessment and plan as described above. Thank you for this consult and we will follow with you. Harry Pickett APN Farhan Chavira MD
--- NOTE | 2018-03-16 12:16 | PN ---
DATE: 03/16/2018 SUBJECTIVE: The patient still complains of marked ascites. No dyspnea noted. The patient is admitting to have quite a bit of urine output. PHYSICAL EXAMINATION: VITAL SIGNS: Blood pressure 122/77, heart rate is in the 80s. NECK: Negative JVD. LUNGS: Without rales. HEART: With S1, S2. ABDOMEN: Marked increased girth. EXTREMITIES: Decreasing edema. LABORATORY DATA: Hemoglobin is 9.8. Chemistries: BUN and creatinine is 27 and 1.4. IMPRESSION: 1. Congestive heart failure. 2. Marked ascites. 3. End-stage dilated cardiomyopathy. 4. Diabetes mellitus. 5. Obesity. 6. Coronary artery disease. PLAN: Given these findings, we will increase his dobutamine to 7.5 mcg/kg. In addition, we will increase his Lasix. Alexandru Carrillo MD
--- NOTE | 2018-03-16 13:02 | CP.PCM.APN ---
Subjective - Date & Time of Evaluation Date of Evaluation: 03/16/18 Time of Evaluation: 10:00 - Subjective Subjective: 57 year old male, with past medical history of CHF,dilated cardiomyopathy,atrial fibrillation, hypertension, diabetes and COPD, presents to the Emergency department complaining of abdominal distention since yesterday. Patient states possible distention of abdomen secondary to fluid retention and reports similar symptoms in the past with multiple hospital visits. Patient denies any associated abdominal pain but reports shortness of breath. Patient informs taking diuretic medication with no improvement to symptoms. Patient complains of dyspnea at rest and productive cough with yellow-tinged sputum. Patient denies any fevers, chills, headache, dizziness, chest pain, cough, abdominal pain, nausea, vomiting, diarrhea, back pain, neck Pt. seen and examined. States breathing better, currently on Dobutamine drip.Pt. appears fatigued this am. Denied chest pain or chest discomfort. Review of Systems - Review of Systems All systems: reviewed and no additional remarkable complaints except Objective - Vital Signs/Intake and Output Vital Signs (last 24 hours): Temp Pulse Resp BP Pulse Ox 97.1 F L 84 20 122/77 96 03/16/18 00:01 03/16/18 09:36 03/16/18 00:01 03/16/18 09:37 03/15/18 06:00 Intake and Output: 03/16/18 03/16/18 06:59 18:59 Intake Total 989 Output Total 750 Balance 239 - Medications Medications: Current Medications Acetaminophen (Tylenol 325mg Tab) 650 mg PO Q6H PRN PRN Reason: Pain, moderate (4-7) Last Admin: 03/16/18 09:35 Dose: 650 mg Albuterol/Ipratropium (Duoneb 3 Mg/0.5 Mg (3 Ml) Ud) 3 ml IH [id number] PRN PRN Reason: Shortness of Breath Arformoterol Tartrate (Brovana) 15 mcg IH [id number] [facility] Last Admin: 03/16/18 07:45 Dose: 15 mcg Aspirin (Ecotrin) 81 mg PO DAILY [facility] Last Admin: 03/16/18 09:38 Dose: 81 mg Budesonide (Pulmicort Respules) 0.5 mg IH [id number] [facility] Last Admin: 03/16/18 07:45 Dose: 0.5 mg Docusate Sodium (Colace) 100 mg PO BID [facility] Last Admin: 03/16/18 09:36 Dose: 100 mg Doxycycline Hyclate (Doryx) 100 mg PO Q12 [facility]; Protocol Last Admin: 03/16/18 09:37 Dose: 100 mg Famotidine (Pepcid) 40 mg PO HS [facility] Last Admin: 03/15/18 23:21 Dose: 40 mg Furosemide (Lasix) 80 mg IVP BID [facility] Home Med (Home Med) 1 unit PO DAILY [facility] Last Admin: 03/16/18 09:38 Dose: Not Given Dobutamine HCl/Dextrose (Dobutamine/Dextrose 5% 500mg/250ml) 500 mg in 250 mls @ 30.618 mls/hr IV .Q8H10M PRN PRN Reason: Swelling Insulin Human Regular (Humulin R Low) 0 units SC ACHS [facility]; Protocol Last Admin: 03/16/18 09:20 Dose: Not Given Levothyroxine Sodium (Synthroid) 25 mcg PO 0600 [facility] Last Admin: 03/16/18 05:28 Dose: 25 mcg Losartan Potassium (Cozaar) 50 mg PO DAILY [facility] Last Admin: 03/16/18 09:36 Dose: 50 mg Magnesium Hydroxide (Milk Of Magnesia) 30 ml PO DAILY PRN PRN Reason: Constipation Last Admin: 03/15/18 12:55 Dose: 30 ml Metformin HCl (Glucophage) 500 mg PO DAILY [facility] Last Admin: 03/16/18 09:37 Dose: 500 mg Metoprolol Tartrate (Lopressor) 25 mg PO BID [facility] Last Admin: 03/16/18 09:37 Dose: 25 mg Nicotine (Nicoderm Cq) 1 patch TD DAILY [facility] Last Admin: 03/16/18 09:43 Dose: 1 patch Non-Formulary Medication (Celecoxib [Celebrex]) 1 cap PO DAILY [facility] Last Admin: 03/16/18 09:38 Dose: Not Given Potassium Chloride (K-Dur 20 Meq Er Tab) 20 meq PO BRK [facility] Last Admin: 03/16/18 09:35 Dose: 20 meq Spironolactone (Aldactone) 25 mg PO BID [facility] Last Admin: 03/16/18 09:36 Dose: 25 mg Warfarin Sodium (Coumadin) 5 mg PO 1800 [facility]; Protocol Last Admin: 03/15/18 23:32 Dose: 5 mg - Labs Labs: 03/16/18 06:20 03/16/18 06:20 PT 16.0 SECONDS (9.4-12.5) H 03/16/18 06:20 INR 1.38 03/16/18 06:20 APTT 28.4 Seconds (25.1-36.5) 03/14/18 13:07 - Constitutional Appears: Unkempt, Older Than Stated Age - Head Exam Head Exam: NORMAL INSPECTION - Eye Exam Eye Exam: Normal appearance - ENT Exam ENT Exam: Normal Exam - Neck Exam Neck Exam: Normal Inspection - Respiratory Exam Respiratory Exam: Clear to Ausculation Bilateral - Cardiovascular Exam Cardiovascular Exam: Irregular Rhythm, +S1, +S2 - GI/Abdominal Exam GI & Abdominal Exam: Distended, Normal Bowel Sounds - Rectal Exam Rectal Exam: Deferred - Extremities Exam Extremities Exam: Full ROM, Pedal Edema Additional comments: 2-3+ b/l lower extremity edema - Back Exam Back Exam: NORMAL INSPECTION - Neurological Exam Neurological Exam: Oriented x3 - Psychiatric Exam Psychiatric exam: Normal Mood - Skin Skin Exam: Normal Color Assessment and Plan - Assessment and Plan (Free Text) Assessment: 1. Marked Ascites secondary to CHF- Continue IV Diuresis as per rehab therapy manager. 2. Recurrent CHF, acute on chronic, maybe secondary to non-compliance with medications- continue IV Lasix, IV Dobutamine as per rehab therapy manager Will continue to monitor I's and O's, daily weights. Lasix increased to 80 mg iv Bid per cardiology 3. End-Stage Dilated Cardiomyopathy- Recs as per Chief Supply Chain Officer 4. LYDIA, most likely secondary to IV Lasix- continue to monitor kidney function, will trend BUN/Creatinine. 5. Rapid atrial fibrillation- continue Coumadin per cardiology, continue Metoprolol as peR Cardiology 6. Noncompliance with smoking cessation- currently receiving Nicotine patch. 7. Sleep Apnea, maybe secondary to ascites and weight gain, currently refusing CPAP at night, continue Bronchodilators and Duonebs prn per front desk agent. Will continue to monitor closely and follow clinically. Pt. eval is pending, continue to discuss with consultatnts, and monitor clinical status. SW planning for DC home once medically cleared and cleared by rehab therapy manager.
[2018-03-16] MEDS: Magnesium Hydroxide Susp 30 ml UD PO PRN (13:58)
[2018-03-16] MEDS: DOBUTamine 500mg/250ml D5W 500 MG/250 ML BAG IV PRN ×2 (13:59→22:43)
--- NOTE | 2018-03-17 02:09 | PN ---
DATE: 03/16/2018 SUBJECTIVE: The patient was seen and examined on 03/16/2018, still having swelling of the extremities, still has swelling of the abdomen. No fever. No chills. No hematuria or hematochezia. No headache. No dizziness. PHYSICAL EXAMINATION: VITAL SIGNS: Blood pressure 122/77, pulse 84, temperature 97.1, respiratory rate 18. HEENT: Head normocephalic, atraumatic. Eyes, PERRLA. Extraocular muscles intact. Conjunctivae clear. Nose patent. Mucous membranes moist. NECK: Supple. No carotid bruit. No JVD or thyromegaly. CHEST: Bilaterally symmetrical. HEART: S1, S2 positive. LUNGS: Fair airflow bilaterally. Few rhonchi. ABDOMEN: Obese and distended. Positive bowel sounds. EXTREMITIES: Bilateral positive edema. NEUROLOGIC: The patient is awake, alert. Follows simple commands. MEDICATIONS: Tylenol, DuoNeb, Brovana, aspirin, Pulmicort, Dobutamine, Colace, doxycycline, Pepcid, Synthroid, Cozaar, magnesia, metformin, metoprolol, Celebrex, potassium, Aldactone, Coumadin. LABORATORY DATA: White blood cell 4.6, hemoglobin 9.8, hematocrit 32.3, platelets 244. INR 1.38. Sodium 139, potassium 4, BUN 27, creatinine 1.4, glucose 92. ASSESSMENT AND PLAN: Mr. Paul Schwab is a 57-year-old male with hypothyroidism, obesity, noncompliant, diabetes mellitus, cardiomyopathy, renal failure, degenerative joint disease, cirrhosis of the liver, portal hypertension, lumbar radiculopathy, sleep apnea syndrome, congestive heart failure, chronic obstructive pulmonary disease, history of ascites, presently presents with ascites, end-stage dilated cardiomyopathy with ejection fraction of 20% to 25%. Alexandru Carrillo is on the case. Continue diuretic afterload reduction, continue anticoagulation with INR between [address] Chavira's notes and Dr. Alexandru Carrillo's notes. Seen by Amna, nurse practitioner. Dr. Alexandru Carrillo increased the dobutamine to 7.5 mcg/kg, in addition, we will follow up. Kiki Oliver MD
[2018-03-17] MEDS: Levothyroxine 25 MCG TAB PO SCH (06:01)
[2018-03-17] MEDS: DOBUTamine 500mg/250ml D5W 500 MG/250 ML BAG IV PRN ×2 (07:09→17:37)
[2018-03-17 07:12] LABS: BASO # 0.02 K/mm3 (0.0-2.0); BASO % 0.4 % (0.0-3.0); EOS # 0.1 (0.0-0.7); EOS % 2.2 % (1.5-5.0); GRAN # 3.96 (1.4-6.5); GRAN % 77.6 % (50.0-68.0); HEMOGLOBIN 10.2 g/dL (14.0-18.0); LYMPH # 0.7 (1.2-3.4); LYMPH % 13.1 % (22.0-35.0); MEAN CELL VOLUME 73.8 fl (80.0-105.0); MEAN CORPUSCULAR HEMOGLOBIN 22.5 pg (25.0-35.0); MEAN CORPUSCULAR HGB CONC 30.4 g/dl (31.0-37.0); MEAN PLATELET VOLUME 9.1 fl (7.0-11.0); MONO # 0.3 (0.1-0.6); MONO % 6.7 % (1.0-6.0); RBC 4.54 10^6/uL (3.5-6.1); RED CELL DISTRIBUTION WIDTH 19.5 % (11.5-14.5); WHITE BLOOD COUNT 5.1 10^3/uL (4.5-11.0)
[2018-03-17 07:30] LABS: ALB/GLOB RATIO 1.1 (1.1-1.8); ALBUMIN 3.8 g/dL (3.0-4.8); CALCIUM 8.5 mg/dL (8.4-10.5)
[2018-03-17] MEDS: Insulin Reg-LOW-Coverage SC SCH ×3 (07:30→17:00)
[2018-03-17] MEDS: Arformoterol 15 mcg/2 ml Inh Sol IH SCH ×2 (08:25→21:45)
[2018-03-17] MEDS: Budesonide 0.5 mg/2 ml Inhal Susp UD IH SCH ×2 (08:26→21:45)
[2018-03-17] MEDS: Potassium Chloride 20 mEq ER Tab PO SCH (08:56)
[2018-03-17] MEDS: CELECOXIB PO SCH (09:26)
[2018-03-17] MEDS: Magnesium Hydroxide Susp 30 ml UD PO PRN (09:45)
[2018-03-17] MEDS: DILTIAZEM 90 MG PO SCH (10:00)
--- NOTE | 2018-03-17 11:52 | PN ---
PULMONARY PROGRESS NOTE DATE: 03/17/2018 REFERRING PHYSICIAN: Kiki Oliver MD SUBJECTIVE: The patient is lying in bed. No acute distress. No overnight events reported. No headache, rhinitis, cough, shortness of breath, chest pain, abdominal pain, nausea, vomiting, diarrhea or leg pain reported. Swelling continues to lower extremity and abdomen. OBJECTIVE: GENERAL: No acute distress. VITAL SIGNS: Blood pressure 120/88, pulse 88 and temp 96.2. HEENT: Moist mucous membranes. NECK: Supple. No JVD. CARDIOVASCULAR: S1 and S2, audible. LUNGS: Fair airflow bilaterally, no audible wheeze. ABDOMEN: Obese and distended. Positive bowel sounds. EXTREMITIES: Bilateral lower extremity edema. NEUROLOGIC: Awake, alert and verbal. Follows commands. MEDICATION: Reviewed. Tylenol 650 mg every 6 hours p.r.n. for pain., DuoNeb 3 mL inhalation every 6 hours p.r.n., Brovana 15 mcg every 12 hours, aspirin 81 mg p.o. daily, Pulmicort 0.5 mg inhalation every 12 hours, dobutamine 500 mg IV, Colace 100 mg twice a day, Pepcid 40 mg at bedtime, Lasix 80 mg twice a day, Humulin R sliding scale, Synthroid 25 mcg, Cozaar 50 mg daily, milk of magnesia 30 mL p.o. daily p.r.n., metoprolol tartrate 25 mg twice a day, nicotine patch daily, Celebrex 1 cap daily, potassium chloride 20 mEq at breakfast, Aldactone 25 mg twice a day and Coumadin 5 mg daily. LABORATORY DATA: Reviewed. WBC 5.1, RBC 4.54, hemoglobin 10.2, hematocrit 33.5 and platelets 248. Sodium 137, potassium 4.2, chloride 96, carbon dioxide 34, anion gap 12, BUN 27, creatinine 1.5, GFR 48, random glucose 111, calcium 8.5, total bilirubin 1.4, AST 23, ALT 17, alkaline phosphatase 114, total protein 7.2, albumin 3.8, globulin 3.5 and albumin-globulin ratio 1.1. IMPRESSION AND PLAN: Diabetes mellitus, cardiomyopathy, history of renal failure, degenerative joint disease, cirrhosis of the liver, portal hypertension, lumbar radiculopathy, sleep apnea syndrome, chronic obstructive pulmonary disease, congestive heart failure, presently with ascites, also has history of ascites, end-stage dilated cardiomyopathy with ejection fraction 20% to 25%. Continue inhaled bronchodilators, continue diuretics, afterload reducers. Need to monitor electrolytes closely. Gastric prophylaxis. Continue anticoagulation therapy. Head of bed elevated at 45 degrees. Sleep apnea precaution. The patient presently refuses to use continuous positive airway pressure machine at night for sleep apnea. This patient was seen and examined with Dr. Chavira. Discussed assessment and plan as described above. Thank you for this consult and we will follow with you. Harry Pickett APN Farhan Chavira MD [facility]
--- NOTE | 2018-03-17 13:01 | PN ---
DATE: 03/17/2018 CARDIOLOGY FOLLOWUP SUBJECTIVE: The patient is without shortness of breath. He is having good diuresis. OBJECTIVE: VITAL SIGNS: Blood pressure 120/88, heart rates in the 80s. NECK: Negative JVD. LUNGS: Without rales. HEART: S1, S2. EXTREMITIES: No edema noted. ABDOMEN: Decreased girth. LABORATORY DATA: Hemoglobin is 10.2, BUN and creatinine is 25 and 1.5 with a potassium of 4.2. The magnesium several days was 1.7. Given these findings, we will continue his Lasix and continue the higher dose of IV dobutamine. We will obtain magnesium levels in the morning. Alexandru Carrillo MD
--- NOTE | 2018-03-17 13:57 | CP.PCM.APN ---
Subjective - Date & Time of Evaluation Date of Evaluation: 03/17/18 Time of Evaluation: 09:30 - Subjective Subjective: 57 year old male, with past medical history of CHF,dilated cardiomyopathy,atrial fibrillation, hypertension, diabetes and COPD, presents to the Emergency department complaining of abdominal distention since yesterday. Patient states possible distention of abdomen secondary to fluid retention and reports similar symptoms in the past with multiple hospital visits. Patient denies any associated abdominal pain but reports shortness of breath. Patient informs taking diuretic medication with no improvement to symptoms. Patient complains of dyspnea at rest and productive cough with yellow-tinged sputum. Pt. seen and examined, was sitting up in bed at time of assessment. States breathing is little better, denied chest pain, palpitations, dizziness or lightheadedness. States has some abdominal fullness and discomfort, no pain reported. Is requesting milk of magnesia and colace daily for bowel movements. Review of Systems - Constitutional Constitutional: As Per HPI - Cardiovascular Cardiovascular: As Per HPI, Leg Edema, Pedal Edema Additional comments: b/l 2-3+ edema noted. - Respiratory Respiratory: Dyspnea on Exertion - Gastrointestinal Gastrointestinal: Constipation, Other Additional comments: abdominal fullness, and tightness, discomfort. - Neurological Neurological: As Per HPI Objective - Vital Signs/Intake and Output Vital Signs (last 24 hours): Temp Pulse Resp BP Pulse Ox 97.9 F 86 20 144/85 96 03/17/18 12:00 03/17/18 12:00 03/17/18 12:00 03/17/18 12:00 03/15/18 06:00 Intake and Output: 03/17/18 03/17/18 06:59 18:59 Intake Total 240 Output Total 540 Balance -300 - Medications Medications: Current Medications Acetaminophen (Tylenol 325mg Tab) 650 mg PO Q6H PRN PRN Reason: Pain, moderate (4-7) Last Admin: 03/17/18 09:45 Dose: 650 mg Albuterol/Ipratropium (Duoneb 3 Mg/0.5 Mg (3 Ml) Ud) 3 ml IH [id number] PRN PRN Reason: Shortness of Breath Arformoterol Tartrate (Brovana) 15 mcg IH [id number] [facility] Last Admin: 03/17/18 08:25 Dose: 15 mcg Aspirin (Ecotrin) 81 mg PO DAILY [facility] Last Admin: 03/17/18 09:25 Dose: 81 mg Budesonide (Pulmicort Respules) 0.5 mg IH [id number] [facility] Last Admin: 03/17/18 08:26 Dose: 0.5 mg Docusate Sodium (Colace) 100 mg PO BID [facility] Last Admin: 03/17/18 09:26 Dose: 100 mg Doxycycline Hyclate (Doryx) 100 mg PO Q12 [facility]; Protocol Last Admin: 03/17/18 09:25 Dose: 100 mg Famotidine (Pepcid) 40 mg PO HS [facility] Last Admin: 03/16/18 22:13 Dose: 40 mg Furosemide (Lasix) 80 mg IVP BID [facility] Last Admin: 03/17/18 09:24 Dose: 80 mg Home Med (Home Med) 1 unit PO DAILY [facility] Last Admin: 03/16/18 09:38 Dose: Not Given Dobutamine HCl/Dextrose (Dobutamine/Dextrose 5% 500mg/250ml) 500 mg in 250 mls @ 30.618 mls/hr IV .Q8H10M PRN PRN Reason: Swelling Last Admin: 03/17/18 07:09 Dose: 30.618 mls/hr Insulin Human Regular (Humulin R Low) 0 units SC [facility]; Protocol Last Admin: 03/17/18 07:30 Dose: Not Given Levothyroxine Sodium (Synthroid) 25 mcg PO 0600 [facility] Last Admin: 03/17/18 06:01 Dose: 25 mcg Losartan Potassium (Cozaar) 50 mg PO DAILY [facility] Last Admin: 03/17/18 09:25 Dose: 50 mg Magnesium Hydroxide (Milk Of Magnesia) 30 ml PO DAILY PRN PRN Reason: Constipation Last Admin: 03/17/18 09:45 Dose: 30 ml Metformin HCl (Glucophage) 500 mg PO DAILY [facility] Last Admin: 03/17/18 09:25 Dose: 500 mg Metoprolol Tartrate (Lopressor) 25 mg PO BID [facility] Last Admin: 03/17/18 09:25 Dose: 25 mg Nicotine (Nicoderm Cq) 1 patch TD DAILY [facility] Last Admin: 03/17/18 09:27 Dose: 1 patch Non-Formulary Medication (Celecoxib [Celebrex]) 1 cap PO DAILY [facility] Last Admin: 03/17/18 09:26 Dose: Not Given Potassium Chloride (K-Dur 20 Meq Er Tab) 20 meq PO BRK [facility] Last Admin: 03/17/18 08:56 Dose: 20 meq Spironolactone (Aldactone) 25 mg PO BID [facility] Last Admin: 03/17/18 09:25 Dose: 25 mg Warfarin Sodium (Coumadin) 5 mg PO 1800 [facility]; Protocol Last Admin: 03/16/18 18:11 Dose: 5 mg - Labs Labs: 03/17/18 06:45 03/17/18 06:45 PT 16.0 SECONDS (9.4-12.5) H 03/16/18 06:20 INR 1.38 03/16/18 06:20 APTT 28.4 Seconds (25.1-36.5) 03/14/18 13:07 - Constitutional Appears: Well - Head Exam Head Exam: NORMAL INSPECTION - ENT Exam ENT Exam: Mucous Membranes Moist - Neck Exam Neck Exam: Full ROM - Respiratory Exam Respiratory Exam: Clear to Ausculation Bilateral, NORMAL BREATHING PATTERN - GI/Abdominal Exam GI & Abdominal Exam: Distended, Soft, Normal Bowel Sounds - Rectal Exam Rectal Exam: Deferred - Extremities Exam Extremities Exam: Pedal Edema Additional comments: 3+ b/l edema - Back Exam Back Exam: NORMAL INSPECTION - Skin Skin Exam: Normal Color, Warm Assessment and Plan - Assessment and Plan (Free Text) Assessment: Laboratory Tests 03/14/18 03/14/18 03/14/18 12:14 13:07 13:07 WBC 6.9 RBC 4.73 Hgb 10.5 L Hct 35.6 L MCV 75.3 L MCH 22.2 L MCHC 29.5 L RDW 20.0 H Plt Count 260 MPV 9.1 Gran % 75.4 H Lymph % (Auto) 10.5 L [place] % (Auto) 11.3 H Eos % (Auto) 2.2 Baso % (Auto) 0.6 Gran # 5.22 Lymph # (Auto) 0.7 L [place] # (Auto) 0.8 H Eos # (Auto) 0.2 Baso # (Auto) 0.04 PT 15.5 H INR 1.34 APTT 28.4 Sodium 138 Potassium 3.3 L Chloride 101 Carbon Dioxide 29 Anion Gap 11 BUN 27 H Creatinine 1.4 Est GFR ( Amer) > 60 Est GFR (Non-Af Amer) 52 POC Glucose (mg/dL) Random Glucose 103 Hemoglobin A1c Calcium 9.1 Magnesium 1.7 Iron TIBC % Saturation Total Bilirubin 1.3 AST 18 ALT 21 Alkaline Phosphatase 116 Troponin I 0.39 H* D NT-Pro-B Natriuret Pep 48846 H Total Protein 6.9 Albumin 3.6 Globulin 3.3 Albumin/Globulin Ratio 1.1 Triglycerides Cholesterol LDL Cholesterol Direct HDL Cholesterol Vitamin B12 Folate TSH 3rd Generation 03/14/18 03/15/18 03/15/18 13:07 06:30 06:30 WBC RBC Hgb Hct MCV MCH MCHC RDW Plt Count MPV Gran % Lymph % (Auto) [place] % (Auto) Eos % (Auto) Baso % (Auto) Gran # Lymph # (Auto) [place] # (Auto) Eos # (Auto) Baso # (Auto) PT INR APTT Sodium Potassium Chloride Carbon Dioxide Anion Gap BUN Creatinine Est GFR ( Amer) Est GFR (Non-Af Amer) POC Glucose (mg/dL) Random Glucose Hemoglobin A1c 6.3 Calcium Magnesium Iron 23 L TIBC 462 % Saturation 5 L Total Bilirubin AST ALT Alkaline Phosphatase Troponin I NT-Pro-B Natriuret Pep Total Protein Albumin Globulin Albumin/Globulin Ratio Triglycerides Cholesterol LDL Cholesterol Direct HDL Cholesterol Vitamin B12 Folate TSH 3rd Generation 5.10 H 03/15/18 03/15/18 03/15/18 06:30 06:30 06:30 WBC 5.8 RBC 4.52 Hgb 10.1 L Hct 33.5 L MCV 74.1 L MCH 22.3 L MCHC 30.1 L RDW 19.9 H Plt Count 272 MPV 8.8 Gran % Lymph % (Auto) [place] % (Auto) Eos % (Auto) Baso % (Auto) Gran # Lymph # (Auto) [place] # (Auto) Eos # (Auto) Baso # (Auto) PT INR APTT Sodium 137 Potassium 3.6 Chloride 101 Carbon Dioxide 28 Anion Gap 12 BUN 26 H Creatinine 1.4 Est GFR ( Amer) > 60 Est GFR (Non-Af Amer) 52 POC Glucose (mg/dL) Random Glucose 117 H Hemoglobin A1c Calcium 9.0 Magnesium Iron TIBC % Saturation Total Bilirubin AST ALT Alkaline Phosphatase Troponin I NT-Pro-B Natriuret Pep 9010 H Total Protein Albumin Globulin Albumin/Globulin Ratio Triglycerides 40 Cholesterol 99 L LDL Cholesterol Direct 73 HDL Cholesterol 26 L Vitamin B12 374 Folate 8.7 TSH 3rd Generation 3.96 03/15/18 03/15/18 03/15/18 07:29 11:43 16:41 WBC RBC Hgb Hct MCV MCH MCHC RDW Plt Count MPV Gran % Lymph % (Auto) [place] % (Auto) Eos % (Auto) Baso % (Auto) Gran # Lymph # (Auto) [place] # (Auto) Eos # (Auto) Baso # (Auto) PT INR APTT Sodium Potassium Chloride Carbon Dioxide Anion Gap BUN Creatinine Est GFR ( Amer) Est GFR (Non-Af Amer) POC Glucose (mg/dL) 126 H 117 H 99 Random Glucose Hemoglobin A1c Calcium Magnesium Iron TIBC % Saturation Total Bilirubin AST ALT Alkaline Phosphatase Troponin I NT-Pro-B Natriuret Pep Total Protein Albumin Globulin Albumin/Globulin Ratio Triglycerides Cholesterol LDL Cholesterol Direct HDL Cholesterol Vitamin B12 Folate TSH 3rd Generation 03/15/18 03/16/18 03/16/18 19:22 06:20 06:20 WBC RBC Hgb Hct MCV MCH MCHC RDW Plt Count MPV Gran % Lymph % (Auto) [place] % (Auto) Eos % (Auto) Baso % (Auto) Gran # Lymph # (Auto) [place] # (Auto) Eos # (Auto) Baso # (Auto) PT 16.1 H 16.0 H INR 1.40 1.38 APTT Sodium 139 Potassium 4.0 Chloride 97 L Carbon Dioxide 33 Anion Gap 13 BUN 27 H Creatinine 1.4 Est GFR ( Amer) > 60 Est GFR (Non-Af Amer) 52 POC Glucose (mg/dL) Random Glucose 98 Hemoglobin A1c Calcium 8.9 Magnesium Iron TIBC % Saturation Total Bilirubin 1.5 H AST 20 ALT 17 Alkaline Phosphatase 111 Troponin I NT-Pro-B Natriuret Pep Total Protein 7.1 Albumin 3.7 Globulin 3.4 Albumin/Globulin Ratio 1.1 Triglycerides Cholesterol LDL Cholesterol Direct HDL Cholesterol Vitamin B12 Folate TSH 3rd Generation 03/16/18 03/16/18 03/16/18 06:20 07:20 11:18 WBC 4.6 D RBC 4.46 Hgb 9.8 L Hct 33.2 L MCV 74.4 L MCH 22.0 L MCHC 29.5 L RDW 19.7 H Plt Count 244 MPV 8.8 Gran % Lymph % (Auto) [place] % (Auto) Eos % (Auto) Baso % (Auto) Gran # Lymph # (Auto) [place] # (Auto) Eos # (Auto) Baso # (Auto) PT INR APTT Sodium Potassium Chloride Carbon Dioxide Anion Gap BUN Creatinine Est GFR ( Amer) Est GFR (Non-Af Amer) POC Glucose (mg/dL) 92 227 H Random Glucose Hemoglobin A1c Calcium Magnesium Iron TIBC % Saturation Total Bilirubin AST ALT Alkaline Phosphatase Troponin I NT-Pro-B Natriuret Pep Total Protein Albumin Globulin Albumin/Globulin Ratio Triglycerides Cholesterol LDL Cholesterol Direct HDL Cholesterol Vitamin B12 Folate TSH 3rd Generation 03/16/18 03/17/18 03/17/18 16:18 06:45 06:45 WBC 5.1 RBC 4.54 Hgb 10.2 L Hct 33.5 L MCV 73.8 L MCH 22.5 L MCHC 30.4 L RDW 19.5 H Plt Count 248 MPV 9.1 Gran % 77.6 H Lymph % (Auto) 13.1 L [place] % (Auto) 6.7 H Eos % (Auto) 2.2 Baso % (Auto) 0.4 Gran # 3.96 Lymph # (Auto) 0.7 L [place] # (Auto) 0.3 Eos # (Auto) 0.1 Baso # (Auto) 0.02 PT INR APTT Sodium 137 Potassium 4.2 Chloride 96 L Carbon Dioxide 34 H Anion Gap 12 BUN 27 H Creatinine 1.5 Est GFR ( Amer) 58 Est GFR (Non-Af Amer) 48 POC Glucose (mg/dL) 98 Random Glucose 111 H Hemoglobin A1c Calcium 8.5 Magnesium Iron TIBC % Saturation Total Bilirubin 1.4 H AST 23 ALT 17 Alkaline Phosphatase 114 Troponin I NT-Pro-B Natriuret Pep Total Protein 7.2 Albumin 3.8 Globulin 3.5 Albumin/Globulin Ratio 1.1 Triglycerides Cholesterol LDL Cholesterol Direct HDL Cholesterol Vitamin B12 Folate TSH 3rd Generation 03/17/18 03/17/18 07:26 11:25 WBC RBC Hgb Hct MCV MCH MCHC RDW Plt Count MPV Gran % Lymph % (Auto) [place] % (Auto) Eos % (Auto) Baso % (Auto) Gran # Lymph # (Auto) [place] # (Auto) Eos # (Auto) Baso # (Auto) PT INR APTT Sodium Potassium Chloride Carbon Dioxide Anion Gap BUN Creatinine Est GFR ( Amer) Est GFR (Non-Af Amer) POC Glucose (mg/dL) 108 134 H Random Glucose Hemoglobin A1c Calcium Magnesium Iron TIBC % Saturation Total Bilirubin AST ALT Alkaline Phosphatase Troponin I NT-Pro-B Natriuret Pep Total Protein Albumin Globulin Albumin/Globulin Ratio Triglycerides Cholesterol LDL Cholesterol Direct HDL Cholesterol Vitamin B12 Folate TSH 3rd Generation Plan: 1. Marked Ascites secondary to CHF- Continue IV Diuresis as per chute man. 2. Recurrent CHF, acute on chronic, maybe secondary to non-compliance with medications- continue IV Lasix, IV Dobutamine as per chute man Will continue to monitor I's and O's, daily weights. Lasix increased to 80 mg iv Bid per cardiology 3. End-Stage Dilated Cardiomyopathy- Recs as per Payroll Clerk 4. LYDIA, most likely secondary to IV Lasix- continue to monitor kidney function, will trend BUN/Creatinine. 5. Rapid atrial fibrillation- continue Coumadin per cardiology, continue Metoprolol as peR Cardiology 6. Noncompliance with smoking cessation- currently receiving Nicotine patch. 7. Sleep Apnea, maybe secondary to ascites and weight gain, currently refusing CPAP at night, continue Bronchodilators and Duonebs prn per tool and production planner. Will continue to monitor closely and follow clinically. Pt. eval is pending, continue to discuss with consultatnts, and monitor clinical status. TONI planning for DC home once medically cleared and cleared by chute man.
[2018-03-18] MEDS: Insulin Reg-LOW-Coverage SC SCH ×5 (01:33→22:18)
[2018-03-18] MEDS: DOBUTamine 500mg/250ml D5W 500 MG/250 ML BAG IV PRN ×3 (02:16→20:55)
[2018-03-18] MEDS: Levothyroxine 25 MCG TAB PO SCH (05:22)
[2018-03-18] MEDS: Albuterol-Ipratrop 3 mg / 0.5 (3 ml) UD IH PRN ×2 (08:00→14:21)
[2018-03-18] MEDS: Budesonide 0.5 mg/2 ml Inhal Susp UD IH SCH ×2 (08:00→20:08)
[2018-03-18] MEDS: Arformoterol 15 mcg/2 ml Inh Sol IH SCH ×2 (08:00→20:08)
[2018-03-18 08:34] LABS: ALB/GLOB RATIO 1.2 (1.1-1.8); ALBUMIN 3.8 g/dL (3.0-4.8); CALCIUM 8.9 mg/dL (8.4-10.5)
[2018-03-18] MEDS: Potassium Chloride 20 mEq ER Tab PO SCH (09:19)
[2018-03-18] MEDS: CELECOXIB PO SCH (11:47)
[2018-03-18] MEDS: DILTIAZEM 90 MG PO SCH (11:48)
--- NOTE | 2018-03-18 17:02 | PN ---
DATE: 03/18/2018 CARDIOLOGY FOLLOWUP SUBJECTIVE: The patient's abdominal girth is much improved. He denies shortness of breath. PHYSICAL EXAMINATION: VITAL SIGNS: Blood pressure 148/61, heart rate is in the 90s. NECK: Negative JVD. LUNGS: Without rales. HEART: S1, S2. ABDOMEN: Decreased girth. EXTREMITIES: Without edema. LABORATORY DATA: Potassium is 4.1, magnesium is 1.8. IMPRESSION: 1. End-stage dilated cardiomyopathy. 2. Marked ascites. 3. Congestive heart failure is better. 4. Diabetes mellitus. 5. Coronary artery disease. PLAN: Given these findings, we will continue his inotropic therapy as well as IV Lasix. Alexandru Carrillo MD
--- NOTE | 2018-03-19 00:53 | PN ---
DATE: 03/18/2018 PULMONARY PROGRESS NOTE REFERRING PHYSICIAN: Kiki Oliver MD SUBJECTIVE: The patient is lying in bed comfortably, feels okay, no overnight events reported. No headache, chest pain, nausea, vomiting, or leg pain pain reported. Has bilateral leg swelling. OBJECTIVE: GENERAL: No acute distress. VITAL SIGNS: Temperature 97.2, pulse 95, respirations 20, blood pressure 136/58. HEENT: Moist mucous membranes. Crowded airway. Mallampati is 4. NECK: Supple. No JVD. LUNGS: Clear. CARDIAC: S1, S2. ABDOMEN: Soft, nontender. No organomegaly. EXTREMITIES: Bilateral lower extremity edema. NEUROLOGIC: Awake, alert, follow simple commands. LABORATORY RESULTS: Reviewed. Sodium 135, potassium 4.1, chloride 96, carbon dioxide 31, BUN 26, creatinine 1.5, bedside glucose 126, random glucose 121, calcium 8.9, magnesium 1.8, bilirubin 1.4, AST 22, ALT 19, alkaline phosphatase 113, protein 7, albumin 2.8, globulin 3.2, A/G ratio 1.2. MEDICATIONS: Reviewed. No new medications added since yesterday. IMPRESSION AND PLAN: Diabetes mellitus, cardiomyopathy with ejection fraction 20% to 25%, history of renal failure, portal hypertension, sleep apnea syndrome, chronic obstructive lung disease, congestive heart failure, presently with ascites, lumbar radiculopathy. Pulmonary point of view, continue inhaled bronchodilators, diuretics, afterload reducers, gastric prophylaxis. Presently on Coumadin 5 mg daily. Sleep apnea precaution, keep head elevated at 45 degrees. Gastric proplylaxis. This patient was examined with Dr. Chavira and discussed assessment and plan as described above. Thank you for this consult, and we will follow with you. Lexus Weber APN Farhan Chavira MD [place]
--- NOTE | 2018-03-19 01:56 | PN ---
DATE: 03/18/2018 SUBJECTIVE: The patient is a 57-year-old male. The patient was seen and examined at bedside on 03/18/2018, looking comfortable, abdominal girth decreased, swelling of the leg got better. No shortness of breath. No fever. No chills. No hematuria or hematochezia. No headache. No dizziness. PHYSICAL EXAMINATION: VITAL SIGNS: Blood pressure 148/60, heart rate 90, respiratory rate 18, and pulse 80. HEENT: Head: Normocephalic, atraumatic. Eyes: PERRLA. Extraocular muscles intact. Conjunctivae clear. Nose patent. NECK: Supple. No carotid bruit. No thyromegaly. CHEST: Bilaterally symmetrical. HEART: S1, S2 positive. LUNGS: Clear to auscultation. ABDOMEN: Soft, nontender. No organomegaly. EXTREMITIES: Trace edema. NEUROLOGIC: The patient is awake, alert. Follows simple commands. MEDICATIONS: Aldactone, Brovana, Spiriva, Colace, Coumadin, Cozaar, albuterol, doxycycline, DuoNeb, Ecotrin, Glucophage, potassium, furosemide, Lopressor, Milk of Magnesia, Nicoderm patch, Pepcid, Pulmicort, and Synthroid. ASSESSMENT AND PLAN: Mr. Paul Schwab is a 57-year-old male with hypothyroidism; history of smoking, getting nicotine patch; hypertension; diabetes mellitus; degenerative joint disease; end-stage dilated cardiomyopathy; mild ascites, improving; congestive heart failure, improving; coronary artery disease. Given these findings, we will continue his inotropic therapy as well as intravenous Lasix, anemia. INR was 1.38 done on 03/16/2018, we will repeat INR. Meanwhile, continue present treatment, out of bed physical therapy. We will follow up. Kiki Oliver MD
[2018-03-19] MEDS: DOBUTamine 500mg/250ml D5W 500 MG/250 ML BAG IV PRN ×2 (06:23→15:10)
[2018-03-19] MEDS: Levothyroxine 25 MCG TAB PO SCH (06:23)
[2018-03-19 08:10] LABS: HEMOGLOBIN 9.7 g/dL (14.0-18.0); MEAN CELL VOLUME 72.9 fl (80.0-105.0); MEAN CORPUSCULAR HEMOGLOBIN 21.6 pg (25.0-35.0); MEAN CORPUSCULAR HGB CONC 29.6 g/dl (31.0-37.0); MEAN PLATELET VOLUME 8.7 fl (7.0-11.0); RBC 4.5 10^6/uL (3.5-6.1); RED CELL DISTRIBUTION WIDTH 19.2 % (11.5-14.5); WHITE BLOOD COUNT 4.4 10^3/uL (4.5-11.0)
[2018-03-19 08:19] LABS: INR 1.38
[2018-03-19 08:55] LABS: CALCIUM 9.3 mg/dL (8.4-10.5)
[2018-03-19] MEDS: Potassium Chloride 20 mEq ER Tab PO SCH (09:47)
[2018-03-19] MEDS: Insulin Reg-LOW-Coverage SC SCH ×4 (09:52→21:14)
[2018-03-19] MEDS: DILTIAZEM 90 MG PO SCH (09:53)
[2018-03-19] MEDS: CELECOXIB PO SCH (09:53)
[2018-03-19] MEDS: Arformoterol 15 mcg/2 ml Inh Sol IH SCH ×2 (10:04→20:21)
[2018-03-19] MEDS: Budesonide 0.5 mg/2 ml Inhal Susp UD IH SCH ×2 (10:04→20:21)
--- NOTE | 2018-03-19 14:57 | PN ---
DATE: 03/19/2018 PULMONARY PROGRESS NOTE REFERRING PHYSICIAN: Dr. Oliver. SUBJECTIVE: He is lying in the bed watching TV, feels better. Decreased shortness of breath, decreased abdominal girth, also decreased some leg swelling. No nausea, no vomiting, no diarrhea. OBJECTIVE: VITAL SIGNS: Temperature is 98, heart rate is 82, respiratory rate is 20, blood pressure 110/74, pulse ox is 98% on nasal cannula. HEENT: Moist mucous membrane. Crowded airway. Mallampati score is 4. NECK: Supple. No JVD. LUNGS: Have fair airflow, rhonchi. ABDOMEN: Is distended, has ascites. EXTREMITIES: Still have edema, but a little but decreased. NEUROLOGIC: Awake and follows simple command. MEDICATIONS He is on Aldactone 25 mg twice a day, Brovana inhaled twice a day, Celebrex 1 capsule daily, Colace 100 mg twice a day, Coumadin 5 mg daily, Cozaar 50 mg daily, he is on IV dobutamine, DuoNeb every 6 hours p.r.n., Ecotrin 81 mg daily, metformin 500 mg daily, potassium 20 mEq daily, Lasix 80 mg IV every 12 hours, metoprolol tartrate 25 mg twice a day, Nicoderm patch daily, Pepcid 40 mg daily, budesonide inhaled twice a day, Synthroid 25 mcg daily, Tylenol p.r.n. basis. LABORATORY DATA: Shows hemoglobin 9.7, hematocrit 32.8, WBC 4.4, platelet count is 235. INR 1.38, sodium 135, potassium 4.0, chloride 95, bicarbonate is 12, BUN 28, creatinine 0.7, glucose is 96, calcium 9.3. IMPRESSION AND PLAN: Cardiomyopathy, pulmonary hypertension, diabetes, renal failure, portal hypertension, sleep apnea syndrome, chronic lung disease, history of lumbar radiculopathy. Pulmonary point of view, doing well. Continue high dose of diuretics. Continue dobutamine, sleep apnea precaution, bronchodilator. Elevate lower extremity. Follow up electrolytes in the morning. Thank you and we will follow with you. Farhan Chavira MD
[2018-03-19] MEDS: Enoxaparin 60 mg Syringe SC SCH (17:04)
[2018-03-20] MEDS: DOBUTamine 500mg/250ml D5W 500 MG/250 ML BAG IV PRN ×3 (00:20→12:45)
[2018-03-20] MEDS: Levothyroxine 25 MCG TAB PO SCH (06:35)
[2018-03-20] MEDS: Enoxaparin 60 mg Syringe SC SCH ×2 (06:35→17:59)
[2018-03-20] MEDS: Insulin Reg-LOW-Coverage SC SCH ×4 (07:30→22:08)
[2018-03-20 07:38] LABS: INR 1.3
[2018-03-20] MEDS: Arformoterol 15 mcg/2 ml Inh Sol IH SCH ×2 (07:52→20:05)
[2018-03-20] MEDS: Budesonide 0.5 mg/2 ml Inhal Susp UD IH SCH ×2 (07:52→20:05)
[2018-03-20 07:56] LABS: ALB/GLOB RATIO 1.1 (1.1-1.8); ALBUMIN 4.1 g/dL (3.0-4.8); CALCIUM 9.5 mg/dL (8.4-10.5)
--- NOTE | 2018-03-20 08:40 | PN ---
CARDIOLOGY FOLLOWUP DATE: 03/19/2018 SUBJECTIVE: The patient is without shortness of breath. His abdominal girth has dramatically decreased from admission. OBJECTIVE: VITAL SIGNS: Blood pressure is 110/74, heart rate in the 80s. NECK: Negative JVD. LUNGS: Without rales. HEART: S1, S2. EXTREMITIES: Without edema. ABDOMEN: Decreased abdominal girth. LABORATORY DATA: Hemoglobin is 9.7. Potassium is 4, BUN and creatinine is 28 and 1.7. IMPRESSION: 1. Acute systolic congestive heart failure. 2. Marked ascites which is improved. 3. Severe dilated cardiomyopathy. 4. Obesity. 5. Resolution of dyspnea. 6. Renal insufficiency. PLAN: Given these findings, we will continue the IV Lasix as well as the IV ionotropic therapy. We will begin tapering tomorrow. Alexandru Carrillo MD
--- NOTE | 2018-03-20 08:56 | PN ---
DATE: 03/19/2018 SUBJECTIVE: The patient is a 57-year-old male. The patient was seen and examined at the bedside on 03/19/2018; looking comfortable. No fever. No chills. No hematuria, hematochezia and swelling of the leg. No chest. No headache. No dizziness.. Abdominal girth is decreasing in size. Swelling of the leg is getting better. PHYSICAL EXAMINATION: VITAL SIGNS: Temperature 98, heart rate 82, respiratory rate 20, blood pressure 110/74, and pulse oxymetry 98% on nasal cannula. HEENT: Head is normocephalic, atraumatic. Eyes, PERRLA. Extraocular muscles intact. Conjunctivae clear. Nose patent. Mucous membranes moist. NECK: Supple. No carotid bruits. No JVD, thyromegaly. CHEST: Bilaterally symmetrical. HEART: S1 and S2 positive. LUNGS: Clear to auscultation. ABDOMEN: Soft, distended, but decreased in the size. EXTREMITIES: Still have edema, but we will start her on lasix NEUROLOGIC: Cranial nerves II through XII grossly intact. MEDICATIONS: 1. Celebrex. 2. Colace. 3. Coumadin. 4. Cozaar. 5. DuoNeb. 6. Ecotrin. 5. Metformin. 6. Potassium. 7. Lasix. 8. Metoprolol. 9. Nicoderm patch. LABORATORY DATA: Hemoglobin 9.7, hematocrit 32.8, white blood cells 4.4, and platelets 235. INR 1.38. Sodium 135, potassium 4.0, and glucose 96. ASSESSMENT AND PLAN: The patient is a 57-year-old male with pulmonary hypertension and diabetes mellitus not very well controlled, cardiomyopathy, renal failure, reporting hypertension, sleep apnea syndrome, chronic obstructive lung disease, history of lumber radiculopathy, obesity, has a history of heavy smoking, still smoking. Has no high doses of diuretics as the patient is getting continued vitamin. Gastrointestinal and deep venous thrombosis prophylaxis, elevation of lower extremities. Repeat labs. We will followup. Kiki Oliver MD [facility]
--- NOTE | 2018-03-20 09:09 | PN ---
DATE: 03/17/2018 SUBJECTIVE: This is a 57-year-old male. The patient was seen and examined at the bedside on 03/17/2018. He is feeling better, tightness of the abdomen is better, swelling of the leg is better, shortness of breath is better. No fever. No chills. No hematuria. No hematochezia. No headache or dizziness. PHYSICAL EXAMINATION: VITAL SIGNS: Temperature 97.9, pulse 83, respirations 20, blood pressure 140/80, pulse oximetry 96. HEENT: Head: Normocephalic and atraumatic. Eyes: PERRLA. Extraocular muscles are intact. Conjunctivae clear. Nose patent. NECK: Supple. No carotid bruit or thyromegaly. CHEST: Bilaterally symmetrical. HEART: S1 and S2 positive. LUNGS: Clear to auscultation. ABDOMEN: Soft. Bowel sounds present. No organomegaly. EXTREMITIES: No edema. No cyanosis. NEUROLOGIC: The patient is awake and alert. Moving all four extremities. No focal deficit. MEDICATIONS: Tylenol, DuoNeb, Brovana, Ecotrin, Pulmicort, Colace, Coumadin, Aldactone, Celebrex, Lopressor, Glucophage, milk of magnesia, Cozaar, Synthroid. LABORATORY DATA: White blood cells 5.1, hemoglobin 10.2, hematocrit 33.5, platelet 248. Sodium 137, potassium 4.2, BUN 27, creatinine 1.7, glucose 111. ASSESSMENT AND PLAN: The patient is a 57-year-old male with anemia, hyperglycemia, history of congestive heart failure, dilated cardiomyopathy, atrial fibrillation on Coumadin, hypertension, diabetes mellitus, chronic obstructive pulmonary disease, hypothyroidism, ascites getting better, getting IV diuresis. The patient is very noncompliant with medications, getting now IV Lasix . We will continue as per customer marketing manager. most likely due to IV Lasix. Continue to monitor kidney function test. We will check PT/INR. Continue Coumadin. Still smoking. Nicotine patch given. Sleep apnea, do not want to use CPAP at night. Damage Inside Adjuster on that case trying to convenience him, but the patient is refusing. Advised to be compliant with medications, CPAP, and not smoking. We will followup. Kiki Oliver MD [facility] # [id number] [place]
[2018-03-20] MEDS: Potassium Chloride 20 mEq ER Tab PO SCH (11:11)
[2018-03-20] MEDS: CELECOXIB PO SCH (11:11)
[2018-03-20] MEDS: DILTIAZEM 90 MG PO SCH (11:15)
--- NOTE | 2018-03-20 12:05 | PN ---
PULMONARY PROGRESS NOTE DATE: 03/20/2018 SUBJECTIVE: The patient is laying in bed. No acute distress. No overnight events reported. Reports feeling well. This morning, just tired. No headache, rhinitis, reports decreased cough, shortness of breath has improved, no chest pain, abdominal pain, nausea, vomiting, or diarrhea. Reports decreased leg swelling and abdominal swelling. PHYSICAL EXAMINATION: GENERAL: No acute distress. VITAL SIGNS: Blood pressure 129/77, pulse 92 and temperature 97.4, oxygen saturation 94%. HEENT: Moist mucous membranes. Crowded airway. Mallampati score of 4. NECK: Supple. No JVD. LUNGS: Few rhonchi bilaterally. ABDOMEN: Obese, soft. Positive bowel sounds. + ascites improved EXTREMITIES: Bilateral lower extremity has improved NEUROLOGIC: Awake, alert, verbal, and follows simple commands. MEDICATION: Reviewed. Tylenol 650 mg every 4 hours as needed for moderate pain, DuoNeb 3 mL inhalation every 6 hours as needed, Brovana 15 mcg every 12 hours, aspirin 81 mg p.o. daily, Pulmicort 0.5 mg inhalation every 12 hours, Dobutamine 500 mg every 8 hours, Colace 100 mg twice a day, 50 mg subcutaneous every 12 hours, Pepcid 40 mg at bedtime, Lasix 80 mg IV push twice a day, Humulin R sliding scale, Synthroid 25 mcg daily, Cozaar 50 mg p.o. daily, milk of magnesia 30 mL p.o. daily as needed, metformin 500 mg p.o. daily, metoprolol tartrate 25 mg twice a day, nicotine patch daily, Celebrex 1 cap daily, potassium chloride 20 mEq in the morning, 25 mg twice a day, and Coumadin 5 mg daily. LABORATORY DATA: Reviewed. PT 59, INR 1.30. Sodium 136, potassium 4.4, chloride 98, carbon dioxide 28, anion gap 15, BUN 37, and creatinine 1.7. GFR 42, POC glucose 122, random glucose 105. Calcium 9.5, total bilirubin 1.5, AST 21, ALT 15, alkaline phosphatase 127, total protein 8.0, albumin 4.1, globulin 3.9 and albumin-globulin ratio 1.1. WBC 5.1, RBC 4.54, hemoglobin 10.2, hematocrit 33.5 and platelets 248. IMPRESSION AND PLAN: Cardiomyopathy, pulmonary hypertension, diabetes, renal failure, portal hypertension, sleep apnea syndrome, chronic lung disease, and history of lumbar radiculopathy. Pulmonary point of view, the patient is doing well. Continue diuretics, Dobutamine, inhaled bronchodilators, gastric prophylaxis, and deep vein thrombosis prophylaxis. Sleep apnea precautions, head of bed elevated 45 degrees. The patient presently continues to refuse CPAP machine for sleep apnea syndrome. Need to monitor the patient for cardiac arrhythmias. Need to monitor electrolytes. This patient was seen and examined with Dr. Chavira. Discussed assessment and plan as described above. Thank you for this consult and we will follow with you. Harry Pickett APN Farhan Chavira MD [id number]
--- NOTE | 2018-03-20 14:02 | CP.PCM.APN ---
Subjective - Date & Time of Evaluation Time of Evaluation: 10:00 - Subjective Subjective: 57 year old male, with past medical history of CHF,dilated cardiomyopathy,atrial fibrillation, hypertension, diabetes and COPD, presents to the Emergency department complaining of abdominal distention since yesterday. Patient states possible distention of abdomen secondary to fluid retention and reports similar symptoms in the past with multiple hospital visits. Patient denies any associa kody abdominal pain but reports shortness of breath. Patient informs taking diuretic medication with no improvement to symptoms. Patient complains of dyspnea at rest and productive cough with yellow-tinged sputum. Pt. seen and examined. Noted to be resting comfortabley. Denied shortness of breath, denied chest pain. Review of Systems - Constitutional Constitutional: As Per HPI - EENT Eyes: As Per HPI Ears: As Per HPI - Cardiovascular Cardiovascular: Leg Edema - Respiratory Respiratory: As Per HPI - Gastrointestinal Additional comments: Abdomen distention has improved. - Musculoskeletal Musculoskeletal: Back Pain - Neurological Neurological: As Per HPI Objective - Vital Signs/Intake and Output Vital Signs (last 24 hours): Temp Pulse Resp BP Pulse Ox 97.4 F L 98 H 20 102/60 94 L 03/20/18 06:00 03/20/18 11:11 03/20/18 06:00 03/20/18 11:11 03/20/18 06:00 Intake and Output: 03/20/18 03/20/18 06:59 18:59 Intake Total 480 Output Total 5250 Balance -4770 - Medications Medications: Current Medications Acetaminophen (Tylenol 325mg Tab) 650 mg PO Q6H PRN PRN Reason: Pain, moderate (4-7) Last Admin: 03/17/18 09:45 Dose: 650 mg Albuterol/Ipratropium (Duoneb 3 Mg/0.5 Mg (3 Ml) Ud) 3 ml IH [id number] PRN PRN Reason: Shortness of Breath Last Admin: 03/18/18 14:21 Dose: 3 ml Arformoterol Tartrate (Brovana) 15 mcg IH [id number] [facility] Last Admin: 03/20/18 07:52 Dose: 15 mcg Aspirin (Ecotrin) 81 mg PO DAILY [facility] Last Admin: 03/20/18 11:12 Dose: 81 mg Budesonide (Pulmicort Respules) 0.5 mg IH [id number] [facility] Last Admin: 03/20/18 07:52 Dose: 0.5 mg Docusate Sodium (Colace) 100 mg PO BID [facility] Last Admin: 03/20/18 11:12 Dose: 100 mg Enoxaparin Sodium (Lovenox) 50 mg SC Q12H [facility]; Protocol Last Admin: 03/20/18 06:35 Dose: 50 mg Famotidine (Pepcid) 40 mg PO HS [facility] Last Admin: 03/19/18 21:14 Dose: 40 mg Furosemide (Lasix) 80 mg IVP BID [facility] Last Admin: 03/20/18 11:10 Dose: 80 mg Home Med (Home Med) 1 unit PO DAILY [facility] Last Admin: 03/20/18 11:15 Dose: Not Given Dobutamine HCl/Dextrose (Dobutamine/Dextrose 5% 500mg/250ml) 500 mg in 250 mls @ 20.412 mls/hr IV .[id number] PRN PRN Reason: Swelling Insulin Human Regular (Humulin R Low) 0 units SC ACHS [facility]; Protocol Last Admin: 03/20/18 12:30 Dose: Not Given Levothyroxine Sodium (Synthroid) 25 mcg PO 0600 [facility] Last Admin: 03/20/18 06:35 Dose: 25 mcg Losartan Potassium (Cozaar) 50 mg PO DAILY [facility] Last Admin: 03/20/18 11:11 Dose: 50 mg Magnesium Hydroxide (Milk Of Magnesia) 30 ml PO DAILY PRN PRN Reason: Constipation Last Admin: 03/17/18 09:45 Dose: 30 ml Metformin HCl (Glucophage) 500 mg PO DAILY [facility] Last Admin: 03/20/18 11:12 Dose: 500 mg Metoprolol Tartrate (Lopressor) 25 mg PO BID [facility] Last Admin: 03/20/18 11:11 Dose: 25 mg Nicotine (Nicoderm Cq) 1 patch TD DAILY [facility] Last Admin: 03/20/18 11:11 Dose: 1 patch Non-Formulary Medication (Celecoxib [Celebrex]) 1 cap PO DAILY [facility] Last Admin: 03/20/18 11:11 Dose: Not Given Potassium Chloride (K-Dur 20 Meq Er Tab) 20 meq PO BRK [facility] Last Admin: 03/20/18 11:11 Dose: 20 meq Spironolactone (Aldactone) 25 mg PO BID [facility] Last Admin: 03/20/18 11:11 Dose: 25 mg Warfarin Sodium (Coumadin) 10 mg PO 1800 [facility]; Protocol Last Admin: 03/19/18 17:05 Dose: 10 mg Warfarin Sodium (Coumadin) 5 mg PO 1800 [facility]; Protocol - Labs Labs: 03/19/18 07:30 03/20/18 07:00 PT 15.0 SECONDS (9.4-12.5) H 03/20/18 07:00 INR 1.30 03/20/18 07:00 APTT 28.4 Seconds (25.1-36.5) 03/14/18 13:07 - Constitutional Appears: Non-toxic - Head Exam Head Exam: NORMAL INSPECTION - Eye Exam Eye Exam: Normal appearance - ENT Exam ENT Exam: Mucous Membranes Moist - Neck Exam Neck Exam: Full ROM - Respiratory Exam Respiratory Exam: Clear to Ausculation Bilateral, NORMAL BREATHING PATTERN - Cardiovascular Exam Cardiovascular Exam: REGULAR RHYTHM - GI/Abdominal Exam GI & Abdominal Exam: Distended, Soft - Rectal Exam Rectal Exam: Deferred - Extremities Exam Extremities Exam: Full ROM, Pedal Edema Additional comments: B/L +2 edema noted - Back Exam Back Exam: Full ROM - Psychiatric Exam Psychiatric exam: Normal Mood - Skin Skin Exam: Dry, Intact Assessment and Plan - Assessment and Plan (Free Text) Assessment: Laboratory Results - last 24 hr 03/19/18 03/19/18 03/20/18 16:36 21:12 07:00 PT 15.0 H INR 1.30 Sodium Potassium Chloride Carbon Dioxide Anion Gap BUN Creatinine Est GFR ( Amer) Est GFR (Non-Af Amer) POC Glucose (mg/dL) 107 119 H Random Glucose Calcium Total Bilirubin AST ALT Alkaline Phosphatase Total Protein Albumin Globulin Albumin/Globulin Ratio 03/20/18 03/20/18 03/20/18 07:00 07:32 11:34 PT INR Sodium 136 Potassium 4.4 Chloride 98 Carbon Dioxide 28 Anion Gap 15 BUN 37 H Creatinine 1.7 H Est GFR ( Amer) 50 Est GFR (Non-Af Amer) 42 POC Glucose (mg/dL) 122 H 149 H Random Glucose 105 Calcium 9.5 Total Bilirubin 1.5 H AST 21 ALT 15 Alkaline Phosphatase 127 H Total Protein 8.0 Albumin 4.1 Globulin 3.9 Albumin/Globulin Ratio 1.1 1. Marked Ascites secondary to CHF- Continue IV Diuresis as per braid pattern setter. 2. Recurrent CHF, acute on chronic, maybe secondary to non-compliance with medications- continue IV Lasix, IV Dobutamine decreased today as per braid pattern setter Will continue to monitor I's and O's, daily weights. Continue 80 mg iv Bid per cardiology 3. End-Stage Dilated Cardiomyopathy- Recs as per Radiation Protection Technician 4. LYDIA, most likely secondary to IV Lasix- continue to monitor kidney function, will trend BUN/Creatinine. 5. Rapid atrial fibrillation- continue Coumadin per cardiology, continue Metoprolol as peR Cardiology 6. Noncompliance with smoking cessation- currently receiving Nicotine patch. 7. Sleep Apnea, maybe secondary to ascites and weight gain, currently refusing CPAP at night, continue Bronchodilators and Duonebs prn per music theory professor. Will continue to monitor closely and follow clinically. Pt. has recommended TCU. Continue to discuss with consultants, and monitor clinical status. Anticipate TCU for rehab once Dobutamine drip is titrated off, pending acceptance.
--- NOTE | 2018-03-20 15:46 | PN ---
CARDIOLOGY FOLLOWUP DATE: 03/20/2018 SUBJECTIVE: The patient is having good diuresis on his present medications. PHYSICAL EXAMINATION: VITAL SIGNS: Blood pressure 102/60 and heart rate in the 90s. NECK: Negative JVD. LUNGS: Without rales. HEART: S1 and S2. ABDOMEN: Decreasing girth. LABORATORY DATA: Hemoglobin is 9.7. Chemistries, potassium is 4.4. IMPRESSION: 1. Good diuresis with IV dobutamine and Lasix. 2. End-stage dilated cardiomyopathy. 3. Coronary artery disease. 4. Renal insufficiency. 5. Ascites. Given these findings the patient is doing well. We will start tapering his IV dobutamine. Alexandru Carrillo MD
[2018-03-21] MEDS: DOBUTamine 500mg/250ml D5W 500 MG/250 ML BAG IV PRN (01:15)
--- NOTE | 2018-03-21 03:48 | PN ---
DATE: 03/20/2018 SUBJECTIVE: The patient was seen and examined at bedside on 03/20/2018. Looking comfortable. No fevers. No chills. Abdominal girth is getting better. Swelling of the legs is getting better. Looks a little bit angry on the staff that why at 10:00 p.m. his blood sugar was done, I explained to him, then is fine. No hematuria or hematochezia. PHYSICAL EXAMINATION: VITAL SIGNS: Blood pressure 129/77, pulse oximetry 92, temperature 97.4, oxygen saturation 94. HEENT: Head normocephalic, atraumatic. Eyes; PERRLA. Extraocular muscles are intact. Conjunctivae clear. Nose patent. Mucous membranes moist. NECK: Supple. No carotid bruits. No thyromegaly. CHEST: Bilaterally symmetrical. HEART: S1 and S2 positive. LUNGS: A few rhonchi bilaterally. ABDOMEN: Obese and soft. Bowel sounds positive. Abdominal girth is decreasing in size. is positive. EXTREMITIES: Decreased edema, getting better. NEUROLOGIC: Awake, alert, oriented x3; not obeying simple orders. MEDICATIONS: Tylenol, DuoNeb, Brovana, aspirin, Pulmicort, daptomycin, Colace, insulin, Synthroid, metformin, metoprolol, nicotine, Celebrex, potassium. ASSESSMENT AND PLAN: Mr. Paul Schwab is a 57-year-old male with cardiomyopathy, pulmonary hypertension, diabetes mellitus, renal failure, portal hypertension, sleep apnea syndrome, chronic obstructive pulmonary disease, history of lumbar radiculopathy, history of heavy smoking. Plan is to continue diuretics, dobutamine, inhaled bronchodilators, gastric prophylaxis, deep vein thrombosis prophylaxis. Length of time discussion done with the patient, tried to educate him for CPAP but says he is noncompliant. Gastrointestinal and deep venous thrombosis prophylaxis. Repeat labs. We will follow up. Kiki Oliver MD
[2018-03-21] MEDS: Enoxaparin 60 mg Syringe SC SCH ×2 (05:29→17:48)
[2018-03-21] MEDS: Levothyroxine 25 MCG TAB PO SCH (05:29)
[2018-03-21 07:00] LABS: INR 1.39; PROTHROMBIN TIME 16.1 SECONDS (9.4-12.5)
[2018-03-21] MEDS: Budesonide 0.5 mg/2 ml Inhal Susp UD IH SCH ×2 (07:17→20:40)
[2018-03-21] MEDS: Arformoterol 15 mcg/2 ml Inh Sol IH SCH ×2 (07:17→20:40)
[2018-03-21 07:38] LABS: ALB/GLOB RATIO 1.2 (1.1-1.8); ALBUMIN 4.4 g/dL (3.0-4.8); CALCIUM 9.8 mg/dL (8.4-10.5)
[2018-03-21] MEDS: Insulin Reg-LOW-Coverage SC SCH ×4 (08:14→22:32)
[2018-03-21] MEDS: Potassium Chloride 20 mEq ER Tab PO SCH (08:26)
[2018-03-21] MEDS: CELECOXIB PO SCH (09:57)
[2018-03-21] MEDS: DILTIAZEM 90 MG PO SCH (09:58)
--- NOTE | 2018-03-21 12:24 | PN ---
DATE: 03/21/2018 REFERRING PHYSICIAN: Kiki Oliver MD SUBJECTIVE: The patient is sitting up at bedside, in no acute distress. No overnight events reported. The patient reports feeling well today. No reported cough or shortness of breath. No rhinitis, chest pain, abdominal pain, nausea, vomiting, diarrhea, or leg pain reported. The patient does report decrease in leg and abdominal swelling. OBJECTIVE: VITAL SIGNS: Blood pressure 122/55, pulse 96, temperature 98.4, oxygen saturation 98% on room air. GENERAL: No acute distress. HEENT: Moist mucous membranes. Crowded airway. Mallampati score is 4. NECK: Supple. No JVD. LUNGS: Clear bilaterally. No audible wheeze. ABDOMEN: Obese, soft. Positive bowel sounds. EXTREMITIES: Bilateral lower extremity edema, improving. NEUROLOGIC: Awake, alert, verbal, follows commands. MEDICATIONS Reviewed. Tylenol 650 mg every 6 hours p.r.n. for moderate pain, DuoNeb 3 mL inhalation every 6 hours p.r.n., Brovana 15 mcg inhalation every 12 hours, aspirin 81 mg p.o. daily, Pulmicort 0.5 mg inhalation every 12 hours, dobutamine 500 mg every 12 hours, Colace 100 mg twice a day, Lovenox 50 mg twice a day, Pepcid 40 mg at bedtime, Lasix 80 mg twice a day, Humulin R sliding scale, Synthroid 25 mcg daily, Cozaar 50 mg daily, Milk of Magnesia 30 mL daily p.r.n., metformin 500 mg daily, metoprolol tartrate 25 mg twice a day, nicotine patch daily, Celebrex 1 cap daily, K-Dur 20 mEq with breakfast, spironolactone 25 mg twice a day, Coumadin 5 mg daily. LABORATORY DATA: Reviewed. PT is 16.1, INR 1.39. Sodium 137, potassium 4.3, chloride 94, carbon dioxide 30, anion gap 17, BUN 42, creatinine 1.9, GFR 37, POC glucose 93, random glucose 112, calcium 9.8, phosphorus 4.6, magnesium 2.1, total bilirubin 1.4, AST 18, ALT 19, alkaline phosphatase 126, total protein 8.1, albumin 4.4, globulin 3.8, albumin-globulin ratio 1.2. IMPRESSION AND PLAN: Cardiomyopathy, pulmonary hypertension, diabetes, renal failure, portal hypertension, sleep apnea syndrome, chronic lung disease, history of lumbar radiculopathy. From pulmonary point of view, the patient is doing well. Continue diuretics, dobutamine, inhaled bronchodilators, gastric prophylaxis, deep vein thrombosis prophylaxis, sleep apnea precautions, head of bed elevated to 45 degrees. The patient continues to refuse CPAP machine for sleep apnea syndrome. Monitor the patient for cardiac arrhythmias. Need to monitor electrolytes closely. This patient was seen and examined with Dr. Chavira. Discussed assessment and plan as described above. Thank you for this consult and we will follow with you. Harry Pickett APN Farhan Chavira MD [facility]
[2018-03-21] MEDS ORDERED: DOBUTamine 500mg/250ml D5W 500 MG/250 ML BAG IV PRN ×2 (13:13→13:44)
[2018-03-21] MEDS: Magnesium Hydroxide Susp 30 ml UD PO PRN (16:10)
--- NOTE | 2018-03-21 16:18 | CP.PCM.APN ---
Subjective - Date & Time of Evaluation Date of Evaluation: 03/21/18 Time of Evaluation: 10:40 - Subjective Subjective: 57 year old male, with past medical history of CHF,dilated cardiomyopathy,atrial fibrillation, hypertension, diabetes and COPD, presents to the Emergency department complaining of abdominal distention since prior to admission . Patient states possible distention of abdomen secondary to fluid retention and reports similar symptoms in the past with multiple hospital visits. Patient denies any associated abdominal pain but reports shortness of breath. Patient informs taking diuretic medication with no improvement to symptoms. Patient complains of dyspnea at rest and productive cough with yellow-tinged sputum. Pt. seen and examined. Noted to be resting comfortabley. Denied shortness of breath, denied chest pain, weakness or dizziness. Review of Systems - Review of Systems All systems: reviewed and no additional remarkable complaints except - Constitutional Constitutional: As Per HPI - EENT Eyes: As Per HPI Ears: As Per HPI Nose/Mouth/Throat: As Per HPI - Cardiovascular Cardiovascular: As Per HPI - Respiratory Respiratory: As Per HPI, Other - Gastrointestinal Gastrointestinal: Bloating - Genitourinary Genitourinary: As Per HPI - Musculoskeletal Musculoskeletal: As Per HPI - Integumentary Integumentary: As Per HPI - Neurological Neurological: As Per HPI Objective - Vital Signs/Intake and Output Vital Signs (last 24 hours): Temp Pulse Resp BP Pulse Ox 98 F 84 18 116/60 98 03/21/18 12:00 03/21/18 14:05 03/21/18 12:00 03/21/18 14:05 03/21/18 00:01 Intake and Output: 03/21/18 03/21/18 06:59 18:59 Intake Total 1735 Output Total 3500 Balance -1765 - Medications Medications: Current Medications Acetaminophen (Tylenol 325mg Tab) 650 mg PO Q6H PRN PRN Reason: Pain, moderate (4-7) Last Admin: 03/17/18 09:45 Dose: 650 mg Albuterol/Ipratropium (Duoneb 3 Mg/0.5 Mg (3 Ml) Ud) 3 ml IH [id number] PRN PRN Reason: Shortness of Breath Last Admin: 03/18/18 14:21 Dose: 3 ml Arformoterol Tartrate (Brovana) 15 mcg IH [id number] [facility] Last Admin: 03/21/18 07:17 Dose: 15 mcg Aspirin (Ecotrin) 81 mg PO DAILY [facility] Last Admin: 03/21/18 09:57 Dose: 81 mg Budesonide (Pulmicort Respules) 0.5 mg IH [id number] [facility] Last Admin: 03/21/18 07:17 Dose: 0.5 mg Docusate Sodium (Colace) 100 mg PO BID [facility] Last Admin: 03/21/18 09:57 Dose: 100 mg Enoxaparin Sodium (Lovenox) 50 mg SC 0600,1800 [facility]; Protocol Last Admin: 03/21/18 05:29 Dose: 50 mg Famotidine (Pepcid) 40 mg PO HS [facility] Last Admin: 03/20/18 22:00 Dose: 40 mg Furosemide (Lasix) 80 mg IVP BID [facility] Last Admin: 03/21/18 09:58 Dose: 80 mg Home Med (Home Med) 1 unit PO DAILY [facility] Last Admin: 03/21/18 09:58 Dose: Not Given Dobutamine HCl/Dextrose (Dobutamine/Dextrose 5% 500mg/250ml) 500 mg in 250 mls @ 8.757 mls/hr IV .Q24H PRN PRN Reason: Swelling Last Admin: 03/21/18 14:05 Dose: 8.757 mls/hr Insulin Human Regular (Humulin R Low) 0 units SC ACHS [facility]; Protocol Last Admin: 03/21/18 11:54 Dose: Not Given Levothyroxine Sodium (Synthroid) 25 mcg PO 0600 [facility] Last Admin: 03/21/18 05:29 Dose: 25 mcg Losartan Potassium (Cozaar) 50 mg PO DAILY [facility] Last Admin: 03/21/18 09:57 Dose: 50 mg Magnesium Hydroxide (Milk Of Magnesia) 30 ml PO DAILY PRN PRN Reason: Constipation Last Admin: 03/21/18 16:10 Dose: 30 ml Metformin HCl (Glucophage) 500 mg PO DAILY [facility] Last Admin: 03/21/18 09:58 Dose: 500 mg Metoprolol Tartrate (Lopressor) 25 mg PO BID [facility] Last Admin: 03/21/18 09:57 Dose: 25 mg Nicotine (Nicoderm Cq) 1 patch TD DAILY [facility] Last Admin: 03/21/18 09:59 Dose: 1 patch Non-Formulary Medication (Celecoxib [Celebrex]) 1 cap PO DAILY [facility] Last Admin: 03/21/18 09:57 Dose: Not Given Potassium Chloride (K-Dur 20 Meq Er Tab) 20 meq PO BRK [facility] Last Admin: 03/21/18 08:26 Dose: 20 meq Spironolactone (Aldactone) 25 mg PO BID [facility] Last Admin: 03/21/18 09:56 Dose: 25 mg Warfarin Sodium (Coumadin) 5 mg PO 1800 [facility]; Protocol Last Admin: 03/20/18 17:43 Dose: Not Given - Labs Labs: 03/19/18 07:30 03/21/18 06:00 PT 16.1 SECONDS (9.4-12.5) H 03/21/18 06:00 INR 1.39 03/21/18 06:00 APTT 28.4 Seconds (25.1-36.5) 03/14/18 13:07 - Constitutional Appears: Well - Head Exam Head Exam: NORMAL INSPECTION - Eye Exam Eye Exam: Normal appearance Pupil Exam: NORMAL ACCOMODATION - ENT Exam ENT Exam: Mucous Membranes Moist - Respiratory Exam Respiratory Exam: Clear to Ausculation Bilateral, NORMAL BREATHING PATTERN - Cardiovascular Exam Cardiovascular Exam: Irregular Rhythm, +S1, +S2 - GI/Abdominal Exam GI & Abdominal Exam: Distended, Soft, Normal Bowel Sounds - Rectal Exam Rectal Exam: Deferred - Extremities Exam Extremities Exam: Pedal Edema Additional comments: +1-+2 b/l lower extremity edema noted. - Back Exam Back Exam: NORMAL INSPECTION - Neurological Exam Neurological Exam: Alert, Awake, Oriented x3 - Psychiatric Exam Psychiatric exam: Normal Affect, Normal Mood - Skin Skin Exam: Normal Color, Warm Assessment and Plan - Assessment and Plan (Free Text) Assessment: 1. Marked Ascites secondary to CHF- Continue IV Diuresis as per manufacturing engineer. Ascites improved, Dobutamine titrated down to 2.5 mcg as per manufacturing engineer, continue IV Lasix per manufacturing engineer. 2. Recurrent CHF, acute on chronic, maybe secondary to non-compliance with medications- continue IV Lasix, IV Dobutamine decreased today as per cardiol ogist Will continue to monitor I's and O's, daily weights. Continue 80 mg iv Bid per cardiology 3. End-Stage Dilated Cardiomyopathy- Recs as per Machine Stacker 4. LYDIA, most likely secondary to IV Lasix- continue to monitor kidney function, will trend BUN/Creatinine. 5. atrial fibrillation- with rate controlled on current medications, continue Coumadin per cardiology, continue Metoprolol as peR Cardiology 6. Noncompliance with smoking cessation- currently receiving Nicotine patch. 7. Sleep Apnea, maybe secondary to ascites and weight gain, currently refusing CPAP at night, continue Bronchodilators and Duonebs prn per process laboratory specialist. Will continue to monitor closely and follow clinically. Pt. has recommended TCU. Continue to discuss with consultants, and monitor clinical status. Anticipate TCU for rehab once Dobutamine drip is titrated off, pending acceptance.
--- NOTE | 2018-03-21 18:32 | PN ---
DATE: 03/21/2018 SUBJECTIVE: The patient's breathing is clear. His abdominal girth has decreased. PHYSICAL EXAMINATION: VITAL SIGNS: Blood pressure 118/63, heart rate is in the 60s. NECK: Negative JVD. LUNGS: Without rales. HEART: Reveals S1, S2. EXTREMITIES: Without edema. ABDOMEN: His abdominal girth has decreased. LABORATORY DATA: BUN and creatinine is 42 and 1.9, potassium is 4.3. IMPRESSION: 1. Severe dilated cardiomyopathy. 2. Improvement of his ascites with IV dobutamine. 3. Coronary artery disease. 4. Renal insufficiency. 5. Dyspnea is resolved. Given these findings, we will taper his dobutamine to 2.5 with hopes of decreasing by tomorrow. Alexandru Carrillo MD
[2018-03-22] MEDS: Levothyroxine 25 MCG TAB PO SCH (05:54)
[2018-03-22] MEDS: Enoxaparin 60 mg Syringe SC SCH ×2 (05:54→18:05)
[2018-03-22 06:04] VITALS: O2SAT 98
[2018-03-22] MEDS: Insulin Reg-LOW-Coverage SC SCH ×3 (07:37→16:49)
[2018-03-22] MEDS: Potassium Chloride 20 mEq ER Tab PO SCH (07:37)
[2018-03-22] MEDS: Budesonide 0.5 mg/2 ml Inhal Susp UD IH SCH (08:02)
[2018-03-22] MEDS: Arformoterol 15 mcg/2 ml Inh Sol IH SCH (08:02)
[2018-03-22 08:15] LABS: INR 1.41; PROTHROMBIN TIME 16.3 SECONDS (9.4-12.5)
[2018-03-22 08:29] LABS: ALB/GLOB RATIO 1.1 (1.1-1.8); ALBUMIN 4.7 g/dL (3.0-4.8); CALCIUM 9.9 mg/dL (8.4-10.5)
--- NOTE | 2018-03-22 09:06 | PN ---
DATE: 03/21/2018 SUBJECTIVE: The patient was seen and examined at the bedside, looking comfortable. No fever. No chills. No hematemesis. No hematochezia. No swelling of the leg. No headache or dizziness. Abdominal girth is decreasing, shortness of breath is decreasing, cough is getting better. PHYSICAL EXAMINATION: VITALS: Temperature 98.4, pulse 97, respiratory rate 18, blood pressure 110/67. HEENT: Normocephalic and atraumatic. Eyes: PERRLA. Extraocular muscles intact. Conjunctivae clear. Nose patent. NECK: Supple. No carotid bruit. No JVD or thyromegaly. CHEST: Bilaterally symmetrical. HEART: S1 and S2 positive. LUNGS: Positive wheezing bilaterally. ABDOMEN: Soft. Nontender. No organomegaly. Fluid thrill is positive. EXTREMITIES: Trace edema. NEUROLOGIC: The patient is awake and alert. Follows simple commands. MEDICATIONS: Aldactone, Brovana, Celebrex, Colace, Coumadin, Cozaar, DuoNeb, Ecotrin, Glucophage, insulin, potassium, Lasix, Lopressor, Lovenox, milk of magnesia, Nicoderm, Pepcid, Pulmicort, Synthroid, Tylenol. LABORATORY DATA: We do not have lab today but reviewed old labs. Glucose is 129, 102, 93. ASSESSMENT AND PLAN: The patient is a 57-year-old male with leukopenia, anemia, hypochloremia, renal insufficiency, hyperglycemia, hyperphosphatemia, abnormal liver function test, seen by the survey compiler, Dr. Alexandru Carrillo, severe dilated cardiomyopathy, improvement in ascites with intravenous dobutamine, coronary artery disease, dyspnea is getting better, getting a dobutamine to hopes of decreasing by tomorrow as per survey compiler, seen by the mortgage lender and nurse practitioner, The patient has history of atrial fibrillation, is on Coumadin, hypertension, chronic obstructive pulmonary disease, atrial fibrillation rate is controlled on current medication. The patient is noncompliant with smoking and getting medications. He always has problem with of medication and not taking medication regularly, sleep apnea syndrome. Continue monitoring the patient. Recommending TCU if the patient will go and the patient will stay there. Last time, he signed against medical advice from TCU. We will follow up. Kiki Oliver MD [facility] # [id number] [place]
[2018-03-22] MEDS: DILTIAZEM 90 MG PO SCH (11:00)
[2018-03-22] MEDS: CELECOXIB PO SCH (11:00)
--- NOTE | 2018-03-22 12:42 | PN ---
DATE: 03/22/2018 PULMONARY PROGRESS NOTE REFERRING PHYSICIAN: Kiki Oliver MD SUBJECTIVE: The patient is lying in bed. No acute distress. No overnight events reported. No headache, rhinitis, cough, shortness of breath, chest pain, abdominal pain, nausea, vomiting or diarrhea reported. No leg pain reported. Abdominal and leg swelling have improved. PHYSICAL EXAMINATION: GENERAL: No acute distress. VITAL SIGNS: Blood pressure 114/75, pulse 93, temperature 97.8 and oxygen saturation 98% on room air. HEENT: Moist mucous membranes. Crowded airway. Mallampati score is 4. NECK: Supple. No JVD. LUNGS: Clear bilaterally. No audible wheeze. ABDOMEN: Obese, soft and nontender. No distention. Positive bowel sounds. EXTREMITIES: +1 edema in lower extremities. NEUROLOGICAL: Awake, alert, verbal and follows commands. MEDICATIONS: Reviewed. Tylenol 650 mg every 6 hours p.r.n. for moderate pain, DuoNeb 3 mL inhalation every 6 hours p.r.n., Brovana 15 mcg every 12 hours, aspirin 81 mg daily, Pulmicort 0.5 mg every 12 hours, Colace 100 mg twice a day, Lovenox 50 mg twice a day, Pepcid 40 mg at bedtime, Lasix 40 mg twice a day, Humulin R sliding scale, Synthroid 25 mcg daily, Cozaar 50 mg daily, Milk of Magnesia 30 mL daily p.r.n., metformin 500 mg p.o. daily, metoprolol tartrate 25 mg twice a day, nicotine patch daily, Celebrex 1 cap daily, potassium chloride 20 mEq with breakfast, Aldactone 25 mg twice a day, Coumadin 10 mg daily. LABORATORY DATA: Reviewed. PT 16.6, INR 1.41. Sodium 138, potassium 4.6, chloride 96, carbon dioxide 32, anion gap 15, BUN 49, creatinine 2, GFR 34 and random glucose 96. Calcium 9.9, phosphorus 4.2, magnesium 2.6. Total bilirubin 1.4, AST 34, ALT 24, alkaline phosphatase 153, total protein 9.1, albumin 4.7, globulin 4.4, albumin-globulin ratio of 1.1. IMPRESSION AND PLAN: Cardiomyopathy, pulmonary hypertension, diabetes, renal failure, portal hypertension, sleep apnea syndrome, chronic lung disease, history of lumbar radiculopathy. Pulmonary point of view, the patient is doing well. Continue diuretics, dobutamine, inhaled bronchodilators, gastric prophylaxis and deep venous thrombosis prophylaxis. Head of bed elevated to 45 degrees and sleep apnea precautions. The patient continues to refuse continuous positive airway pressure machine for sleep apnea syndrome. Need to continue to monitor electrolytes closely. Will decrease lasix once base weight is obtained. This patient was seen and examined with Dr. Chavira. Discussed assessment and plan as described above. Thank you for this consult and we will follow with you. Harry PrudencTANG randall Farhan Chavira MD [place]
--- NOTE | 2018-03-22 13:54 | PN ---
DATE: 03/22/2018 SUBJECTIVE: The patient's breathing is stable. His abdominal girth has decreased. PHYSICAL EXAMINATION: VITAL SIGNS: Blood pressure 109/60, the heart rate is in the 90s. NECK: Negative JVD. LUNGS: Without rales. HEART: Reveal S1, S2. ABDOMEN: Decreased. LABORATORY DATA: INR is 1.41, BUN and creatinine is 49 and 2, hemoglobin is 9.7. IMPRESSION: 1. Marked ascites. 2. End-stage dilated cardiomyopathy. 3. Atrial fibrillation. 4. Obesity. PLAN: Given these findings, we will stop his IV dobutamine today, change his Lasix to p.o. We will discontinue telemetry today. From a cardiac perspective, the patient can be discharged. Alexandru Carrillo MD
--- NOTE | 2018-03-22 16:04 | CP.PCM.APN ---
Objective - Vital Signs/Intake and Output Vital Signs (last 24 hours): Temp Pulse Resp BP Pulse Ox 97.8 F 93 H 19 114/75 98 03/22/18 06:00 03/22/18 10:54 03/22/18 06:00 03/22/18 10:55 03/22/18 06:00 Intake and Output: 03/22/18 03/22/18 06:59 18:59 Intake Total 2265 Output Total 2200 Balance 65 - Medications Medications: Current Medications Acetaminophen (Tylenol 325mg Tab) 650 mg PO Q6H PRN PRN Reason: Pain, moderate (4-7) Last Admin: 03/17/18 09:45 Dose: 650 mg Albuterol/Ipratropium (Duoneb 3 Mg/0.5 Mg (3 Ml) Ud) 3 ml IH [id number] PRN PRN Reason: Shortness of Breath Last Admin: 03/18/18 14:21 Dose: 3 ml Arformoterol Tartrate (Brovana) 15 mcg IH [id number] [facility] Last Admin: 03/22/18 08:02 Dose: 15 mcg Aspirin (Ecotrin) 81 mg PO DAILY [facility] Last Admin: 03/22/18 10:54 Dose: 81 mg Budesonide (Pulmicort Respules) 0.5 mg IH [id number] [facility] Last Admin: 03/22/18 08:02 Dose: 0.5 mg Docusate Sodium (Colace) 100 mg PO BID [facility] Last Admin: 03/22/18 10:54 Dose: 100 mg Enoxaparin Sodium (Lovenox) 50 mg SC 0600,1800 [facility]; Protocol Last Admin: 03/22/18 05:54 Dose: 50 mg Famotidine (Pepcid) 40 mg PO HS [facility] Last Admin: 03/22/18 03:13 Dose: Not Given Furosemide (Lasix) 40 mg PO BID [facility] Last Admin: 03/22/18 11:16 Dose: Not Given Home Med (Home Med) 1 unit PO DAILY [facility] Last Admin: 03/22/18 11:00 Dose: Not Given Insulin Human Regular (Humulin R Low) 0 units SC ACHS [facility]; Protocol Last Admin: 03/22/18 12:31 Dose: 1 unit Levothyroxine Sodium (Synthroid) 25 mcg PO 0600 [facility] Last Admin: 03/22/18 05:54 Dose: 25 mcg Losartan Potassium (Cozaar) 50 mg PO DAILY [facility] Last Admin: 03/22/18 10:53 Dose: 50 mg Magnesium Hydroxide (Milk Of Magnesia) 30 ml PO DAILY PRN PRN Reason: Constipation Last Admin: 03/21/18 16:10 Dose: 30 ml Metformin HCl (Glucophage) 500 mg PO DAILY [facility] Last Admin: 03/22/18 10:54 Dose: 500 mg Metoprolol Tartrate (Lopressor) 25 mg PO BID [facility] Last Admin: 03/22/18 10:54 Dose: 25 mg Nicotine (Nicoderm Cq) 1 patch TD DAILY [facility] Last Admin: 03/22/18 10:55 Dose: 1 patch Non-Formulary Medication (Celecoxib [Celebrex]) 1 cap PO DAILY [facility] Last Admin: 03/22/18 11:00 Dose: Not Given Potassium Chloride (K-Dur 20 Meq Er Tab) 20 meq PO BRK [facility] Last Admin: 03/22/18 07:37 Dose: 20 meq Spironolactone (Aldactone) 25 mg PO BID [facility] Last Admin: 03/22/18 10:54 Dose: 25 mg Warfarin Sodium (Coumadin) 10 mg PO 1800 [facility]; Protocol Stop: 03/22/18 18:01 - Labs Labs: 03/19/18 07:30 03/22/18 07:50 PT 16.3 SECONDS (9.4-12.5) H 03/22/18 07:50 INR 1.41 03/22/18 07:50 APTT 28.4 Seconds (25.1-36.5) 03/14/18 13:07 BPCI/TIC - BPCIA/TIC Flyers given, including CMS Beneficiary letter: Yes Pt/family verbalized understanding & agreed to program: Yes
[2018-03-22 18:05] VITALS: BP 116/71; PULSE 67
[2018-03-22 18:47] VITALS: RESP 20; TEMP 97.9
== END 2018-03-22 19:04 | disposition home or self-care (01) | DRG 291 ==
LOC: ED 11:00 → ERH 14:04 → 2RSO 22:45
PROVIDERS: ADMIT Internal Medicine; ATTEND Internal Medicine
PROC: 3E0F7GC Introduction of Other Therapeutic Substance into Respiratory Tract, Via Natural or Artificial Opening (ICD-10-PCS; principal; 2018-03-15)
DX: I11.0 Hypertensive heart disease with heart failure (principal); I50.21 Acute systolic (congestive) heart failure; R18.8 Other ascites; K76.6 Portal hypertension; J44.9 Chronic obstructive pulmonary disease, unspecified; D64.9 Anemia, unspecified; I48.91 Unspecified atrial fibrillation; E87.6 Hypokalemia; E03.9 Hypothyroidism, unspecified; I42.0 Dilated cardiomyopathy; I27.20 Pulmonary hypertension, unspecified; N19 Unspecified kidney failure; I25.5 Ischemic cardiomyopathy; I25.10 Atherosclerotic heart disease of native coronary artery without angina pectoris; K74.60 Unspecified cirrhosis of liver; M54.16 Radiculopathy, lumbar region; E66.9 Obesity, unspecified; Z68.36 Body mass index [BMI] 36.0-36.9, adult; G47.30 Sleep apnea, unspecified; Z91.14 Patient's other noncompliance with medication regimen; Z91.19 Patient's noncompliance with other medical treatment and regimen; E11.65 Type 2 diabetes mellitus with hyperglycemia; Z79.01 Long term (current) use of anticoagulants; F17.210 Nicotine dependence, cigarettes, uncomplicated

== ENCOUNTER 2018-06-13 09:02 | Inpatient (IN) | payer MEDICARE, OTHER | END 2018-06-16 16:50 | disposition home or self-care (01) | LOC: ED 09:02 → ERH 11:23 → 2RSO 13:02 ==

== ENCOUNTER 2018-08-05 10:09 | Emergency (ER) | payer MEDICARE, OTHER ==
[2018-08-05 10:09] VITALS: PULSE 104
[2018-08-05 10:19] VITALS: BMI 31.6
[2018-08-05 10:28] VITALS: RESP 18
--- NOTE | 2018-08-05 10:47 | ED PDOC ---
Arrival/HPI - General Chief Complaint: Weakness/Neurological Deficit Time Seen by Provider: 08/05/18 10:21 Historian: Patient - History of Present Illness Narrative History of Present Illness (Text): 58 y/o male with PMH of Afib, CHF, COPD, DM presents to the ED for evaluation of right hand spasm. Last night at 10pm, patient experienced a 15 minute episode of isolated right hand spasm without numbness, paresthesias, or weakness. Describes the incident as his hand "not listening to him". Pt states it occurred when he was reaching for a soda can. He shook his right hand multiple times and the spasm resolved on its own without intervention. Pt states he takes is home medications as prescribed. Pt currently denies any physical complaints. Denies trauma/injury, fever, chills, right upper arm or leg or facial numbness/weaknes s/paresthesias, difficulty speaking, difficulty walking, vision changes, dizziness, chest pain, SOB, leg swelling, back pain, neck pain/stiffness, or any other associated symptoms. Past Medical History - Provider Review Nursing Documentation Reviewed: Yes - Infectious Disease Hx of Infectious Diseases: None - Tetanus Immunization Tetanus Immunization: Unknown - Cardiac Hx Cardiac Disorders: Yes (A-fib on coumadin, End stage dilated cardiomyopathy.) Hx Congestive Heart Failure: Yes (Acute systolic CHF,) Hx Hypertension: Yes - Pulmonary Hx Chronic Obstructive Pulmonary Disease (COPD): Yes - Neurological Hx Neurological Disorder: No - HEENT Hx HEENT Disorder: Yes Hx Cataracts: Yes - Renal Hx Renal Disorder: No - Endocrine/Metabolic Hx Diabetes Mellitus Type 2: Yes - Hematological/Oncological Hx Blood Disorders: Yes Hx Anemia: Yes - Integumentary Hx Dermatological Disorder: No - Musculoskeletal/Rheumatological Hx Falls: No - Gastrointestinal Hx Gastrointestinal Disorders: Yes (hemorrhoids) - Genitourinary/Gynecological Hx Genitourinary Disorders: No - Psychiatric Hx Psychophysiologic Disorder: No Hx Substance Use: No - Surgical History Hx Orthopedic Surgery: Yes - Anesthesia Hx Anesthesia: Yes Hx Anesthesia Reactions: Yes Hx Malignant Hyperthermia: No - Suicidal Assessment Feels Threatened In Home Enviroment: No Family/Social History - Physician Review Nursing Documentation Reviewed: Yes Family/Social History: No Known Family HX Smoking Status: Heavy Smoker > 10 Cigarettes Daily Hx Alcohol Use: No Hx Substance Use: No Allergies/Home Meds Allergies/Adverse Reactions: Allergies No Known Allergies Allergy (Verified 06/13/18 11:50) Home Medications: Home Meds Medication Instructions Recorded Confirmed metFORMIN [glucOPHAGE] 500 mg PO BID 08/05/18 08/05/18 Review of Systems - Review of Systems Constitutional: Normal. absent: Fevers Eyes: Normal. absent: Vision Changes ENT: Normal. absent: Sore Throat, Sinus Congestion Respiratory: Normal. absent: SOB, Cough Cardiovascular: Normal. absent: Chest Pain, Palpitations, Syncope Gastrointestinal: Normal. absent: Abdominal Pain, Nausea, Vomiting Musculoskeletal: Normal. absent: Back Pain, Neck Pain Skin: Normal. absent: Rash, Pruritis Neurological: Normal. absent: Headache, Dizziness, Focal Weakness Physical Exam Vital Signs Reviewed: Yes Vital Signs Temp Pulse Resp BP Pulse Ox 08/05/18 10:09 98.2 F 90 18 139/99 H 99 Temperature: Afebrile Blood Pressure: Hypertensive Pulse: Regular Respiratory Rate: Normal Appearance: Positive for: Well-Appearing, Non-Toxic, Comfortable Pain Distress: None Mental Status: Positive for: Alert and Oriented X 3 Finger Stick Blood Glucose: 184 - Systems Exam Head: Present: Atraumatic, Normocephalic Pupils: Present: PERRL Extroacular Muscles: Present: EOMI Conjunctiva: Present: Normal Mouth: Present: Moist Mucous Membranes Neck: Present: Normal Range of Motion Respiratory/Chest: Present: Clear to Auscultation, Good Air Exchange. No: Respiratory Distress, Accessory Muscle Use Cardiovascular: Present: Normal S1, S2, Irregular Rhythm Abdomen: Present: Normal Bowel Sounds. No: Tenderness, Distention, Peritoneal Signs, Rebound, Guarding Upper Extremity: Present: Normal Inspection, Normal ROM, NORMAL PULSES, Neurovascularly Intact, Capillary Refill < 2s. No: Cyanosis, Edema, Tenderness, Swelling, Temperature Abnormalties, Deformity Lower Extremity: Present: Normal Inspection, NORMAL PULSES, Normal ROM, Neurovascularly Intact, Capillary Refill < 2 s. No: Edema, Temperature Abn ormalties Neurological: Present: GCS=15, CN II-XII Intact, Speech Normal, Motor Func Grossly Intact (Strength 5/5 bilaterally), Normal Sensory Function (light touch, pain, and temperature intact bilaterally), Normal Cerebellar Funct, Gait Normal Skin: Present: Warm, Dry, Normal Color. No: Rashes Psychiatric: Present: Alert, Oriented x 3, Normal Insight, Normal Concentration, Normal Affect, Normal Mood Medical Decision Making ED Course and Treatment: 10:48 Contrary to triage, patient did not experience any numbness, weakness, or parethesias in his right hand. States it felt more like a cramp and it was "locked up". Case discussed with ED attending Dr. Torres who recommends basic lab evaluation (CBC, CMP, PT/PTT) without imaging. Low suspicion for TIA/stroke secondary to isolated right hand spasm without upper arm, leg, or face involvement and lack of other neurological symptoms. Initial Plan: * CBC, CMP * Coags 11:[address] Oliver, who recommends followup in office on Tuesday. Asks for refill of medications to last him until followup. 11:45 Bloodwork reviewed, significant for mildly elevated creatinine and BUN, patient has history of elevated creatinine. Also with mild hypokalemia, repleted with 40mEq PO KCl. Bloodwork reviewed with Dr. Torres who recommends no further evaluation with discharge home. Pt to followup in PMD office Tuesday, which pt verbalized understanding of. Patient continues to be well appearing. No focal neurological deficits. 5/5 strength and intact sensation bilaterally to all extremities. No ataxia. No SOB or peripheral edema. O2 saturation normal. Patient provided with 3 day prescription for his home medications. Diagnostic testing results and plan of care discussed with patient. Strict instructions given regarding prescription use, importance of followup, and signs/symptoms to return to ER including chest pain, facial droop, numbness, weakness, paresthesias, or any other new/worsening symptoms. Pt verbalized understanding of discussion. Patient is A&Ox3, ambulating with steady gait, with vital signs stable for discharge. - Lab Interpretations Lab Results: 08/05/18 11:00 08/05/18 11:00 Lab Results 08/05/18 11:00: PT 14.1 H, INR 1.25, APTT 34.7 08/05/18 11:00: Sodium 138, Potassium 3.3 L, Chloride 99, Carbon Dioxide 27, Anion Gap 15, BUN 30 H, Creatinine 1.7 H, Est GFR ( Amer) 50, Est GFR (Non-Af Amer) 41, Random Glucose 151 H, Calcium 9.0, Total Bilirubin 1.0, AST 15 L, ALT < 6 L, Alkaline Phosphatase 72, Total Protein 7.8, Albumin 4.2, Globulin 3.6, Albumin/Globulin Ratio 1.2 08/05/18 11:00: WBC 6.3, RBC 5.03, Hgb 13.1 L D, Hct 40.3 L, MCV 80.1, MCH 26.0, MCHC 32.5, RDW 18.3 H, Plt Count 193, MPV 9.1, Neut % (Auto) 74.7 H, Lymph % (Auto) 13.2 L, Smyth % (Auto) 8.1 H, Eos % (Auto) 3.2, Baso % (Auto) 0.8, Lymph # (Auto) 0.8 L, Smyth # (Auto) 0.5, Eos # (Auto) 0.2, Baso # (Auto) 0.05, Absolute Neuts (auto) 4.69 I have reviewed the lab results: Yes Disposition/Present on Arrival - Present on Arrival Any Indicators Present on Arrival: No History of DVT/PE: No History of Uncontrolled Diabetes: No Urinary Catheter: No History of Decub. Ulcer: No History Surgical Site Infection Following: None - Disposition Have Diagnosis and Disposition been Completed?: Yes Diagnosis: Muscle spasm, Hand or foot spasms Disposition: HOME/ ROUTINE Disposition Time: 12:15 Patient Plan: Discharge Condition: GOOD Discharge Instructions (ExitCare): Muscle Spasms (DC) Additional Instructions: Followup with Dr. Oliver in office on Tuesday Increase fluids Continue home medications Return to ER with any new/worsening symptoms Prescriptions: Furosemide [Lasix] 40 mg PO Q12H 3 Days #6 tablet Losartan [Cozaar] 50 mg PO DAILY #3 tab metFORMIN [glucOPHAGE] 500 mg PO Q12 #6 tab Spironolactone [Aldactone] 25 mg PO Q12 #6 tab Warfarin [Coumadin] 5 mg PO 1800 #3 tab Referrals: Kiki Oliver MD [Family Provider] - Follow up with primary Jatin Morocho MD [Staff Provider] - Follow up with primary Forms: [employer] ([place]), WORK NOTE
[2018-08-05 11:09] LABS: BASO # 0.05 K/mm3 (0.0-2.0); BASO % 0.8 % (0.0-3.0); EOS # 0.2 (0.0-0.7); EOS % 3.2 % (1.5-5.0); HEMOGLOBIN 13.1 g/dL (14.0-18.0); LYMPH # 0.8 (1.2-3.4); LYMPH % 13.2 % (22.0-35.0); MEAN CELL VOLUME 80.1 fl (80.0-105.0); MEAN CORPUSCULAR HGB CONC 32.5 g/dl (31.0-37.0); MEAN PLATELET VOLUME 9.1 fl (7.0-11.0); MONO # 0.5 (0.1-0.6); MONO % 8.1 % (1.0-6.0); RBC 5.03 10^6/uL (3.5-6.1); RED CELL DISTRIBUTION WIDTH 18.3 % (11.5-14.5); WHITE BLOOD COUNT 6.3 10^3/uL (4.5-11.0)
[2018-08-05 11:23] LABS: INR 1.25; PARTIAL THROMBOPLASTIN TIME 34.7 Seconds (26.9-38.3); PROTHROMBIN TIME 14.1 SECONDS (9.4-12.5)
[2018-08-05 11:30] LABS: ALB/GLOB RATIO 1.2 (1.1-1.8); ALBUMIN 4.2 g/dL (3.0-4.8); AST/SGOT 15 U/L (17-59); BLOOD UREA NITROGEN 30 mg/dL (7-21); GFR NON-AFRICAN AMERICAN 41
[2018-08-05] MEDS ORDERED: Potassium Chloride 20 mEq ER Tab PO STA (11:32)
[2018-08-05 11:37] LABS: ALT/SGPT < 6 U/L (7-56)
[2018-08-05 12:16] VITALS: BP 156/75; PULSE 85; TEMP 98; O2SAT 98
== END 2018-08-05 12:19 | disposition home or self-care (01) ==
LOC: ED 10:09
DX: R25.2 Cramp and spasm (principal); E11.9 Type 2 diabetes mellitus without complications; I10 Essential (primary) hypertension; I48.91 Unspecified atrial fibrillation; J44.9 Chronic obstructive pulmonary disease, unspecified; F17.210 Nicotine dependence, cigarettes, uncomplicated; Z79.01 Long term (current) use of anticoagulants